=== PATIENT | female | born 1955 | race Caucasian/White ===

== ENCOUNTER 2019-10-10 13:41 | Outpatient (CLI) | payer MEDICARE, SELFPAY ==
--- NOTE | ~2019-10-10 | CT_ITS ---
EXAMINATION: CT abdomen pelvis wo/w con DATE: 10/10/2019 14:37 INDICATION: Microscopic hematuria TECHNIQUE: Computed tomography (CT) of the abdomen and pelvis was performed without and subsequently with 130 cc Omnipaque 350 intravenous contrast. Automated exposure control and iterative reconstructi on technique were employed. Exam dose: 574.74 mGy-cm total exam DLP. COMPARISON: 12/21/2018 diagnostic right digital mammogram and right breast ultrasound examination FINDINGS: There is discoid atelectasis or more likely scarring at the lung bases. Emphysematous changes of the lungs. 5 mm probable calcified pulmonary granuloma at the posterior lateral left lung base, left lower lobe. Chronic seroma at the posterior aspect of the right breast. Normal heart size. No pericardial or pleural effusion. The liver, gallbladder, bile ducts, spleen, pancreas and pancreatic duct are unremarkable. Normal mor phology of the adrenal glands. There is an approximately 4 x 6 x 5.6 millimeter nonobstructing left renal calculus. No other urinary tract calculus or hydroureteronephrosis. There are several right renal cysts measuring up to approximately 1 cm maximal dimension. No filling defect of the renal collecting systems, ureters or urinary bladder is evident. No urinary bladder wal l thickening. Bilateral ureteral jets. There is extensive calcification of the abdominal aorta and iliac and femoral arteries. No intraperit buchanan or retroperitoneal or pelvic mass lesion or adenopathy or ascites is detected. No bowel obstruction or intraperitoneal free air. Bilateral sacroiliac ankylosis. There is squaring of the anterior cortex of the lower thoracic and upper lumbar vertebral bodies with ossification along the anterior longitudinal ligament. Findings suggest ankylosing spondylitis or si milar spondyloarthropathy. Prominent degenerative disc disease at L3-4. Diffuse osteopenia. IMPRESSION: Up to 6 mm nonobstructing left renal calculus Chronic right breast seroma Emphysema, probable discoid scarring at the lung bases Several renal cysts measuring up to approximately 1 cm Ankylosing spondylitis or similar spondyloarthropathy Reviewed, dictated and finalized at [facility]. Reviewed, dictated and finalized at location B. 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
[2019-10-10 14:17] LABS: Estimated Glomerular Filt Rate > 60
== END 2019-10-10 13:42 | disposition home or self-care (01) ==
LOC: ANHIMG 13:43
PROVIDERS: PCP Internal Medicine; Visit Provider Urology
DX: R31.29 Other microscopic hematuria (principal); N20.0 Calculus of kidney; J43.9 Emphysema, unspecified; N28.1 Cyst of kidney, acquired
CPT/HCPCS: 36415; 74178; Q9967

== ENCOUNTER 2019-11-26 11:16 | Outpatient (CLI) | payer MEDICARE, SELFPAY ==
--- NOTE | ~2019-11-26 | XR_ITS ---
EXAMINATION: XR abdomen/kub 1V INDICATION: Calculus of kidney TECHNIQUE: Supine views of the abdomen were obtained on 2 radiographs. COMPARISON: CT, 10/10/2019 FINDINGS: A 6 mm stone projects in the left kidney lower pole. No additional urinary tract calculi ar e identified. The bowel gas pattern is normal. There is severe lumbar spondylosis. Moderate osteoarth ritis is noted in the hips. IMPRESSION: 1. 6 mm left kidney stone. Reviewed, dictated and finalized at location A. IMPRESSION: 1. 6 mm left kidney stone.
== END 2019-11-26 11:17 | disposition home or self-care (01) ==
LOC: ANHIMG 11:23
PROVIDERS: PCP Internal Medicine; Visit Provider Urology
DX: N20.0 Calculus of kidney (principal)
CPT/HCPCS: 74018

== ENCOUNTER 2019-12-26 09:26 | Outpatient (CLI) | payer MEDICARE, SELFPAY ==
--- NOTE | ~2019-12-26 | XR_ITS ---
XR abdomen/kub 1V DATE: 12/26/2019 09:48 INDICATION: Left renal stone TECHNIQUE: AP projection, 2 views COMPARISON: 11/26/2019 KUB FINDINGS: Persistent approximately 5-6 mm calcified calculus overlying the mid left kidney. This is u nchanged in size, shape and position compared to 11/26/2019. There is a moderately prominent symmetric and well within the colon. No bowel obstruction is evident. The psoas shadows are intact. No visceromegaly is detected. Mild to moderate osteopenia. Degenerative changes of the lumbar spine. IMPRESSION: Persistent approximately 5-6 mm calcified left renal calculus Reviewed, dictated and finalized at [facility]. Reviewed, dictated and finalized at location A.
== END 2019-12-26 09:27 | disposition home or self-care (01) ==
LOC: ANHIMG 09:32
PROVIDERS: PCP Internal Medicine; Visit Provider Nurse Practitioner Adult Health
DX: N20.0 Calculus of kidney (principal)
CPT/HCPCS: 74018

== ENCOUNTER 2020-01-14 07:53 | Outpatient (CLI) | payer MEDICARE, SELFPAY ==
--- NOTE | 2020-01-14 08:16 | ECG_ITS ---
Measurements Intervals Ellery Rate: 68 P: 80 ME: 164 QRS: -53 QRSD: 93 T: 66 QT: 431 QTc: 459 Interpretive Statements SINUS RHYTHM LEFT ANTERIOR FASCICULAR BLOCK CANNOT RULE OUT SEPTAL INFARCT, AGE INDETERMINATE ABNORMAL ECG Electronically Signed On 01-14-2020 8:33:17 CDT by Del Ogden D.O.
== END 2020-01-14 07:54 | disposition home or self-care (01) ==
PROVIDERS: PCP Internal Medicine; Referring Provider Anesthesiology; Visit Provider Urology
DX: N20.0 Calculus of kidney (principal); F17.200 Nicotine dependence, unspecified, uncomplicated; I44.4 Left anterior fascicular block
CPT/HCPCS: 87086; 93005

== ENCOUNTER 2020-01-15 00:10 | Outpatient (CLI) | payer MEDICARE, SELFPAY ==
[2020-01-15 17:33] LABS: SARS-CoV-2 RNA PCR Negative
== END 2020-01-15 00:11 | disposition home or self-care (01) ==
LOC: ANHCOVIDDT 00:11
PROVIDERS: PCP Internal Medicine; Visit Provider Urology
DX: Z01.812 Encounter for preprocedural laboratory examination (principal); Z20.828 Contact with and (suspected) exposure to other viral communicable diseases
CPT/HCPCS: 87635; C9803; U0003

== ENCOUNTER 2020-01-17 01:27 | Day surgery (SDC) | payer MEDICARE, SELFPAY ==
[2020-01-13 18:38] VITALS: BMI 20.7
[2020-01-17] VITALS (8 sets, daily range): BP systolic 135–166; BP diastolic 65–95; PULSE 61–76; RESP 10–17; TEMP 36.6–37; O2SAT 92–100
--- NOTE | ~2020-01-17 | XR_ITS ---
EXAMINATION: XR retrograde pyelo w/stent LT DATE: 01/17/2020 12:46 INDICATION: Left kidney stone. TECHNIQUE: 12 intraoperative fluoroscopic views of the abdomen and pelvis were obtained. I was not p resent. Fluoroscopy exposure time was 47 seconds. COMPARISON: CT abdomen and pelvis 10/10/2019 FINDINGS: There is a parenchymal calcification in left kidney. The final images demonstrate a left in ternal ureteral stent in expected position. IMPRESSION: 1. Parenchyma calcification in left kidney. 2. Left internal ureteral stent in expected position. Reviewed, dictated and finalized at location A.
[2020-01-17] MEDS: LACTATED RINGERS 1,000 ML 30 ML IV CONT (10:10)
--- NOTE | 2020-01-17 10:10 | WPDHPUPDATE1 ---
History and Physical Update Update Date/Time: 01/17/20 10:10 History and Physical has been reviewed, including an updated exam of the patient. There are NO changes in the patient's condition. Risks, benefits, and alternatives have been discussed and questions answered. Patient agrees to proceed with procedure.
--- NOTE | 2020-01-17 10:31 | WPDANESEPPF ---
Anes - Initial Pre Proc Eval Procedure: Operation Date: 01/17/20 12:00 Proposed Procedures p Cystoscopy, Left Ureteroscopy, Left Retrograde Pyelogram - Augusto Terry MD s Holmium Laser Procedure With Stent Placement - Augusto Terry MD Date/Time: 01/17/20 10:31 Surgeon: Augusto Terry MD Pre Op Diagnosis: Left Renal Stone N20.1 Patient Data Age: 64 Gender: F Height: 5 ft 5 in Weight: 56 kg Last Vital Signs Temp 98 F 01/17/20 10:28 Pulse 63 01/17/20 10:28 Resp 16 01/17/20 10:28 BP 146/93 H 01/17/20 10:28 Pulse Ox 95 01/17/20 10:28 Allergies Allergy/AdvReac Type Severity Reaction Status Date / Time No Known Allergies Allergy Verified 01/17/20 09:47 Home Medications Medication Instructions Recorded Confirmed Type albuterol sulfate [Ventolin HFA] 90 mcg INHALATION DIRECTED 07/18/19 01/13/20 History alprazolam 1 mg PO DAILY 07/18/19 01/13/20 History atorvastatin 20 mg PO DAILY 07/18/19 01/13/20 History lamotrigine 100 mg PO BID 07/18/19 01/17/20 History levetiracetam 500 mg PO BID 07/18/19 01/13/20 History quetiapine 200 mg PO DAILY 07/18/19 01/13/20 History trazodone 200 mg PO DAILY 07/18/19 01/13/20 History valacyclovir 500 mg PO DAILY 07/18/19 01/13/20 History venlafaxine 37.5 mg PO DAILY 07/18/19 01/13/20 History baclofen 10 mg tablet 10 mg PO BID #60 tablet 10/08/19 01/13/20 Rx leflunomide 20 mg tablet 20 mg PO DAILY #30 tablet 10/08/19 01/13/20 Rx inpxmsrcmre-wxtvbdpql-uuvnugfs 1 inh INHALATION DAILY 01/13/20 01/17/20 History [Trelegy Ellipta] secukinumab [Cosentyx] 300 mg SUBCUT [id number] 06/08/20 06/08/20 History Patient hx anesthesia problems: none Family hx anesthesia problems: none PMFSH Past Medical History Medical History (Updated 01/17/20 @ 10:31 by Madhu Lucas MD) Ankylosing spondylitis of lumbosacral region (~1980) Anxiety Bipolar 1 disorder COPD (chronic obstructive pulmonary disease) Current smoker Generalized osteoarthritis of multiple sites H/O malignant neoplasm of breast Hypertension Vitamin D deficiency Social History Social History Years smoked: 50 Smoking status: Current every day smoker Alcohol intake: current Gender identity (if verbalized by the patient): Female Anes - Eval Final PreProcedure Day of Procedure 01/17/20 10:31 Patient weight: normal Heart: regular rate and rhythm Lungs: clear to auscultation Airway: Mallampati scale class II Neurological: alert and oriented Last oral intake: >/= 8 hours ASA classification: III Emergent: no Anesthetic plan: proceed Anesthesia type and monitoring: general LMA and standard monitoring Informed Consent: The patient's anesthetic plan and its attendant risks and benefits were discussed with the patient/family/POA. Questions were solicited and answers provided to the satisfaction of the patient/family/POA.
[2020-01-17] MEDS: ceFAZolin 2 GM/D5W 50 ML 2 GM/50 ML BAG IVPB (12:04)
[2020-01-17] MEDS: LIDOCAINE HCL 2% GEL UROJET 10 ML PKG MUCOUS MEM (12:38)
--- NOTE | 2020-01-17 12:46 | PM.PROC ---
Procedure Note - Detailed Date of procedure: 01/17/20 Pre-op diagnosis: Left Renal Stone N20.1 Post-op diagnosis: other (Calculus is outside the collecting system) Procedure performed: Cystoscopy, left retrograde pyelogram, left ureteroscopy, left stent placement Description of procedure: Patient was taken the operative suite and correctly identified. Once anesthesia was obtained she was placed in the dorsal lithotomy position and prepped and draped usual sterile fashion. His 22 Mohawk scope was inserted in the bladder. There are no tumors noted. The left ureteral orifice was cannulated with a Bentson wire. We then dilated with a 10 dilator and placed a ureteral access sheath in. Mini flexible ureteral scope was inserted all way up to the kidney. We inspected every calyx. There were no stones noted. Using fluoroscopy we spent a lot of extra time and found a very somewhat tight mid pole calyx which we put the scope into again there was no stone there. Under fluoroscopy it appeared that the stone was outside the calyx. This was concerned by doing a pyelogram. At this point the procedure was terminated. A 4.8 contour stent was placed with the proximal end coiled in the renal pelvis and the distal in the bladder. 2% viscous lidocaine was inserted urethra patient is taken recovery stable condition. She will follow up in a week's time for stent removal. Anesthesia: GLMA Surgeon: Augusto Terry MD Drains: Yes Packing: No Pathology: none sent Complications: No immediate complications Condition: stable Disposition: PACU
--- NOTE | 2020-01-17 13:36 | SUR.PHASEI ---
[id number] REPORT GIVEN TO Ashley CRESPO RN
[2020-01-17] MEDS: HYOSCYAMINE SULFATE 0.125 MG TABLET PO (13:59)
== END 2020-01-17 14:35 | disposition home or self-care (01) ==
PROVIDERS: PCP Internal Medicine; Visit Provider Urology
PROC: (CPT 52352; principal; 2020-01-17 12:00)
DX: N20.0 Calculus of kidney (principal); J44.9 Chronic obstructive pulmonary disease, unspecified; I10 Essential (primary) hypertension; E55.9 Vitamin D deficiency, unspecified; F31.9 Bipolar disorder, unspecified; F41.9 Anxiety disorder, unspecified; M19.90 Unspecified osteoarthritis, unspecified site; Z85.3 Personal history of malignant neoplasm of breast; F17.200 Nicotine dependence, unspecified, uncomplicated
CPT/HCPCS: 52332; 74420; A9270; C1758; C1769; C1894; C2617; J0690; J1100; J2405; J2704; J3010; J7120; Q9966

== ENCOUNTER 2020-02-04 14:27 | Outpatient (CLI) | payer MEDICARE, SELFPAY ==
--- NOTE | ~2020-02-04 | XR_ITS ---
EXAMINATION: XR abdomen/kub 1V INDICATION: Left ureteral stone, recent lithotripsy TECHNIQUE: Supine views of the abdomen were obtained on 2 radiographs. COMPARISON: 12/26/2019 FINDINGS: An unchanged 6 mm calcification projects in the expected location of the left mid kidney. N o stones are identified in the right kidney or the expected locations of the ureters or bladder. The bowel gas pattern is normal. There are no dilated loops of bowel. The visualized lung bases are clear . IMPRESSION: 1. Likely unchanged 6 mm left kidney stone. Reviewed, dictated and finalized at location A.
== END 2020-02-04 14:28 | disposition home or self-care (01) ==
LOC: ANHIMG 14:32
PROVIDERS: PCP Internal Medicine; Visit Provider Urology
DX: N20.0 Calculus of kidney (principal)
CPT/HCPCS: 74018

== ENCOUNTER 2020-04-10 11:36 | Outpatient (CLI) | payer MEDICARE, SELFPAY ==
[2020-04-10 12:17] LABS: Hematocrit 37.2 % (37.0-47.0); Hemoglobin 12.5 g/dL (12.0-15.0); Mean Corpuscular HGB Conc 33.6 g/dl (32-36); Mean Corpuscular Hemoglobin 31.3 pg (26-34); Mean Platelet Volume 11.1 fl (7.4-10.4); Platelet Count Result 275 k/mm3 (150-375); Red Cell Distribution Width 13.6 % (11.5-14.5); White Blood Count 10.1 K/mm3 (4.5-10.0)
[2020-04-10 13:12] LABS: Alanine Aminotransferase 19 U/L (4-35); Albumin Level 4.4 g/dL (3.5-5.1); Alkaline Phosphatase 91 U/L (38-126); Anion Gap 9 mmol/L (8-16); Aspartate Amino Transferase 27 U/L (14-36); Bilirubin,Total 0.6 mg/dL (0.2-1.3); Blood Urea Nitrogen 13 mg/dL (7-17); CRP < 0.5 mg/dL (<1.0); Calcium 9.6 mg/dL (8.4-10.2); Carbon Dioxide 25 mmol/L (22-30); Chloride 104 mmol/L (98-107); Estimated Glomerular Filt Rate > 60; Glucose 104 mg/dL (65-105); Potassium 4.2 mmol/L (3.4-5.0); Sodium 138 mmol/L (137-145)
[2020-04-10 13:24] LABS: Erythrocyte Sedimentation Rate 26 mm/hr (0-20)
== END 2020-04-10 11:37 | disposition home or self-care (01) ==
PROVIDERS: PCP Internal Medicine; Visit Provider Internal Medicine
DX: M19.90 Unspecified osteoarthritis, unspecified site (principal); M45.7 Ankylosing spondylitis of lumbosacral region
CPT/HCPCS: 36415; 80053; 85027; 85652; 86140

== ENCOUNTER 2020-04-21 13:17 | Outpatient (CLI) | payer MEDICARE, SELFPAY ==
--- NOTE | ~2020-04-21 | MMUS_ITS ---
EXAMINATION: MM diagnostic ysabel BI w bibi, US breast BI complete HISTORY: 6:00 left breast lump TECHNIQUE: ML, MLO and cc 3-D tomosynthesis images of both breasts were performed and synthetic 2-D i mages were generated. Bilateral rotated lateral cc views. CAD analysis was submitted and interpreted. High resolution bilateral complete breast ultrasound was performed. COMPARISON: 06/06/2019 diagnostic left digital mammogram 12/21/2018 diagnostic right digital mammogram / right digital screening mammogram 09/24/2018 diagnostic left digital mammogram 11/23/2017 diagnostic right implant digital mammogram and limited right breast ultrasound 10/27/2017 bilateral digital screening implant mammogram 05/05/2016 bilateral diagnostic implant digital mammogram BREAST PARENCHYMAL COMPOSITION: The breasts are heterogeneously dense, which may obscure small masses . FINDINGS: MAMMOGRAPHIC FINDINGS: There is a large opacity in the area of the previously removed right breast implant, measuring up to 7.4 cm vertical dimension, likely a seroma. There is bilateral architectural distortion. There is a history of right partial mastectomy for breas t cancer in 1996. There are 2 biopsy markers on the left; history of previous benign left breast biop sy. Multiple left benign oil cysts are noted. ULTRASOUND: Bilateral complete breast ultrasound examination was performed. There is a large seroma in the posterior right breast. There are bilateral breast cysts. At 4:00 left breast 2 cm from the nipple there is ill-defined irregular hypoechogenicity with shadowi ng, possibly postoperative change/scarring. Ultrasound-guided biopsy is recommended. At 4:00 left breast 4 cm from the nipple there is a 1.8 cm lobular heterogeneous solid mass; ultrasou nd-guided biopsy is recommended. IMPRESSION: 1. Sonographic abnormalities at left breast 4:00 2 cm from nipple and 4 cm from nipple 2. Ultrasound-guided biopsy recommended at left breast 4:00 2 cm from nipple and 4 cm from nipple BI-RADS category 4, suspicious findings. Reviewed, dictated and finalized at location A. IMPRESSION: 1. Sonographic abnormalities at left breast 4:00 2 cm from nipple and 4 cm from nipple 2. Ultrasound-guided biopsy recommended at left breast 4:00 2 cm from nipple an d 4 cm from nipple BI-RADS category 4, suspicious findings.
--- NOTE | ~2020-04-21 | DEXA_ITS ---
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 Exam Date: April 21, 2020 Accession number: [id number] Bone Density: Region BMD T-score Z-score Classification AP Spine (L1, L2, L3) 1.029 0.1 1.9 Normal Femoral Neck (Left) 0.596 -2.3 -0.7 Osteopenia Total Hip (Left) 0.708 -1.9 -0.6 Osteopenia Total Hip Bilateral Avg 0.705 -2.0 -0.7 Osteopenia Femoral Neck (Right) 0.637 -1.9 -0.3 Osteopenia Total Hip (Right) 0.701 -2.0 -0.7 Osteopenia World Health Organization criteria for BMD impression classify patients as: Normal (T-score at or above -1.0), Osteopenia (T-score between -1.0 and -2.5), or Osteoporosis (T-score at or below -2.5). 10-year Fracture Risk(1): Major Osteoporotic Fracture 19% Hip Fracture 5.9% Reported Risk Factors: [place] (), Neck BMD=0.596, BMI=21.5, previous fracture, smoking (1) FRAX(R) Version 3.08. Fracture probability calculated for an untreated patient. Fracture probability may be lower if the patient has received treatment. Clinical Information Provided by Patient: Has had a low trauma fracture Smokes Has used the following medications: Vitamin D, Calcium Has the following medical conditions: Asthma or Emphysema, Cancer, Hysterectomy Patient maximum height was 65 Menopause Age: 48 No regular weight bearing exercise Drinks caffeinated beverages Onset of menses at age 11 Number of children 3 Impression: The patient has low bone mass, based on the Left Femoral Neck T-score. The patient has an estimated ten-year risk of hip fracture of 5.9% and an estimated ten-year risk of major fracture of 19%, based on the WHO FRAX algorithm. The patient has risk factors, including: smoking, previous fracture. Discussion: BONE DENSITY IS LOW AT ONE OR MORE SKELETAL SITES. THE PATIENT'S BMD AND CLINICAL RISK FACTORS CONTRIBUTE TO THIS PATIENT'S INCREASED RISK OF FRACTURE. This patient's lowest T-score is low at one or more skeletal sites. It meets the World Health Organization's (WHO) criteria for ?low bone mass? (T-score between -1.0 and -2.5). The patient's 10-year risk of hip fracture as calculated by FRAX exceeds the threshold where pharmacological therapy is recommended by the National Osteoporosis Foundation (NOF). However, all treatment decisions require clinical judgment and consideration of individual patient factors, including patient preferences, comorbidities, previous drug use, risk factors not captured in the FRAX model (e.g., frailty, falls, vitamin D deficiency, increased bone turnover, interval significant decline in bone density) a
== END 2020-04-21 13:18 | disposition home or self-care (01) ==
LOC: ANHIMG 13:18
PROVIDERS: PCP Internal Medicine; Visit Provider Nurse Practitioner
DX: Z78.0 Asymptomatic menopausal state (principal); N63.20 Unspecified lump in the left breast, unspecified quadrant; R92.8 Other abnormal and inconclusive findings on diagnostic imaging of breast; M85.852 Other specified disorders of bone density and structure, left thigh; M85.851 Other specified disorders of bone density and structure, right thigh
CPT/HCPCS: 76641; 77062; 77066; 77080; G0279

== ENCOUNTER 2020-04-29 14:08 | Outpatient (CLI) | payer MEDICARE, SELFPAY ==
[2020-04-29 14:27] LABS: Basophils Absolute Auto 0.1 K/mm3 (0.0-0.1); Basophils Percent Auto 0.5 % (0.2-1.2); Eosinophils Absolute Auto 0.1 K/mm3 (0-0.3); Eosinophils Percent Auto 0.7 % (0-4.4); Hematocrit 38.4 % (37.0-47.0); Immature Granulocyte Absolute 0.03 K/mm3 (0.00-0.031); Immature Granulocyte Percent A 0.3 % (0-0.5); Lymphocytes Absolute Auto 2.17 K/mm3 (0.9-3.2); Lymphocytes Percent Auto 19.7 % (18.3-44.2); Mean Corpuscular HGB Conc 33.9 g/dl (32-36); Mean Corpuscular Hemoglobin 32.2 pg (26-34); Mean Platelet Volume 10.7 fl (7.4-10.4); Monocytes Absolute Auto 0.9 K/mm3 (0.1-0.6); Monocytes Percent Auto 8.2 % (2.6-8.5); Neutrophils Absolute Auto 7.8 K/mm3 (1.3-6.7); Neutrophils Percent Auto 70.6 % (45.5-73.1); Platelet Count Result 290 k/mm3 (150-375); Red Blood Count 4.04 M/mm3 (4.2-5.4); Red Cell Distribution Width 14.2 % (11.5-14.5)
[2020-04-29 14:31] LABS: Blood Urea Nitrogen 12 mg/dL (8-26); Carbon Dioxide 24 mmol/L (22-30); Chloride 106 mmol/L (98-109); Estimated Glomerular Filt Rate > 60; Glucose 106 mg/dL (70-105); Potassium 3.5 mmol/L (3.5-4.9); Sodium 141 mmol/L (138-146)
[2020-04-29 17:37] LABS: Alanine Aminotransferase 20 U/L (4-35); Albumin Level 4.8 g/dL (3.5-5.1); Alkaline Phosphatase 94 U/L (38-126); Anion Gap 9 mmol/L (8-16); Aspartate Amino Transferase 30 U/L (14-36); Bilirubin,Total 0.3 mg/dL (0.2-1.3); Blood Urea Nitrogen 13 mg/dL (7-17); Calcium 10.4 mg/dL (8.4-10.2); Carbon Dioxide 24 mmol/L (22-30); Chloride 106 mmol/L (98-107); Estimated Glomerular Filt Rate > 60; Glucose 109 mg/dL (65-105); Potassium 3.8 mmol/L (3.4-5.0); Sodium 139 mmol/L (137-145)
[2020-05-05 13:11] LABS: CA 27.29 15 U/mL (<38)
== END 2020-04-29 14:09 | disposition home or self-care (01) ==
PROVIDERS: PCP Internal Medicine; Visit Provider Internal Medicine Hematology & Oncology
DX: C50.911 Malignant neoplasm of unspecified site of right female breast (principal)
CPT/HCPCS: 36415; 80048; 80053; 85025; 86300

== ENCOUNTER 2020-05-15 13:35 | Outpatient (CLI) | payer MEDICARE, SELFPAY ==
--- NOTE | ~2020-05-15 | MR_ITS ---
EXAMINATION: MR lumbar spine wo/w con, MR sacroiliac jts wo/w con DATE: 05/15/2020 15:42 INDICATION: Ankylosing spondylitis TECHNIQUE: 1. Magnetic resonance imaging (MRI) of the lumbar spine was performed without and with 10 mL Multihan ce intravenous contrast. Sequences included sagittal T2-weighted FSE, sagittal T2-weighted FS FSE, an d sagittal and axial T1-weighted FSE. Postcontrast sequences included axial T2-weighted FSE, sagittal T1-weighted FSE, and axial and sagittal T1-weighted FS FSE. 2. MRI of the sacroiliac joints was performed without and with 10 mL MultiHance intravenous contrast utilizing the same contrast bolus. Sequences included sagittal PD-weighted FS FSE, oblique coronal T2 -weighted FS FSE, oblique coronal T1-weighted SE, oblique coronal T2-weighted FSE, oblique axial T2- weighted FS FSE, oblique axial T1-weighted SE, oblique axial T2-weighted FSE, oblique axial T1-weight ed FS FSE and postcontrast oblique coronal and oblique axial T1-weighted FS FSE. COMPARISON: CT abdomen and pelvis dated 10/10/2019 FINDINGS: Lumbar spine: Mild thoracolumbar levocurvature. Sagittal alignment is normal.. Vertebral body heights are normal. S chmorl's nodes at the anterior and inferior endplates on either side of the L3-L4 disc space. There i s squaring of the anterior margins of the T11-L2 vertebral bodies with intervening thin anterior synd esmophytes evident on prior CT consistent with ankylosing spondylitis. There is prominent region of i ncreased fluid signal and enhancement along the left anterior inferior aspect of the L4 vertebral bod y surrounding small linear region of low signal intensity is a compression fracture line underlying t he left anterior aspect of the inferior endplate. Moderate to severe left-sided predominant disc heig ht loss with fibrovascular degenerative endplate changes at L3-L4. The conus medullaris terminates at L1-L2. There is normal signal in the caudal spinal cord. Paravertebral soft tissues are unremarkable . The following disc levels are specifically discussed: T12-L1: The disc does not extend beyond the endplate margin. Bilateral facet joints are fused. There is no neural foraminal stenosis. There is no central canal stenosis. L1-L2: The disc does not extend beyond the endplate margin. Bilateral facet joints are fused, more ad vanced on the left. There is no neural foraminal stenosis. There is no central canal stenosis. L2-L3: Mild bilateral foraminal disc protrusions. There is hypertrophy of the ligamentum flavum. The re is mild left and moderate right facet joint osteoarthritis. There is mild right and minimal left n eural foraminal stenosis. There is mild central canal stenosis. L3-L4: Disc is bulging with annular fissure. There is hypertrophy of the ligamentum flavum. There is moderate to severe bilateral facet joint osteoarthritis. There is moderate right and mild to moderate left neural foraminal stenosis. There is mild central canal stenosis along with narrowing of the lat eral recesses, right greater than left. L4-L5: Disc is mildly bulging. There is hypertrophy of the ligamentum flavum. There is moderate bilat eral facet joint osteoarthritis. There is moderate bilateral neural foraminal stenosis. There is mild central canal stenosis. L5-S1: Disc is mildly bulging. There is mild to moderate bilateral facet joint osteoarthritis. There is mild right and mild to moderate left neural foraminal stenosis. There is no central canal stenosis . Sacroiliac joints: Alignment is normal. No fracture. There is ankylosis across the bilateral sacroiliac joints. Bone mar row signal is normal. Normal bone marrow signal. Small amount of ascites in the cul-de-sac. Soft tiss ues in the posterior pelvis are unremarkable. No pathologically enlarged pelvic lymphadenopathy. IMPRESSION: 1. Multiple bridging syndesmophytes in the lower thoracic and upper ray
== END 2020-05-15 13:36 | disposition home or self-care (01) ==
LOC: ANHIMG 13:48
PROVIDERS: PCP Internal Medicine; Visit Provider Internal Medicine
DX: M45.7 Ankylosing spondylitis of lumbosacral region (principal)
CPT/HCPCS: 72158; 72197; A9577

== ENCOUNTER 2020-05-19 09:45 | Outpatient (CLI) | payer MEDICARE, SELFPAY ==
--- NOTE | ~2020-05-19 | MMUS_ITS ---
US breast biopsy LT w image, MM post biopsy invasive LT EXAMINATION: US GUIDED NEEDLE BIOPSY WITH VAC UUM ASSISTANCE DATE: 05/19/2020 11:18 CDT INDICATION: Left breast masses seen on prior examination. Ultrasound-guided core biopsy is requested to evaluate for malignancy. TECHNIQUE AND FINDINGS: The risks and potential benefits of the procedure were discussed with the patient, and written inform ed consent was obtained. After sterile preparation of the left breast, 1% lidocaine was utilized for local anesthesia. 1% lidocaine with epinephrine was used for deep anesthesia. 2 separate areas of abnormality are identified in the left breast at 4:00, 2 and 4 cm from the nipple . A 10G vacuum-assisted biopsy gun needle was advanced through to the outer edge of the region of int erest from a lateral approach utilizing sonographic guidance. A total of three tissue core samples w ere obtained from each area of interest. An Inrad tissue marker clips were then placed at the biopsy sites. Hemostasis was achieved. The patient tolerated procedure well and there was no evidence of immediate complication. The patien t was given verbal instructions partly is from the department. Left breast mammograms to document ti ssue marker clip placement. The tissue samples were submitted to surgical pathology for histologic an alysis. IMPRESSION: 1. Successful ultrasound-guided vacuum-assisted biopsies of left breast masses with tissue marker pl acement. Please refer to pathology report for histologic analysis. Reviewed, dictated and finalized at location A. IMPRESSION: 1. Successful ultrasound-guided vacuum-assisted biopsies of left breast masses with tissue marker placement. Please refer to pathology report for histologic analysis.
== END 2020-05-19 09:46 | disposition home or self-care (01) ==
LOC: ANHIMG 09:56
PROVIDERS: PCP Internal Medicine
DX: R92.8 Other abnormal and inconclusive findings on diagnostic imaging of breast (principal); N63.23 Unspecified lump in the left breast, lower outer quadrant
CPT/HCPCS: 19083; 88305; 88342; A4648

== ENCOUNTER 2020-07-03 10:25 | Outpatient (CLI) | payer MEDICARE, SELFPAY ==
[2020-07-03 10:58] LABS: Basophils Absolute Auto 0.1 K/mm3 (0.0-0.1); Basophils Percent Auto 0.7 % (0.2-1.2); Eosinophils Absolute Auto 0.1 K/mm3 (0-0.3); Eosinophils Percent Auto 1.1 % (0-4.4); Hematocrit 37.6 % (37.0-47.0); Hemoglobin 12.3 g/dL (12.0-15.0); Immature Granulocyte Absolute 0.04 K/mm3 (0.00-0.031); Immature Granulocyte Percent A 0.4 % (0-0.5); Lymphocytes Absolute Auto 1.95 K/mm3 (0.9-3.2); Lymphocytes Percent Auto 19.5 % (18.3-44.2); Mean Corpuscular HGB Conc 32.7 g/dl (32-36); Mean Corpuscular Hemoglobin 32.4 pg (26-34); Mean Corpuscular Volume 98.9 fl (80-100); Mean Platelet Volume 11.2 fl (7.4-10.4); Monocytes Percent Auto 10.4 % (2.6-8.5); Neutrophils Absolute Auto 6.8 K/mm3 (1.3-6.7); Neutrophils Percent Auto 67.9 % (45.5-73.1); Platelet Count Result 243 k/mm3 (150-375); Red Cell Distribution Width 14.1 % (11.5-14.5)
[2020-07-03 12:15] LABS: Add Urine Microscopic? YES; Appearance Urine Cloudy (Clear); Bilirubin Urine Negative (Negative); Blood Urine Negative (Negative); Color Urine Yellow (Yellow); Glucose Urine UA Negative (Negative); Ketones Urine Negative (Negative); Leukocyte Esterase Ur Negative LEU/UL (Negative); Mucus Urine Rare /lpf; Nitrate Urine Negative (Negative); Protein Urine Negative (Negative); RBC Urine 0-2 /hpf (0-2); Specific Grav Ur 1.012 (1.001-1.035); Squamous Epithelial Cell Urine Rare /hpf (Few); Urobilinogen Urine Negative mg/dL (<2.0); WBC Urine 0-3 /hpf
[2020-07-03 12:43] LABS: Erythrocyte Sedimentation Rate 22 mm/hr (0-20)
[2020-07-03 12:49] LABS: Alanine Aminotransferase 15 U/L (4-35); Albumin Level 3.9 g/dL (3.5-5.1); Alkaline Phosphatase 82 U/L (38-126); Anion Gap 7 mmol/L (8-16); Aspartate Amino Transferase 26 U/L (14-36); Bilirubin,Total 0.2 mg/dL (0.2-1.3); Blood Urea Nitrogen 15 mg/dL (7-17); Calcium 9.8 mg/dL (8.4-10.2); Carbon Dioxide 26 mmol/L (22-30); Chloride 107 mmol/L (98-107); Estimated Glomerular Filt Rate > 60; Glucose 121 mg/dL (65-105); Potassium 4.1 mmol/L (3.4-5.0); Sodium 140 mmol/L (137-145)
== END 2020-07-03 10:26 | disposition home or self-care (01) ==
PROVIDERS: PCP Internal Medicine; Visit Provider Internal Medicine
DX: M45.7 Ankylosing spondylitis of lumbosacral region (principal); Z79.899 Other long term (current) drug therapy; M06.00 Rheumatoid arthritis without rheumatoid factor, unspecified site
CPT/HCPCS: 36415; 80053; 81001; 85025; 85652

== ENCOUNTER 2020-07-16 10:05 | Outpatient (CLI) | payer MEDICARE, SELFPAY ==
[2020-07-16 10:24] LABS: Basophils Absolute Auto 0.1 K/mm3 (0.0-0.1); Basophils Percent Auto 0.6 % (0.2-1.2); Eosinophils Absolute Auto 0.1 K/mm3 (0-0.3); Eosinophils Percent Auto 0.9 % (0-4.4); Hematocrit 38.9 % (37.0-47.0); Immature Granulocyte Absolute 0.04 K/mm3 (0.00-0.031); Immature Granulocyte Percent A 0.3 % (0-0.5); Lymphocytes Absolute Auto 1.92 K/mm3 (0.9-3.2); Lymphocytes Percent Auto 16.7 % (18.3-44.2); Mean Corpuscular HGB Conc 33.4 g/dl (32-36); Mean Corpuscular Hemoglobin 32.3 pg (26-34); Mean Corpuscular Volume 96.5 fl (80-100); Mean Platelet Volume 11.2 fl (7.4-10.4); Monocytes Percent Auto 8.9 % (2.6-8.5); Neutrophils Absolute Auto 8.4 K/mm3 (1.3-6.7); Neutrophils Percent Auto 72.6 % (45.5-73.1); Platelet Count Result 272 k/mm3 (150-375); Red Blood Count 4.03 M/mm3 (4.2-5.4); Red Cell Distribution Width 13.8 % (11.5-14.5); White Blood Count 11.5 K/mm3 (4.5-10.0)
[2020-07-16 12:22] LABS: Alanine Aminotransferase 15 U/L (4-35); Albumin Level 4.1 g/dL (3.5-5.1); Alkaline Phosphatase 86 U/L (38-126); Anion Gap 10 mmol/L (8-16); Aspartate Amino Transferase 28 U/L (14-36); Bilirubin,Total 0.4 mg/dL (0.2-1.3); Blood Urea Nitrogen 20 mg/dL (7-17); Calcium 9.8 mg/dL (8.4-10.2); Carbon Dioxide 25 mmol/L (22-30); Chloride 106 mmol/L (98-107); Estimated Glomerular Filt Rate > 60; Glucose 124 mg/dL (65-105); Potassium 4.1 mmol/L (3.4-5.0); Sodium 141 mmol/L (137-145)
[2020-07-21 14:05] LABS: CA 15-3 3 U/mL (<32)
== END 2020-07-16 10:06 | disposition home or self-care (01) ==
PROVIDERS: PCP Internal Medicine; Visit Provider Internal Medicine Hematology & Oncology
DX: C50.411 Malignant neoplasm of upper-outer quadrant of right female breast (principal); Z17.0 Estrogen receptor positive status [ER+]
CPT/HCPCS: 36415; 80053; 85025; 86300

== ENCOUNTER 2021-02-10 12:59 | Outpatient (CLI) | payer MEDICARE, SELFPAY ==
[2021-02-10 13:22] LABS: Hematocrit 39.9 % (37.0-47.0); Hemoglobin 13.3 g/dL (12.0-15.0); Mean Corpuscular HGB Conc 33.3 g/dl (32-36); Mean Corpuscular Hemoglobin 32.3 pg (26-34); Mean Corpuscular Volume 96.8 fl (80-100); Mean Platelet Volume 11.5 fl (7.4-10.4); Platelet Count Result 263 k/mm3 (150-375); Red Blood Count 4.12 M/mm3 (4.2-5.4); Red Cell Distribution Width 13.6 % (11.5-14.5); White Blood Count 11.2 K/mm3 (4.5-10.0)
[2021-02-10 13:51] LABS: Add Urine Microscopic? NO; Appearance Urine Clear (Clear); Color Urine Light Yellow (Yellow); Protein Urine Negative (Negative); Specific Grav Ur 1.005 (1.001-1.035)
[2021-02-10 13:52] LABS: Bilirubin Urine Negative (Negative); Blood Urine Negative (Negative); Glucose Urine UA Negative (Negative); Ketones Urine Negative (Negative); Leukocyte Esterase Ur Negative LEU/UL (Negative); Nitrate Urine Negative (Negative); Urobilinogen Urine 0.2 mg/dL (<2.0)
[2021-02-10 16:32] LABS: Erythrocyte Sedimentation Rate 37 mm/hr (0-20)
[2021-02-10 16:55] LABS: Alanine Aminotransferase 15 U/L (4-35); Albumin Level 4.6 g/dL (3.5-5.1); Alkaline Phosphatase 97 U/L (38-126); Anion Gap 9 mmol/L (8-16); Aspartate Amino Transferase 28 U/L (14-36); Bilirubin,Total 0.4 mg/dL (0.2-1.3); Blood Urea Nitrogen 15 mg/dL (7-17); CRP < 0.5 mg/dL (<1.0); Calcium 10.9 mg/dL (8.4-10.2); Carbon Dioxide 25 mmol/L (22-30); Chloride 104 mmol/L (98-107); Estimated Glomerular Filt Rate > 60; Glucose 111 mg/dL (65-105); Potassium 4.1 mmol/L (3.4-5.0); Sodium 138 mmol/L (137-145)
== END 2021-02-10 13:00 | disposition home or self-care (01) ==
LOC: ANHLAB 13:02
PROVIDERS: PCP Internal Medicine; Visit Provider Internal Medicine
DX: M45.7 Ankylosing spondylitis of lumbosacral region (principal); M19.90 Unspecified osteoarthritis, unspecified site
CPT/HCPCS: 36415; 80053; 81003; 85027; 85652; 86140

== ENCOUNTER 2021-02-26 14:06 | Outpatient (CLI) | payer MEDICARE, SELFPAY ==
--- NOTE | ~2021-02-26 | XR_ITS ---
EXAMINATION: XR abdomen/kub 1V EXAM DATE: 02/26/2021 14:34 INDICATION: Left ureteral stone. TECHNIQUE: Frontal projection of the upper abdomen, frontal projection lower abdomen/pelvis for inter pretation. Comparison is made to prior examination from 02/04/2020. FINDINGS: There are 2 round densities measuring about 4 mm each, one projecting over left mid calyces , the other could be over the ureteropelvic junction, if these are genitourinary stones. Nonobstructi ve bowel gas pattern. Mild to moderate bony degenerative changes. There is no organomegaly. IMPRESSION: 2 round densities could be left calyceal, UPJ stones. Reviewed, dictated and finalized at location A.
== END 2021-02-26 14:07 | disposition home or self-care (01) ==
LOC: ANHIMG 14:10
PROVIDERS: PCP Internal Medicine; Visit Provider Internal Medicine
DX: N20.1 Calculus of ureter (principal)
CPT/HCPCS: 74018

== ENCOUNTER 2021-03-02 13:45 | Outpatient (CLI) | payer MEDICARE, SELFPAY ==
--- NOTE | 2021-03-02 14:00 | ECG_ITS ---
Measurements Intervals [place]atzke Rate: 63 P: 80 MO: 161 QRS: -64 QRSD: 90 T: 78 QT: 410 QTc: 422 Interpretive Statements SINUS RHYTHM INCOMPLETE RIGHT BUNDLE BRANCH BLOCK LEFT ANTERIOR FASCICULAR BLOCK BORDERLINE ST-T WAVE ABNORMALITY- HIGH LATERAL LEADS BASELINE ARTIFACT- I, III, AVR, AVL ABNORMAL ECG Electronically Signed On 03-02-2021 16:04:14 CDT by Del Ogden D.O.
[2021-03-02 14:30] LABS: INR 0.9
[2021-03-02 14:31] LABS: Partial Thromboplastin Time 28.2 SECONDS (22.3-36.8)
== END 2021-03-02 13:46 | disposition home or self-care (01) ==
LOC: ANHSURGERY 13:47
PROVIDERS: PCP Internal Medicine; Visit Provider Urology
DX: N20.0 Calculus of kidney (principal); I10 Essential (primary) hypertension; Z01.818 Encounter for other preprocedural examination; I45.10 Unspecified right bundle-branch block; I44.4 Left anterior fascicular block
CPT/HCPCS: 36415; 85610; 85730; 87086; 93005

== ENCOUNTER 2021-03-05 02:55 | Day surgery (SDC) | payer MEDICARE, SELFPAY ==
[2021-03-02 11:39] VITALS: BMI 20.1
[2021-03-05] VITALS (7 sets, daily range): BP systolic 126–163; BP diastolic 75–96; PULSE 64–72; RESP 14–19; TEMP 36.3–36.7; O2SAT 95–100
--- NOTE | ~2021-03-05 | XR_ITS ---
XR abdomen/kub 1V 03/05/2021 09:23 INDICATION: Preop ESWL. Renal stones. TECHNIQUE: KUB COMPARISON: Comparison to multiple prior studies sequentially, with oldest reviewed study dated 11/25. FINDINGS: Bowel gas pattern is normal. There is no evidence of free air, mass, organomegaly, ascites or obstruction. There is a renal stone on the left. The kidneys are largely obscured by overlying brooke wel content. The bones appear intact. IMPRESSION: 1: Left nephrolithiasis. Reviewed, dictated and finalized at location A. IMPRESSION: 1: Left nephrolithiasis.
--- NOTE | 2021-03-05 06:37 | WPDHPUPDATE1 ---
History and Physical Update Update Date/Time: 03/05/21 06:37 History and Physical has been reviewed, including an updated exam of the patient. There are NO changes in the patient's condition. Risks, benefits, and alternatives have been discussed and questions answered. Patient agrees to proceed with procedure.
[2021-03-05] MEDS: LACTATED RINGERS 1,000 ML 30 ML IV CONT (10:07)
[2021-03-05 10:13] LABS: Glucose Point of Care 113 mg/dl (65-105)
--- NOTE | 2021-03-05 10:17 | WPDANESEPPF ---
Anes - Initial Pre Proc Eval Procedure: Operation Date: 03/05/21 11:30 Proposed Procedures p Left Renal Extracorporeal Shock Wave Lithotripsy - Sridhar Chiu MD Date/Time: 03/05/21 10:17 Surgeon: Sridhar Chiu MD Pre Op Diagnosis: left renal stone Patient Data Age: 65 Gender: F Height: 1.65 m Weight: 55 kg Allergies Allergy/AdvReac Type Severity Reaction Status Date / Time No Known Allergies Allergy Verified 03/02/21 11:16 Home Medications Medication Instructions Recorded Confirmed Type albuterol sulfate [Ventolin HFA] 2 puff INHALATION Q4-5H PRN 07/18/19 03/02/21 History alprazolam 1 mg PO QID 07/18/19 03/02/21 History lamotrigine 100 mg PO BID 07/18/19 03/02/21 History levetiracetam 500 mg PO BID 07/18/19 03/02/21 History quetiapine 200 mg PO HS 07/18/19 03/02/21 History trazodone 200 mg PO HS 07/18/19 03/02/21 History venlafaxine 37.5 mg PO QAM 07/18/19 03/02/21 History Trelegy Ellipta 1 inh INHALATION QAM 01/13/20 03/02/21 History secukinumab 150 mg/mL subcutaneous 150 mg SUBCUT [id number] ml 09/01/20 03/02/21 History syringe amlodipine 10 mg tablet 10 mg PO QAM 02/17/21 03/02/21 History cyclopent 1 %-tropicamide 1 1 drp OPHTHALMIC (EYE) Q4-5H 02/17/21 03/02/21 History %-phenylephrine 2.5 %-ketorolac eye drops losartan 50 mg tablet 50 mg PO QAM 02/17/21 03/02/21 History metoprolol tartrate 25 mg tablet 25 mg PO BID tablet 02/17/21 03/02/21 History ofloxacin 0.3 % eye drops 1 drp EACH EYE BID 02/17/21 03/02/21 History prednisolone acetate 1 % eye 2 drp EACH EYE Q12H 02/17/21 03/02/21 History drops,suspension atorvastatin 40 mg PO QAM 03/02/21 03/02/21 History baclofen 10 mg PO QAM 03/02/21 03/02/21 History calcium carbonate-vitamin D3 1 tablet PO BID 03/02/21 03/02/21 History [Calcium + D] geriatric multivitamin-min 1 tablet PO DAILY 03/02/21 03/02/21 History [One-A-Day 50 Plus] hydrocodone-acetaminophen 1 tablet PO Q6-8H PRN 03/02/21 03/02/21 History ibandronate 150 mg PO MONTHLY 03/02/21 03/02/21 History leflunomide 20 mg PO QAM 03/02/21 03/02/21 History quetiapine 50 mg PO BID PRN 03/02/21 03/02/21 History valacyclovir 1,000 mg PO QAM 03/02/21 03/02/21 History vitamin E 1,000 unit PO DAILY 03/02/21 03/02/21 History Laboratory Tests 03/05/21 10:05 POC Capillary Glucose 113 mg/dl H mg/dl (65-105) Patient hx anesthesia problems: none Family hx anesthesia problems: none PMFSH Past Medical History Medical History Ankylosing spondylitis of lumbosacral region (~1980) Anxiety Bipolar 1 disorder COPD (chronic obstructive pulmonary disease) Current smoker Generalized osteoarthritis of multiple sites H/O malignant neoplasm of breast Hypertension Rheumatoid arthritis Rheumatoid arthritis Vitamin D deficiency Family History Family History Sibling Patient's brother is in good health Social History Social History Smoking packs per day: 1 Smoking cigarettes per day: 20.0 Years smoked: 50 Smoking pack-years: 50.00 Smoking status: Current every day smoker Tobacco type: cigarettes Alcohol intake: current Substance use: current Substance use type: marijuana Other substance usage details: MARIJUANA DAILY Living arrangements: with family Additional living arrangements comments: [facility] Gender identity (if verbalized by the patient): Female Spiritual care concerns: No Anes - Eval Final PreProcedure Day of Procedure 03/05/21 10:17 Patient weight: thin Heart: regular rate and rhythm Lungs: decreased breath sounds Airway: Mallampati scale class II Neurological: alert and oriented Last oral intake: >/= 8 hours ASA classification: III Emergent: no Anesthetic plan: proceed Anesthesia type and monitoring: general LMA and standard monitoring Informed Consent: The yanna
[2021-03-05] MEDS: ceFAZolin 2 GM/D5W 50 ML 2 GM/50 ML BAG IVPB (11:07)
--- NOTE | 2021-03-05 11:37 | W.PM.PROC2 ---
Procedure Note - Detailed Date of Procedure 03/05/21 Pre-op Diagnosis Left renal stone Post-op Diagnosis same Procedure Performed Left ESWL Surgeon Sridhar Chiu MD Anesthesia general Description of Procedure The patient was brought to the operative suite where she was placed in the supine position on the Dornier lithotripsy table. The focal point of the lithotripter was first placed at a 5-6mm left mid-pole calculus. A total of 1250 shocks were delivered at a power setting of 4 at that site. We then treated a similar size upper pole stone with an additional 1250 shocks. There appeared to be good fragmentation of the stones. The patient tolerated the procedure well and was taken to the recovery room in good condition. Estimated Blood Loss 0 Drains No Packing No Pathology none sent Complications No immediate complications Condition stable Disposition PACU
[2021-03-05 12:44] LABS: Glucose Point of Care 136 mg/dl (65-105)
--- NOTE | 2021-03-05 13:42 | SUR.PHASEII ---
Patient vitals are stable. Patient is just waiting for Dr. Chiu to sign prescriptions so she can leave.
== END 2021-03-05 13:50 | disposition home or self-care (01) ==
PROVIDERS: PCP Internal Medicine; Visit Provider Urology
PROC: (CPT 50590; principal; 2021-03-05 11:30)
DX: N20.0 Calculus of kidney (principal); J44.9 Chronic obstructive pulmonary disease, unspecified; I10 Essential (primary) hypertension; M06.9 Rheumatoid arthritis, unspecified; E55.9 Vitamin D deficiency, unspecified; M19.90 Unspecified osteoarthritis, unspecified site; F31.9 Bipolar disorder, unspecified; F41.9 Anxiety disorder, unspecified; F17.210 Nicotine dependence, cigarettes, uncomplicated; F12.90 Cannabis use, unspecified, uncomplicated; Z79.51 Long term (current) use of inhaled steroids
CPT/HCPCS: 50590; 74018; 82948; J0690; J2250; J2405; J2704; J3010; J7120

== ENCOUNTER 2021-03-23 11:26 | Outpatient (CLI) | payer MEDICARE, SELFPAY ==
--- NOTE | ~2021-03-23 | XR_ITS ---
XR abdomen/kub 1V DATE: 03/23/2021 11:55 INDICATION: Left ureteral stent TECHNIQUE: AP projection, 2 views COMPARISON: 03/05/2021 KUB 10/10/2019 CT abdomen pelvis. FINDINGS: Again noted is an approximately 4 mm calcified calculus of the mid left kidney. No other urinary tract calculus is noted. There is a prominent amount of fecal material within the colon but no apparent bowel obstruction. There is abdominal aortic and bilateral iliac artery calcification. There is evidence of ankylosing spondylitis with ankylosis at the sacroiliac joints. IMPRESSION: Nonobstructing approximately 4 mm left mid renal calcified calculus is again noted Reviewed, dictated and finalized at Location A. Reviewed, dictated and finalized at location A.
== END 2021-03-23 11:27 | disposition home or self-care (01) ==
LOC: ANHIMG 11:33
PROVIDERS: PCP Internal Medicine; Visit Provider Urology
DX: N20.1 Calculus of ureter (principal)
CPT/HCPCS: 74018

== ENCOUNTER 2021-04-19 09:30 | Outpatient (CLI) | payer MEDICARE, SELFPAY ==
[2021-04-19 09:52] LABS: Hematocrit 35.6 % (37.0-47.0); Mean Corpuscular HGB Conc 33.7 g/dl (32-36); Mean Corpuscular Hemoglobin 33.7 pg (26-34); Mean Platelet Volume 10.9 fl (7.4-10.4); Platelet Count Result 203 k/mm3 (150-375); Red Blood Count 3.56 M/mm3 (4.2-5.4); Red Cell Distribution Width 13.9 % (11.5-14.5); White Blood Count 11.4 K/mm3 (4.5-10.0)
[2021-04-19 10:50] LABS: Basophils Absolute Auto 0.1 K/mm3 (0.0-0.1); Basophils Percent Auto 0.7 % (0.2-1.2); Eosinophils Absolute Auto 0.1 K/mm3 (0-0.3); Eosinophils Percent Auto 1.1 % (0-4.4); Immature Granulocyte Absolute 0.03 K/mm3 (0.00-0.031); Immature Granulocyte Percent A 0.3 % (0-0.5); Lymphocytes Absolute Auto 2.06 K/mm3 (0.9-3.2); Lymphocytes Percent Auto 18.9 % (18.3-44.2); Monocytes Absolute Auto 1.1 K/mm3 (0.1-0.6); Neutrophils Absolute Auto 7.5 K/mm3 (1.3-6.7)
[2021-04-19 12:23] LABS: Add Urine Microscopic? NO; Appearance Urine Clear (Clear); Bilirubin Urine Negative (Negative); Blood Urine Negative (Negative); Color Urine Yellow (Yellow); Glucose Urine UA Negative (Negative); Ketones Urine Negative (Negative); Leukocyte Esterase Ur Negative LEU/UL (Negative); Nitrate Urine Negative (Negative); Protein Urine Negative (Negative); Specific Grav Ur 1.008 (1.001-1.035); Urobilinogen Urine Negative mg/dL (<2.0)
[2021-04-19 12:38] LABS: Alanine Aminotransferase 19 U/L (4-35); Albumin Level 4.4 g/dL (3.5-5.1); Alkaline Phosphatase 76 U/L (38-126); Anion Gap 9 mmol/L (8-16); Aspartate Amino Transferase 50 U/L (14-36); Bilirubin,Total 0.5 mg/dL (0.2-1.3); Blood Urea Nitrogen 22 mg/dL (7-17); CRP < 0.5 mg/dL (<1.0); Calcium 10.2 mg/dL (8.4-10.2); Carbon Dioxide 25 mmol/L (22-30); Chloride 104 mmol/L (98-107); Estimated Glomerular Filt Rate > 60; Glucose 122 mg/dL (65-110); Potassium 4.3 mmol/L (3.4-5.0); Sodium 138 mmol/L (137-145)
[2021-04-19 13:07] LABS: Erythrocyte Sedimentation Rate 25 mm/hr (0-20)
[2021-04-22 06:22] LABS: CA 15-3 7 U/mL (<32)
== END 2021-04-19 09:31 | disposition home or self-care (01) ==
PROVIDERS: Internal Medicine Hematology & Oncology; PCP Internal Medicine; Visit Provider Internal Medicine
DX: C50.411 Malignant neoplasm of upper-outer quadrant of right female breast (principal); M45.7 Ankylosing spondylitis of lumbosacral region; Z17.0 Estrogen receptor positive status [ER+]
CPT/HCPCS: 36415; 80053; 81003; 85025; 85027; 85652; 86140; 86300

== ENCOUNTER 2021-04-26 13:39 | Outpatient (CLI) | payer MEDICARE, SELFPAY ==
--- NOTE | ~2021-04-26 | MM_ITS ---
EXAMINATION: MM diagnostic ysabel BI w bibi HISTORY: Previous right breast cancer. History of bilateral benign breast biopsies. TECHNIQUE: ML, MLO and craniocaudal 3-D tomosynthesis images of both breasts were performed and synth etic 2-D images were generated. CAD analysis was submitted and interpreted. COMPARISON: 04/21/2020 bilateral diagnostic digital mammogram and bilateral complete breast ultrasound 06/06/2019 diagnostic left mammogram and limited left breast ultrasound 12/21/2018 diagnostic right mammogram and complete right breast ultrasound 11/30/2018right screening mammogram 09/14/2018 diagnostic left mammogram and complete left breast ultrasound 10/27/2017 bilateral implant digital screening mammogram examinations BREAST PARENCHYMAL COMPOSITION: The breasts are heterogeneously dense, which may obscure small masses . FINDINGS: Again noted is a large posterior right stroma. There are 2 biopsy markers on the left. History of multiple prior benign left breast biopsy. Scattered bilateral benign breast calcifications. Multiple areas of fat necrosis on the left. No interval suspicious mass or new architectural distortion or new retraction of either breast is det ected. IMPRESSION: 1. Status post right partial mastectomy for breast cancer. No current evidence of malignancy. Bilater al benign breast mammographic findings. 2. Routine annual mammographic screening is recommended, with any additional evaluation as deemed cli nically appropriate in this patient with history of right breast cancer BI-RADS Category 2: Benign finding(s). Reviewed, dictated and finalized at location A. IMPRESSION: 1. Status post right partial mastectomy for breast cancer. No current evidence of malignancy. Bilateral benign breast mammographic findings. 2. Routine annual mammographic screening is recommended, with any additional ev aluation as deemed clinically appropriate in this patient with history of right breast cancer BI-RADS Category 2: Benign finding(s).
== END 2021-04-26 13:40 | disposition home or self-care (01) ==
LOC: ANHIMG 13:42
PROVIDERS: PCP Internal Medicine; Visit Provider Internal Medicine Hematology & Oncology
DX: C50.411 Malignant neoplasm of upper-outer quadrant of right female breast (principal); Z17.0 Estrogen receptor positive status [ER+]
CPT/HCPCS: 77062; 77066; G0279

== ENCOUNTER 2021-09-28 09:09 | Outpatient (CLI) | payer MEDICARE, SELFPAY ==
--- NOTE | ~2021-09-28 | XR_ITS ---
EXAMINATION: XR abdomen/kub 1V INDICATION: Left ureteral stone TECHNIQUE: Supine views of the abdomen were obtained on 2 radiographs. COMPARISON: 03/23/2021 FINDINGS: A 4 mm stone in the left kidney lower pole is unchanged. No additional urolithiasis is iden tified. The bowel gas pattern is normal. There is moderate osteoarthritis of the hips. The visualized lung bases are clear. IMPRESSION: 1. Unchanged left nephrolithiasis. Reviewed, dictated and finalized at location F. CUTTER DIAMOND
== END 2021-09-28 09:10 | disposition home or self-care (01) ==
LOC: ANHIMG 09:10
PROVIDERS: PCP Internal Medicine; Visit Provider Urology
DX: N20.0 Calculus of kidney (principal)
CPT/HCPCS: 74018

== ENCOUNTER 2021-10-29 10:28 | Outpatient (CLI) | payer MEDICARE, SELFPAY ==
[2021-10-29 11:06] LABS: Hematocrit 39.6 % (37.0-47.0); Hemoglobin 12.9 g/dL (12.0-15.0); Mean Corpuscular HGB Conc 32.6 g/dl (32-36); Mean Corpuscular Hemoglobin 32.8 pg (26-34); Mean Corpuscular Volume 100.8 fl (80-100); Mean Platelet Volume 11.3 fl (7.4-10.4); Platelet Count Result 267 k/mm3 (150-375); Red Blood Count 3.93 M/mm3 (4.2-5.4); Red Cell Distribution Width 13.1 % (11.5-14.5); White Blood Count 13.4 K/mm3 (4.5-10.0)
[2021-10-29 11:58] LABS: Alanine Aminotransferase 21 U/L (4-35); Albumin Level 4.6 g/dL (3.5-5.1); Alkaline Phosphatase 86 U/L (38-126); Anion Gap 8 mmol/L (8-16); Aspartate Amino Transferase 29 U/L (14-36); Bilirubin,Total 0.3 mg/dL (0.2-1.3); Blood Urea Nitrogen 17 mg/dL (7-17); CRP 0.6 mg/dL (<1.0); Calcium 9.8 mg/dL (8.4-10.2); Carbon Dioxide 27 mmol/L (22-30); Chloride 105 mmol/L (98-107); Estimated Glomerular Filt Rate > 60; Glucose 133 mg/dL (65-110); Potassium 3.8 mmol/L (3.4-5.0); Sodium 140 mmol/L (137-145)
[2021-10-29 12:04] LABS: Add Urine Microscopic? YES; Appearance Urine Cloudy (Clear); Bilirubin Urine Negative (Negative); Blood Urine Negative (Negative); Color Urine Yellow (Yellow); Glucose Urine UA Negative (Negative); Ketones Urine Negative (Negative); Leukocyte Esterase Ur Negative LEU/UL (Negative); Nitrate Urine Negative (Negative); Protein Urine Negative (Negative); RBC Urine 0-2 /hpf (0-2); Specific Grav Ur 1.009 (1.001-1.035); Squamous Epithelial Cell Urine Rare /hpf (Few); Urobilinogen Urine Negative mg/dL (<2.0); WBC Urine 0-3 /hpf
[2021-10-29 12:17] LABS: Erythrocyte Sedimentation Rate 22 mm/hr (0-20)
== END 2021-10-29 10:29 | disposition home or self-care (01) ==
PROVIDERS: PCP Internal Medicine; Visit Provider Internal Medicine
DX: M45.7 Ankylosing spondylitis of lumbosacral region (principal); M19.90 Unspecified osteoarthritis, unspecified site; F17.200 Nicotine dependence, unspecified, uncomplicated
CPT/HCPCS: 36415; 80053; 81001; 85027; 85652; 86140

== ENCOUNTER 2022-03-02 09:18 | Outpatient (CLI) | payer MEDICARE, SELFPAY ==
--- NOTE | ~2022-03-02 | XR_ITS ---
EXAMINATION: XR hip BI wo pelvis INDICATION: Right hip pain TECHNIQUE: Two views of each hip are obtained. COMPARISON: 04/23/2018 FINDINGS: Bone alignment is normal. There is no fracture. There is mild osteoarthritis of the hips. IMPRESSION: 1. Mild osteoarthritis without acute osseous abnormality. Reviewed, dictated and finalized at location B.
[2022-03-02 10:23] LABS: Hemoglobin 12.4 g/dL (12.0-15.0); Mean Corpuscular HGB Conc 31.8 g/dl (32-36); Mean Corpuscular Hemoglobin 30.9 pg (26-34); Mean Corpuscular Volume 97.3 fl (80-100); Platelet Count Result 328 k/mm3 (150-375); Red Blood Count 4.01 M/mm3 (4.2-5.4); Red Cell Distribution Width 14.8 % (11.5-14.5)
[2022-03-02 10:39] LABS: Appearance Urine Clear (Clear); Bilirubin Urine Negative (Negative); Blood Urine Negative (Negative); Color Urine Amber (Yellow); Glucose Urine UA Negative (Negative); Ketones Urine Negative (Negative); Leukocyte Esterase Ur Negative LEU/UL (Negative); Nitrate Urine Negative (Negative); Protein Urine Negative (Negative); Urobilinogen Urine 0.2 mg/dL (<2.0); pH Urine 6.5 (5.0-9.0)
[2022-03-02 10:39] LABS: Alanine Aminotransferase 22 U/L (6-35); Albumin Level 4.7 g/dL (3.5-5.1); Alkaline Phosphatase 88 U/L (38-126); Anion Gap 12 mmol/L (8-16); Aspartate Amino Transferase 27 U/L (14-36); Bilirubin,Total 0.4 mg/dL (0.2-1.3); Blood Urea Nitrogen 14 mg/dL (7-17); CRP < 0.5 mg/dL (<1.0); Calcium 9.8 mg/dL (8.4-10.2); Carbon Dioxide 25 mmol/L (22-30); Chloride 103 mmol/L (98-107); Estimated Glomerular Filt Rate > 60; Glucose 153 mg/dL (65-110); Potassium 3.9 mmol/L (3.4-5.0); Sodium 140 mmol/L (137-145)
[2022-03-02 11:50] LABS: Erythrocyte Sedimentation Rate 31 mm/hr (0-20)
[2022-03-02 11:55] LABS: Add Urine Microscopic? NO
== END 2022-03-02 09:19 | disposition home or self-care (01) ==
LOC: ANHLAB 09:22
PROVIDERS: PCP Internal Medicine; Visit Provider Internal Medicine
DX: M16.11 Unilateral primary osteoarthritis, right hip (principal); M25.552 Pain in left hip; F17.200 Nicotine dependence, unspecified, uncomplicated; M45.7 Ankylosing spondylitis of lumbosacral region; M19.90 Unspecified osteoarthritis, unspecified site
CPT/HCPCS: 36415; 73521; 80053; 81003; 85027; 85652; 86140

== ENCOUNTER 2022-06-16 09:29 | Outpatient (CLI) | payer MEDICARE, SELFPAY ==
--- NOTE | ~2022-06-16 | MM_ITS ---
EXAMINATION: MM screening ysabel BI w bibi HISTORY: Screening mammogram TECHNIQUE: Craniocaudal and mediolateral oblique 3-D tomosynthesis images were obtained and synthetic 2-D images were generated. Bilateral rotated lateral CC views. CAD analysis was submitted and interp reted. COMPARISON: 04/26/2021 bilateral diagnostic mammography BREAST PARENCHYMAL COMPOSITION: The breasts are heterogeneously dense, which may obscure small masses . FINDINGS: Status post right partial mastectomy for breast cancer Multiple biopsy markers on the left; history of prior benign multiple left breast biopsies. There is no interval evidence of suspicious mass, calcification, or new architectural distortion to s uggest recurrent or new malignancy in either breast. There has been no suspicious interval change. IMPRESSION: 1. Status post right partial mastectomy for breast cancer. No mammographic evidence of malignancy. 2. Recommend routine screening mammography in one year. BI-RADS Category 2: Benign finding(s). Reviewed, dictated and finalized at location A. 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 Status post right partial mastectomy for breast cancer. No mammographic evid ence of malignancy. 2. Recommend routine screening mammography in one year. BI-RADS Category 2: Benign finding(s).
== END 2022-06-16 09:30 | disposition home or self-care (01) ==
PROVIDERS: PCP Internal Medicine; Visit Provider Internal Medicine Hematology & Oncology
DX: Z12.31 Encounter for screening mammogram for malignant neoplasm of breast (principal)
CPT/HCPCS: 77063; 77067

== ENCOUNTER 2022-06-16 09:55 | Outpatient (CLI) | payer MEDICARE, SELFPAY ==
[2022-06-16 10:13] LABS: Basophils Absolute Auto 0.1 K/mm3 (0.0-0.1); Basophils Percent Auto 0.7 % (0.2-1.2); Eosinophils Absolute Auto 0.2 K/mm3 (0-0.3); Eosinophils Percent Auto 1.4 % (0-4.4); Hematocrit 38.1 % (37.0-47.0); Hemoglobin 12.8 g/dL (12.0-15.0); Immature Granulocyte Absolute 0.05 K/mm3 (0.00-0.031); Immature Granulocyte Percent A 0.4 % (0-0.5); Lymphocytes Absolute Auto 2.66 K/mm3 (0.9-3.2); Lymphocytes Percent Auto 21.7 % (18.3-44.2); Mean Corpuscular HGB Conc 33.6 g/dl (32-36); Mean Corpuscular Hemoglobin 31.8 pg (26-34); Mean Corpuscular Volume 94.5 fl (80-100); Mean Platelet Volume 10.2 fl (7.4-10.4); Monocytes Absolute Auto 1.2 K/mm3 (0.1-0.6); Monocytes Percent Auto 9.4 % (2.6-8.5); Neutrophils Absolute Auto 8.1 K/mm3 (1.3-6.7); Neutrophils Percent Auto 66.4 % (45.5-73.1); Platelet Count Result 280 k/mm3 (150-375); Red Blood Count 4.03 M/mm3 (4.2-5.4); White Blood Count 12.3 K/mm3 (4.5-10.0)
[2022-06-16 10:56] LABS: Appearance Urine Clear (Clear); Bilirubin Urine Negative (Negative); Blood Urine Negative (Negative); Color Urine Yellow (Yellow); Glucose Urine UA Negative (Negative); Ketones Urine Negative (Negative); Leukocyte Esterase Ur Negative LEU/UL (Negative); Nitrate Urine Negative (Negative); Protein Urine Negative (Negative); Urobilinogen Urine 0.2 mg/dL (<2.0); pH Urine 6.5 (5.0-9.0)
[2022-06-16 11:01] LABS: Alanine Aminotransferase 23 U/L (6-35); Albumin Level 4.5 g/dL (3.5-5.1); Alkaline Phosphatase 89 U/L (38-126); Anion Gap 9 mmol/L (8-16); Aspartate Amino Transferase 75 U/L (14-36); Bilirubin,Total 0.4 mg/dL (0.2-1.3); Blood Urea Nitrogen 26 mg/dL (7-17); Calcium 9.9 mg/dL (8.4-10.2); Carbon Dioxide 25 mmol/L (22-30); Chloride 104 mmol/L (98-107); Estimated Glomerular Filt Rate > 60; Glucose 139 mg/dL (65-110); Potassium 4.2 mmol/L (3.4-5.0); Sodium 138 mmol/L (137-145)
[2022-06-16 11:03] LABS: CRP < 0.5 mg/dL (<1.0)
[2022-06-16 11:08] LABS: Add Urine Microscopic? NO
[2022-06-16 11:41] LABS: Erythrocyte Sedimentation Rate 30 mm/hr (0-20)
[2022-06-22 16:21] LABS: CA 15-3 5 U/mL (<32)
== END 2022-06-16 09:56 | disposition home or self-care (01) ==
LOC: ANHLAB 09:57
PROVIDERS: Internal Medicine Hematology & Oncology; PCP Internal Medicine; Visit Provider Internal Medicine
DX: M19.90 Unspecified osteoarthritis, unspecified site (principal); M25.551 Pain in right hip; M25.552 Pain in left hip; F17.200 Nicotine dependence, unspecified, uncomplicated; C50.411 Malignant neoplasm of upper-outer quadrant of right female breast; Z17.0 Estrogen receptor positive status [ER+]
CPT/HCPCS: 36415; 77063; 77067; 80053; 81003; 85025; 85652; 86140; 86300

== ENCOUNTER 2022-09-01 10:20 | Outpatient (CLI) | payer MEDICARE, SELFPAY ==
--- NOTE | ~2022-09-01 | MR_ITS ---
MRI of the left hip Clinical history: Left hip pain Technique: Coronal T1-weighted, T2-weighted, and proton-density fat-sat images, and axial T1-weighted and proton-density fat-sat images were acquired through the pelvis. Coronal T2-weighted images and c oronal, axial, and sagittal proton-density fat-sat images were acquired through the left hip. Findings: There is no fracture, avascular necrosis, or transient osteoporosis of either hip. Bilatera l hip joint spaces are preserved. No hip joint effusion. No bone marrow signal abnormality seen in th e proximal femora or visualized pelvic bones. There is ankylosis of the bilateral sacroiliac joints. Visualized musculature about the pelvis and left hip is unremarkable. Visualized tendons are intact. No abnormal bursa or fluid collection seen. No soft tissue mass seen. No muscle atrophy or edema. IMPRESSION: Bilateral SI joint ankylosis. No other significant abnormality identified. Reviewed, dictated and finalized at [facility]. 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
[2022-09-01 12:57] LABS: Hematocrit 43.6 % (37.0-47.0); Hemoglobin 14.3 g/dL (12.0-15.0); Mean Corpuscular HGB Conc 32.8 g/dl (32-36); Mean Corpuscular Hemoglobin 32.4 pg (26-34); Mean Corpuscular Volume 98.9 fl (80-100); Mean Platelet Volume 11.5 fl (7.4-10.4); Platelet Count Result 313 k/mm3 (150-375); Red Blood Count 4.41 M/mm3 (4.2-5.4); Red Cell Distribution Width 14.7 % (11.5-14.5); White Blood Count 13.7 K/mm3 (4.5-10.0)
[2022-09-01 13:08] LABS: Cholesterol 204 mg/dL (0-200); HDL Direct 48 mg/dL; Triglycerides 146 mg/dL (<150)
[2022-09-01 13:12] LABS: Alanine Aminotransferase 22 U/L (6-35); Albumin Level 4.6 g/dL (3.5-5.1); Alkaline Phosphatase 98 U/L (38-126); Anion Gap 9 mmol/L (8-16); Aspartate Amino Transferase 27 U/L (14-36); Bilirubin,Total 0.5 mg/dL (0.2-1.3); Blood Urea Nitrogen 17 mg/dL (7-17); CRP < 0.5 mg/dL (<1.0); Calcium 9.9 mg/dL (8.4-10.2); Carbon Dioxide 25 mmol/L (22-30); Chloride 108 mmol/L (98-107); Estimated Glomerular Filt Rate > 60; Glucose 111 mg/dL (65-110); Potassium 4.2 mmol/L (3.4-5.0); Sodium 142 mmol/L (137-145)
[2022-09-01 13:20] LABS: LDL Cholesterol Direct 106 mg/dL
[2022-09-01 13:25] LABS: Appearance Urine Clear (Clear); Bilirubin Urine Negative (Negative); Blood Urine Negative (Negative); Color Urine Yellow (Yellow); Glucose Urine UA Negative (Negative); Ketones Urine Negative (Negative); Leukocyte Esterase Ur Negative LEU/UL (Negative); Nitrate Urine Negative (Negative); Protein Urine Trace mg/dL (Negative); Urobilinogen Urine 0.2 mg/dL (<2.0); pH Urine 6.5 (5.0-9.0)
[2022-09-01 13:25] LABS: Free T4 Free Thyroxine 1.05 ng/mL (0.78-2.19)
[2022-09-01 13:26] LABS: Erythrocyte Sedimentation Rate 22 mm/hr (0-20)
[2022-09-01 13:40] LABS: Mucus Urine Rare /lpf; RBC Urine 0-2 /hpf (0-2); Squamous Epithelial Cell Urine Occasional /hpf (Few); WBC Urine 0-3 /hpf
[2022-09-01 13:40] LABS: Thyroid Stimulating Hormone 0.825 uIU/mL (0.465-4.680)
[2022-09-01 13:46] LABS: Add Urine Microscopic? YES
== END 2022-09-01 10:21 | disposition home or self-care (01) ==
PROVIDERS: PCP Internal Medicine; Visit Provider Internal Medicine
DX: E11.9 Type 2 diabetes mellitus without complications (principal); E78.00 Pure hypercholesterolemia, unspecified; Z79.899 Other long term (current) drug therapy; M45.7 Ankylosing spondylitis of lumbosacral region; M19.90 Unspecified osteoarthritis, unspecified site; I10 Essential (primary) hypertension; Z79.891 Long term (current) use of opiate analgesic; M43.28 Fusion of spine, sacral and sacrococcygeal region
CPT/HCPCS: 36415; 73721; 80053; 80061; 81001; 83036; 84439; 84443; 85027; 85652; 86140

== ENCOUNTER 2022-12-14 11:08 | Outpatient (CLI) | payer MEDICARE, SELFPAY ==
--- NOTE | ~2022-12-14 | XR_ITS ---
AP view of the pelvis and AP and lateral views of the bilateral hips Clinical history: Pain Findings: No acute fracture or dislocation is seen. Osseous alignment is anatomic. Bilateral hip join ts are preserved. There is ankylosis of the bilateral SI joints. Soft tissues are unremarkable. Impression: Unremarkable hip joints bilaterally. Ankylosis of the bilateral SI joints. Reviewed, dictated and finalized at location . Impression: Unremarkable hip joints bilaterally. Ankylosis of the bilateral SI joints.
== END 2022-12-14 11:09 | disposition home or self-care (01) ==
LOC: ANHIMG 11:12
PROVIDERS: PCP Internal Medicine; Visit Provider Internal Medicine
DX: M25.551 Pain in right hip (principal); M25.552 Pain in left hip
CPT/HCPCS: 73521

== ENCOUNTER 2022-12-30 12:32 | Outpatient (CLI) | payer MEDICARE, SELFPAY ==
[2022-12-30 12:48] LABS: Hematocrit 38.4 % (37.0-47.0); Hemoglobin 12.9 g/dL (12.0-15.0); Mean Corpuscular HGB Conc 33.6 g/dl (32-36); Mean Corpuscular Hemoglobin 32.7 pg (26-34); Mean Corpuscular Volume 97.5 fl (80-100); Mean Platelet Volume 11.2 fl (7.4-10.4); Platelet Count Result 244 k/mm3 (150-375); Red Blood Count 3.94 M/mm3 (4.2-5.4); Red Cell Distribution Width 13.9 % (11.5-14.5)
[2022-12-30 14:54] LABS: Appearance Urine Clear (Clear); Bilirubin Urine Negative (Negative); Blood Urine Negative (Negative); Color Urine Dark Yellow (Yellow); Glucose Urine UA Negative (Negative); Ketones Urine Negative (Negative); Leukocyte Esterase Ur Negative LEU/UL (Negative); Nitrate Urine Negative (Negative); Protein Urine Negative (Negative); Specific Grav Ur 1.015 (1.001-1.035); Urobilinogen Urine 0.2 mg/dL (<2.0)
[2022-12-30 14:56] LABS: Alanine Aminotransferase 21 U/L (6-35); Albumin Level 4.6 g/dL (3.5-5.1); Alkaline Phosphatase 91 U/L (38-126); Anion Gap 7 mmol/L (8-16); Aspartate Amino Transferase 31 U/L (14-36); Bilirubin,Total 0.4 mg/dL (0.2-1.3); Blood Urea Nitrogen 14 mg/dL (7-17); CRP 0.5 mg/dL (<1.0); Calcium 9.5 mg/dL (8.4-10.2); Carbon Dioxide 25 mmol/L (22-30); Chloride 105 mmol/L (98-107); Estimated Glomerular Filt Rate > 60; Glucose 110 mg/dL (65-110); Potassium 4.2 mmol/L (3.4-5.0); Sodium 137 mmol/L (137-145)
[2022-12-30 15:08] LABS: Add Urine Microscopic? NO
[2022-12-30 15:42] LABS: Erythrocyte Sedimentation Rate 24 mm/hr (0-20)
[2023-01-03 13:53] LABS: NIL 0.02 IU/mL; Quantiferon TB Plus, 1T NEGATIVE (NEGATIVE); TB1-NIL <0.00 IU/mL
== END 2022-12-30 12:33 | disposition home or self-care (01) ==
LOC: ANHLAB 12:34
PROVIDERS: PCP Internal Medicine; Referring Provider Internal Medicine; Visit Provider Internal Medicine Hematology & Oncology
DX: M45.7 Ankylosing spondylitis of lumbosacral region (principal); M06.9 Rheumatoid arthritis, unspecified; M19.90 Unspecified osteoarthritis, unspecified site
CPT/HCPCS: 36415; 80053; 81003; 85027; 85652; 86140; 86480

== ENCOUNTER 2023-06-21 11:26 | Outpatient (CLI) | payer MEDICARE, SELFPAY ==
[2023-06-21 11:50] LABS: Hematocrit 37.1 % (37.0-47.0); Hemoglobin 12.1 g/dL (12.0-15.0); Mean Corpuscular HGB Conc 32.6 g/dl (32-36); Mean Corpuscular Volume 101.1 fl (80-100); Mean Platelet Volume 10.3 fl (7.4-10.4); Platelet Count Result 296 k/mm3 (150-375); Red Blood Count 3.67 M/mm3 (4.2-5.4); Red Cell Distribution Width 13.3 % (11.5-14.5); White Blood Count 8.9 K/mm3 (4.5-10.0)
[2023-06-21 16:42] LABS: Appearance Urine Clear (Clear); Bilirubin Urine Negative (Negative); Blood Urine Negative (Negative); Color Urine Yellow (Yellow); Glucose Urine UA Negative (Negative); Ketones Urine Negative (Negative); Leukocyte Esterase Ur Negative LEU/UL (Negative); Nitrate Urine Negative (Negative); Protein Urine Negative (Negative); Specific Grav Ur 1.018 (1.001-1.035); Urobilinogen Urine 0.2 mg/dL (<2.0); pH Urine 5.5 (5.0-9.0)
[2023-06-21 16:44] LABS: Add Urine Microscopic? NO
[2023-06-21 16:47] LABS: Alanine Aminotransferase 27 U/L (6-35); Albumin Level 4.6 g/dL (3.5-5.1); Alkaline Phosphatase 71 U/L (38-126); Anion Gap 9 mmol/L (8-16); Aspartate Amino Transferase 31 U/L (14-36); Bilirubin,Total 0.5 mg/dL (0.2-1.3); Blood Urea Nitrogen 23 mg/dL (7-17); CRP < 0.5 mg/dL (<1.0); Calcium 9.8 mg/dL (8.4-10.2); Carbon Dioxide 25 mmol/L (22-30); Chloride 105 mmol/L (98-107); Estimated Glomerular Filt Rate > 60; Glucose 115 mg/dL (65-110); Potassium 4.4 mmol/L (3.4-5.0); Sodium 139 mmol/L (137-145)
[2023-06-21 17:10] LABS: Erythrocyte Sedimentation Rate 15 mm/hr (0-20)
== END 2023-06-21 11:27 | disposition home or self-care (01) ==
LOC: ANHLAB 11:33
PROVIDERS: Internal Medicine; PCP Internal Medicine; Visit Provider Internal Medicine Hematology & Oncology
DX: C50.411 Malignant neoplasm of upper-outer quadrant of right female breast (principal); M45.7 Ankylosing spondylitis of lumbosacral region; M19.90 Unspecified osteoarthritis, unspecified site; M06.9 Rheumatoid arthritis, unspecified; Z17.0 Estrogen receptor positive status [ER+]
CPT/HCPCS: 36415; 77063; 77067; 80053; 81003; 85027; 85652; 86140

== ENCOUNTER 2023-06-21 11:53 | Outpatient (CLI) | payer MEDICARE, SELFPAY ==
--- NOTE | ~2023-06-21 | MM_ITS ---
EXAMINATION: MM screening ysabel BI w bibi HISTORY: Screening mammogram, history of right breast cancer TECHNIQUE: Craniocaudal and mediolateral oblique 3-D tomosynthesis images were obtained and synthetic 2-D images were generated. CAD analysis was submitted and interpreted. COMPARISON: 06/16/2022, 04/26/2021, 04/21/2020, 06/06/2019 BREAST PARENCHYMAL COMPOSITION: The breasts are heterogeneously dense, which may obscure small masses . FINDINGS: There are lumpectomy changes of the right breast. There appears to be fluid within the bila teral implant cavities post explantation. No suspicious mass, calcification, or architectural distort ion are identified in either breast to suggest malignancy. There has been no suspicious interval kaye ge. IMPRESSION: 1. No mammographic evidence of malignancy. 2. Recommend routine screening mammography in one year. BI-RADS Category 2: Benign finding(s). Reviewed, dictated and finalized at location A. 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
== END 2023-06-21 11:54 | disposition home or self-care (01) ==
LOC: ANHIMG 11:55
PROVIDERS: PCP Internal Medicine; Visit Provider Internal Medicine Hematology & Oncology
DX: Z12.31 Encounter for screening mammogram for malignant neoplasm of breast (principal)
CPT/HCPCS: 77063; 77067

== ENCOUNTER 2023-09-27 12:43 | Outpatient (CLI) | payer MEDICARE, SELFPAY ==
[2023-09-27 13:11] LABS: Hematocrit 36.1 % (37.0-47.0); Hemoglobin 11.5 g/dL (12.0-15.0); Mean Corpuscular HGB Conc 31.9 g/dl (32-36); Mean Corpuscular Hemoglobin 30.3 pg (26-34); Mean Corpuscular Volume 95.3 fl (80-100); Mean Platelet Volume 10.1 fl (7.4-10.4); Platelet Count Result 297 k/mm3 (150-375); Red Blood Count 3.79 M/mm3 (4.2-5.4); Red Cell Distribution Width 14.1 % (11.5-14.5); White Blood Count 8.8 K/mm3 (4.5-10.0)
== END 2023-09-27 12:44 | disposition home or self-care (01) ==
LOC: ANHLAB 12:45
PROVIDERS: PCP Internal Medicine; Visit Provider Internal Medicine Hematology & Oncology
DX: C50.411 Malignant neoplasm of upper-outer quadrant of right female breast (principal); Z17.0 Estrogen receptor positive status [ER+]
CPT/HCPCS: 36415; 85027

== ENCOUNTER 2023-10-06 08:18 | Outpatient (CLI) | payer MEDICARE, SELFPAY ==
[2023-10-06 12:23] LABS: CRP < 0.5 mg/dL (<1.0)
[2023-10-06 12:29] LABS: Erythrocyte Sedimentation Rate 12 mm/hr (0-20)
[2023-10-06 12:30] LABS: Amorphous Sediment Urine Present; Appearance Urine Turbid (Clear); Bacteria Urine Rare /hpf; Bilirubin Urine Negative (Negative); Blood Urine Negative (Negative); Color Urine Dark Yellow (Yellow); Glucose Urine UA Negative (Negative); Ketones Urine Negative (Negative); Leukocyte Esterase Ur 1+ LEU/UL (Negative); Need Manual Microscopic Reviewed; Nitrate Urine Negative (Negative); Non Pathogenic Casts 0-2; Protein Urine Negative (Negative); RBC Urine 0-2 /hpf (0-2); Specific Grav Ur 1.019 (1.001-1.035); Squamous Epithelial Cell Urine Occasional /hpf (Few); Urobilinogen Urine 0.2 mg/dL (<2.0); WBC Urine 0-5 /hpf
[2023-10-06 12:33] LABS: Add Urine Microscopic? YES
== END 2023-10-06 08:19 | disposition home or self-care (01) ==
LOC: ANHLAB 08:21
PROVIDERS: Internal Medicine; Visit Provider Internal Medicine Hematology & Oncology
DX: M45.7 Ankylosing spondylitis of lumbosacral region (principal); M19.90 Unspecified osteoarthritis, unspecified site
CPT/HCPCS: 36415; 81001; 85652; 86140

== ENCOUNTER 2023-10-27 07:34 | Outpatient (CLI) | payer MEDICARE, SELFPAY ==
[2023-10-27 08:13] LABS: Basophils Absolute Auto 0.1 K/mm3 (0.0-0.1); Basophils Percent Auto 0.5 % (0.2-1.2); Hematocrit 35.2 % (37.0-47.0); Hemoglobin 11.2 g/dL (12.0-15.0); Immature Granulocyte Percent A 2.9 % (0-0.5); Lymphocytes Absolute Auto 3.14 K/mm3 (0.9-3.2); Mean Corpuscular HGB Conc 31.8 g/dl (32-36); Mean Corpuscular Hemoglobin 30.7 pg (26-34); Mean Corpuscular Volume 96.4 fl (80-100); Mean Platelet Volume 9.5 fl (7.4-10.4); Monocytes Absolute Auto 1.6 K/mm3 (0.1-0.6); Monocytes Percent Auto 9.3 % (2.6-8.5); Neutrophils Absolute Auto 12.1 K/mm3 (1.3-6.7); Neutrophils Percent Auto 69.3 % (45.5-73.1); Platelet Count Result 467 k/mm3 (150-375); Red Blood Count 3.65 M/mm3 (4.2-5.4); Red Cell Distribution Width 15.4 % (11.5-14.5); White Blood Count 17.5 K/mm3 (4.5-10.0)
[2023-10-27 08:18] LABS: Alanine Aminotransferase 19 U/L (6-35); Albumin Level 4.5 g/dL (3.5-5.1); Alkaline Phosphatase 67 U/L (38-126); Anion Gap 3 mmol/L (8-16); Aspartate Amino Transferase 29 U/L (14-36); Bilirubin,Total 0.5 mg/dL (0.2-1.3); Blood Urea Nitrogen 31 mg/dL (7-17); Calcium 9.9 mg/dL (8.4-10.2); Carbon Dioxide 30 mmol/L (22-30); Chloride 102 mmol/L (98-107); Estimated Glomerular Filt Rate > 60; Glucose 125 mg/dL (65-110); Potassium 4.3 mmol/L (3.4-5.0); Sodium 135 mmol/L (137-145)
== END 2023-10-27 07:35 | disposition home or self-care (01) ==
PROVIDERS: Internal Medicine Hematology & Oncology; Visit Provider Internal Medicine
DX: M45.7 Ankylosing spondylitis of lumbosacral region (principal); M19.90 Unspecified osteoarthritis, unspecified site; Z79.899 Other long term (current) drug therapy
CPT/HCPCS: 36415; 80053; 83735; 85025; 87077; 87086; 87088; 87181; 96366; 96367; 96368; 96375; 96413; 96415; 96417; 99212; A9270; G0463; J1100; J1453; J2469; J3475; J3480; J7030; J7040; J7050; J9060; J9171

== ENCOUNTER 2023-11-17 07:55 | Outpatient (CLI) | payer MEDICARE, SELFPAY ==
[2023-11-17 08:29] LABS: Basophils Absolute Auto 0.1 K/mm3 (0.0-0.1); Basophils Percent Auto 0.3 % (0.2-1.2); Hematocrit 37.7 % (37.0-47.0); Hemoglobin 11.8 g/dL (12.0-15.0); Immature Granulocyte Absolute 0.17 K/mm3 (0.00-0.031); Immature Granulocyte Percent A 1.1 % (0-0.5); Lymphocytes Absolute Auto 1.89 K/mm3 (0.9-3.2); Lymphocytes Percent Auto 12.2 % (18.3-44.2); Mean Corpuscular HGB Conc 31.3 g/dl (32-36); Mean Platelet Volume 9.2 fl (7.4-10.4); Monocytes Percent Auto 6.4 % (2.6-8.5); Neutrophils Absolute Auto 12.4 K/mm3 (1.3-6.7); Platelet Count Result 388 k/mm3 (150-375); Red Blood Count 3.81 M/mm3 (4.2-5.4); Red Cell Distribution Width 16.5 % (11.5-14.5); White Blood Count 15.5 K/mm3 (4.5-10.0)
[2023-11-17 08:42] LABS: Alanine Aminotransferase 21 U/L (6-35); Alkaline Phosphatase 72 U/L (38-126); Anion Gap 13 mmol/L (4-12); Aspartate Amino Transferase 25 U/L (14-36); Bilirubin,Total 0.6 mg/dL (0.2-1.3); Blood Urea Nitrogen 23 mg/dL (7-17); Calcium 10.2 mg/dL (8.4-10.2); Carbon Dioxide 22 mmol/L (22-30); Chloride 102 mmol/L (98-107); Estimated Glomerular Filt Rate > 60; Glucose 169 mg/dL (65-110); Potassium 4.2 mmol/L (3.4-5.0); Sodium 137 mmol/L (137-145)
== END 2023-11-17 07:56 | disposition home or self-care (01) ==
PROVIDERS: PCP Internal Medicine; Visit Provider Internal Medicine Hematology & Oncology
DX: C50.411 Malignant neoplasm of upper-outer quadrant of right female breast (principal); Z17.0 Estrogen receptor positive status [ER+]
CPT/HCPCS: 36415; 80053; 83735; 85025; 96366; 96367; 96368; 96375; 96413; 96415; 96417; 99212; A9270; G0463; J1100; J1453; J2469; J3475; J3480; J7030; J7040; J7050; J9060; J9171

== ENCOUNTER 2023-11-25 17:26 | Inpatient (IN) | payer MEDICARE, SELFPAY ==
[2023-11-25] VITALS (20 sets, daily range): BP systolic 136–177; BP diastolic 75–101; PULSE 87–101; RESP 13–43; TEMP 35.9–36; O2SAT 52–100
--- NOTE | ~2023-11-25 | XR_ITS ---
EXAMINATION: [id number] DATE: 11/30/2023 15:08 INDICATION: Status post thoracentesis TECHNIQUE: frontal view of the chest was obtained. COMPARISON: Chest radiograph dated 11/30/2023 FINDINGS: Interval resolution of the prior small right pleural effusion with corresponding significant improvem ent in aeration of the right lung. Chronic pleural parenchymal scarring at the right apex. There are scattered groundglass and patchy airspace opacities in the left lung. Small left pleural effusion wit h blunting at the costophrenic angle and posterior sulcus. No pneumothorax. Heart size is normal. Mul tiple surgical clips along the lateral right chest wall and prior right breast implant. A couple like ly biopsy markers in the left breast. IMPRESSION: 1. Resolution of the prior small right pleural effusion postthoracentesis. 2. Small left pleural effusion and airspace opacities throughout the left lung which could represent atelectasis or pneumonia. Reviewed, dictated and finalized at location A.
--- NOTE | ~2023-11-25 | US_ITS ---
EXAMINATION: US thoracentesis DATE: 11/30/2023 15:12 INDICATION: Right pleural effusion TECHNIQUE: The procedure and its risks and benefits were discussed with the patient. Potential risks discussed included bleeding, infection, and pneumothorax. The patient understood the risks and agreed to proceed. The skin was prepped and draped in sterile fashion. 1% lidocaine was used for local anes thesia. Under ultrasound guidance, a 5 Fr catheter with trochar was advanced into the right pleural e ffusion. Fluid was aspirated. The catheter was removed, and a dressing was applied. There were no imm ediate complications. FINDINGS: Ultrasound images demonstrate a small right pleural effusion and the catheter within the fluid. IMPRESSION: 1. Successful ultrasound-guided thoracentesis yielding 300 mL of yellow fluid. Reviewed, dictated and finalized at location A.
--- NOTE | ~2023-11-25 | MR_ITS ---
MRI of the lumbar spine Clinical History: T12 fracture Technique: Axial T2-weighted images, and sagittal T1-weighted, T2-weighted, and and T2 fat-sat images were acquired. Findings: There is an acute transverse fracture through the T12 vertebral with hypointense T1 fractur e line and surrounding marrow edema, with minimal if any significant loss of height. No other fractur e or subluxation identified. No other bone marrow signal abnormality evident. At L1-L2, there is no disc bulge or herniation. There is partial fusion across the facet joints, with moderate facet arthropathy. No spinal canal stenosis. There is probable mild bilateral neural forami nal narrowing. At L2-L3, there is mild disc bulge with advanced facet arthropathy. No central canal stenosis. There is mild left neural foraminal narrowing, and moderate right neural foraminal narrowing. At L3-L4, there is advanced degenerative disc narrowing. There is diffuse disc bulge with severe face t arthropathy, and mild central canal stenosis. There is severe right neural foraminal narrowing, and moderate left neural foraminal narrowing. At L4-L5, there is diffuse disc bulge with advanced facet arthropathy. No central canal stenosis. The re is mild to moderate bilateral neural foraminal narrowing. At L5-S1, there is mild disc bulge and moderate facet arthropathy. No central canal stenosis. There i s moderate to severe bilateral neural foraminal narrowing. Paravertebral soft tissues are unremarkable. Impression: Acute T12 compression type fracture with minimal if any loss of height. Degenerative spondylosis in the lumbar spine, as detailed above, with multilevel neural foraminal austin rowing, worst at L3-L4. Reviewed, dictated and finalized at [facility]. Impression: Acute T12 compression type fracture with minimal if any loss of height. Degenerative spondylosis in the lumbar spine, as detailed above, with multileve l neural foraminal narrowing, worst at L3-L4.
--- NOTE | ~2023-11-25 | NM_ITS ---
EXAMINATION: NM lung vent and perfusion DATE: 11/25/2023 23:26 INDICATION: Dyspnea. TECHNIQUE: 12.6 mCi xenon-133 was given for ventilation images. 4.9 mCi Tc-99m MAA was administered i ntravenously for perfusion images. Scintigraphic images of the chest were obtained. COMPARISON: Chest CT 11/26/2023, chest single view 11/25/2023 FINDINGS: Single breath ventilation images demonstrate large defects at all right lung lobes. There is a small defect in left lower lobe. Washout images demonstrate large defects throughout the lungs. Perfusion i mages show matched large defects in right lower lobe and small defects in the upper lobes and left lo wer lobe. IMPRESSION: 1. Intermediate probability for pulmonary embolism. Note that the CTA on 11/26/2023 demonstrates no p ulmonary embolus. Reviewed, dictated and finalized at location E. IMPRESSION: 1. Intermediate probability for pulmonary embolism. Note that the CTA on 2023 demonstrates no pulmonary embolus.
--- NOTE | ~2023-11-25 | XR_ITS ---
XR chest 1V portable 12/01/2023 08:10 Indication: Right pleural effusion Procedure: AP portable chest Comparison: Comparison to multiple prior studies sequentially, with oldest reviewed study dated 11/24. Findings: Heart size normal. Persistent nodule at the left midlung, likely corresponding to patient's known malignancy. Patchy bilateral airspace disease of the mid and lower lungs. Decreasing size of p leural effusions. No pneumothorax. No acute osseous abnormality. Impression: 1: Improving patchy bilateral airspace disease which may reflect resolving pneumonia or edema. 2: Ill-defined mass left mid thorax, concerning for bronchogenic carcinoma. Reviewed, dictated and finalized at location B. Impression: 1: Improving patchy bilateral airspace disease which may reflect resolving pneu monia or edema. 2: Ill-defined mass left mid thorax, concerning for bronchogenic carcinoma.
--- NOTE | ~2023-11-25 | XR_ITS ---
Portable chest x-ray Comparison: 11/28/2023 Clinical History: Lung cancer, diffusion Findings: 2.8 cm left midlung pulmonary nodule is present. There are moderate bilateral pleural effu sions probable bibasilar atelectasis. Cardiomediastinal silhouette is stable. Bones and soft tissues are unremarkable. Impression: 2.7 mm left midlung pulmonary nodule, consistent with provided history of lung cancer. Moderate bilateral pleural effusions with bibasilar atelectasis. Reviewed, dictated and finalized at location . Impression: 2.7 mm left midlung pulmonary nodule, consistent with provided history of lung cancer. Moderate bilateral pleural effusions with bibasilar atelectasis.
--- NOTE | ~2023-11-25 | XR_ITS ---
EXAMINATION: XR chest 1V portable DATE: 11/28/2023 11:23 INDICATION: Right pleural effusion. TECHNIQUE: A single frontal view of the chest was obtained. COMPARISON: Chest view 11/27/2023, chest CT 11/26/2023 FINDINGS: There is volume loss of right lung from right upper lobectomy. There is a nodule in left up per lobe. There are airspace opacities at the lung bases. There are small pleural effusions. No pneum othorax. The heart size is normal. There are surgical clips in right axilla. There is a catheter tip in left axilla. IMPRESSION: 1. Small pleural effusions with worsening on the right. 2. Worsened airspace opacities at the lung bases, consistent with atelectasis versus pneumonia. 3. Nodule in left lung upper lobe, consistent with primary bronchogenic carcinoma versus metastatic d isease. Reviewed, dictated and finalized at location E. IMPRESSION: 1. Small pleural effusions with worsening on the right. 2. Worsened airspace opacities at the lung bases, consistent with atelectasis v ersus pneumonia. 3. Nodule in left lung upper lobe, consistent with primary bronchogenic carcino ma versus metastatic disease.
--- NOTE | ~2023-11-25 | US_ITS ---
EXAMINATION: US venous doppler UE DATE: 11/27/2023 14:55 INDICATION: Evaluate for deep venous thrombosis. Arm swelling. TECHNIQUE: Mitchell scale images with and without compression and Doppler images of the right and left up per extremity veins were obtained. COMPARISON: None. FINDINGS: The internal jugular vein, subclavian vein, axillary vein, brachial veins, basilic vein, cephalic vei n, radial vein, and ulnar vein are patent. IMPRESSION: 1. Patent bilateral upper extremity veins. No evidence of deep venous thrombosis. Reviewed, dictated and finalized at location B. IMPRESSION: 1. Patent bilateral upper extremity veins. No evidence of deep venous thrombosi s.
--- NOTE | ~2023-11-25 | US_ITS ---
EXAMINATION: US thoracentesis DATE: 11/26/2023 11:13 CDT INDICATION: Right pleural effusion TECHNIQUE: The procedure for an ultrasound-guided thoracentesis was discussed with the patient. Risk s and benefits were detailed, including risks of bleeding, infection, and pain. The patient verbaliz ed understanding and agreed to proceed following written consent. A time and out was performed to verify patient's name, date of , and type of procedure. The rig ht posterior chest was prepped and draped in usual manner. 1% lidocaine was used for local anesthesi a. A catheter was inserted into the right posterior chest under ultrasound guidance into the fluid. The fluid was removed with vacuum assistance. All needles were removed. The patient tolerated the procedure without immediate complication.] FINDINGS: Limited images of the chest demonstrates a small amount of fluid. Approximately 500 cc of yellowish liquid was removed. IMPRESSION: 1. Successful ultrasound-guided thoracentesis, with removal of approximately 500 cc of fluid. Reviewed, dictated and finalized at location A. IMPRESSION: 1. Successful ultrasound-guided thoracentesis, with removal of approximately 5 00 cc of fluid.
--- NOTE | ~2023-11-25 | XR_ITS ---
XR chest 1V portable 11/27/2023 15:15 Indication: Status post thoracentesis. Procedure: AP portable chest Comparison: 11/25/2023 Findings: Elevated right diaphragm. Small pleural effusions. Diffuse bilateral airspace disease. No p neumothorax. Stable cardiomediastinal silhouette. Mild cardiomegaly. There is a mass in the left mid lung, consistent with abnormality seen on CT dated 11/26/2023, concerning for bronchogenic carcinoma. Impression: 1: Diffuse bilateral airspace disease may represent edema or pneumonia. 2: Bilateral pleural effusions. 3: Mass in the left mid lung, consistent with abnormality seen on CT dated 11/26/2023, concerning for bronchogenic carcinoma. Reviewed, dictated and finalized at location B. Impression: 1: Diffuse bilateral airspace disease may represent edema or pneumonia. 2: Bilateral pleural effusions. 3: Mass in the left mid lung, consistent with abnormality seen on CT dated 11/06, concerning for bronchogenic carcinoma.
--- NOTE | ~2023-11-25 | XR_ITS ---
EXAMINATION: XR chest 1V portable Exam Date/Time: 11/25/2023 20:15 CDT HISTORY: dyspnea Comparison: 08/24/2018. RESULT: Lines, tubes, and devices: Suture line in the right upper lung. Right axillary surgical clips. Lungs and pleura: Rightward rotation. Subsegmental focal opacity in the peripheral left midlung. Grad ed bilateral lower lung opacities, with more confluent opacity in the right lung base. Moderate right and mild left costophrenic angle blunting. Mild diffuse reticular opacities. Cardiomediastinal silhouette: Stable, evaluation is somewhat limited by rotation. Other: No acute osseous or upper abdominal finding. IMPRESSION: Segmental opacity in the peripheral left midlung, may represent a focus of atelectasis, infection, or infarction. A pulmonary mass is not excluded. Mild interstitial edema. Small left and moderate right pleural effusions. Bibasilar atelectasis/consolidation greater on the right. Reviewed, dictated and finalized at location K. IMPRESSION: Segmental opacity in the peripheral left midlung, may represent a focus of atel ectasis, infection, or infarction. A pulmonary mass is not excluded. Mild inter stitial edema. Small left and moderate right pleural effusions. Bibasilar atele ctasis/consolidation greater on the right.
--- NOTE | ~2023-11-25 | CT_ITS ---
EXAMINATION: CT thoracic lumbar wo con DATE: 11/29/2023 20:48 INDICATION: T12 fracture. TECHNIQUE: Computed tomography (CT) of the thoracic and lumbar spine was performed without intravenou s contrast. Automated exposure control and iterative reconstruction technique were employed. The dose -length product was 871.70 mGy-cm. COMPARISON: Chest CT 11/26/2023 FINDINGS: CT THORACIC SPINE: There are changes of right upper lobectomy. There are moderate-sized right and sma ll left pleural effusions. There is dependent atelectasis bilaterally. There is 13 degrees levoscolio sis of thoracic spine. There is a compression fracture of T12 vertebral body without significant heig ht loss. Endplate osteophytes from C3 T12. There is ankylosis of the facet joints from T3-T4 through T12-L1. There is multilevel mild neural foraminal stenosis. No central canal stenosis. CT LUMBAR SPINE: Vertebral body heights are normal. There is mildly decreased disc height at L3-L4 an d mildly decreased disc height at L5-S1. There are bridging endplate osteophytes at T12-L1 and L1-L2. There is ankylosis of the facet joints at T12-L1 and L1-L2. There is ankylosis of the sacral iliac j oints. The following disc levels are specifically discussed: L1-L2: The disc does not extend beyond the endplate margin. There is mild bilateral facet joint hyper trophy. There is mild bilateral neural foraminal stenosis. There is no central canal stenosis. L2-L3: The disc is bulging. There is severe bilateral facet joint osteoarthritis. There is mild bilat eral neural foraminal stenosis. There is mild central canal stenosis. L3-L4: The disc is bulging. There is severe bilateral facet joint osteoarthritis. There is moderate r ight and mild left neural foraminal stenosis. There is mild central canal stenosis. L4-L5: This is bulging. There is severe bilateral facet joint osteoarthritis. There is mild bilateral neural foraminal stenosis. There is mild central canal stenosis. L5-S1: The disc is bulging. There is severe bilateral facet joint osteoarthritis. There is mild bilat eral neural foraminal stenosis. There is mild central canal stenosis. IMPRESSION: 1. T12 compression fracture, stable from 11/26/2023, likely subacute. 2. Ankylosis spondylosis. 3. Moderate lumbar spondylosis. 4. Moderate-sized right and small left pleural effusions. Reviewed, dictated and finalized at location E.
--- NOTE | ~2023-11-25 | US_ITS ---
EXAMINATION:US venous doppler LE BI INDICATION:Evaluate for deep venous thrombosis TECHNIQUE: Multiple grayscale, color flow and Doppler images of the right and left lower extremity de ep venous systems were obtained and reviewed. COMPARISON:No prior studies for comparison. FINDINGS: The common femoral, superficial femoral and popliteal veins demonstrate normal respiratory variation, augmentation and compressibility. Color flow is also seen within the posterior tibial, pe roneal, greater saphenous and profunda veins. IMPRESSION: 1: No lower extremity deep venous thrombosis. Reviewed, dictated and finalized at location B.
--- NOTE | ~2023-11-25 | CT_ITS ---
EXAMINATION: CTA chest PE protocol DATE: 11/26/2023 17:52 INDICATION: Hypoxia. Lung cancer. TECHNIQUE: Computed tomography angiography (CTA) of the chest was performed with 100 mL Omnipaque-350 intravenous contrast timed to evaluate the pulmonary arteries. Coronal maximum intensity projection 3D-reconstructions were created by the technologist. Automated exposure control and iterative reconst ruction technique were employed. The dose-length product was 371.98 mGy-cm. COMPARISON: None. FINDINGS: Emphysema is noted. There are changes of right upper lobectomy. There is a 2.7 x 2.4 cm nod ule in left upper lobe. There are small pleural effusions. There is mild scarring at left lung apex. There is mild atelectasis bilaterally. The heart size is normal. There are coronary artery calcificat ions. No pericardial effusion. There is no pulmonary embolus. There is a 7.1 x 3.4 cm seroma in right breast. Ankylosing spondylitis is noted. There is a subacute versus chronic fracture of T12 vertebra l body. IMPRESSION: 1. No pulmonary embolus. 2. 2.7 x 2.4 cm nodule in left lung upper lobe, consistent with primary bronchogenic carcinoma versus metastatic disease. 3. Small pleural effusions. 4. Mild emphysema. Reviewed, dictated and finalized at location E. IMPRESSION: 1. No pulmonary embolus. 2. 2.7 x 2.4 cm nodule in left lung upper lobe, consistent with primary broncho genic carcinoma versus metastatic disease. 3. Small pleural effusions. 4. Mild emphysema.
--- NOTE | ~2023-11-25 | XR_ITS ---
EXAM: XR thoracolumbar DATE: 12/02/2023 10:56 HISTORY: standing xray in brace to eval T12 fx . COMPARISON: MR L-spine 11/30/2023. FINDINGS: Decreased mineralization. Kyphosis at T12. Moderate anterior wedge deformity at T12. Multi level moderate degenerative disc changes. Multilevel moderate facet arthropathy with interspinous austin rowing. Atherosclerotic aortic calcification without evident aneurysm. Atelectasis/scarring in the le ft lower lung with costophrenic angle blunting bilaterally IMPRESSION: Interval development of moderate wedge compression deformity at T12. Left basilar atelectasis/consolidation. Small bilateral pleural effusions Reviewed, dictated and finalized at location K.
--- NOTE | ~2023-11-25 | MR_ITS ---
MRI of the thoracic spine Clinical History: T12 compression fracture Technique: Axial T2-weighted and gradient images, and sagittal T1-weighted, T2-weighted, and STIR tom ges were acquired. Findings: There is an acute transverse fracture of the T12 vertebral body, with minimal loss of heigh t. There is hypointense T1 fracture line with surrounding marrow edema. No other fracture or sublocat ion seen in the remainder of the thoracic spine. No other bone marrow signal reality seen. There is partial fusion across the T7-T8 disc space. Remaining intervertebral discs are relatively we ll-preserved. No significant disc bulge or herniation seen at any thoracic level. No spinal canal andra nosis or cord compression identified. No epidural mass or collection seen. No abnormal signal seen in the spinal cord. Paravertebral soft t issues are unremarkable. Probable small to moderate right pleural effusion. Impression: Acute fracture of T12, as detailed above, with minimal loss of height. [id number] right pleural effusion, partially imaged. Reviewed, dictated and finalized at location . Impression: Acute fracture of T12, as detailed above, with minimal loss of height. [id number] right pleural effusion, partially imaged.
--- NOTE | 2023-11-25 17:46 | ED.GENADULT ---
HPI - General Adult General Chief complaint: Shortness of Breath/Dyspnea <Get Andrews PA-C - Last Filed: 11/26/23 00:59> Stated complaint: dyspnea <Get Andrews PA-C - Last Filed: 11/26/23 00:59> Time Seen by Provider: 11/25/23 17:32 <Get Andrews PA-C - Last Filed: 11/26/23 00:59> Source: patient <Get Andrews PA-C - Last Filed: 11/26/23 00:59> Mode of arrival: ambulatory <ROSETTE García Last Filed: 11/26/23 00:59> Limitations: no limitations <Get Andrews PA-C - Last Filed: 11/26/23 00:59> History of Present Illness HPI narrative: This is a 68-year-old female with PMH of COPD, lung cancer, breast cancer, including spondylitis, rheumatoid arthritis who presents to the ED with chief complaint of general weakness and shortness of breath for the past several days. Patient reports that she just signed out AMA from another facility this morning because they were not treating her well. Patient reports she was there because she had fall which she fractured her T12 vertebrae. Patient states that they also found pneumonia while she was at that hospital which they were treating. Today patient states that she has increasing dyspnea but no chest pain. She feels that her back pain has been present ever since fall with T12 fracture. Denies syncope, nausea, vomiting, abdominal pain, urinary symptoms, fevers, chills. Patient states she had a right upper lobe lobectomy in August 2023. She follows with Dr. Tarqi (Oncology) and just finished her 3rd round of chemo last week. Reports that because of the weakness from the chemo she fell while trying to go to the bathroom last week which prompted the initial admission to the hospital. She is not on any chronic anticoagulation. <Get Andrews PA-C - Last Filed: 11/26/23 00:59> Related Data Home medications: Home Medications Medication Instructions Recorded Confirmed albuterol sulfate 90 mcg/actuation 2 puff inhalation Q4-5H PRN Dyspnea 07/18/19 11/26/23 aerosol inhaler (Ventolin HFA) alprazolam 1 mg tablet 1 mg PO QID 07/18/19 11/26/23 lamotrigine 100 mg tablet 100 mg PO BID 07/18/19 11/26/23 levetiracetam 500 mg tablet 500 mg PO BID 07/18/19 11/26/23 quetiapine 200 mg tablet 200 mg PO HS 07/18/19 11/26/23 trazodone 100 mg tablet 200 mg PO HS 07/18/19 11/26/23 venlafaxine 37.5 mg 37.5 mg PO QAM PRN Anxiety 07/18/19 11/26/23 capsule,extended release 24 hr fluticasone fur. 100 mcg-umeclid 1 inh inhalation QAM 01/13/20 11/26/23 62.5 mcg-vilant 25 mcg inhalat.powder (Trelegy Ellipta) calcium carbonate 600 mg-vitamin 1 tablet PO BID 03/02/21 11/26/23 D3 5 mcg (200 unit) tablet geriatric multivitamin-min 1 tablet PO DAILY 03/02/21 11/26/23 hydrocodone 7.5 mg-acetaminophen 1 tablet PO BID PRN Pain 03/02/21 11/26/23 325 mg tablet ibandronate 150 mg tablet 150 mg PO MONTHLY 03/02/21 11/26/23 quetiapine 50 mg tablet 50 mg PO BID PRN Anxiety 03/02/21 11/26/23 vitamin E 670 mg (1,000 unit) 1,000 unit PO DAILY 03/02/21 11/26/23 capsule atorvastatin 80 mg tablet 80 mg PO DAILY 10/03/23 11/26/23 metoprolol tartrate 50 mg tablet 50 mg PO BID 10/03/23 11/26/23 nifedipine 60 mg tablet,extended 60 mg PO HS 10/03/23 11/26/23 release 24 hr venlafaxine 75 mg tablet,extended 75 mg PO DAILY 10/03/23 11/26/23 release 24 hr acyclovir 400 mg tablet 400 mg PO BID 11/26/23 11/26/23 losartan 100 mg tablet 100 mg PO DAILY 11/26/23 11/26/23 ondansetron 8 mg disintegrating 8 mg translingual Q8H PRN Nausea 11/26/23 11/26/23 tablet <Get Andrews PA-C - Last Filed: 11/26/23 00:59> Allergies/adverse reactions: Allergies Allergy/AdvReac Type Severity Reaction Status Date / Time No Known Allergies Allergy Verified 10/27/23 16:14 <Gte Andrews PA-C - Last Filed: 11/26/23 00:59> Review of Systems Review of Systems: All systems as dictated in HPI <Get Andrews PA-C - Last Filed: 11/26/23 00:59> [facility] Past Med
--- NOTE | 2023-11-25 17:49 | ECG_ITS ---
SEE SCANNED COPY FOR CONFIRMED REPORT MTDD
[2023-11-25] MEDS: methylPREDNISolone SOD SUCC 125 MG VIAL IV PUSH (18:10)
[2023-11-25 18:11] LABS: Alveolar/Arterial O2 Gradient 180.8 mmHg; Base Excess ABG 4.7 mEq/l (+/-2.0); Fractional Inspired Oxygen 44 %; HCO3 ABG 29.5 mEq/l (22.0-26.0); Oxygen Content ABG 13.4 %vol (16.0-22.0); Oxygen Saturation ABG 96.3 % (95.0-100.0); Oxyhemoglobin 93.4 % THb (90.0-100.0); PCO2 ABG 44.9 mmHg (35.0-45.0); PO2 ABG 81.7 mmHg (80.0-100.0); PO2 FiO2 Ratio Arterial Blood 1.86 %; Total Hemoglobin 10.1 g/dL (12.0-18.0); pH ABG 7.435 (7.350-7.450)
[2023-11-25 18:12] LABS: Device NASAL CANNULA; Site Drawn LEFT BRACHIAL
[2023-11-25 20:04] LABS: Hematocrit 31.4 % (37.0-47.0); Mean Corpuscular HGB Conc 31.8 g/dl (32-36); Mean Corpuscular Hemoglobin 30.9 pg (26-34); Mean Corpuscular Volume 96.9 fl (80-100); Mean Platelet Volume 9.8 fl (7.4-10.4); Platelet Count Result 173 k/mm3 (150-375); Red Blood Count 3.24 M/mm3 (4.2-5.4); Red Cell Distribution Width 15.5 % (11.5-14.5)
[2023-11-25 20:14] LABS: Alanine Aminotransferase 15 U/L (6-35); Albumin Level 3.6 g/dL (3.5-5.1); Alkaline Phosphatase 63 U/L (38-126); Anion Gap 3 mmol/L (4-12); Aspartate Amino Transferase 22 U/L (14-36); Bilirubin,Total 0.4 mg/dL (0.2-1.3); Blood Urea Nitrogen 12 mg/dL (7-17); Calcium 9.6 mg/dL (8.4-10.2); Carbon Dioxide 34 mmol/L (22-30); Chloride 102 mmol/L (98-107); Estimated Glomerular Filt Rate > 60; Glucose 174 mg/dL (65-110); Magnesium 1.3 mg/dL (1.6-2.3); Sodium 139 mmol/L (137-145)
[2023-11-25 20:15] LABS: INR 0.9; Partial Thromboplastin Time 21.1 Seconds (22.3-36.8); Prothrombin Time 12.9 Seconds (11.1-14.7)
[2023-11-25 20:28] LABS: NT Pro B Type Natriuretic Pept 785 pg/mL (19.9-100); Troponin I 0.058 ng/mL (0.000-0.034)
[2023-11-25 20:35] LABS: White Blood Count 1.3 K/mm3 (4.5-10.0)
[2023-11-25 20:36] LABS: Basophils Absolute Manual 0.05 K/mm3 (0.0-0.1); Basophils Percent Manual 4 % (0-1); Eosinophils Percent Manual 8 % (0-4); Lymphocytes Absolute Manual 0.31 K/mm3 (1.1-4.5); Neutrophils Percent Manual 64 % (46-73); Platelet Estimate Adequate (Adequate); Total Cells Counted 25
[2023-11-25 20:37] LABS: Anisocytosis 1+; Microcytosis 1+ (NORMAL); Schistocytes Rare
[2023-11-25] MEDS: POTASSIUM CHLORIDE 20 MEQ ER TABLET 40 MEQ PO (20:46)
[2023-11-25] MEDS: MAGNESIUM SULF 1 GM/D5W 100 ML 1 GM/100 ML BAG IVPB (20:47)
[2023-11-25] MEDS: LACTATED RINGERS 1,000 ML 999 ML IV CONT (20:47)
--- NOTE | 2023-11-25 22:14 | PC.NURSE ---
this rn assumed care of patient. this rn took patient report from Orion Tyson.
[2023-11-25 22:51] LABS: Troponin I 0.064 ng/mL (0.000-0.034)
[2023-11-25] MEDS: AZITHROMYCIN 500 MG/NS 250 ML 500 MG/250 ML BAG 250 MG IVPB (23:26)
[2023-11-25] MEDS: ASPIRIN 81 MG CHEWABLE TABLET 324 MG PO (23:30)
[2023-11-26] VITALS (22 sets, daily range): BP systolic 114–207; BP diastolic 55–104; PULSE 69–100; RESP 16–33; TEMP 36.1–36.5; O2SAT 90–99; BMI 23.8
[2023-11-26] MEDS: LORazepam (*CRX) 1 MG TABLET PO (00:41)
--- NOTE | 2023-11-26 00:50 | PM.IMHP ---
H&P: HPI History of Present Illness Date/Time: 11/26/23 00:50 Chief Complaint: sob Narrative: this is a 68-year-old female with past medical history significant for COPD/ emphysema, tobacco dependence, lung cancer, status post resection, undergoing chemotherapy, RA, ankylosing spondylitis of lumbar spine. Patient presents to the emergency room due to shortness of breath generalized weakness recurrent falls poor per orally intake. In emergency room preliminary workup was significant for chest x-ray with moderate right-sided pleural effusion consolidation at bilateral bases. Patient also was found to have saturating at 55% and tachypneic and tachycardic in emergency room requiring supplemental oxygen by nasal cannula. Patient has been feeling very weak feels cold and has had cough productive of sputum. Patient was rule out for pulmonary embolism with a low probability V/Q scan. Patient has been admitted for further evaluation management and treatment. patient had left AMA from outside facility where she was not happy to the treatment. EXAMINATION:? XR chest 1V portable Exam Date/Time:? 11/25/2023 20:15 CDT HISTORY: dyspnea ? Comparison:? 08/24/2018. RESULT: Lines, tubes, and devices:? Suture line in the right upper lung. Right axillary surgical clips. Lungs and pleura: Rightward rotation. Subsegmental focal opacity in the peripheral left midlung. Graded bilateral lower lung opacities, with more confluent opacity in the right lung base. Moderate right and mild left costophrenic angle blunting. Mild diffuse reticular opacities. Cardiomediastinal silhouette:? Stable, evaluation is somewhat limited by rotation. Other:? No acute osseous or upper abdominal finding. ? IMPRESSION: Segmental opacity in the peripheral left midlung, may represent a focus of atelectasis, infection, or infarction. A pulmonary mass is not excluded. Mild interstitial edema. Small left and moderate right pleural effusions. Bibasilar atelectasis/consolidation greater on the right. Review of Systems Constitutional: Constitutional: Reports chills, Reports fatigue, Denies fever(s), Reports lethargy, Reports malaise, Reports poor appetite and Reports weakness Comments: presents to the emergency room due to shortness of breath recurrent falls generalized weakness poor appetite cough productive of sputum Eyes: Eyes: Denies change in vision ENT: Denies dysphagia and Denies odynophagia Cardiovascular: Cardiovascular: Denies chest pain, Denies radiating jaw, neck or arm pain and Denies palpitations Respiratory: Respiratory: Reports change in phlegm color, Reports cough, Reports dyspnea and Reports dyspnea on exertion Gastrointestinal: Gastrointestinal: Denies abdominal pain, Denies nausea and Denies vomiting Genitourinary: Genitourinary: Denies dysuria Musculoskeletal: Musculoskeletal: Reports back pain, Reports myalgias and Reports arthralgias Integumentary/Breasts: Skin/Breast: Denies rash Neurologic: Denies focal weakness and Denies Sensory deficit (Neuro) Psychiatric: Psychiatric: Reports no additional psychiatric complaints and Reports as per HPI Endocrine: Endocrine: Denies cold intolerance, Denies fatigue, Denies flushing, Denies heat intolerance, Denies polyphagia, Denies polydipsia, Denies polyuria and Denies palpitations Hematologic/Lymphatic: Hematologic/Lymphatic: Reports no additional hematologic/lymphatic complaints and Reports as per HPI Allergic/Immunologic: Allergic/Immunologic: Reports no additional allergic/immunologic complaints and Reports as per HPI PMF Past Medical History Medical History (Updated 11/26/23 @ 01:35 by Reema Lopez MD) Ankylosing spondylitis of lumbosacral region (~1980) Anxiety Bipolar 1 disorder COPD (chronic obstructive pulmonary disease) Current smoker Generalized osteoarthritis of multiple sites H/O malignant neoplasm of breast Hip pain, bilateral Hypertension Rheumatoid arthritis Rheum
--- NOTE | 2023-11-26 02:16 | ADMGEN ---
This patient, Mili Bruno, was admitted to IMU Room 212-01. Patient/family oriented to hospital policies and general routines including ID bracelet, bed and alarms, visiting hours, pain management, procedures, bathroom and other care routines, personal items, smoking policy, room service/diet, and visiting hours. Information on how to activate the Rapid Response Team has been discussed. Patient/Family are encouraged to report perceived risks to care and to ask questions if they do not understand what they are told or what they should do.
[2023-11-26 03:03] LABS: Troponin I 0.043 ng/mL (0.000-0.034)
[2023-11-26 11:16] LABS: Lactate Dehydrogenase 217 U/L (120-246)
--- NOTE | 2023-11-26 11:17 | PM.IMPN ---
Progress Note: A&P Assessment and Plan (1) Pneumonia: Code(s): J18.9 - Pneumonia, unspecified organism Status: Acute (2) Acute hypoxic respiratory failure: Code(s): J96.01 - Acute respiratory failure with hypoxia Status: Acute (3) Pleural effusion: Code(s): J90 - Pleural effusion, not elsewhere classified Status: Acute (4) Lung cancer: Code(s): C34.90 - Malignant neoplasm of unspecified part of unspecified bronchus or lung Status: Acute (5) Bipolar 1 disorder: Code(s): F31.9 - Bipolar disorder, unspecified Status: Acute Plan Ms. Bruno is a pleasant 68-year-old female who is accompanied by her and living at home with a past medical history of prior tobacco abuse, COPD previously requiring chronic O2 use, breast cancer, lung cancer status post lobectomy (08/[address] Elizabeth receiving chemotherapy), rheumatoid arthritis, ankylosing spondylitis of the lumbar spine, history of pleural effusion, bipolar disorder, hypertension, vitamin-D deficiency. The patient was being treated for pneumonia and blood clot and T12 fracture at [facility] after she had fell at home. She left there AMA as she did not agree with the treatment or lack there of, presenting to [place] [facility] on 11/24 shortly after the complaint of shortness of breath. IV access was difficult to obtain V/Q scan was performed and it was low probability for PE. Left-sided pneumonia and pleural effusion was reported on chest x-ray so patient was started on antibiotics and admitted for thoracentesis and further management. Patient's presenting complaint of shortness of breath mildly improved however she continues to require nasal cannula at 7 L. she was started on ceftriaxone and azithromycin which have been switched to cefepime and vancomycin considering her pleural effusion on presentation leukopenia chemotherapy and recent hospitalization. She is on chemotherapy with leukopenia so procalcitonin has been ordered to help dictate antibiotic management. Blood cultures are pending. Obtain sputum cultures however at the moment she is not producing. Urinary antigens ordered as well. DuoNebs have been ordered as p.r.n. Thoracentesis has been completed this morning with removal of approximately 500 cc of yellowish liquid. Pleural studies are pending. EKG without acute ischemia on presentation and her troponin peaked at 0.064. A V/Q scan was completed on admission but patient has reported being treated for a blood clot at [facility]. Records have been requested from [facility] and heparin GTT started. A CTA of the chest has been ordered to help delineate presence or not of PE. Will also be able to further detail her pleural effusion status post thoracentesis. Her initial complaint at [facility] was a fall and she reports a T12 fracture. The patient does not know what the management was done for this, she did not have any surgical intervention. She will remain on bed rest for now. PTOT can be ordered once we know more. Records have been requested from [facility]. Does not currently complain of pain and there are no focal neurological deficits. Patient has leukopenia which is relatively new and she is on chemotherapy. For this, and at the request of the patient her oncologist Dr. Tariq has been consulted. Home medications have been restarted. She is hypertensive so we will continue to monitor blood pressure after her oral antihypertensive have been administered. FEN: Saline lock IV. Heart healthy diet. GI prophylaxis: Not indicated DVT prophylaxis: Heparin GTT Lines: Peripheral IV Code Status: Full code Dispo: Stable in IMU Subjective Date/time seen: 11/26/23 11:17 Interval history: No acute overnight events. Patient reports mild improvement in her breathing. is at bedside. She reports she had a clot that was being treated at the other facility. Review of Systems Review of Sys
[2023-11-26 11:20] LABS: pH Pleural Fluid > 7.500 (7.210-7.500)
--- NOTE | 2023-11-26 11:43 | PCCCNOTE ---
On 11/26/23, the student, Sruthi Jensen, provided care and completed [facility] documentation on this patient. I have reviewed the student's documentation and agree with the findings.
[2023-11-26] MEDS: ALPRAZolam (*CRX) 0.5 MG TABLET 1 MG PO ×2 (12:00→16:35)
[2023-11-26] MEDS: levETIRAcetam 500 MG TABLET PO ×2 (12:01→20:31)
[2023-11-26] MEDS: MULTIVITAMINS /C LUTEIN (CENTRUM SILVER) TABLET *BKC 1 TAB PO (12:01)
[2023-11-26] MEDS: HEPARIN SOD/D5W 100 UNITS/ML 25,000 UNITS/250 ML BAG 11 UNITS IV CONT (12:38)
[2023-11-26] MEDS: VANCOMYCIN 1,500 MG/NS 500 ML 1,500 MG/500 ML BAG 250 MG IVPB (12:39)
[2023-11-26] MEDS: CEFEPIME 2 GM/NS 50 ML 2 GM/50 ML BAG IVPB ×2 (12:39→20:33)
[2023-11-26 12:40] LABS: Appearance Pleural Fluid Hazy (Clear); Color Pleural Fluid Yellow (Colorless); Lymphocytes Pleural Fluid 100 %; Pleural fluid source Pleural fluid
[2023-11-26] MEDS: BACLOFEN 10 MG TABLET PO (16:32)
[2023-11-26] MEDS: ACYCLOVIR 400 MG TABLET PO (16:32)
[2023-11-26] MEDS: CALCIUM/VITAMIN D 500 MG/5 MCG (200 I.U.) TABLET PO (16:32)
[2023-11-26 16:33] LABS: MRSA (PCR) NOT DETECTED (NOT DETECTE)
[2023-11-26] MEDS: METOPROLOL TARTRATE 50 MG TAB PO (16:33)
[2023-11-26] MEDS: sulfaSALAzine 500 MG TABLET PO (16:33)
[2023-11-26] MEDS: lamoTRIgine 100 MG TABLET PO (16:34)
[2023-11-26] MEDS: polyethylene glycoL 3350 17 GM POWD.PACK PO (16:34)
[2023-11-26 17:17] LABS: Appearance Urine Clear (Clear); Bacteria Urine None Seen /hpf; Bilirubin Urine Negative (Negative); Blood Urine Negative (Negative); Color Urine Yellow (Yellow); Glucose Urine UA Trace mg/dL (Negative); Ketones Urine Negative (Negative); Leukocyte Esterase Ur Negative LEU/UL (Negative); Nitrate Urine Negative (Negative); Non Pathogenic Casts 0-2; Protein Urine Trace mg/dL (Negative); RBC Urine 0-2 /hpf (0-2); Specific Grav Ur 1.018 (1.001-1.035); Squamous Epithelial Cell Urine None Seen /hpf (Few); Urobilinogen Urine 0.2 mg/dL (<2.0); WBC Urine 0-5 /hpf (0-3)
[2023-11-26 17:18] LABS: Add Urine Microscopic? YES
[2023-11-26 19:29] LABS: Partial Thromboplastin Time 75.2 Seconds (22.3-36.8)
[2023-11-26] MEDS: traZODone HCL 50 MG TABLET 200 MG PO (20:31)
[2023-11-26] MEDS: QUEtiapine FUMARATE 100 MG TABLET 200 MG PO (20:31)
[2023-11-26] MEDS: ALPRAZolam (*CRX) 0.5 MG TABLET 2 MG PO (20:32)
[2023-11-26] MEDS: NIFEdipine 30 MG TAB.ER.24 60 MG PO (20:32)
[2023-11-26] MEDS: SALINE LOCK FLUSH 10 ML IV PUSH (20:33)
[2023-11-26] MEDS: ONDANSETRON INJ 4 MG/2 ML VIAL IV PUSH (20:39)
[2023-11-27] VITALS (24 sets, daily range): BP systolic 115–173; BP diastolic 28–78; PULSE 66–92; RESP 16–24; TEMP 36.2–37.3; O2SAT 90–98
[2023-11-27 03:05] LABS: Partial Thromboplastin Time 75.6 Seconds (22.3-36.8)
[2023-11-27] MEDS: CEFEPIME 2 GM/NS 50 ML 2 GM/50 ML BAG IVPB ×3 (05:30→21:17)
[2023-11-27] MEDS: HYDROcodone/acetaminophen (*CRX) 7.5-325 MG TABLET 1 TAB PO ×2 (05:55→21:34)
[2023-11-27] MEDS: SALINE LOCK FLUSH 10 ML IV PUSH ×3 (06:00→21:37)
[2023-11-27] MEDS: VANCOMYCIN 1,250 MG/NS 250 ML 1,250 MG/250 ML BAG 166.67 MG IVPB (06:00)
[2023-11-27 06:13] LABS: Hematocrit 26.4 % (37.0-47.0); Hemoglobin 8.4 g/dL (12.0-15.0); Mean Corpuscular HGB Conc 31.8 g/dl (32-36); Mean Corpuscular Hemoglobin 31.1 pg (26-34); Mean Corpuscular Volume 97.8 fl (80-100); Mean Platelet Volume 9.6 fl (7.4-10.4); Platelet Count Result 196 k/mm3 (150-375); Red Cell Distribution Width 15.7 % (11.5-14.5); White Blood Count 2.2 K/mm3 (4.5-10.0)
[2023-11-27 06:25] LABS: Alanine Aminotransferase 22 U/L (6-35); Albumin Level 3.2 g/dL (3.5-5.1); Alkaline Phosphatase 63 U/L (38-126); Anion Gap 2 mmol/L (4-12); Aspartate Amino Transferase 34 U/L (14-36); Bilirubin,Total 0.3 mg/dL (0.2-1.3); Blood Urea Nitrogen 10 mg/dL (7-17); Calcium 8.8 mg/dL (8.4-10.2); Carbon Dioxide 34 mmol/L (22-30); Chloride 101 mmol/L (98-107); Estimated CRCL calculation 75 ml/min; Estimated Glomerular Filt Rate > 60; Glucose 134 mg/dL (65-110); Magnesium 1.6 mg/dL (1.6-2.3); Potassium 3.1 mmol/L (3.4-5.0); Sodium 137 mmol/L (137-145)
[2023-11-27] MEDS: FLUTICASONE/UMECLIDIN/VILANTER 100-62.5-25 MCG ELLIPTA 1 PUFF INHALATION (07:55)
[2023-11-27 08:49] LABS: Procalcitonin 0.1 ng/mL
[2023-11-27] MEDS: LOSARTAN POTASSIUM 100 MG TABLET PO (08:51)
[2023-11-27] MEDS: VENLAFAXINE HCL XR 75 MG CAP.ER.24H PO (08:51)
[2023-11-27] MEDS: BACLOFEN 10 MG TABLET PO ×2 (08:51→18:27)
[2023-11-27] MEDS: ALPRAZolam (*CRX) 0.5 MG TABLET 1 MG PO ×2 (08:51→18:02)
--- NOTE | 2023-11-27 08:51 | PM.IMPN ---
Progress Note: A&P Assessment and Plan (1) Pneumonia: Code(s): J18.9 - Pneumonia, unspecified organism Status: Acute (2) Acute hypoxic respiratory failure: Code(s): J96.01 - Acute respiratory failure with hypoxia Status: Acute (3) Pleural effusion: Code(s): J90 - Pleural effusion, not elsewhere classified Status: Acute (4) Lung cancer: Code(s): C34.90 - Malignant neoplasm of unspecified part of unspecified bronchus or lung Status: Acute Plan (1) Pneumonia: ?Code(s): J18.9 - Pneumonia, unspecified organism ?Status:?Acute (2) Acute hypoxic respiratory failure: ?Code(s): J96.01 - Acute respiratory failure with hypoxia ?Status:?Acute (3) Pleural effusion: ?Code(s): J90 - Pleural effusion, not elsewhere classified ?Status:?Acute (4) Lung cancer: ?Code(s): C34.90 - Malignant neoplasm of unspecified part of unspecified bronchus or lung ?Status:?Acute (5) Bipolar 1 disorder: ?Code(s): F31.9 - Bipolar disorder, unspecified ?Status:?Acute Plan Ms. Bruno is a pleasant 68-year-old female who is accompanied by her and living at home with a past medical history of prior tobacco abuse, COPD previously requiring chronic O2 use, breast cancer, lung cancer status post lobectomy (08/[address] Elizabeth receiving chemotherapy), rheumatoid arthritis, ankylosing spondylitis of the lumbar spine, history of pleural effusion, bipolar disorder, hypertension, vitamin-D deficiency.? COPD exacerbation, acute respiratory failure, hospital acquired pneumonia, pleural effusion The patient was being treated for pneumonia and blood clot and T12 fracture at [facility] after she had fell at home.? She left there AMA as she did not agree with the treatment or lack there of, presenting to [facility] on 11/24 shortly after the complaint of shortness of breath.? IV access was difficult to obtain V/Q scan was performed and it was low probability for PE.? Left-sided pneumonia and pleural effusion was reported on chest x-ray patient was started on antibiotics and admitted for thoracentesis and further management. Thoracentesis has been completed this morning with removal of approximately 500 cc of yellowish liquid.? Pleural studies are pending. require nasal cannula at 7 L. patient is immunocompromised, and also had recent history of hospitalization was started on ceftriaxone and azithromycin which have been switched to cefepime and vancomycin considering her pleural effusion on presentation leukopenia chemotherapy follow-up procalcitonin.? Blood cultures are pending.? Obtain sputum cultures however at the moment she is not producing.? Urinary antigens ordered as well.? DuoNebs have been ordered as p.r.n. A V/Q scan was completed on admission but patient has reported being treated for a blood clot at [facility].? Records have been requested from [facility] and heparin GTT started upon arrival.? A CTA of the chest showed no PE, conformed left lower lobe cancer discontinue heparin drip start Lovenox 1 milligram/kilos q.[address] reports a subacute versus chronic fracture of T12 vertebral body. Her initial complaint at [facility] was a fall and she reports a T12 fracture.? The patient does not know what the management was done for this, she did not have any surgical intervention.? PTOT can be ordered lower midback tenderness, worse with movement. there are no focal neurological deficits. consult neurosurgeon for evaluation and treatment, patient may need a brace to support her spent reduce pain lung cancer Patient has leukopenia which is relatively new and she is on chemotherapy.? For this, and at the request of the patient her oncologist Dr. Tariq has been consulted. essential hypertension l continue to monitor blood pressure after her oral antihypertensive have been administered. margin high troponin EKG without acute ischemia
[2023-11-27] MEDS: levETIRAcetam 500 MG TABLET PO ×2 (08:52→21:34)
[2023-11-27] MEDS: sulfaSALAzine 500 MG TABLET PO ×2 (08:52→18:28)
[2023-11-27] MEDS: lamoTRIgine 100 MG TABLET PO ×2 (08:52→18:28)
[2023-11-27] MEDS: polyethylene glycoL 3350 17 GM POWD.PACK PO (08:52)
[2023-11-27] MEDS: VITAMIN E 1,000 UNIT CAPSULE 1000 UNIT PO (08:52)
[2023-11-27] MEDS: ACYCLOVIR 400 MG TABLET PO ×2 (08:52→18:27)
[2023-11-27] MEDS: ATORVASTATIN 40 MG TABLET 80 MG PO (08:52)
[2023-11-27] MEDS: MULTIVITAMINS /C LUTEIN (CENTRUM SILVER) TABLET *BKC 1 TAB PO (08:52)
[2023-11-27] MEDS: CALCIUM/VITAMIN D 500 MG/5 MCG (200 I.U.) TABLET PO ×2 (08:52→18:28)
[2023-11-27] MEDS: METOPROLOL TARTRATE 50 MG TAB PO ×2 (08:52→18:27)
--- NOTE | 2023-11-27 10:00 | PDONCCN ---
HPI - Date of Consult Date/Time: 11/27/23 12:41 <Tony Tariq - 11/27/23 12:47> 11/27/23 10:00 <Kenzie Lehman 11/27/23 10:08> Requesting Physician: Reema Lopez MD <Tony Tariq - 11/27/23 12:47> Reema Lopez MD <Kenzie Lehman 11/27/23 10:08> Primary Care Provider: Kyrie Osuna, <Tony Tariq - 11/27/23 12:47> Kyrie Mccollum, <Kenzie Lehman 11/27/23 10:08> - Consult Narrative Reason for consult: Lung cancer and leukopenia <Kenzie Lehman 11/27/23 10:08> Narrative: Mili Bruno is a 68 year old female <Tony Tariq - 11/27/23 12:47> Mili Bruno is a 68 year old female with a past medical history of COPD, RA, ankylosing spondylitis, breast and lung cancer. She was last seen in the office on 11/16 and she received cycle 3 of chemotherapy for her non small cell lung cancer which was diagnosed in Aug 2023. She was started on Cisplatin / Taxotere on October 05. Her next chemotherapy is due 12/07. She was admitted to [place] after a fall and was told she has a T12 fracture. It was not managed and she is unsure of that status. She left [facility] due to the care she was receiving. She then developed shortness of breath and weakness and presented to [place]. She is currently on 6L NC and is s/p a thoracentesis and cytology is still pending. Labs are notable for WBC 2.2, Hgb 8.4, Hct 26, Plt 196 <Kenzie Lehman 11/27/23 10:17> Review of Systems - Review of Systems All systems reviewed & are unremarkable except as noted in HPI and bel <Kenzie Lehman 11/27/23 10:17> - Neurologic Reports weakness, Denies focal weakness, Denies sensory deficit <Kenzie Lehman 11/27/23 10:08> [facility] Medical History: Medical History (Last Updated 11/26/23 @ 00:52 by Reema Lopez MD) Ankylosing spondylitis of lumbosacral region Onset Date: ~1980 Anxiety Bipolar 1 disorder COPD (chronic obstructive pulmonary disease) Current smoker Generalized osteoarthritis of multiple sites H/O malignant neoplasm of breast Hip pain, bilateral Hypertension Rheumatoid arthritis Rheumatoid arthritis Vitamin D deficiency <Tony Tariq - 11/27/23 12:47> Medical History (Last Updated 11/26/23 @ 00:52 by Reema Lopez MD) Ankylosing spondylitis of lumbosacral region Onset Date: ~1980 Anxiety Bipolar 1 disorder COPD (chronic obstructive pulmonary disease) Current smoker Generalized osteoarthritis of multiple sites H/O malignant neoplasm of breast Hip pain, bilateral Hypertension Rheumatoid arthritis Rheumatoid arthritis Vitamin D deficiency <Kenzie Lehman - 11/27/23 10:08> Family History: Family History (Last Updated 11/26/23 @ 02:30 by Za Dewitt RN) Sibling Patient's brother is in good health Mother Lung cancer Father Kidney disease <Tony Tariq - 11/27/23 12:47> Family History (Last Updated 11/26/23 @ 02:30 by Za Dewitt RN) Sibling Patient's brother is in good health Mother Lung cancer Father Kidney disease <Kenzie Lehman - 11/27/23 10:08> - Social History Social History: Social History (Last Reviewed 10/16/23 @ 11:49 by Miles Kirkpatrick MD) Gender Identity: Gender identity (if verbalized by the patient): Female Alcohol Use: Alcohol intake: current Drinks per week: 1 Substance Use: Substance use: former Substance use type: marijuana Other substance usage details: MARIJUANA DAILY Others: Spiritual care concerns: No Living Arrangements: Living arrangements: with family Smoking Status: Smoking status: Former smoker Smoking end date: 11/25/22 Smoking Pack-years: Smoking packs per day: 1 Smoking cigarettes per day: 20.0 Years smoked: 52 Smoking pack-years: 52.00 Social Determinants of Health: Do You Feel Safe in your Home?: Yes Has the Karen
[2023-11-27 10:09] LABS: Band Neutrophils Percent 2 % (0-6); Neutrophils Absolute Manual 0.46 K/mm3 (1.7-7.2); Neutrophils Percent Manual 19 % (46-73); Total Cells Counted 100
[2023-11-27 10:10] LABS: Eosinophils Absolute Manual 0.04 K/mm3 (0.02-0.50); Eosinophils Percent Manual 2 % (0-4); Lymphocytes Absolute Manual 1.38 K/mm3 (1.1-4.5); Lymphocytes Percent Manual 63 % (18-44); Monocytes Percent Manual 14 % (3-9); Nucleated Red Blood Cells 2 %
[2023-11-27 10:11] LABS: Platelet Estimate Adequate (Adequate)
[2023-11-27 10:12] LABS: Anisocytosis 2+; Basophilic Stippling 1+; Polychromasia 1+; Smudge Cells PRESENT
[2023-11-27 10:13] LABS: Schistocytes Rare
[2023-11-27 11:52] LABS: Folic Acid > 20.0 ng/mL (2.76->20)
--- NOTE | 2023-11-27 12:11 | PM.CNPUL ---
Assessment and Plan Assessment and plan (1) Lung cancer: Code(s): C34.90 - Malignant neoplasm of unspecified part of unspecified bronchus or lung Status: Acute Assessment and Plan: Patient tells me she had nodules in her right upper lobe diagnosed in that enlarged and she ultimately had a CT-guided biopsy that was positive for cancer. Patient went underwent a right upper lobectomy at [facility] and she was told the margins were clean in the lymph nodes were clean. She was discharged from the hospital on 2 L nasal cannula. She is followed by Oncology, Dr. Tariq, and started on cisplatinum -texotere on October 05. She has had 3 cycles. Oncology, Dr. Tariq, has been consulted. Patient with 2.7 x 2.4 cm nodule left upper lobe Consistent with cancer versus metastases. Patient tells me she has never had nodules on the left side to her knowledge. Plan: Cytology from right pleural effusion is pending. White blood cell count improved today to 2.2. Filgastrin 480 mcg subcu daily x3 has been ordered by Oncology. Patient is being treated with vancomycin and cefepime (day 2) for possible pneumonia or neutropenic infection. She did receive 1 day of ceftriaxone and azithromycin on 11/25/2023. I will check a COVID, influenza and RSV RT PCR study. Discussed with Dr Robin, will follow with you (2) COPD (chronic obstructive pulmonary disease): Code(s): J44.9 - Chronic obstructive pulmonary disease, unspecified Status: Acute Assessment and Plan: patient has a 50 pack year tobacco history, CT scan of the chest shows diffuse panlobular emphysema. Patient was hypoxic post her right upper lobectomy and sounds like she self discontinued her oxygen approximately 10 weeks ago with saturations at home in the 70s to a high of 91%. ABG on 6 L 7.44/45/82. She is maintained on trilogy inhaler and albuterol p.r.n. I do believe the patient has COPD. Currently she has no wheezing, no change in her sputum production and I do not believe she has a COPD exacerbation. Plan: there is mild hypercarbia but this does not require active management at this time. Agree with continuation of trelegy 100, goal saturation 90-94% and currently she is on 6 L nasal cannula. I will check an alpha 1 anti trypsin level in genotype. (3) Pulmonary embolism: Code(s): I26.99 - Other pulmonary embolism without acute cor pulmonale Status: Acute Assessment and Plan: The patient tells me that while she was at [facility] admitted on 11/18 that she was told maybe she had a blood clot. She does not know if she was treated with anticoagulation or not. she signed out of that hospital against medical advice. They gave her no prescriptions. The patient had a CT angiogram on 11/25/2023 with no pulmonary embolism. We have requested medical records and imaging from [facility]. Plan: it is unclear if the patient had a pulmonary embolism and was treated for 6 days with resolution of this embolism on our CT angiogram of the chest on 11/25/2023. Recomend to restart it systemic anticoagulation until we have additional information and I have ordered Lovenox 1 milligram/kilos b.i.d. I have ordered upper extremity and lower extremity Dopplers. I have ordered an echocardiogram. (4) Pleural effusion: Code(s): J90 - Pleural effusion, not elsewhere classified Status: Acute Assessment and Plan: 11/26/2023: CT scan showed right greater than left pleural effusion. She had a right thoracentesis with 500 mL of yellow fluid removed. PH was greater than 7.50, differential showed 100% lymphocytes, g stain with many white blood cells and no organisms seen. The patient tells me she had immediate review improvement in her breathing. Currently this effusion is noninfectious, lymphocytic. Plan: Await additional chemistries to determine if this is a transudate versus an exudate. Await
--- NOTE | 2023-11-27 12:24 | ECHO_ITS ---
Patient Info Name: Mili Bruno Age: 68 years : 1955 Gender: Female Ht: 64 in Wt: 141 lbs BSA: 1.71 m2 HR: 73 bpm BP: 129 / 65 mmHg Heart Rhythm: Sinus Rhythm Technical Quality: Fair Exam Date: 11/27/2023 3:16 PM Exam Location: Echo Lab Patient Status: Inpatient Admit Date: 11/27/2023 Staff Ordering Physician: Victor M Busch MD Industrial Relations Director: Gilma Huitron RDCS Attending Provider: Reema Lopez MD Referring Physician: Narayan TAYLOR; Exam Type: CA echo doppler color flow Study Info Indications - HYPOXIA, LUNG CANCER R06.02 - Shortness of breath Complete two-dimensional, color flow and Doppler transthoracic echocardiogram is performed. Summary 1. Left ventricular chamber dimension is normal. 2. Left ventricular systolic function is normal, estimated at 60-65%. 3. There is mildly increased left ventricular wall thickness. 4. The left ventricular diastolic function is grade I diastolic dysfunction. 5. Right ventricular systolic function is normal. 6. There is mild mitral valve regurgitation. 7. There is trivial posterior pericardial effusion. Left Ventricle Left ventricular chamber dimension is normal. Left ventricular systolic function is normal, estimated at 60-65%. There is mildly increased left ventricular wall thickness. The left ventricular diastolic function is grade I diastolic dysfunction. Right Ventricle Right ventricular chamber dimension is normal. Right ventricular systolic function is normal. Left Atria Left atrial chamber dimension is normal. Right Atria Right atrial chamber dimension is normal. Atrial Septum Intact interatrial septum visualized by color flow imaging. Aortic Valve The aortic valve is trileaflet. There is no aortic valve stenosis. There is no aortic valve regurgitation. Pulmonic Valve The pulmonic valve is not well visualized. Mitral Valve There is mild mitral valve regurgitation. Tricuspid Valve There is trace tricuspid valve regurgitation. Pericardium/Pleural There is trivial posterior pericardial effusion. Inferior Vena Cava Normal inferior vena cava with >50% collapse upon inspiration consistent with normal right atrial pressure, 3 mmHg. Aorta The aortic root size at the sinus of Valsalva is normal. Left Ventricular Outflow Tract Name Value Normal LVOT 2D LVOT Diameter 2.0 cm LVOT Doppler LVOT Peak Gradient 4 mmHg LVOT Mean Gradient 2 mmHg LVOT VTI 20 cm LVOT VTI/AV VTI Ratio 0.7 LVOT Stroke Volume 65 ml LVOT CO 4.4 l/min LVOT CI 2.6 l/min/m2 Pulmonic Valve Name Value Normal RVOT Doppler RVOT Peak Gradient 1 mmHg PV Doppler PV Peak Gradient
[2023-11-27 13:46] LABS: Influenza A QL RT-PCR Negative (Negative); Influenza B QL RT-PCR Negative (Negative); RSV RNA, RT-PCR Negative (Negative); SARS-CoV-2 RNA PCR Negative (Negative)
[2023-11-27] MEDS: AZITHROMYCIN 500 MG/NS 250 ML 500 MG/250 ML BAG 250 MG IVPB (14:04)
[2023-11-27] MEDS: ENOXAPARIN 80 MG/0.8 ML SYRINGE 65 MG SUB-Q ×2 (14:05→21:36)
[2023-11-27 14:19] LABS: Iron 59 ug/dL (37-170)
[2023-11-27 14:34] LABS: Percent Iron Saturation 22 % (20-50)
[2023-11-27] MEDS: SODIUM CHLORIDE 0.9% IV 250 ML 30 ML IV CONT (18:01)
[2023-11-27] MEDS: FILGRASTIM-SNDZ 480 MCG/0.8 ML SYRINGE SUB-Q (18:27)
[2023-11-27] MEDS: ONDANSETRON INJ 4 MG/2 ML VIAL IV PUSH ×2 (18:36→22:06)
[2023-11-27 19:57] LABS: Glucose Point of Care 135 mg/dl (65-105)
[2023-11-27] MEDS: ALPRAZolam (*CRX) 0.5 MG TABLET 2 MG PO (21:33)
[2023-11-27] MEDS: NIFEdipine 30 MG TAB.ER.24 60 MG PO (21:34)
[2023-11-27] MEDS: traZODone HCL 50 MG TABLET 200 MG PO (21:35)
[2023-11-27] MEDS: QUEtiapine FUMARATE 100 MG TABLET 200 MG PO (21:35)
[2023-11-28] VITALS (23 sets, daily range): BP systolic 91–155; BP diastolic 49–62; PULSE 63–84; RESP 18–22; TEMP 36.4–37; O2SAT 90–95
[2023-11-28] MEDS: CEFEPIME 2 GM/NS 50 ML 2 GM/50 ML BAG IVPB ×3 (05:48→20:43)
[2023-11-28] MEDS: SALINE LOCK FLUSH 10 ML IV PUSH ×3 (05:49→20:54)
[2023-11-28] MEDS: FLUTICASONE/UMECLIDIN/VILANTER 100-62.5-25 MCG ELLIPTA 1 PUFF INHALATION (07:37)
[2023-11-28] MEDS: ACYCLOVIR 400 MG TABLET PO ×2 (08:12→16:55)
[2023-11-28] MEDS: lamoTRIgine 100 MG TABLET PO ×2 (08:12→16:55)
[2023-11-28] MEDS: BACLOFEN 10 MG TABLET PO (08:12)
[2023-11-28] MEDS: sulfaSALAzine 500 MG TABLET PO ×2 (08:12→16:55)
[2023-11-28] MEDS: VENLAFAXINE HCL XR 75 MG CAP.ER.24H PO (08:13)
[2023-11-28] MEDS: METOPROLOL TARTRATE 50 MG TAB PO ×2 (08:13→16:54)
[2023-11-28] MEDS: polyethylene glycoL 3350 17 GM POWD.PACK PO (08:13)
[2023-11-28] MEDS: CALCIUM/VITAMIN D 500 MG/5 MCG (200 I.U.) TABLET PO ×2 (08:13→16:55)
[2023-11-28] MEDS: ALPRAZolam (*CRX) 0.5 MG TABLET 1 MG PO ×2 (08:14→16:54)
[2023-11-28] MEDS: ENOXAPARIN 80 MG/0.8 ML SYRINGE 65 MG SUB-Q ×2 (08:14→20:48)
[2023-11-28] MEDS: ATORVASTATIN 40 MG TABLET 80 MG PO (08:14)
[2023-11-28] MEDS: levETIRAcetam 500 MG TABLET PO ×2 (08:15→20:50)
[2023-11-28] MEDS: MULTIVITAMINS /C LUTEIN (CENTRUM SILVER) TABLET *BKC 1 TAB PO (08:15)
[2023-11-28] MEDS: VITAMIN E 1,000 UNIT CAPSULE 1000 UNIT PO (08:15)
[2023-11-28] MEDS: LOSARTAN POTASSIUM 100 MG TABLET PO (08:15)
[2023-11-28] MEDS: FILGRASTIM-SNDZ 480 MCG/0.8 ML SYRINGE SUB-Q (08:18)
--- NOTE | 2023-11-28 09:27 | PM.PNPUL ---
Progress Note: A&P Assessment and Plan (1) Lung cancer: Code(s): C34.90 - Malignant neoplasm of unspecified part of unspecified bronchus or lung Status: Acute Assessment and Plan: Patient tells me she had nodules in her right upper lobe diagnosed in that enlarged and she ultimately had a CT-guided biopsy that was positive for cancer. Patient went underwent a right upper lobectomy at [facility] and she was told the margins were clean in the lymph nodes were clean. She was discharged from the hospital on 2 L nasal cannula. She is followed by Oncology, Dr. Tariq, and started on cisplatinum -texotere on October 05. She has had 3 cycles. Oncology, Dr. Tariq, has been consulted. Patient with 2.7 x 2.4 cm nodule left upper lobe Consistent with cancer versus metastases. Patient tells me she has never had nodules on the left side to her knowledge. Plan: Cytology from right pleural effusion is pending. White blood cell count improved today to 2.2. Filgastrin 480 mcg subcu daily x3 has been ordered by Oncology. Patient is being treated with vancomycin and cefepime (day 2) for possible pneumonia or neutropenic infection. She did receive 1 day of ceftriaxone and azithromycin on 11/25/2023. I will check a COVID, influenza and RSV RT PCR study. 11/28/23: Patient tells me she slept well last night. Overall she is breathing normal with minimal phlegm and minimal cough. Patient was on 6 L throughout the night with saturations 95-96%. The patient had desaturation this morning and I spoke with the bedside nurse who was with her. She had no change in her respiratory status her sats just went into the mid 70s on 7 L. she was not in any respiratory distress, had no evidence of aspiration, was not tachycardic and had a good plethysmography tracing. Patient was increased to 15 L nasal cannula. When I enter the room the patient's saturation on 15 L was 93%. I decreased her sequentially to 10 L and then to 6 L and her saturations remain 92%. COVID, RSV and influenza RT PCR study negative Plan: Cytology from right pleural effusion is pending. Filgastrin 480 mcg subcu daily x3 has been ordered by Oncology , today day 2. Patient is being treated with ceftriaxone and azithromycin on 11/25/2023 then vancomycin (11/25 through 11/27, MRSA swab negative and DC vanco on 11/27), cefepime (started 11/25, day 3), azithromycin (started 11/26), day2 for possible pneumonia or neutropenic infection. Discussed with Dr Robin, will follow with you (2) COPD (chronic obstructive pulmonary disease): Code(s): J44.9 - Chronic obstructive pulmonary disease, unspecified Status: Acute Assessment and Plan: patient has a 50 pack year tobacco history, CT scan of the chest shows diffuse panlobular emphysema. Patient was hypoxic post her right upper lobectomy and sounds like she self discontinued her oxygen approximately 10 weeks ago with saturations at home in the 70s to a high of 91%. ABG on 6 L 7.. She is maintained on trilogy inhaler and albuterol p.r.n. I do believe the patient has COPD. Currently she has no wheezing, no change in her sputum production and I do not believe she has a COPD exacerbation. Plan: there is mild hypercarbia but this does not require active management at this time. Agree with continuation of trelegy 100, goal saturation 90-94% and currently she is on 6 L nasal cannula. I will check an alpha 1 anti trypsin level in genotype. 11/28/23: Patient tells me she slept well last night. Overall she is breathing normal with minimal phlegm and minimal cough. Patient was on 6 L throughout the night with saturations 95-96%. The patient had desaturation this morning and I spoke with the bedside nurse who was with her. She had no change in her respiratory status her sats just went into the mid 70s on 7 L. she was not in any respiratory distress, had no evidence of aspiration, was not tachycardic and
--- NOTE | 2023-11-28 10:21 | PM.IMPN ---
Progress Note: A&P Assessment and Plan (1) Pneumonia: Code(s): J18.9 - Pneumonia, unspecified organism Status: Acute (2) Acute hypoxic respiratory failure: Code(s): J96.01 - Acute respiratory failure with hypoxia Status: Acute (3) Pleural effusion: Code(s): J90 - Pleural effusion, not elsewhere classified Status: Acute (4) Lung cancer: Code(s): C34.90 - Malignant neoplasm of unspecified part of unspecified bronchus or lung Status: Acute Plan (1) Pneumonia: ?Code(s): J18.9 - Pneumonia, unspecified organism ?Status:?Acute (2) Acute hypoxic respiratory failure: ?Code(s): J96.01 - Acute respiratory failure with hypoxia ?Status:?Acute (3) Pleural effusion: ?Code(s): J90 - Pleural effusion, not elsewhere classified ?Status:?Acute (4) Lung cancer: ?Code(s): C34.90 - Malignant neoplasm of unspecified part of unspecified bronchus or lung ?Status:?Acute (5) Bipolar 1 disorder: ?Code(s): F31.9 - Bipolar disorder, unspecified ?Status:?Acute Plan Ms. Bruno is a pleasant 68-year-old female who is accompanied by her and living at home with a past medical history of prior tobacco abuse, COPD previously requiring chronic O2 use, breast cancer, lung cancer status post lobectomy (08/[address] Elizabeth receiving chemotherapy), rheumatoid arthritis, ankylosing spondylitis of the lumbar spine, history of pleural effusion, bipolar disorder, hypertension, vitamin-D deficiency.? COPD exacerbation, acute respiratory failure, hospital acquired pneumonia, pleural effusion The patient was being treated for pneumonia and blood clot and T12 fracture at [facility] after she had fell at home.? She left there AMA as she did not agree with the treatment or lack there of, presenting to [place] ER on 11/24 shortly after the complaint of shortness of breath.? IV access was difficult to obtain V/Q scan was performed and it was low probability for PE.? Left-sided pneumonia and pleural effusion was reported on chest x-ray patient was started on antibiotics and admitted for thoracentesis and further management. Thoracentesis has been completed this morning with removal of approximately 500 cc of yellowish liquid.? Pleural studies are pending. require nasal cannula at 7 L. patient is immunocompromised, and also had recent history of hospitalization was started on ceftriaxone and azithromycin which have been switched to cefepime and vancomycin considering her pleural effusion on presentation leukopenia chemotherapy follow-up procalcitonin.? Blood cultures are pending.? Obtain sputum cultures however at the moment she is not producing.? Urinary antigens ordered as well.? DuoNebs have been ordered as p.r.n. 11/27 stop vancomycin, MRSA negative, continue cefepime and added azithromycin per graduate teacher education Suspecting acute diastolic heart failure X-ray shows pleural effusion, worse on the rest, will wean airspace opacity, fluid overloaded and superimposed pneumonia ? 1. Left ventricular chamber dimension is normal. ? 2. Left ventricular systolic function is normal, estimated at 60-65%. ? 3. There is mildly increased left ventricular wall thickness. ? 4. The left ventricular diastolic function is grade I diastolic dysfunction. ? 5. Right ventricular systolic function is normal. ? 6. There is mild mitral valve regurgitation. ? 7. There is trivial posterior pericardial effusion. Lasix 40 mg IV push once Follow-up input output Follow-up CBC BMP, BNP A V/Q scan was completed on admission but patient has reported being treated for a blood clot at [place] [facility].? Records have been requested from [place] and heparin GTT started upon arrival.? A CTA of the chest showed no PE, conformed left lower lobe cancer discontinue heparin drip start Lovenox 1 milligram/kilos q.[address] reports a subacute versus chronic fracture of T12 vertebral body. Her
[2023-11-28 10:22] LABS: NT Pro B Type Natriuretic Pept 454 pg/mL (19.9-100)
[2023-11-28] MEDS: HYDROcodone/acetaminophen (*CRX) 7.5-325 MG TABLET 1 TAB PO ×2 (12:11→20:51)
[2023-11-28] MEDS: ONDANSETRON INJ 4 MG/2 ML VIAL IV PUSH ×2 (12:17→20:43)
[2023-11-28] MEDS: AZITHROMYCIN 500 MG/NS 250 ML 500 MG/250 ML BAG 250 MG IVPB (13:23)
[2023-11-28] MEDS: FUROSEMIDE INJ 40 MG/4 ML VIAL IV PUSH (16:54)
[2023-11-28 17:20] LABS: Hematocrit 32.9 % (37.0-47.0); Hemoglobin 10.3 g/dL (12.0-15.0); Mean Corpuscular HGB Conc 31.3 g/dl (32-36); Mean Corpuscular Hemoglobin 30.7 pg (26-34); Mean Corpuscular Volume 98.2 fl (80-100); Mean Platelet Volume 9.2 fl (7.4-10.4); Platelet Count Result 194 k/mm3 (150-375); Red Blood Count 3.35 M/mm3 (4.2-5.4); Red Cell Distribution Width 17.6 % (11.5-14.5); White Blood Count 8.1 K/mm3 (4.5-10.0)
[2023-11-28 17:29] LABS: Anion Gap 0 mmol/L (4-12); Blood Urea Nitrogen 15 mg/dL (7-17); Calcium 9.3 mg/dL (8.4-10.2); Carbon Dioxide 37 mmol/L (22-30); Chloride 98 mmol/L (98-107); Estimated CRCL calculation 64 ml/min; Estimated Glomerular Filt Rate > 60; Glucose 102 mg/dL (65-110); Potassium 3.8 mmol/L (3.4-5.0); Sodium 135 mmol/L (137-145)
[2023-11-28 17:38] LABS: NT Pro B Type Natriuretic Pept 370 pg/mL (19.9-100)
--- NOTE | 2023-11-28 18:24 | WPDNEUROSGCN ---
Consult date: 11/28/23 Reason for consult: Back pain and fracture after a fall, T12 HPI: Mili Bruno is a 68 year old female who has lung cancer and is being treated for that who was admitted to the hospital with generalized weakness, poor p.o. intake and frequent falls. Apparently she experienced a fall around the 12th and has had back pain since that time. She states that she has been ambulatory but only briefly and for about 10 steps and that she had very significant pain in her back when she did that. She has not noted any new issues in her lower extremities. She does not note specific muscle group weakness or dermatomal numbness. She does have generalized weakness as stated above. The fracture was noted on a CTA of the chest. She does not report new bowel or bladder difficulties. [facility] Past Medical History Medical History (Updated 11/27/23 @ 12:38 by Victor M Busch MD) Ankylosing spondylitis of lumbosacral region (~1980) Anxiety Bipolar 1 disorder Current smoker Generalized osteoarthritis of multiple sites H/O malignant neoplasm of breast Hip pain, bilateral Hypertension Rheumatoid arthritis Rheumatoid arthritis Vitamin D deficiency Family History Family History (Updated 11/26/23 @ 02:30 by Za Dewitt RN) Sibling Patient's brother is in good health Mother Lung cancer Father Kidney disease Social History Social History Smoking packs per day: 1 Smoking cigarettes per day: 20.0 Years smoked: 52 Smoking pack-years: 52.00 Smoking status: Former smoker Smoking end date: 11/25/22 Alcohol intake: current Drinks per week: 1 Substance use: former Substance use type: marijuana Other substance usage details: MARIJUANA DAILY Do You Feel Safe in your Home?: Yes Lack of Transportation: No Lack of Food: Never True Current Housing: I Have Housing Concerned About Future Housing: No Difficulty Paying Gas/Electric Bills: No Difficulty Paying for Meds: No Currently Unemployed: No Education: Grade School Difficulty w/ Childcare or Family Care: No Living arrangements: with family Additional living arrangements comments: [facility] Gender identity (if verbalized by the patient): Female Spiritual care concerns: No Meds Home Medications and Allergies Home Medications Medication Instructions Recorded Confirmed Type albuterol sulfate 90 mcg/actuation 2 puff inhalation Q4-5H PRN Dyspnea 07/18/19 11/26/23 History aerosol inhaler (Ventolin HFA) alprazolam 1 mg tablet 1 mg PO QID 07/18/19 11/26/23 History lamotrigine 100 mg tablet 100 mg PO BID 07/18/19 11/26/23 History levetiracetam 500 mg tablet 500 mg PO BID 07/18/19 11/26/23 History quetiapine 200 mg tablet 200 mg PO HS 07/18/19 11/26/23 History trazodone 100 mg tablet 200 mg PO HS 07/18/19 11/26/23 History venlafaxine 37.5 mg 37.5 mg PO QAM PRN Anxiety 07/18/19 11/26/23 History capsule,extended release 24 hr fluticasone fur. 100 mcg-umeclid 1 inh inhalation QAM 01/13/20 11/26/23 History 62.5 mcg-vilant 25 mcg inhalat.powder (Trelegy Ellipta) calcium carbonate 600 mg-vitamin 1 tablet PO BID 03/02/21 11/26/23 History D3 5 mcg (200 unit) tablet geriatric multivitamin-min 1 tablet PO DAILY 03/02/21 11/26/23 History hydrocodone 7.5 mg-acetaminophen 1 tablet PO BID PRN Pain 03/02/21 11/26/23 History 325 mg tablet ibandronate 150 mg tablet 150 mg PO MONTHLY 03/02/21 11/26/23 History quetiapine 50 mg tablet 50 mg PO BID PRN Anxiety 03/02/21 11/26/23 History vitamin E 670 mg (1,000 unit) 1,000 unit PO DAILY 03/02/21 11/26/23 History capsule baclofen 10 mg tablet 10 mg PO BID #180 tabs 04/13/23 11/26/23 Rx atorvastatin 80 mg tablet 80 mg PO DAILY 10/03/23 11/26/23 History metoprolol tartrate 50 mg tablet 50 mg PO BID 10/03/23 11/26/23 History nifedipine 60 mg tablet,extended 60 mg PO HS 10/03/23 11/26/23 History release 24 hr venlafaxine 75 mg
--- NOTE | 2023-11-28 18:31 | WPDNEUROSGCN ---
Assessment and Plan Assessment and plan (1) T12 vertebral fracture: Code(s): S22.089A - Unspecified fracture of T11-T12 vertebra, initial encounter for closed fracture Status: Acute Plan Mili is a 68-year-old female with lung cancer was being treated for that and is in the hospital with generalized weakness and decreased p.o. intake and has experienced a fall recently perhaps resulting in the T12 fracture. This is really a Chance type fracture but does not seem to involve the posterior elements or the posterior cortex of the vertebral body. However, the studies we have are limited. To better characterize this fracture I recommend a dedicated CT of the thoracic spine as well as an MRI of the thoracic spine. We will obtain a brace for her. If, indeed, it does not involve the posterior elements then bracing and pain medication will be the main treatment. This is not really a compression deformity. Until we have the new studies and the brace I recommended she remain on bed rest. Consult date: 11/28/23 Reason for consult: Back pain after a fall, T12 fracture HPI: Mili Bruno is a 68 year old female who has lung cancer and is being treated for that who was admitted to the hospital with generalized weakness, poor p.o. intake and frequent falls. Apparently she experienced a fall around the 12th and has had back pain since that time. She states that she has been ambulatory but only briefly and for about 10 steps and that she had very significant pain in her back when she did that. She has not noted any new issues in her lower extremities. She does not note specific muscle group weakness or dermatomal numbness. She does have generalized weakness as stated above. The fracture was noted on a CTA of the chest. She does not report new bowel or bladder difficulties. Review of Systems Constitutional: Constitutional: Reports body ache(s), Reports chills, Reports fatigue, Reports lethargy and Reports weakness Eyes: Eyes: Reports as per HPI ENT: Reports as per HPI Cardiovascular: Cardiovascular: Denies chest pain Respiratory: Respiratory: Reports chest congestion, Reports cough, Reports dyspnea and Reports dyspnea on exertion Gastrointestinal: Gastrointestinal: Denies abdominal pain Genitourinary: Genitourinary: Reports as per HPI Musculoskeletal: Musculoskeletal: Reports back pain, Reports myalgias and Reports arthralgias Integumentary/Breasts: Skin/Breast: Reports as per HPI Neurologic: Reports abnormal gait, Denies focal weakness, Denies radicular pain and Denies Sensory deficit (Neuro) Psychiatric: Psychiatric: Reports no additional psychiatric complaints PMFSH Past Medical History Medical History (Updated 11/28/23 @ 18:37 by Freeman Newman MD) Ankylosing spondylitis of lumbosacral region (~1980) Anxiety Bipolar 1 disorder Current smoker Generalized osteoarthritis of multiple sites H/O malignant neoplasm of breast Hip pain, bilateral Hypertension Rheumatoid arthritis Rheumatoid arthritis Vitamin D deficiency Family History Family History (Updated 11/26/23 @ 02:30 by Za Dewitt RN) Sibling Patient's brother is in good health Mother Lung cancer Father Kidney disease Social History Social History Smoking packs per day: 1 Smoking cigarettes per day: 20.0 Years smoked: 52 Smoking pack-years: 52.00 Smoking status: Former smoker Smoking end date: 11/25/22 Alcohol intake: current Drinks per week: 1 Substance use: former Substance use type: marijuana Other substance usage details: MARIJUANA DAILY Do You Feel Safe in your Home?: Yes Lack of Transportation: No Lack of Food: Never True Current Housing: I Have Housing Concerned About Future Housing: No Difficulty Paying Gas/Electric Bills: No Difficulty Paying for Meds: No Currently Unemployed: No Education: Grade School Difficulty w/ Childcare or Family Ca
[2023-11-28 18:54] LABS: Anisocytosis 1+; Band Neutrophils Percent 33 % (0-6); Hypochromasia 2+; Lymphocytes Absolute Manual 2.34 K/mm3 (1.1-4.5); Monocytes Absolute Manual 0.24 K/mm3 (0.1-0.90); Monocytes Percent Manual 3 % (3-9); Neutrophils Percent Manual 35 % (46-73); Nucleated Red Blood Cells 1 %; Platelet Estimate Adequate (Adequate); Schistocytes None Seen; Total Cells Counted 100
[2023-11-28] MEDS: traZODone HCL 50 MG TABLET 200 MG PO (20:49)
[2023-11-28] MEDS: NIFEdipine 30 MG TAB.ER.24 60 MG PO (20:50)
[2023-11-28] MEDS: ALPRAZolam (*CRX) 0.5 MG TABLET 2 MG PO (20:50)
[2023-11-28] MEDS: QUEtiapine FUMARATE 100 MG TABLET 200 MG PO (20:51)
[2023-11-29] VITALS (17 sets, daily range): BP systolic 105–133; BP diastolic 42–63; PULSE 62–81; RESP 16–22; TEMP 36.1–37.1; O2SAT 90–95
[2023-11-29] MEDS: SALINE LOCK FLUSH 10 ML IV PUSH ×3 (04:08→21:03)
[2023-11-29] MEDS: CEFEPIME 2 GM/NS 50 ML 2 GM/50 ML BAG IVPB ×3 (04:08→21:03)
[2023-11-29] MEDS: FLUTICASONE/UMECLIDIN/VILANTER 100-62.5-25 MCG ELLIPTA 1 PUFF INHALATION (07:14)
[2023-11-29] MEDS: ONDANSETRON INJ 4 MG/2 ML VIAL IV PUSH ×2 (08:13→21:03)
[2023-11-29] MEDS: ENOXAPARIN 80 MG/0.8 ML SYRINGE 65 MG SUB-Q (08:13)
[2023-11-29] MEDS: LOSARTAN POTASSIUM 100 MG TABLET PO (08:14)
[2023-11-29] MEDS: VITAMIN E 1,000 UNIT CAPSULE 1000 UNIT PO (08:14)
[2023-11-29] MEDS: CALCIUM/VITAMIN D 500 MG/5 MCG (200 I.U.) TABLET PO ×2 (08:14→17:49)
[2023-11-29] MEDS: levETIRAcetam 500 MG TABLET PO ×2 (08:14→20:59)
[2023-11-29] MEDS: BACLOFEN 10 MG TABLET PO ×2 (08:14→17:49)
[2023-11-29] MEDS: sulfaSALAzine 500 MG TABLET PO ×2 (08:14→17:49)
[2023-11-29] MEDS: ACYCLOVIR 400 MG TABLET PO ×2 (08:14→17:49)
[2023-11-29] MEDS: METOPROLOL TARTRATE 50 MG TAB PO ×2 (08:14→17:49)
[2023-11-29] MEDS: lamoTRIgine 100 MG TABLET PO ×2 (08:14→17:49)
[2023-11-29] MEDS: VENLAFAXINE HCL XR 75 MG CAP.ER.24H PO (08:14)
[2023-11-29] MEDS: ALPRAZolam (*CRX) 0.5 MG TABLET 1 MG PO ×3 (08:14→17:49)
[2023-11-29] MEDS: ATORVASTATIN 40 MG TABLET 80 MG PO (08:14)
[2023-11-29] MEDS: MULTIVITAMINS /C LUTEIN (CENTRUM SILVER) TABLET *BKC 1 TAB PO (08:14)
[2023-11-29] MEDS: polyethylene glycoL 3350 17 GM POWD.PACK PO (08:15)
[2023-11-29] MEDS: FILGRASTIM-SNDZ 480 MCG/0.8 ML SYRINGE SUB-Q (08:15)
[2023-11-29] MEDS: HYDROcodone/acetaminophen (*CRX) 7.5-325 MG TABLET 1 TAB PO ×2 (08:21→21:02)
--- NOTE | 2023-11-29 09:50 | PM.PNPUL ---
Progress Note: A&P Assessment and Plan (1) Lung cancer: Code(s): C34.90 - Malignant neoplasm of unspecified part of unspecified bronchus or lung Status: Acute Assessment and Plan: Patient tells me she had nodules in her right upper lobe diagnosed in that enlarged and she ultimately had a CT-guided biopsy that was positive for cancer. Patient went underwent a right upper lobectomy at [facility] and she was told the margins were clean in the lymph nodes were clean. She was discharged from the hospital on 2 L nasal cannula. She is followed by Oncology, Dr. Tariq, and started on cisplatinum -texotere on October 05. She has had 3 cycles. Oncology, Dr. Tariq, has been consulted. Patient with 2.7 x 2.4 cm nodule left upper lobe Consistent with cancer versus metastases. Patient tells me she has never had nodules on the left side to her knowledge. Plan: Cytology from right pleural effusion is pending. White blood cell count improved today to 2.2. Filgastrin 480 mcg subcu daily x3 has been ordered by Oncology. Patient is being treated with vancomycin and cefepime (day 2) for possible pneumonia or neutropenic infection. She did receive 1 day of ceftriaxone and azithromycin on 11/25/2023. I will check a COVID, influenza and RSV RT PCR study. 11/28/23: Patient tells me she slept well last night. Overall she is breathing normal with minimal phlegm and minimal cough. Patient was on 6 L throughout the night with saturations 95-96%. The patient had desaturation this morning and I spoke with the bedside nurse who was with her. She had no change in her respiratory status her sats just went into the mid 70s on 7 L. she was not in any respiratory distress, had no evidence of aspiration, was not tachycardic and had a good plethysmography tracing. Patient was increased to 15 L nasal cannula. When I enter the room the patient's saturation on 15 L was 93%. I decreased her sequentially to 10 L and then to 6 L and her saturations remain 92%. COVID, RSV and influenza RT PCR study negative Plan: Cytology from right pleural effusion is pending. Filgastrin 480 mcg subcu daily x3 has been ordered by Oncology , today day 2. Patient is being treated with ceftriaxone and azithromycin on 11/25/2023 then vancomycin (11/25 through 11/27, MRSA swab negative and DC vanco on 11/27), cefepime (started 11/25, day 3), azithromycin (started 11/26), day2 for possible pneumonia or neutropenic infection. 11/29/23: Patient has minimal shortness of breath. She denies cough or phlegm production. She has no hemoptysis. She has no pain on deep breathing but feels as if she can not take a deep breath. Again this morning her oxygen requirements increased from 8 L overnight to 15 L. I was able to decrease her to 10 L and her saturations were 92%. Plan: Cytology from right pleural effusion is pending. Filgastrin 480 mcg subcu daily x3 has been ordered by Oncology , today day 3. Patient is being treated with ceftriaxone and azithromycin on 11/25/2023 then vancomycin (11/25 through 11/27, MRSA swab negative and DC vanco on 11/27), cefepime (started 11/25, day 4), azithromycin (started 11/26), day 3 for possible pneumonia or neutropenic infection. I will check a chest x-ray tomorrow morning. will follow with you (2) COPD (chronic obstructive pulmonary disease): Code(s): J44.9 - Chronic obstructive pulmonary disease, unspecified Status: Acute Assessment and Plan: patient has a 50 pack year tobacco history, CT scan of the chest shows diffuse panlobular emphysema. Patient was hypoxic post her right upper lobectomy and sounds like she self discontinued her oxygen approximately 10 weeks ago with saturations at home in the 70s to a high of 91%. ABG on 6 L 7.44/45/82. She is maintained on trilogy inhaler and albuterol p.r.n. I do believe the patient has COPD. Currently she has no wheezing, no change in her sputum production and I do
[2023-11-29] MEDS: FUROSEMIDE INJ 40 MG/4 ML VIAL IV PUSH (10:59)
--- NOTE | 2023-11-29 12:29 | PM.IMPN ---
Progress Note: A&P Assessment and Plan (1) Pneumonia: Code(s): J18.9 - Pneumonia, unspecified organism Status: Acute (2) Acute hypoxic respiratory failure: Code(s): J96.01 - Acute respiratory failure with hypoxia Status: Acute (3) Pleural effusion: Code(s): J90 - Pleural effusion, not elsewhere classified Status: Acute (4) Lung cancer: Code(s): C34.90 - Malignant neoplasm of unspecified part of unspecified bronchus or lung Status: Acute Plan (1) Pneumonia: ?Code(s): J18.9 - Pneumonia, unspecified organism ?Status:?Acute (2) Acute hypoxic respiratory failure: ?Code(s): J96.01 - Acute respiratory failure with hypoxia ?Status:?Acute (3) Pleural effusion: ?Code(s): J90 - Pleural effusion, not elsewhere classified ?Status:?Acute (4) Lung cancer: ?Code(s): C34.90 - Malignant neoplasm of unspecified part of unspecified bronchus or lung ?Status:?Acute (5) Bipolar 1 disorder: ?Code(s): F31.9 - Bipolar disorder, unspecified ?Status:?Acute Plan Ms. Bruno is a pleasant 68-year-old female who is accompanied by her and living at home with a past medical history of prior tobacco abuse, COPD previously requiring chronic O2 use, breast cancer, lung cancer status post lobectomy (08/[address] Elizabeth receiving chemotherapy), rheumatoid arthritis, ankylosing spondylitis of the lumbar spine, history of pleural effusion, bipolar disorder, hypertension, vitamin-D deficiency.? COPD exacerbation, acute respiratory failure, hospital acquired pneumonia, pleural effusion The patient was being treated for pneumonia and blood clot and T12 fracture at [facility] after she had fell at home.? She left there AMA as she did not agree with the treatment or lack there of, presenting to [facility] on 11/24 shortly after the complaint of shortness of breath.? IV access was difficult to obtain V/Q scan was performed and it was low probability for PE.? Left-sided pneumonia and pleural effusion was reported on chest x-ray patient was started on antibiotics and admitted for thoracentesis and further management. Thoracentesis has been completed this morning with removal of approximately 500 cc of yellowish liquid.? Pleural studies are pending. require nasal cannula at 7 L. patient is immunocompromised, and also had recent history of hospitalization was started on ceftriaxone and azithromycin which have been switched to cefepime and vancomycin considering her pleural effusion on presentation leukopenia chemotherapy follow-up procalcitonin.? Blood cultures are pending.? Obtain sputum cultures however at the moment she is not producing.? Urinary antigens ordered as well.? DuoNebs have been ordered as p.r.n. 11/27 stop vancomycin, MRSA negative, continue cefepime and added azithromycin per scaleman Suspecting acute diastolic heart failure X-ray shows pleural effusion, worse on the rest, will wean airspace opacity, fluid overloaded and superimposed pneumonia ? 1. Left ventricular chamber dimension is normal. ? 2. Left ventricular systolic function is normal, estimated at 60-65%. ? 3. There is mildly increased left ventricular wall thickness. ? 4. The left ventricular diastolic function is grade I diastolic dysfunction. ? 5. Right ventricular systolic function is normal. ? 6. There is mild mitral valve regurgitation. ? 7. There is trivial posterior pericardial effusion. Lasix 40 mg IV push once 11/27 Follow-up input output: negative balance of I/O 1.9 11/28. provided Lasix 40 mg once per scaleman Follow-up CBC BMP, BNP: 454 <370 A V/Q scan was completed on admission but patient has reported being treated for a blood clot at [facility].? Records have been requested from [facility] and heparin GTT started upon arrival.? A CTA of the chest showed no PE, conformed left lower lobe cancer discontinue heparin drip start Lovenox 1 milligr
[2023-11-29 13:50] LABS: Hematocrit 33.9 % (37.0-47.0); Hemoglobin 10.6 g/dL (12.0-15.0); Mean Corpuscular HGB Conc 31.3 g/dl (32-36); Mean Corpuscular Volume 99.1 fl (80-100); Mean Platelet Volume 9.3 fl (7.4-10.4); Platelet Count Result 252 k/mm3 (150-375); Red Blood Count 3.42 M/mm3 (4.2-5.4); Red Cell Distribution Width 17.2 % (11.5-14.5); White Blood Count 27.3 K/mm3 (4.5-10.0)
[2023-11-29 14:08] LABS: Anion Gap 3 mmol/L (4-12); Blood Urea Nitrogen 20 mg/dL (7-17); Calcium 9.7 mg/dL (8.4-10.2); Carbon Dioxide 37 mmol/L (22-30); Chloride 94 mmol/L (98-107); Estimated CRCL calculation 56 ml/min; Estimated Glomerular Filt Rate > 60; Glucose 150 mg/dL (65-110); Potassium 3.5 mmol/L (3.4-5.0); Sodium 134 mmol/L (137-145)
[2023-11-29 15:57] LABS: Band Neutrophils Percent 14 % (0-6); Lymphocytes Absolute Manual 5.18 K/mm3 (1.1-4.5); Monocytes Absolute Manual 1.91 K/mm3 (0.1-0.90); Monocytes Percent Manual 7 % (3-9); Neutrophils Percent Manual 60 % (46-73); Platelet Estimate Adequate (Adequate); Schistocytes None Seen; Total Cells Counted 100
[2023-11-29 16:33] LABS: Alpha-1-Antitrypsin, QN 229 mg/dL (83-199)
--- NOTE | 2023-11-29 17:18 | WPDNEUROSGPN ---
Progress Note: A&P Assessment and Plan (1) T12 vertebral fracture: Code(s): S22.089A - Unspecified fracture of T11-T12 vertebra, initial encounter for closed fracture Status: Acute Plan -Awaiting dedicated CT thoracolumbar spine and MRI thoracolumbar spine to make further recommendations -Continue on bedrest until above studies are complete Subjective Date/time seen: 11/29/23 17:18 Interval history: Doing well today with improved back pain. She denies radicular pain or paresthesias into the legs. She was fitted for an LSO brace Review of Systems Review of Systems: All systems reviewed & are unremarkable except as noted in HPI and below Exam Narrative: AOx4 Full strength in lower extremities Sensation intact to light touch Objective Data Vital Signs Vital Signs: Vital Signs - 24 hr 11/28/23 19:47 11/28/23 20:00 11/28/23 20:00 Temperature 97.8 F Pulse Rate 66 68 68 Respiratory Rate 20 20 Blood Pressure 155/62 H Pulse Oximetry 90 90 Oxygen Delivery High Flow Nasal Cannula Oxygen Flow Rate 6 11/28/23 22:00 11/28/23 22:45 11/28/23 23:37 Temperature 98.6 F Pulse Rate 64 64 66 Respiratory Rate 20 20 Blood Pressure 110/49 L Pulse Oximetry 90 93 Oxygen Delivery High Flow Nasal Cannula Oxygen Flow Rate 8 11/28/23 23:46 11/28/23 23:46 11/29/23 01:48 Temperature Pulse Rate 64 64 67 Respiratory Rate 20 Blood Pressure Pulse Oximetry 93 Oxygen Delivery High Flow Nasal Cannula Oxygen Flow Rate 8 11/29/23 04:00 11/29/23 04:00 11/29/23 05:29 Temperature Pulse Rate 69 67 73 Respiratory Rate 20 Blood Pressure Pulse Oximetry 93 Oxygen Delivery High Flow Nasal Cannula Oxygen Flow Rate 8 11/29/23 05:35 11/29/23 07:56 11/29/23 07:15 Temperature 98.7 F 97.3 F L Pulse Rate 72 78 78 Respiratory Rate 22 H 20 18 Blood Pressure 125/55 L 118/57 L Pulse Oximetry 90 92 91 Oxygen Delivery High Flow Nasal Cannula Oxygen Flow Rate 15 11/29/23 07:15 11/29/23 11:41 11/29/23 08:00 Temperature 97.6 F Pulse Rate 78 74 Respiratory Rate 18 16 Blood Pressure 105/61 Pulse Oximetry 91 91 Oxygen Delivery High Flow Nasal Cannula Oxygen Flow Rate 12 11/29/23 08:00 11/29/23 10:00 11/29/23 12:00 Temperature Pulse Rate 81 76 Respiratory Rate Blood Pressure Pulse Oximetry 91 Oxygen Delivery High Flow Nasal Cannula Oxygen Flow Rate 10 11/29/23 12:00 11/29/23 14:00 11/29/23 16:00 Temperature Pulse Rate 65 64 Respiratory Rate Blood Pressure Pulse Oximetry 91 Oxygen Delivery High Flow Nasal Cannula Oxygen Flow Rate 10 Intake/Output Intake/Output: Intake & Output 11/26/23 11/27/23 11/28/23 11/29/23 23:59 23:59 23:59 23:59 Intake Total 2605.9 2744.1 1410 610 Output Total 3150 2400 1435 1575 Balance -544.1 344.1 -25 -965 Meds/Results Medications: Active Medications Generic Name Dose Route Start Last Admin Trade Name Freq PRN Reason Stop Dose Admin Acetaminophen 650 mg 11/26/23 00:46 Acetaminophen 325 Mg Tablet PO Q4H PRN Mild Pain (1-3) or Fever Hydrocodone Bitart/Acetaminophen 1 tab 11/26/23 11:14 11/29/23 08:21 Hydrocodone/Acetaminophen (*Crx) 7.5-325 Mg Tablet PO 1 tab BID PRN Administration Pain Acyclovir 400 mg 11/26/23 17:00 11/29/23 08:14 Acyclovir 400 Mg Tablet PO 400 mg BID QUINN Administration Albuterol/Ipratropium 3 ml 11/26/23 11:15 Ipratropium 0.5 Mg/Albuterol Sulfate 2.5 Mg Ampul.Neb 3 Ml INHALATION Q6HRT PRN sob Alprazolam 1 mg 11/26/23 13:00 11/29/23 13:20 Alprazolam (*Crx) 0.5 Mg Tablet PO 1 mg TID QUINN Administration Alprazolam 2 mg 11/26/23 21:00 11/28/23 20:50 Alprazolam (*Crx) 0.5 Mg Tablet PO 2 mg QHS QUINN Administration Atorvastatin Calcium 80 mg 11/27/23 09:00 11/29/23 08:14 Atorvastatin 40 Mg Tablet PO 80 mg DAILY QUINN Administration Azithrom
[2023-11-29] MEDS: AZITHROMYCIN 250 MG TABLET 500 MG PO (17:49)
[2023-11-29] MEDS: traZODone HCL 50 MG TABLET 200 MG PO (20:57)
[2023-11-29] MEDS: ALPRAZolam (*CRX) 0.5 MG TABLET 2 MG PO (20:59)
[2023-11-29] MEDS: QUEtiapine FUMARATE 100 MG TABLET 200 MG PO (21:01)
[2023-11-29] MEDS: NIFEdipine 30 MG TAB.ER.24 60 MG PO (21:02)
[2023-11-29 23:08] LABS: Methylmalonic Acid 182 nmol/L (87-318)
[2023-11-30] VITALS (22 sets, daily range): BP systolic 101–119; BP diastolic 53–72; PULSE 57–83; RESP 16–20; TEMP 36.2–36.8; O2SAT 83–98
[2023-11-30] MEDS: CEFEPIME 2 GM/NS 50 ML 2 GM/50 ML BAG IVPB ×3 (04:10→20:48)
[2023-11-30] MEDS: SALINE LOCK FLUSH 10 ML IV PUSH ×3 (04:11→21:30)
[2023-11-30 04:31] LABS: Hematocrit 33.9 % (37.0-47.0); Hemoglobin 10.7 g/dL (12.0-15.0); Mean Corpuscular HGB Conc 31.6 g/dl (32-36); Mean Corpuscular Hemoglobin 31.2 pg (26-34); Mean Corpuscular Volume 98.8 fl (80-100); Platelet Count Result 267 k/mm3 (150-375); Red Blood Count 3.43 M/mm3 (4.2-5.4); Red Cell Distribution Width 17.3 % (11.5-14.5); White Blood Count 42.5 K/mm3 (4.5-10.0)
[2023-11-30 04:48] LABS: Blood Urea Nitrogen 23 mg/dL (7-17); Carbon Dioxide > 40 mmol/L (22-30); Chloride 94 mmol/L (98-107); Estimated CRCL calculation 40 ml/min; Estimated Glomerular Filt Rate 55; Glucose 100 mg/dL (65-110); Potassium 3.6 mmol/L (3.4-5.0); Sodium 134 mmol/L (137-145)
[2023-11-30] MEDS: FLUTICASONE/UMECLIDIN/VILANTER 100-62.5-25 MCG ELLIPTA 1 PUFF INHALATION (07:34)
[2023-11-30] MEDS: levETIRAcetam 500 MG TABLET PO ×2 (08:56→20:51)
[2023-11-30] MEDS: VITAMIN E 1,000 UNIT CAPSULE 1000 UNIT PO (08:57)
[2023-11-30] MEDS: HYDROcodone/acetaminophen (*CRX) 7.5-325 MG TABLET 1 TAB PO ×3 (08:57→20:53)
[2023-11-30] MEDS: lamoTRIgine 100 MG TABLET PO ×2 (08:57→17:55)
[2023-11-30] MEDS: sulfaSALAzine 500 MG TABLET PO ×2 (08:57→18:01)
[2023-11-30] MEDS: VENLAFAXINE HCL XR 75 MG CAP.ER.24H PO (08:57)
[2023-11-30] MEDS: BACLOFEN 10 MG TABLET PO ×2 (08:57→17:55)
[2023-11-30] MEDS: CALCIUM/VITAMIN D 500 MG/5 MCG (200 I.U.) TABLET PO ×2 (08:58→17:55)
[2023-11-30] MEDS: ACYCLOVIR 400 MG TABLET PO ×2 (08:58→17:55)
[2023-11-30] MEDS: METOPROLOL TARTRATE 50 MG TAB PO ×2 (08:59→17:56)
[2023-11-30] MEDS: QUEtiapine FUMARATE 25 MG TABLET 50 MG PO (08:59)
[2023-11-30] MEDS: MULTIVITAMINS /C LUTEIN (CENTRUM SILVER) TABLET *BKC 1 TAB PO (08:59)
[2023-11-30] MEDS: ATORVASTATIN 40 MG TABLET 80 MG PO (08:59)
[2023-11-30] MEDS: LOSARTAN POTASSIUM 100 MG TABLET PO (08:59)
[2023-11-30] MEDS: polyethylene glycoL 3350 17 GM POWD.PACK PO (09:00)
[2023-11-30] MEDS: ALPRAZolam (*CRX) 0.5 MG TABLET 1 MG PO ×2 (09:01→17:56)
--- NOTE | 2023-11-30 10:29 | P.PNPL_ITS ---
Progress Note: A&P Assessment and Plan (1) Lung cancer: Code(s): C34.90 - Malignant neoplasm of unspecified part of unspecified bronchus or lung Status: Acute Assessment and Plan: Patient tells me she had nodules in her right upper lobe diagnosed in that enlarged and she ultimately had a CT-guided biopsy that was positive for cancer. Patient went underwent a right upper lobectomy at [facility] and she was told the margins were clean in the lymph nodes were clean. She was discharged from the hospital on 2 L nasal cannula. She is followed by Oncology, Dr. Tariq, and started on cisplatinum -texotere on October 05. She has had 3 cycles. Oncology, Dr. Tariq, has been consulted. Patient with 2.7 x 2.4 cm nodule left upper lobe Consistent with cancer versus metastases. Patient tells me she has never had nodules on the left side to her knowledge. Plan: Cytology from right pleural effusion is pending. White blood cell count improved today to 2.2. Filgastrin 480 mcg subcu daily x3 has been ordered by Oncology. Patient is being treated with vancomycin and cefepime (day 2) for possible pneumonia or neutropenic infection. She did receive 1 day of ceftriaxone and azithromycin on 11/25/2023. I will check a COVID, influenza and RSV RT PCR study. 11/28/23: Patient tells me she slept well last night. Overall she is breathing normal with minimal phlegm and minimal cough. Patient was on 6 L throughout the night with saturations 95-96%. The patient had desaturation this morning and I spoke with the bedside nurse who was with her. She had no change in her resp iratory status her sats just went into the mid 70s on 7 L. she was not in any respiratory distress, had no evidence of aspiration, was not tachycardic and had a good plethysmography tracing. Patient was increased to 15 L nasal cannula. When I enter the room the patient's saturation on 15 L was 93%. I decreased her sequentially to 10 L and then to 6 L and her saturations remain 92%. COVID, RSV and influenza RT PCR study negative Plan: Cytology from right pleural effusion is pending. Filgastrin 480 mcg subcu daily x3 has been ordered by Oncology , today day 2. Patient is being treated with ceftriaxone and azithromycin on 11/25/2023 then vancomycin (11/25 through 11/27, MRSA swab negative and DC vanco on 11/27), cefepime (started 11/25, day 3), azithromycin (started 11/26), day2 for possible pneumonia or neutropenic infection. 11/29/23: Patient has minimal shortness of breath. She denies cough or phlegm production. She has no hemoptysis. She has no pain on deep breathing but feels as if she can not take a deep breath. Again this morning her oxygen requirements increased from 8 L overnight to 15 L. I was able to decrease her to 10 L and her saturations were 92%. Plan: Cytology from right pleural effusion is pending. Filgastrin 480 mcg subcu daily x3 has been ordered by Oncology , today day 3. Patient is being treated with ceftriaxone and azithromycin on 11/25/2023 then vancomycin (11/25 through 11/27, MRSA swab negative and DC vanco on 11/27), cefepime (started 11/25, day 4), azithromycin (started 11/26), day 3 for possible pneumonia or neutropenic infection. I will check a chest x-ray tomorrow morning. Later in the day she had a CT scan of her thoracic spine which demonstrated reaccumulation of the right pleural effusion, small left pleural effusion and dependent atelectasis bilaterally. 11/30/23: overall patient states her breathing status is the same. She is tired but has minimal shortness of breath. She denies cough, phlegm, hemoptysis or chest pain. Her white blood cell count is 42.5, creatinine is 1.0, cumulative diuresis since admi
[2023-11-30 10:48] LABS: Lactate Dehydrogenase 356 U/L (120-246)
--- NOTE | 2023-11-30 10:50 | PM.IMPN ---
Progress Note: A&P Assessment and Plan (1) Pneumonia: Code(s): J18.9 - Pneumonia, unspecified organism Status: Acute (2) Acute hypoxic respiratory failure: Code(s): J96.01 - Acute respiratory failure with hypoxia Status: Acute (3) Pleural effusion: Code(s): J90 - Pleural effusion, not elsewhere classified Status: Acute (4) Lung cancer: Code(s): C34.90 - Malignant neoplasm of unspecified part of unspecified bronchus or lung Status: Acute Plan (1) Pneumonia: ?Code(s): J18.9 - Pneumonia, unspecified organism ?Status:?Acute (2) Acute hypoxic respiratory failure: ?Code(s): J96.01 - Acute respiratory failure with hypoxia ?Status:?Acute (3) Pleural effusion: ?Code(s): J90 - Pleural effusion, not elsewhere classified ?Status:?Acute (4) Lung cancer: ?Code(s): C34.90 - Malignant neoplasm of unspecified part of unspecified bronchus or lung ?Status:?Acute (5) Bipolar 1 disorder: ?Code(s): F31.9 - Bipolar disorder, unspecified ?Status:?Acute Plan Ms. Bruno is a pleasant 68-year-old female who is accompanied by her and living at home with a past medical history of prior tobacco abuse, COPD previously requiring chronic O2 use, breast cancer, lung cancer status post lobectomy (08/[address] Elizabeth receiving chemotherapy), rheumatoid arthritis, ankylosing spondylitis of the lumbar spine, history of pleural effusion, bipolar disorder, hypertension, vitamin-D deficiency.? COPD exacerbation, acute respiratory failure, hospital acquired pneumonia, pleural effusion The patient was being treated for pneumonia and blood clot and T12 fracture at [facility] after she had fell at home.? She left there AMA as she did not agree with the treatment or lack there of, presenting to [place] ER on 11/24 shortly after the complaint of shortness of breath.? IV access was difficult to obtain V/Q scan was performed and it was low probability for PE.? Left-sided pneumonia and pleural effusion was reported on chest x-ray patient was started on antibiotics and admitted for thoracentesis and further management. Thoracentesis has been completed this morning with removal of approximately 500 cc of yellowish liquid.? Pleural studies are pending. require nasal cannula at 7 L. patient is immunocompromised, and also had recent history of hospitalization was started on ceftriaxone and azithromycin which have been switched to cefepime and vancomycin considering her pleural effusion on presentation leukopenia chemotherapy follow-up procalcitonin.? Blood cultures are pending.? Obtain sputum cultures however at the moment she is not producing.? Urinary antigens ordered as well.? DuoNebs have been ordered as p.r.n. 11/27 stop vancomycin, MRSA negative, continue cefepime and added azithromycin per indirect sales representative 11/29: patient has leukocytosis, afebrile, continue current antibiotics, azithromycin and cefepime IV Suspecting acute diastolic heart failure X-ray shows pleural effusion, worse on the rest, will wean airspace opacity, fluid overloaded and superimposed pneumonia ? 1. Left ventricular chamber dimension is normal. ? 2. Left ventricular systolic function is normal, estimated at 60-65%. ? 3. There is mildly increased left ventricular wall thickness. ? 4. The left ventricular diastolic function is grade I diastolic dysfunction. ? 5. Right ventricular systolic function is normal. ? 6. There is mild mitral valve regurgitation. ? 7. There is trivial posterior pericardial effusion. Lasix 40 mg IV push once 11/27 Follow-up input output: negative balance of I/O 1.9 11/28. provided Lasix 40 mg once per indirect sales representative Follow-up CBC BMP, BNP: 454 <370 start Lasix 20 mg IV push daily per indirect sales representative A V/Q scan was completed on admission but patient has reported being treated for a blood clot at [facility].? Records have been requested from [facility] and he
[2023-11-30 11:54] LABS: Soluble Transferrin Receptor 1.25 mg/L (0.76-1.76)
[2023-11-30] MEDS: FUROSEMIDE INJ 40 MG/4 ML VIAL 20 MG IV PUSH (12:44)
[2023-11-30] MEDS: AZITHROMYCIN 250 MG TABLET 500 MG PO (12:44)
[2023-11-30 15:23] LABS: pH Pleural Fluid > 0.000 (7.210-7.500)
[2023-11-30] MEDS: ONDANSETRON INJ 4 MG/2 ML VIAL IV PUSH (16:19)
[2023-11-30 17:27] LABS: Appearance Pleural Fluid Hazy (Clear); Color Pleural Fluid Yellow (Colorless); Pleural fluid source Pleural fluid
[2023-11-30 17:30] LABS: Lymphocytes Pleural Fluid 85 %; Neutrophils Pleural Fluid 15 % (0-25)
[2023-11-30] MEDS: traZODone HCL 50 MG TABLET 200 MG PO (20:50)
[2023-11-30] MEDS: QUEtiapine FUMARATE 100 MG TABLET 200 MG PO (20:51)
[2023-11-30] MEDS: ALPRAZolam (*CRX) 0.5 MG TABLET 2 MG PO (20:52)
[2023-11-30] MEDS: NIFEdipine 30 MG TAB.ER.24 60 MG PO (20:52)
[2023-11-30 21:38] LABS: Pneumococcal Antigen Urine NOT DETECTED
[2023-12-01] VITALS (21 sets, daily range): BP systolic 83–149; BP diastolic 40–80; PULSE 53–92; RESP 12–20; TEMP 36.2–36.7; O2SAT 92–98
--- NOTE | 2023-12-01 | ECHO_ITS ---
Patient Info Name: Mili Bruno Age: 68 years : 1955 Gender: Female Ht: 64 in Wt: 139 lbs BSA: 1.70 m2 HR: 61 bpm BP: 116 / 64 mmHg Heart Rhythm: Sinus Rhythm Technical Quality: Fair Exam Date: 12/01/2023 2:44 PM Exam Location: Echo Lab Patient Status: Inpatient Admit Date: 11/27/2023 Staff Ordering Physician: Victor M Busch MD [employer] Instructor: Milan Spaulding RDCS Attending Provider: Reema Lopez MD Referring Physician: Narayan TAYLOR; Exam Type: CA echo limited w bubble study Study Info Indications J96.91 - Respiratory failure, unspecified with hypoxia Limited two-dimensional transthoracic echocardiogram is performed with agitated saline. Contrast/Agitated Saline Contrast/Ag. Saline: Agitated Saline Amount: 14.00 ml IV Access Condition: patent with no signs of infiltration Summary 1. Limited exam from apical four-chamber view with agitated saline contrast injection. 2. No evidence of [id number]-[id number]-rucp shunting with negative bubble study at rest and with Valsalva maneuver. Left Ventricle Left ventricular systolic function is normal, estimated at 60-65%. Right Ventricle Right ventricular chamber dimension is normal. Atrial Septum Intact interatrial septum visualized by agitated saline imaging. Report Signatures
[2023-12-01] MEDS: CEFEPIME 2 GM/NS 50 ML 2 GM/50 ML BAG IVPB ×3 (04:18→20:44)
[2023-12-01] MEDS: SALINE LOCK FLUSH 10 ML IV PUSH ×3 (06:33→20:50)
[2023-12-01] MEDS: polyethylene glycoL 3350 17 GM POWD.PACK PO (08:34)
[2023-12-01] MEDS: ONDANSETRON INJ 4 MG/2 ML VIAL IV PUSH ×2 (08:35→20:44)
[2023-12-01] MEDS: VENLAFAXINE HCL XR 75 MG CAP.ER.24H PO (08:35)
[2023-12-01] MEDS: FUROSEMIDE INJ 40 MG/4 ML VIAL 20 MG IV PUSH (08:35)
[2023-12-01] MEDS: CALCIUM/VITAMIN D 500 MG/5 MCG (200 I.U.) TABLET PO ×2 (08:35→16:35)
[2023-12-01] MEDS: VITAMIN E 1,000 UNIT CAPSULE 1000 UNIT PO (08:35)
[2023-12-01] MEDS: lamoTRIgine 100 MG TABLET PO ×2 (08:36→16:35)
[2023-12-01] MEDS: ACYCLOVIR 400 MG TABLET PO ×2 (08:36→16:35)
[2023-12-01] MEDS: ALPRAZolam (*CRX) 0.5 MG TABLET 1 MG PO ×3 (08:36→16:34)
[2023-12-01] MEDS: sulfaSALAzine 500 MG TABLET PO ×2 (08:36→16:35)
[2023-12-01] MEDS: MULTIVITAMINS /C LUTEIN (CENTRUM SILVER) TABLET *BKC 1 TAB PO (08:36)
[2023-12-01] MEDS: levETIRAcetam 500 MG TABLET PO ×2 (08:36→20:49)
[2023-12-01] MEDS: METOPROLOL TARTRATE 50 MG TAB PO ×2 (08:36→16:35)
[2023-12-01] MEDS: ATORVASTATIN 40 MG TABLET 80 MG PO (08:37)
[2023-12-01] MEDS: LOSARTAN POTASSIUM 100 MG TABLET PO (08:37)
[2023-12-01] MEDS: BACLOFEN 10 MG TABLET PO ×2 (08:37→16:31)
[2023-12-01] MEDS: HYDROcodone/acetaminophen (*CRX) 7.5-325 MG TABLET 1 TAB PO ×2 (08:37→15:27)
[2023-12-01] MEDS: FLUTICASONE/UMECLIDIN/VILANTER 100-62.5-25 MCG ELLIPTA 1 PUFF INHALATION (09:20)
--- NOTE | 2023-12-01 09:49 | PM.IMPN ---
Progress Note: A&P Assessment and Plan (1) Pneumonia: Code(s): J18.9 - Pneumonia, unspecified organism Status: Acute (2) Acute hypoxic respiratory failure: Code(s): J96.01 - Acute respiratory failure with hypoxia Status: Acute (3) Pleural effusion: Code(s): J90 - Pleural effusion, not elsewhere classified Status: Acute (4) Lung cancer: Code(s): C34.90 - Malignant neoplasm of unspecified part of unspecified bronchus or lung Status: Acute Plan (1) Pneumonia: ?Code(s): J18.9 - Pneumonia, unspecified organism ?Status:?Acute (2) Acute hypoxic respiratory failure: ?Code(s): J96.01 - Acute respiratory failure with hypoxia ?Status:?Acute (3) Pleural effusion: ?Code(s): J90 - Pleural effusion, not elsewhere classified ?Status:?Acute (4) Lung cancer: ?Code(s): C34.90 - Malignant neoplasm of unspecified part of unspecified bronchus or lung ?Status:?Acute (5) Bipolar 1 disorder: ?Code(s): F31.9 - Bipolar disorder, unspecified ?Status:?Acute Plan Ms. Bruno is a pleasant 68-year-old female who is accompanied by her and living at home with a past medical history of prior tobacco abuse, COPD previously requiring chronic O2 use, breast cancer, lung cancer status post lobectomy (08/[address] Elizabeth receiving chemotherapy), rheumatoid arthritis, ankylosing spondylitis of the lumbar spine, history of pleural effusion, bipolar disorder, hypertension, vitamin-D deficiency.? COPD exacerbation, acute respiratory failure, hospital acquired pneumonia, pleural effusion The patient was being treated for pneumonia and blood clot and T12 fracture at [facility] after she had fell at home.? She left there AMA as she did not agree with the treatment or lack there of, presenting to [place] ER on 11/24 shortly after the complaint of shortness of breath.? IV access was difficult to obtain V/Q scan was performed and it was low probability for PE.? Left-sided pneumonia and pleural effusion was reported on chest x-ray patient was started on antibiotics and admitted for thoracentesis and further management. Thoracentesis has been completed this morning with removal of approximately 500 cc of yellowish liquid.? Pleural studies are pending. require nasal cannula at 7 L. patient is immunocompromised, and also had recent history of hospitalization was started on ceftriaxone and azithromycin which have been switched to cefepime and vancomycin considering her pleural effusion on presentation leukopenia chemotherapy follow-up procalcitonin.? Blood cultures are pending.? Obtain sputum cultures however at the moment she is not producing.? Urinary antigens ordered as well.? DuoNebs have been ordered as p.r.n. 11/27 stop vancomycin, MRSA negative, continue cefepime and added azithromycin per forming roll operator 11/29: patient has leukocytosis, afebrile, continue current antibiotics, azithromycin and cefepime IV 11/30 continue antibiotics today for total 7 days Suspecting acute diastolic heart failure X-ray shows pleural effusion, worse on the rest, will wean airspace opacity, fluid overloaded and superimposed pneumonia ? 1. Left ventricular chamber dimension is normal. ? 2. Left ventricular systolic function is normal, estimated at 60-65%. ? 3. There is mildly increased left ventricular wall thickness. ? 4. The left ventricular diastolic function is grade I diastolic dysfunction. ? 5. Right ventricular systolic function is normal. ? 6. There is mild mitral valve regurgitation. ? 7. There is trivial posterior pericardial effusion. Lasix 40 mg IV push once 11/27 Follow-up input output: negative balance of I/O 1.9 11/28. provided Lasix 40 mg once per forming roll operator Follow-up CBC BMP, BNP: 454 <370 start Lasix 20 mg IV push daily per forming roll operator A V/Q scan was completed on admission but patient has reported being treated for a blood clot at [place].
--- NOTE | 2023-12-01 09:55 | PM.PNPUL ---
Progress Note: A&P Assessment and Plan (1) Lung cancer: Code(s): C34.90 - Malignant neoplasm of unspecified part of unspecified bronchus or lung Status: Acute Assessment and Plan: Patient tells me she had nodules in her right upper lobe diagnosed in that enlarged and she ultimately had a CT-guided biopsy that was positive for cancer. Patient went underwent a right upper lobectomy at [facility] and she was told the margins were clean in the lymph nodes were clean. She was discharged from the hospital on 2 L nasal cannula. She is followed by Oncology, Dr. Tariq, and started on cisplatinum -texotere on October 05. She has had 3 cycles. Oncology, Dr. Tariq, has been consulted. Patient with 2.7 x 2.4 cm nodule left upper lobe Consistent with cancer versus metastases. Patient tells me she has never had nodules on the left side to her knowledge. Plan: Cytology from right pleural effusion is pending. White blood cell count improved today to 2.2. Filgastrin 480 mcg subcu daily x3 has been ordered by Oncology. Patient is being treated with vancomycin and cefepime (day 2) for possible pneumonia or neutropenic infection. She did receive 1 day of ceftriaxone and azithromycin on 11/25/2023. I will check a COVID, influenza and RSV RT PCR study. 11/28/23: Patient tells me she slept well last night. Overall she is breathing normal with minimal phlegm and minimal cough. Patient was on 6 L throughout the night with saturations 95-96%. The patient had desaturation this morning and I spoke with the bedside nurse who was with her. She had no change in her respiratory status her sats just went into the mid 70s on 7 L. she was not in any respiratory distress, had no evidence of aspiration, was not tachycardic and had a good plethysmography tracing. Patient was increased to 15 L nasal cannula. When I enter the room the patient's saturation on 15 L was 93%. I decreased her sequentially to 10 L and then to 6 L and her saturations remain 92%. COVID, RSV and influenza RT PCR study negative Plan: Cytology from right pleural effusion is pending. Filgastrin 480 mcg subcu daily x3 has been ordered by Oncology , today day 2. Patient is being treated with ceftriaxone and azithromycin on 11/25/2023 then vancomycin (11/25 through 11/27, MRSA swab negative and DC vanco on 11/27), cefepime (started 11/25, day 3), azithromycin (started 11/26), day2 for possible pneumonia or neutropenic infection. 11/29/23: Patient has minimal shortness of breath. She denies cough or phlegm production. She has no hemoptysis. She has no pain on deep breathing but feels as if she can not take a deep breath. Again this morning her oxygen requirements increased from 8 L overnight to 15 L. I was able to decrease her to 10 L and her saturations were 92%. Plan: Cytology from right pleural effusion is pending. Filgastrin 480 mcg subcu daily x3 has been ordered by Oncology , today day 3. Patient is being treated with ceftriaxone and azithromycin on 11/25/2023 then vancomycin (11/25 through 11/27, MRSA swab negative and DC vanco on 11/27), cefepime (started 11/25, day 4), azithromycin (started 11/26), day 3 for possible pneumonia or neutropenic infection. I will check a chest x-ray tomorrow morning. Later in the day she had a CT scan of her thoracic spine which demonstrated reaccumulation of the right pleural effusion, small left pleural effusion and dependent atelectasis bilaterally. 11/30/23: overall patient states her breathing status is the same. She is tired but has minimal shortness of breath. She denies cough, phlegm, hemoptysis or chest pain. Her white blood cell count is 42.5, creatinine is 1.0, cumulative diuresis since admission is 150 mL. Her weight is 63.7. Her right pleural fluid cytology from 11/26/2023 has returned negative. Plan: Patient is being treated with ceftriaxone and azithromycin on 11/25/2023 then vancomycin (11/25 through 11/27, Andra
[2023-12-01 10:22] LABS: Hematocrit 34.5 % (37.0-47.0); Hemoglobin 10.9 g/dL (12.0-15.0); Mean Corpuscular HGB Conc 31.6 g/dl (32-36); Mean Corpuscular Hemoglobin 31.3 pg (26-34); Mean Corpuscular Volume 99.1 fl (80-100); Mean Platelet Volume 9.4 fl (7.4-10.4); Platelet Count Result 282 k/mm3 (150-375); Red Blood Count 3.48 M/mm3 (4.2-5.4); Red Cell Distribution Width 16.9 % (11.5-14.5); White Blood Count 29.8 K/mm3 (4.5-10.0)
[2023-12-01 10:32] LABS: Blood Urea Nitrogen 26 mg/dL (7-17); Calcium 9.7 mg/dL (8.4-10.2); Carbon Dioxide > 40 mmol/L (22-30); Chloride 92 mmol/L (98-107); Estimated CRCL calculation 49 ml/min; Estimated Glomerular Filt Rate > 60; Glucose 111 mg/dL (65-110); Magnesium 1.7 mg/dL (1.6-2.3); Potassium 3.8 mmol/L (3.4-5.0); Sodium 134 mmol/L (137-145)
[2023-12-01] MEDS: ENOXAPARIN 40 MG/0.4 ML SYRINGE SUB-Q (11:02)
[2023-12-01] MEDS: ACETAMINOPHEN 325 MG TABLET 650 MG PO (11:02)
[2023-12-01 11:07] LABS: Procalcitonin 0.2 ng/mL
[2023-12-01 11:09] LABS: Band Neutrophils Percent 5 % (0-6); Lymphocytes Absolute Manual 0.89 K/mm3 (1.1-4.5); Metamyelocytes Percent 3 %; Monocytes Absolute Manual 4.17 K/mm3 (0.1-0.90); Monocytes Percent Manual 14 % (3-9); Neutrophils Absolute Manual 23.84 K/mm3 (1.7-7.2); Neutrophils Percent Manual 75 % (46-73); Total Cells Counted 100
[2023-12-01 11:10] LABS: Dohle Bodies Present; Platelet Estimate Adequate (Adequate); Schistocytes None Seen; Toxic Granulation Present
[2023-12-01] MEDS: AZITHROMYCIN 250 MG TABLET 500 MG PO (12:17)
--- NOTE | 2023-12-01 17:19 | WPDNEUROSGPN ---
Progress Note: A&P Assessment and Plan (1) T12 vertebral fracture: Code(s): S22.089A - Unspecified fracture of T11-T12 vertebra, initial encounter for closed fracture Status: Acute Plan I reviewed the CT thoracolumbar spine as well as the MRI which shows an acute T12 chance-type fracture with possible involvement of the pedicles but no other involvement of the posterior elements and no obvious ligamentus disruption. I think it is safe to start mobilizing in the brace which she should wear any time she is out of bed. I would like for her to have standing xrays in the brace to ensure stability of the fracture. Please notify our service for any new or worsening neurologic symptoms. Subjective Date/time seen: 12/01/23 17:19 Objective Data Vital Signs Vital Signs: Vital Signs - 24 hr 11/30/23 17:56 11/30/23 18:00 11/30/23 20:48 Temperature 97.8 F Pulse Rate 68 70 59 L Respiratory Rate 18 Blood Pressure 114/58 L Pulse Oximetry 91 Oxygen Delivery Oxygen Flow Rate 11/30/23 20:00 11/30/23 20:00 11/30/23 23:56 Temperature 97.8 F Pulse Rate 58 L 57 L Respiratory Rate 20 Blood Pressure 119/53 L Pulse Oximetry 94 98 Oxygen Delivery High Flow Nasal Cannula Oxygen Flow Rate 10 11/30/23 22:00 12/01/23 00:00 12/01/23 00:00 Temperature Pulse Rate 60 56 L Respiratory Rate Blood Pressure Pulse Oximetry 98 Oxygen Delivery High Flow Nasal Cannula Oxygen Flow Rate 8 12/01/23 02:00 12/01/23 04:40 12/01/23 04:00 Temperature 97.8 F Pulse Rate 60 63 65 Respiratory Rate 20 Blood Pressure 132/67 Pulse Oximetry 96 Oxygen Delivery Oxygen Flow Rate 12/01/23 04:00 12/01/23 06:00 12/01/23 08:36 Temperature Pulse Rate 70 82 Respiratory Rate Blood Pressure Pulse Oximetry 95 Oxygen Delivery High Flow Nasal Cannula Oxygen Flow Rate 8 12/01/23 08:00 12/01/23 09:30 12/01/23 08:00 Temperature 98.0 F Pulse Rate 71 77 Respiratory Rate 12 Blood Pressure 119/55 L Pulse Oximetry 92 93 Oxygen Delivery High Flow Nasal Cannula Oxygen Flow Rate 15 12/01/23 08:00 12/01/23 10:00 12/01/23 12:00 Temperature 98.0 F Pulse Rate 65 62 Respiratory Rate 12 Blood Pressure 116/64 Pulse Oximetry 94 96 Oxygen Delivery High Flow Nasal Cannula Oxygen Flow Rate 6 12/01/23 12:00 12/01/23 12:00 12/01/23 14:00 Temperature Pulse Rate 62 61 Respiratory Rate Blood Pressure Pulse Oximetry 95 Oxygen Delivery High Flow Nasal Cannula Oxygen Flow Rate 12 12/01/23 14:54 12/01/23 15:27 12/01/23 16:00 Temperature 97.8 F Pulse Rate 92 63 Respiratory Rate 12 Blood Pressure 149/80 H Pulse Oximetry 92 98 Oxygen Delivery High Flow Nasal Cannula Nasal Cannula Oxygen Flow Rate 8 7 12/01/23 16:35 Temperature Pulse Rate 63 Respiratory Rate Blood Pressure Pulse Oximetry Oxygen Delivery Oxygen Flow Rate Intake/Output Intake/Output: Intake & Output 11/28/23 11/29/23 11/30/23 12/01/23 23:59 23:59 23:59 23:59 Intake Total 1410 950 450 780.0 Output Total 1435 1725 2875 250 [facility] -[phone] Meds/Results Medications: Active Medications Generic Name Dose Route Start Last Admin Trade Name Freq PRN Reason Stop Dose Admin Acetaminophen 650 mg 11/26/23 00:46 12/01/23 11:02 Acetaminophen 325 Mg Tablet PO 650 mg Q4H PRN Administration Mild Pain (1-3) or Fever Hydrocodone Bitart/Acetaminophen 1 tab 11/26/23 11:14 12/01/23 15:27 Hydrocodone/Acetaminophen (*Crx) 7.5-325 Mg Tablet PO 1 tab BID PRN Administration Pain Acyclovir 400 mg 11/26/23 17:00 12/01/23 16:35 Acyclovir 400 Mg Tablet PO 400 mg BID QUINN Administration Albuterol/Ipratropium 3 ml 11/26/23 11:15 Ipratropium 0.5 Mg/Albuterol Sulfate 2.5 Mg Ampul.Neb 3 Ml INHALATION Q6HRT PRN sob Alprazolam 1 mg 11/26/23 13:00 12/01/23 16:34 Alprazolam (*
[2023-12-01] MEDS: NIFEdipine 30 MG TAB.ER.24 60 MG PO (20:48)
[2023-12-01] MEDS: traZODone HCL 50 MG TABLET 200 MG PO (20:49)
[2023-12-01] MEDS: QUEtiapine FUMARATE 100 MG TABLET 200 MG PO (20:49)
[2023-12-01] MEDS: ALPRAZolam (*CRX) 0.5 MG TABLET 2 MG PO (20:49)
[2023-12-02] VITALS (18 sets, daily range): BP systolic 87–160; BP diastolic 44–77; PULSE 53–78; RESP 16–19; TEMP 36.1–37.2; O2SAT 92–94
[2023-12-02] MEDS: SALINE LOCK FLUSH 10 ML IV PUSH ×3 (06:01→21:04)
[2023-12-02] MEDS: CEFEPIME 2 GM/NS 50 ML 2 GM/50 ML BAG IVPB ×2 (06:01→12:25)
[2023-12-02 06:13] LABS: Hematocrit 34.5 % (37.0-47.0); Hemoglobin 10.6 g/dL (12.0-15.0); Mean Corpuscular HGB Conc 30.7 g/dl (32-36); Mean Corpuscular Hemoglobin 30.9 pg (26-34); Mean Corpuscular Volume 100.6 fl (80-100); Mean Platelet Volume 9.4 fl (7.4-10.4); Platelet Count Result 266 k/mm3 (150-375); Red Blood Count 3.43 M/mm3 (4.2-5.4); Red Cell Distribution Width 16.8 % (11.5-14.5); White Blood Count 17.9 K/mm3 (4.5-10.0)
[2023-12-02 06:35] LABS: Blood Urea Nitrogen 28 mg/dL (7-17); Calcium 9.9 mg/dL (8.4-10.2); Carbon Dioxide > 40 mmol/L (22-30); Chloride 94 mmol/L (98-107); Estimated CRCL calculation 49 ml/min; Estimated Glomerular Filt Rate > 60; Glucose 104 mg/dL (65-110); Magnesium 1.8 mg/dL (1.6-2.3); Potassium 3.7 mmol/L (3.4-5.0); Sodium 134 mmol/L (137-145)
[2023-12-02 07:23] LABS: Procalcitonin 0.2 ng/mL
[2023-12-02 07:37] LABS: Band Neutrophils Percent 4 % (0-6); Lymphocytes Absolute Manual 1.61 K/mm3 (1.1-4.5); Lymphocytes Percent Manual 9 % (18-44); Metamyelocytes Percent 7 %; Monocytes Absolute Manual 1.96 K/mm3 (0.1-0.90); Monocytes Percent Manual 11 % (3-9); Neutrophils Absolute Manual 10.91 K/mm3 (1.7-7.2); Neutrophils Percent Manual 57 % (46-73); Total Cells Counted 100
[2023-12-02 07:38] LABS: Myelocytes Percent 8 %; Nucleated Red Blood Cells 1 %; Platelet Estimate Adequate (Adequate); Promyelocytes Percent 4 %
[2023-12-02 07:39] LABS: Anisocytosis 1+; Hypochromasia 1+; Polychromasia 1+; Schistocytes Rare
[2023-12-02] MEDS: VENLAFAXINE HCL XR 75 MG CAP.ER.24H PO (08:16)
[2023-12-02] MEDS: polyethylene glycoL 3350 17 GM POWD.PACK PO (08:16)
[2023-12-02] MEDS: MULTIVITAMINS /C LUTEIN (CENTRUM SILVER) TABLET *BKC 1 TAB PO (08:16)
[2023-12-02] MEDS: BACLOFEN 10 MG TABLET PO ×2 (08:17→16:31)
[2023-12-02] MEDS: METOPROLOL TARTRATE 50 MG TAB PO ×2 (08:17→16:31)
[2023-12-02] MEDS: CALCIUM/VITAMIN D 500 MG/5 MCG (200 I.U.) TABLET PO ×2 (08:17→16:31)
[2023-12-02] MEDS: HYDROcodone/acetaminophen (*CRX) 7.5-325 MG TABLET 1 TAB PO (08:17)
[2023-12-02] MEDS: ATORVASTATIN 40 MG TABLET 80 MG PO (08:17)
[2023-12-02] MEDS: VITAMIN E 1,000 UNIT CAPSULE 1000 UNIT PO (08:17)
[2023-12-02] MEDS: ACYCLOVIR 400 MG TABLET PO ×2 (08:17→16:30)
[2023-12-02] MEDS: levETIRAcetam 500 MG TABLET PO ×2 (08:18→21:01)
[2023-12-02] MEDS: ALPRAZolam (*CRX) 0.5 MG TABLET 1 MG PO ×3 (08:18→16:29)
[2023-12-02] MEDS: ENOXAPARIN 40 MG/0.4 ML SYRINGE SUB-Q (08:18)
[2023-12-02] MEDS: lamoTRIgine 100 MG TABLET PO ×2 (08:18→16:31)
[2023-12-02] MEDS: sulfaSALAzine 500 MG TABLET PO ×2 (08:18→16:30)
[2023-12-02] MEDS: FUROSEMIDE INJ 40 MG/4 ML VIAL 20 MG IV PUSH (08:18)
[2023-12-02] MEDS: LOSARTAN POTASSIUM 100 MG TABLET PO (08:18)
[2023-12-02] MEDS: ONDANSETRON INJ 4 MG/2 ML VIAL IV PUSH (08:19)
[2023-12-02] MEDS: FLUTICASONE/UMECLIDIN/VILANTER 100-62.5-25 MCG ELLIPTA 1 PUFF INHALATION (08:46)
--- NOTE | 2023-12-02 08:59 | PM.IMPN ---
Progress Note: A&P Assessment and Plan (1) Pneumonia: Code(s): J18.9 - Pneumonia, unspecified organism Status: Acute (2) Acute hypoxic respiratory failure: Code(s): J96.01 - Acute respiratory failure with hypoxia Status: Acute (3) Pleural effusion: Code(s): J90 - Pleural effusion, not elsewhere classified Status: Acute (4) Lung cancer: Code(s): C34.90 - Malignant neoplasm of unspecified part of unspecified bronchus or lung Status: Acute Plan Ms. Bruno is a pleasant 68-year-old female who is accompanied by her and living at home with a past medical history of prior tobacco abuse, COPD previously requiring chronic O2 use, breast cancer, lung cancer status post lobectomy (08/[address] Elizabeth receiving chemotherapy), rheumatoid arthritis, ankylosing spondylitis of the lumbar spine, history of pleural effusion, bipolar disorder, hypertension, vitamin-D deficiency.? COPD exacerbation, acute respiratory failure, hospital acquired pneumonia, pleural effusion The patient was being treated for pneumonia and blood clot and T12 fracture at [place] after she had fell at home.? She left there AMA as she did not agree with the treatment or lack there of, presenting to [place] ER on 11/24 shortly after the complaint of shortness of breath.? IV access was difficult to obtain V/Q scan was performed and it was low probability for PE.? Left-sided pneumonia and pleural effusion was reported on chest x-ray patient was started on antibiotics and admitted for thoracentesis and further management. Thoracentesis has been completed this morning with removal of approximately 500 cc of yellowish liquid.? Pleural studies are pending. require nasal cannula at 7 L. patient is immunocompromised, and also had recent history of hospitalization was started on ceftriaxone and azithromycin which have been switched to cefepime and vancomycin considering her pleural effusion on presentation leukopenia chemotherapy follow-up procalcitonin.? Blood cultures are pending.? Obtain sputum cultures however at the moment she is not producing.? Urinary antigens ordered as well.? DuoNebs have been ordered as p.r.n. 11/27 stop vancomycin, MRSA negative, continue cefepime and added azithromycin per kennel hand 11/29: patient has leukocytosis, afebrile, continue current antibiotics, azithromycin and cefepime IV 12/01 continue antibiotics today for total 7 days Suspecting acute diastolic heart failure X-ray shows pleural effusion, worse on the rest, will wean airspace opacity, fluid overloaded and superimposed pneumonia ? 1. Left ventricular chamber dimension is normal. ? 2. Left ventricular systolic function is normal, estimated at 60-65%. ? 3. There is mildly increased left ventricular wall thickness. ? 4. The left ventricular diastolic function is grade I diastolic dysfunction. ? 5. Right ventricular systolic function is normal. ? 6. There is mild mitral valve regurgitation. ? 7. There is trivial posterior pericardial effusion. Lasix 40 mg IV push once 11/27 Follow-up input output: negative balance of I/O 1.9 11/28. provided Lasix 40 mg once per kennel hand Follow-up CBC BMP, BNP: 454 <370 start Lasix 20 mg IV push daily per kennel hand A V/Q scan was completed on admission but patient has reported being treated for a blood clot at [place].? Records have been requested from [facility] and heparin GTT started upon arrival.? A CTA of the chest showed no PE, conformed left lower lobe cancer discontinue heparin drip start Lovenox 1 milligram/kilos q.12 hour 11/29 CT out side of hospital did not show PE. dc therapeutic Lovenox. start Lovenox [address] reports a subacute versus chronic fracture of T12 vertebral body. Her initial complaint at [place] was a fall and she reports a T12 fracture.? The patient does not know what the management was done for this, she did not have any surgical
[2023-12-02] MEDS: ACETAMINOPHEN 325 MG TABLET 650 MG PO (12:24)
[2023-12-02] MEDS: AZITHROMYCIN 250 MG TABLET 500 MG PO (12:25)
[2023-12-02 13:24] LABS: Albumin Pleural Fluid 1.9 g/dL; Glucose Pleural Fluid 127 mg/dL; LDH Pleural Fluid 133 U/L; Total Protein Pleural Fluid <3.0 g/dL
[2023-12-02] MEDS: ALPRAZolam (*CRX) 0.5 MG TABLET 2 MG PO (20:59)
[2023-12-02] MEDS: NIFEdipine 30 MG TAB.ER.24 60 MG PO (21:02)
[2023-12-02] MEDS: traZODone HCL 50 MG TABLET 200 MG PO (21:02)
[2023-12-02] MEDS: QUEtiapine FUMARATE 100 MG TABLET 200 MG PO (21:03)
[2023-12-03] VITALS (16 sets, daily range): BP systolic 102–111; BP diastolic 53–61; PULSE 59–82; RESP 16–20; TEMP 36.4–36.7; O2SAT 87–94
[2023-12-03] MEDS: SALINE LOCK FLUSH 10 ML IV PUSH ×2 (03:57→13:35)
[2023-12-03 04:06] LABS: Hematocrit 33.3 % (37.0-47.0); Hemoglobin 10.2 g/dL (12.0-15.0); Mean Corpuscular HGB Conc 30.6 g/dl (32-36); Mean Corpuscular Hemoglobin 30.3 pg (26-34); Mean Corpuscular Volume 98.8 fl (80-100); Mean Platelet Volume 9.5 fl (7.4-10.4); Platelet Count Result 280 k/mm3 (150-375); Red Blood Count 3.37 M/mm3 (4.2-5.4); Red Cell Distribution Width 16.7 % (11.5-14.5); White Blood Count 12.8 K/mm3 (4.5-10.0)
[2023-12-03 04:18] LABS: Blood Urea Nitrogen 28 mg/dL (7-17); Calcium 9.4 mg/dL (8.4-10.2); Carbon Dioxide > 40 mmol/L (22-30); Chloride 96 mmol/L (98-107); Estimated CRCL calculation 64 ml/min; Estimated Glomerular Filt Rate > 60; Glucose 103 mg/dL (65-110); Magnesium 1.7 mg/dL (1.6-2.3); Potassium 3.6 mmol/L (3.4-5.0); Sodium 135 mmol/L (137-145)
[2023-12-03 04:36] LABS: Anisocytosis 1+; Band Neutrophils Percent 5 % (0-6); Large Platelets Present; Lymphocytes Absolute Manual 2.94 K/mm3 (1.1-4.5); Metamyelocytes Percent 13 %; Microcytosis 1+ (NORMAL); Monocytes Absolute Manual 0.89 K/mm3 (0.1-0.90); Monocytes Percent Manual 7 % (3-9); Myelocytes Percent 3 %; Neutrophils Absolute Manual 6.78 K/mm3 (1.7-7.2); Neutrophils Percent Manual 48 % (46-73); Platelet Estimate Adequate (Adequate); Poikilocytosis 1+; Promyelocytes Percent 1 %; Total Cells Counted 100
[2023-12-03 04:37] LABS: Polychromasia 1+; Schistocytes Rare; Smudge Cells PRESENT
[2023-12-03 04:53] LABS: Procalcitonin 0.2 ng/mL
[2023-12-03] MEDS: FUROSEMIDE INJ 40 MG/4 ML VIAL 20 MG IV PUSH (08:19)
[2023-12-03] MEDS: ENOXAPARIN 40 MG/0.4 ML SYRINGE SUB-Q (08:19)
[2023-12-03] MEDS: METOPROLOL TARTRATE 50 MG TAB PO (08:20)
[2023-12-03] MEDS: VITAMIN E 1,000 UNIT CAPSULE 1000 UNIT PO (08:20)
[2023-12-03] MEDS: levETIRAcetam 500 MG TABLET PO (08:20)
[2023-12-03] MEDS: MULTIVITAMINS /C LUTEIN (CENTRUM SILVER) TABLET *BKC 1 TAB PO (08:20)
[2023-12-03] MEDS: ALPRAZolam (*CRX) 0.5 MG TABLET 1 MG PO ×2 (08:20→13:37)
[2023-12-03] MEDS: BACLOFEN 10 MG TABLET PO (08:20)
[2023-12-03] MEDS: LOSARTAN POTASSIUM 100 MG TABLET PO (08:20)
[2023-12-03] MEDS: sulfaSALAzine 500 MG TABLET PO (08:20)
[2023-12-03] MEDS: CALCIUM/VITAMIN D 500 MG/5 MCG (200 I.U.) TABLET PO (08:20)
[2023-12-03] MEDS: ATORVASTATIN 40 MG TABLET 80 MG PO (08:20)
[2023-12-03] MEDS: ACYCLOVIR 400 MG TABLET PO (08:20)
[2023-12-03] MEDS: polyethylene glycoL 3350 17 GM POWD.PACK PO (08:20)
[2023-12-03] MEDS: VENLAFAXINE HCL XR 75 MG CAP.ER.24H PO (08:21)
[2023-12-03] MEDS: lamoTRIgine 100 MG TABLET PO (08:21)
[2023-12-03] MEDS: ONDANSETRON INJ 4 MG/2 ML VIAL IV PUSH (08:28)
[2023-12-03] MEDS: HYDROcodone/acetaminophen (*CRX) 7.5-325 MG TABLET 1 TAB PO ×2 (08:35→13:36)
[2023-12-03 08:37] LABS: NT Pro B Type Natriuretic Pept 191 pg/mL (19.9-100)
[2023-12-03] MEDS: FLUTICASONE/UMECLIDIN/VILANTER 100-62.5-25 MCG ELLIPTA 1 PUFF INHALATION (09:21)
--- NOTE | 2023-12-03 11:08 | PM.IMPN ---
Progress Note: A&P Assessment and Plan (1) Pneumonia: Code(s): J18.9 - Pneumonia, unspecified organism Status: Acute (2) Acute hypoxic respiratory failure: Code(s): J96.01 - Acute respiratory failure with hypoxia Status: Acute (3) Pleural effusion: Code(s): J90 - Pleural effusion, not elsewhere classified Status: Acute (4) Lung cancer: Code(s): C34.90 - Malignant neoplasm of unspecified part of unspecified bronchus or lung Status: Acute Plan Ms. Bruno is a pleasant 68-year-old female who is accompanied by her and living at home with a past medical history of prior tobacco abuse, COPD previously requiring chronic O2 use, breast cancer, lung cancer status post lobectomy (08/[address] Elizabeth receiving chemotherapy), rheumatoid arthritis, ankylosing spondylitis of the lumbar spine, history of pleural effusion, bipolar disorder, hypertension, vitamin-D deficiency.? COPD exacerbation, acute respiratory failure, hospital acquired pneumonia, pleural effusion The patient was being treated for pneumonia and blood clot and T12 fracture at [facility] after she had fell at home.? She left there AMA as she did not agree with the treatment or lack there of, presenting to [facility] on 11/24 shortly after the complaint of shortness of breath.? IV access was difficult to obtain V/Q scan was performed and it was low probability for PE.? Left-sided pneumonia and pleural effusion was reported on chest x-ray patient was started on antibiotics and admitted for thoracentesis and further management. Thoracentesis has been completed this morning with removal of approximately 500 cc of yellowish liquid.? Pleural studies are pending. require nasal cannula at 7 L. patient is immunocompromised, and also had recent history of hospitalization was started on ceftriaxone and azithromycin which have been switched to cefepime and vancomycin considering her pleural effusion on presentation leukopenia chemotherapy follow-up procalcitonin.? Blood cultures are pending.? Obtain sputum cultures however at the moment she is not producing.? Urinary antigens ordered as well.? DuoNebs have been ordered as p.r.n. 11/27 stop vancomycin, MRSA negative, continue cefepime and added azithromycin per glass beveller 11/29: patient has leukocytosis, afebrile, continue current antibiotics, azithromycin and cefepime IV 12/01 continue antibiotics today for total 7 days 12/02 appreciate glass beveller consultation, ? From a pulmonary perspective patient is ready to be discharged on these pulmonary medications: Trelegy 100-62.5-25 at 1 puff q.day Rescue albuterol 2 puffs q.4 hours p.r.n. shortness of breath Oxygen at rest and with ambulation per formal home O2 assessment? which I have ordered.? Oxygen at night at 6 L NC. Suspecting acute diastolic heart failure X-ray shows pleural effusion, worse on the rest, will wean airspace opacity, fluid overloaded and superimposed pneumonia ? 1. Left ventricular chamber dimension is normal. ? 2. Left ventricular systolic function is normal, estimated at 60-65%. ? 3. There is mildly increased left ventricular wall thickness. ? 4. The left ventricular diastolic function is grade I diastolic dysfunction. ? 5. Right ventricular systolic function is normal. ? 6. There is mild mitral valve regurgitation. ? 7. There is trivial posterior pericardial effusion. Lasix 40 mg IV push once 11/27 Follow-up input output: negative balance of I/O 1.9 11/28. provided Lasix 40 mg once per glass beveller Follow-up CBC BMP, BNP: 454 <370 start Lasix 20 mg IV push daily per glass beveller A V/Q scan was completed on admission but patient has reported being treated for a blood clot at [facility].? Records have been requested from [facility] and heparin GTT started upon arrival.? A CTA of the chest showed no PE, conformed left lower lobe cancer discontinue heparin drip start Lovenox 1 milligram/kil
--- NOTE | 2023-12-03 11:22 | PCCCNOTE ---
On 12/03/23, the student, [Sruthi Jensen ], provided care and completed [facility] documentation on this patient. I have reviewed the student's documentation and agree with the findings.
--- NOTE | 2023-12-03 14:45 | PCRCNOTE ---
Addendum entered by Shelby Ingram, [employer] 12/03/23 20:04: Phone number: [phone] Original Note: Home O2 evaluation complete. Patient requires 2L O2 at rest and 5L O2 with activity. Set up patient with [facility] [phone] Initialized on 12/03/23 [id number]
--- NOTE | 2023-12-04 08:04 | HOMEO2EVAL ---
Evaluation was performed at [facility] Home Oxygen Evaluation RC: Home Oxygen (O2) Evaluation Start: 12/03/23 09:46 Freq: ONCE Status: Discharge Protocol: RPE Activity Type Activity Date Activity User E-sign Co-sign Detail Recorded Client Recorded Date Recorded By Document 12/03/23 11:00 MD [id number] 12/03/23 14:05 MDW Document 12/03/23 11:00 MD [id number] 12/03/23 14:05 MD Document 12/03/23 11:01 MD [id number] 12/03/23 14:05 MD Document 12/03/23 11:02 MD [email or web address] 12/03/23 14:05 MDW 12/03/23 12/03/23 12/03/23 11:00 11:00 11:01 Home O2 Evaluation [Oxygen] -Test Phase Resting Resting Exercise -Oxygen Delivery Room Air Nasal Cannula Nasal Cannula -Oxygen Flow Rate (L/min) 2 4 -Fraction of Inspired Oxygen (%) 21 28 36 [Pulse Oximetry] -Pulse Oximetry (90-100 %) 87 L 90 90 [Pulse Rate] -Pulse Rate (60-100 beats/min) 64 64 70 [Evaluation] -Activity Tolerance Poor Poor Poor -Rating of Perceived Dyspnea (PD) +2 Mild, Some +2 Mild, Some +3 Moderate Difficulty, Difficulty, Difficulty, But Noticeable to Noticeable to Can Continue the Observer the Observer -Rate of Perceived Exertion (PE) 12 12 15 Hard Query Text:Click the Protocol Button to View the RPE Scale [Exercise] -Ambulation Distance (feet) 0 0 15 -Ambulation Distance (meters) 0 0 4.57 [Charges] -Evaluation Charges O2 Evaluation O2 Evaluation O2 Evaluation by RC by RC by AJAY 12/03/23 11:02 Home O2 Evaluation [Oxygen] -Test Phase Exercise -Oxygen Delivery Nasal Cannula -Oxygen Flow Rate (L/min) 5 -Fraction of Inspired Oxygen (%) 40 [Pulse Oximetry] -Pulse Oximetry (90-100 %) 92 [Pulse Rate] -Pulse Rate (60-100 beats/min) 75 [Evaluation] -Activity Tolerance Poor -Rating of Perceived Dyspnea (PD) +4 Severe Difficulty, Participant Cannot Continue -Rate of Perceived Exertion (PE) 19 Very, Very Query Text:Click the Protocol Button Hard to View the RPE Scale [Exercise] -Ambulation Distance (feet) 25 -Ambulation Distance (meters) 7.61 [Charges] -Evaluation Charges O2 Evaluation by RC
[2023-12-06 01:03] LABS: Legionella pneumophila Ag Ur NOT DETECTED
[2023-12-14 21:24] LABS: Albumin Pleural Fluid 1.8 g/dL; Amylase, Pleural Fluid 10 U/L; Glucose Pleural Fluid 110 mg/dL; LDH Pleural Fluid 107 U/L; Total Protein Pleural Fluid 3.1 g/dL
== END 2023-12-03 15:44 | disposition home or self-care (01) | DRG 193 ==
LOC: ANHED 11-26 00:59 → ANHIMU 11-26 01:26
PROVIDERS: General Practice; Internal Medicine Pulmonary Disease; Nurse Practitioner Family; Admitting Provider Internal Medicine; Emergency Provider Physician Assistant; PCP Internal Medicine; Visit Provider Hospitalist
DX: J18.9 Pneumonia, unspecified organism (principal); I50.21 Acute systolic (congestive) heart failure; J96.01 Acute respiratory failure with hypoxia; C34.11 Malignant neoplasm of upper lobe, right bronchus or lung; J90 Pleural effusion, not elsewhere classified; J44.0 Chronic obstructive pulmonary disease with (acute) lower respiratory infection; I24.89 Other forms of acute ischemic heart disease; I11.0 Hypertensive heart disease with heart failure; D64.81 Anemia due to antineoplastic chemotherapy; D70.1 Agranulocytosis secondary to cancer chemotherapy; E55.9 Vitamin D deficiency, unspecified; M15.9 Polyosteoarthritis, unspecified; M45.7 Ankylosing spondylitis of lumbosacral region; M06.9 Rheumatoid arthritis, unspecified; R56.9 Unspecified convulsions; F31.9 Bipolar disorder, unspecified; F41.9 Anxiety disorder, unspecified; F12.90 Cannabis use, unspecified, uncomplicated; Y95 Nosocomial condition; Z20.822 Contact with and (suspected) exposure to COVID-19; S22.089D Unspecified fracture of T11-T12 vertebra, subsequent encounter for fracture with routine healing; W19.XXXD Unspecified fall, subsequent encounter; Z87.891 Personal history of nicotine dependence; Z85.3 Personal history of malignant neoplasm of breast
CPT/HCPCS: 32555; 36415; 36430; 36569; 36600; 71045; 71275; 72080; 72128; 72131; 72146; 72148; 78582; 80048; 80053; 81001; 82042; 82103; 82104; 82150; 82607; 82728; 82746; 82805; 82945; 82948; 83540; 83550; 83605; 83615; 83735; 83880; 83921; 83986; 84145; 84157; 84238; 84311; 84478; 84484; 85025; 85027; 85610; 85730; 86850; 86900; 86901; 86923; 87015; 87040; 87070; 87075; 87102; 87116; 87205; 87206; 87449; 87637; 87641; 87899; 88108; 88305; 89051; 93005; 93306; 93308; 93970; 94618; 94640; 94762; 96365; 96366; 96367; 96375; 96376; 97162; 97530; 99285; A9270; A9540; A9558; C1751; G0378; J0456; J0692; J0696; J1644; J1650; J1940; J2405; J2919; J3370; J3475; J7050; J7120; P9016; Q5101; Q9967

== ENCOUNTER 2023-12-08 07:34 | Outpatient (CLI) | payer MEDICARE, SELFPAY ==
[2023-12-08 08:02] LABS: Basophils Percent Auto 0.4 % (0.2-1.2); Hematocrit 35.7 % (37.0-47.0); Hemoglobin 11.2 g/dL (12.0-15.0); Immature Granulocyte Absolute 0.16 K/mm3 (0.00-0.031); Immature Granulocyte Percent A 1.9 % (0-0.5); Lymphocytes Absolute Auto 0.75 K/mm3 (0.9-3.2); Lymphocytes Percent Auto 8.8 % (18.3-44.2); Mean Corpuscular HGB Conc 31.4 g/dl (32-36); Mean Corpuscular Hemoglobin 30.6 pg (26-34); Mean Corpuscular Volume 97.5 fl (80-100); Mean Platelet Volume 9.1 fl (7.4-10.4); Monocytes Absolute Auto 0.4 K/mm3 (0.1-0.6); Monocytes Percent Auto 4.1 % (2.6-8.5); Neutrophils Absolute Auto 7.2 K/mm3 (1.3-6.7); Neutrophils Percent Auto 84.8 % (45.5-73.1); Platelet Count Result 290 k/mm3 (150-375); Red Blood Count 3.66 M/mm3 (4.2-5.4); Red Cell Distribution Width 16.8 % (11.5-14.5); White Blood Count 8.5 K/mm3 (4.5-10.0)
[2023-12-08 08:12] LABS: Alanine Aminotransferase 17 U/L (6-35); Albumin Level 4.2 g/dL (3.5-5.1); Alkaline Phosphatase 106 U/L (38-126); Anion Gap 8 mmol/L (4-12); Aspartate Amino Transferase 26 U/L (14-36); Bilirubin,Total 0.7 mg/dL (0.2-1.3); Blood Urea Nitrogen 21 mg/dL (7-17); Calcium 10.8 mg/dL (8.4-10.2); Carbon Dioxide 30 mmol/L (22-30); Chloride 100 mmol/L (98-107); Estimated Glomerular Filt Rate > 60; Glucose 188 mg/dL (65-110); Magnesium 1.6 mg/dL (1.6-2.3); Potassium 4.8 mmol/L (3.4-5.0); Sodium 138 mmol/L (137-145)
== END 2023-12-08 07:35 | disposition home or self-care (01) ==
LOC: ANHLAB 07:37
PROVIDERS: PCP Internal Medicine Hematology & Oncology; Visit Provider Internal Medicine Hematology & Oncology
DX: C50.411 Malignant neoplasm of upper-outer quadrant of right female breast (principal); Z17.0 Estrogen receptor positive status [ER+]
CPT/HCPCS: 36415; 36591; 80053; 83735; 85025; 99212; G0463

== ENCOUNTER 2023-12-21 13:18 | Outpatient (CLI) | payer MEDICARE, SELFPAY ==
--- NOTE | ~2023-12-21 | PE_ITS ---
EXAMINATION: PET skull to mid thigh DATE: 12/21/2023 15:30 INDICATION: Malignant neoplasm of upper outer quadrant of right breast. Non-small cell lung cancer. TECHNIQUE: Blood glucose level was 124 mg/dL. 10.416 mCi of 18-fluorodeoxyglucose (18-FDG) was admini stered i.v. Low dose computed tomography (CT) images were acquired from the base of the brain to the proximal thighs for attenuation correction and anatomic localization. Automated exposure control was employed. Dose-length product (DLP) was 671 mGy-cm. Positron emission tomography (PET) images were ac quired in the same distribution. COMPARISON: Thoracic and lumbar spine MRI 11/30/2023 FINDINGS: Head/neck: There are no pathologically enlarged lymph nodes. Chest: There is a small loculated right pleural effusion. There are changes of right upper lobectomy. There is mild emphysema. There is mild atelectasis bilaterally. There is a 1.6 cm nodule in left upp er lobe with maximum SUV of 5.4. There is a 7.6 x 3.4 cm fluid collection in right breast, likely a s eroma. There is a subacute compression fracture of T12. Abdomen/pelvis/proximal thighs: The liver, gallbladder, spleen, pancreas, adrenal glands, and right k idney are normal. There is a 4 mm stone versus parenchymal calcification in left kidney. There are no dilated loops of bowel. There are no pathologically enlarged lymph nodes. There is no free intraperi toneal fluid. IMPRESSION: 1. 1.6 cm nodule in left lung upper lobe with increased activity, decreased from 2.6 cm on 11/26/2023. If there has been no interval cancer therapy, this finding is likely infection. 2. Small right pleural effusion. Reviewed, dictated and finalized at location E. IMPRESSION: 1. 1.6 cm nodule in left lung upper lobe with increased activity, decreased fro m 2.6 cm on 11/26/2023. If there has been no interval cancer therapy, this findi ng is likely infection. 2. Small right pleural effusion.
[2023-12-21 13:57] LABS: Glucose Point of Care 124 mg/dl (65-105)
== END 2023-12-21 13:19 | disposition home or self-care (01) ==
PROVIDERS: PCP Internal Medicine Hematology & Oncology; Visit Provider Internal Medicine Hematology & Oncology
DX: C50.411 Malignant neoplasm of upper-outer quadrant of right female breast (principal); Z17.0 Estrogen receptor positive status [ER+]; J90 Pleural effusion, not elsewhere classified
CPT/HCPCS: 78815; A9552

== ENCOUNTER 2024-01-05 08:02 | Outpatient (CLI) | payer MEDICARE, SELFPAY ==
[2024-01-05 08:49] LABS: Basophils Percent Auto 0.3 % (0.2-1.2); Eosinophils Percent Auto 0.1 % (0-4.4); Hematocrit 38.1 % (37.0-47.0); Immature Granulocyte Absolute 0.04 K/mm3 (0.00-0.031); Immature Granulocyte Percent A 0.4 % (0-0.5); Lymphocytes Absolute Auto 1.77 K/mm3 (0.9-3.2); Lymphocytes Percent Auto 17.1 % (18.3-44.2); Mean Corpuscular HGB Conc 31.5 g/dl (32-36); Mean Corpuscular Hemoglobin 32.3 pg (26-34); Mean Corpuscular Volume 102.7 fl (80-100); Mean Platelet Volume 10.3 fl (7.4-10.4); Monocytes Absolute Auto 0.7 K/mm3 (0.1-0.6); Monocytes Percent Auto 6.3 % (2.6-8.5); Neutrophils Absolute Auto 7.9 K/mm3 (1.3-6.7); Neutrophils Percent Auto 75.8 % (45.5-73.1); Platelet Count Result 213 k/mm3 (150-375); Red Blood Count 3.71 M/mm3 (4.2-5.4); Red Cell Distribution Width 15.2 % (11.5-14.5); White Blood Count 10.4 K/mm3 (4.5-10.0)
[2024-01-05 08:59] LABS: Alanine Aminotransferase 18 U/L (6-35); Albumin Level 4.2 g/dL (3.5-5.1); Alkaline Phosphatase 73 U/L (38-126); Anion Gap 4 mmol/L (4-12); Aspartate Amino Transferase 25 U/L (14-36); Bilirubin,Total 0.4 mg/dL (0.2-1.3); Blood Urea Nitrogen 19 mg/dL (7-17); Calcium 9.5 mg/dL (8.4-10.2); Carbon Dioxide 30 mmol/L (22-30); Chloride 104 mmol/L (98-107); Estimated Glomerular Filt Rate > 60; Glucose 133 mg/dL (65-110); Magnesium 1.7 mg/dL (1.6-2.3); Potassium 4.3 mmol/L (3.4-5.0); Sodium 138 mmol/L (137-145)
== END 2024-01-05 08:03 | disposition home or self-care (01) ==
PROVIDERS: PCP Internal Medicine Hematology & Oncology; Visit Provider Internal Medicine Hematology & Oncology
DX: C50.411 Malignant neoplasm of upper-outer quadrant of right female breast (principal); Z17.0 Estrogen receptor positive status [ER+]
CPT/HCPCS: 36415; 80053; 83735; 85025; 96366; 96367; 96368; 96375; 96413; 96415; 96417; 99212; A9270; G0463; J1100; J1453; J2469; J3475; J3480; J7030; J7040; J7050; J9060; J9171

== ENCOUNTER 2024-01-16 12:10 | Outpatient (CLI) | payer MEDICARE, SELFPAY ==
--- NOTE | ~2024-01-16 | MMUS_ITS ---
EXAMINATION: MM diagnostic ysabel RT w bibi, US breast RT complete HISTORY: Fullness of the right breast TECHNIQUE: Additional 3-D tomosynthesis images of the right breast were performed and synthetic 2-D i mages were generated. CAD analysis was submitted and interpreted. High resolution complete right xuan st ultrasound was performed. COMPARISON: Comparison to multiple prior studies sequentially, with oldest reviewed study dated 05/09. BREAST PARENCHYMAL COMPOSITION: Dense: The breasts are heterogeneously dense, which may obscure small masses FINDINGS: MAMMOGRAPHIC FINDINGS: There is distortion of the right breast, consistent with previous lumpectomy and radiation therapy. P rior explantation of breast implants. There are coarse benign appearing calcifications unchanged. No new masses or architectural distortion. ULTRASOUND: Complete US of all 4 quadrants of the right breast and retroareolar region was reviewed. There is a l arge fluid collection deep in the right breast, likely chronic seroma following prior surgery. No ariadne picious masses to suggest malignancy. IMPRESSION: 1. No evidence for malignancy in the right breast. Benign findings. 2. Routine yearly screening mammogram and regular clinical breast examination are recommended. BI-RADS Category 2: Benign finding(s). Reviewed, dictated and finalized at location B. IMPRESSION: 1. No evidence for malignancy in the right breast. Benign findings. 2. Routine yearly screening mammogram and regular clinical breast examination a re recommended. BI-RADS Category 2: Benign finding(s).
== END 2024-01-16 12:11 | disposition home or self-care (01) ==
PROVIDERS: PCP Internal Medicine Hematology & Oncology; Visit Provider Internal Medicine Hematology & Oncology
DX: N63.20 Unspecified lump in the left breast, unspecified quadrant (principal); R92.2 Inconclusive mammogram
CPT/HCPCS: 76641; 77061; 77065; G0279

== ENCOUNTER 2024-02-13 07:33 | Outpatient (CLI) | payer MEDICARE, SELFPAY ==
--- NOTE | ~2024-02-13 | PE_ITS ---
EXAMINATION: PET skull to mid thigh DATE: 02/13/2024 10:06 INDICATION: Malignant neoplasm of the lung TECHNIQUE: Blood glucose level was 134 mg/dL. 9.408 mCi of 18-fluorodeoxyglucose (18-FDG) was adminis tered i.v. Low dose computed tomography (CT) images were acquired from the base of the brain to the p roximal thighs for attenuation correction and anatomic localization. Positron emission tomography (PE T) images were acquired in the same distribution beginning 60 minutes after injection. Images includi ng fused PET/CT images were reconstructed in axial, coronal, and sagittal planes. Automated exposure control technique was employed. The dose-length product was 587.66mGy-cm. COMPARISON: 12/21/2023 and 11/26/2023 FINDINGS: Head/neck: No pathologically enlarged cervical lymphadenopathy or suspicious foci of increased FDG uptake in the visualized head or neck. Chest: Mild emphysema. Postoperative change of prior right upper lobectomy. Decrease in size of a small post erior layering right pleural effusion. Peripheral atelectasis along the anteromedial margins of the l ingula and basilar left lower lobe. Resolution of the prior FDG avid 1.6 cm left upper lobe nodule wh ich at that time had decreased from prior measurement of 2.6 similar consistent with now resolved pne umonia. No new or enlarging pulmonary nodules identified. Heart size is normal. Atherosclerotic coron true artery calcific lesions. No pericardial effusion. Thoracic aorta is normal in caliber. Postoperat bobby change of the bilateral breasts. Unchanged large seroma in the right breast likely within the cap bear of a likely a previously explanted right breast implant. No pathologically enlarged or FDG avid thoracic lymphadenopathy. Abdomen/pelvis/proximal thighs: Physiologic renal accumulation and excretion of FDG activity in the kidneys, bladder and along portio ns of ureters. Again seen are couple nonobstructing stones in left kidney the larger measuring 4 mm. Normal degree and heterogenous pattern of increased uptake throughout the liver without radiologic co rrelate or dominant FDG avid lesion. The gallbladder, pancreas, spleen and bilateral adrenal glands a re normal. Mild uptake scattered throughout the bowels without radiologic correlate, also likely phys iologic. No other abnormal foci of increased FDG uptake or pathologically enlarged lymphadenopathy in the abdomen, pelvis or proximal thighs. Musculoskeletal: There is diffuse likely physiologic mild uptake throughout the musculature of the bilateral upper ext remities. Mild uptake overlying the bilateral greater trochanters also without radiologic correlate c onsistent with trochanteric bursitis. There is linear pattern of increased uptake along the anteromed ial right thigh likely resulting lymphatic uptake of extravasated activity at the site of injection w hich was in the right ankle. Persistent small focus of mild FDG uptake with maximal SUV of 3.0 in the subcutaneous fat at the anterior left upper arm with unchanged degree of FDG uptake but with decreas e in size of a previously 12 x 9 mm, currently 9 x 3 mm soft tissue density in the subcutaneous fat w hich most likely inflammatory in etiology. IMPRESSION: 1. Interval resolution of the previously seen FDG avid left upper lobe nodule which was likely infect ious in etiology. No new lesions suspicious for metastatic disease. 2. Persistent small focus of mild FDG uptake in the subcutaneous fat at the left upper arm with decre ase in size of a now 9 x 3 mm nodular soft tissue density. This could be an unusual location for clay gnancy or metastatic disease given the decrease in size is also most likely infectious/inflammatory i n etiology. Reviewed, dictated and finalized at location A. IMPRESSION: 1. Interval resolution o
[2024-02-13 08:11] LABS: Glucose Point of Care 134 mg/dl (65-105)
== END 2024-02-13 07:34 | disposition home or self-care (01) ==
PROVIDERS: PCP Internal Medicine Hematology & Oncology; Visit Provider Internal Medicine Hematology & Oncology
DX: C34.11 Malignant neoplasm of upper lobe, right bronchus or lung (principal)
CPT/HCPCS: 78815; A9552

== ENCOUNTER 2024-05-14 09:39 | Outpatient (CLI) | payer MEDICARE, SELFPAY ==
--- NOTE | ~2024-05-14 | CT_ITS ---
EXAMINATION: CT chest abdomen pelvis w con DATE: 05/14/2024 11:01 INDICATION: Malignant neoplasm of upper outer quadrant of right breast TECHNIQUE: Computed tomography (CT) of the chest, abdomen, and pelvis was performed with 100 mL Omnip aque 350 intravenous contrast. Automated exposure control and iterative reconstruction technique were employed. The dose-length product was 459.56 mGy-cm. COMPARISON: PET/CT 02/13/2024, chest CT 11/26/23 FINDINGS: CHEST CT: There is moderate emphysema. There are changes of right upper lobectomy. There is mild atelectasis bi laterally. There is a 6 mm nodule in left lower lobe that was obscured on prior imaging. There is a s mall right pleural effusion. The heart size is normal. There are coronary artery calcifications. No p ericardial effusion. There is a 7.0 x 4.4 cm fluid collection in right breast. There is an old healed fracture of right clavicle. There is a chronic burst fracture of T12 with changes of vertebroplasty. There is anterior and posterior fusion from T3 to T11, likely ankylosing spondylitis. ABDOMEN/PELVIS CT: There is a 10 mm hyperenhancing mass in left hepatic lobe. The gallbladder, spleen pancreas, and adre nal glands are normal. There are cysts in right kidney measuring up to 9 mm. There is a 5 mm stone in left kidney. There is calcified atherosclerosis of the aorta and many of the other arteries. There i s diverticulosis of the colon without evidence of diverticulitis. There are no dilated loops of bowel . The appendix is not visualized. There are no pathologically enlarged lymph nodes. There is no free intraperitoneal fluid. There is ankylosis of the sacroiliac joints. There is moderate lumbar spondylo sis. IMPRESSION: 1. 6 mm nodule in left lung lower lobe that was obscured on prior imaging, probably benign. Chest CT is recommended in 6 months. 2. Small right pleural effusion. 3. 10 mm hyperenhancing mass in left hepatic lobe, which may be benign or less likely metastatic dise ase. Prior imaging is not in the same phase for comparison. No PET abnormality in this area on 02/13/[address] in 6 months. 4.. Cyst in right breast, likely a seroma. Reviewed, dictated and finalized at location A. IMPRESSION: 1. 6 mm nodule in left lung lower lobe that was obscured on prior imaging, prob ably benign. Chest CT is recommended in 6 months. 2. Small right pleural effusion. 3. 10 mm hyperenhancing mass in left hepatic lobe, which may be benign or less likely metastatic disease. Prior imaging is not in the same phase for compariso n. No PET abnormality in this area on 02/13/24. Consider abdomen CT in 6 months. 4.. Cyst in right breast, likely a seroma.
== END 2024-05-14 09:40 | disposition home or self-care (01) ==
PROVIDERS: PCP Internal Medicine Hematology & Oncology; Visit Provider Internal Medicine Hematology & Oncology
DX: C50.411 Malignant neoplasm of upper-outer quadrant of right female breast (principal); Z17.0 Estrogen receptor positive status [ER+]; J90 Pleural effusion, not elsewhere classified; N60.01 Solitary cyst of right breast; R91.1 Solitary pulmonary nodule
CPT/HCPCS: 71260; 74177; Q9967

== ENCOUNTER 2024-06-20 10:06 | Outpatient (CLI) | payer MEDICARE, SELFPAY ==
--- NOTE | 2024-06-21 14:22 | WPDSIXMINUTE ---
Six Minute Walk Procedure Procedure Performed Pulmonary Stress Test (6 min walk) Six Minute Walk Six Minute Walk: This is a 6 minute walk test. The test was performed and interpreted in accordance with the 2014 ERS/ATS task force guidelines. Test performed on 2 L nasal cannula with pulse oxygen concentrator. Patient used a wheeled walker for stability. Findings: The patient's resting 2 L nasal cannula oxygen saturation measured by pulse oximetry was 98%, the heart rate was 61 bpm, and the modified Candelario dyspnea score was 3. Patient ambulated for 152 meters and oxygen saturation remained 94 to 96%. At the end of the study the heart rate was 82 bpm and the modified Candelario dyspnea score was 2. The patient did not have hypoxemia using 2 L with rest and with ambulation. There are no prior studies for comparison.
--- NOTE | 2024-06-21 14:25 | WPDPFTINT ---
PFT Procedure Performed PFT Procedure Performed Spirometry with Pre/Post Bronchodilator Plethysmography (Lung Vol) Diffusing Cap (DLCO) Flow Vol Loop PFT Interpretation This is a pulmonary function test with pre and post-bronchodilator spirometry, plethysmography and diffusing capacity. The test was performed and results interpreted in accordance with the 2019 and 2005 ATS/ERS Task Force guidelines respectively using the Global Lung Function Initiative-2012 reference equations. Patient demonstrated good effort and cooperation. Reproducibility criteria were met. The quality of the pre bronchodilator spirometry maneuver was Grade A and post bronchodilator spirometry maneuver was Grade A. Findings: Spirometry: There is decreased maximal expiratory airflow at low lung volumes with concave expiratory flow tracing. The contour the inspiratory flow tracing is normal. The pre bronchodilator FVC is 1.89 L, 66% predicted. The pre bronchodilator FEV1 is 1.08 L, 48% predicted. The pre bronchodilator FEV1: FVC ratio is 57%. The post bronchodilator FVC is 2.16 L, representing a 14% increase. The post bronchodilator FEV1 is 1.31 L, representing a 22% increase. The post bronchodilator FEV1: FVC ratio 61%. Plethysmography: The total lung capacity is 3.46 L, 68% predicted. The functional residual capacity is 2.21 L, 76% predicted. The residual volume is 1.33 L, 60% predicted. Diffusing capacity: The diffusing capacity unadjusted for hemoglobin and carboxyhemoglobin is 6.0, 29% predicted. The diffusing capacity adjusted for alveolar volume is 2.13, 50% predicted. Impression: There is a combined obstructive and restrictive ventilatory abnormality. There are no guidelines to assign the severity of obstruction and restriction with a combined abnormality. In my opinion, given the moderately concave expiratory flow tracing, decreased FEV1: FVC ratio and mild restrictive abnormality, I would state there is a moderately severe obstructive abnormality and a mild restrictive abnormality resulting in a severe decrease in the FEV1. There is significant improvement after inhaling a single dose of albuterol. The diffusing capacity unadjusted for hemoglobin and carboxyhemoglobin is severely decreased and remains moderately decreased when adjusted for alveolar volume. There are no prior studies for comparison
== END 2024-06-20 10:07 | disposition home or self-care (01) ==
LOC: ANHPFT 10:07
PROVIDERS: PCP Internal Medicine; Visit Provider Internal Medicine Pulmonary Disease
DX: J44.9 Chronic obstructive pulmonary disease, unspecified (principal)
CPT/HCPCS: 94060; 94618; 94726; 94729

== ENCOUNTER 2024-09-12 09:55 | Outpatient (CLI) | payer MEDICARE, SELFPAY ==
--- OUTSIDE RECORDS SUMMARY | 2024-09-12 10:18 | XMS_ITS | Encounter Summary ---
Author Organization [facility] Address [address] [place] [address] Care Team Providers Care Orbitread Operator Name Role Phone Kyrie Osuna MD Primary Care Provider [phone] Encounter Details Date Type Department Care Team (Late st Contact Info) Description 05/09/2007 Inpatient Historical [facility] Jevon Atwood MD [address] [address] Cystocele, Midline (Primary Dx) Social History Tobacco Use Types Packs/Day Years Used Date Smoking Tobacco: Never Assessed Comments Unknown Sex and Gender Information Value Date Recorded Sex Assigned at Not on file Legal Sex Female 5:28 AM SYSTEM AUDITOR Gender Identity Not on file Sexual Orientation Not on file documented as of this encounter Plan of Treatment Upcoming Encounters Date Type Department Care Team (Late st Contact Info) Description 09/27/2024 11:15 AM SYSTEM AUDITOR Office Visit [facility] Oncology and Hematology - [place] [address] [place] [address] [facility] [address] [place] [address] Tony Tariq MD [address] [facility] [address] [place] [address] documented as of this encounter Procedures Procedure Name Priority Date/Time Associated Diagnosis Comments POC GLUCOSE Routine 05/11/2007 1:12 PM CDT POC GLUCOSE Routine 05/11/2007 6:19 AM CDT POC GLUCOSE Routine 05/10/2007 4:02 PM CDT POC GLUCOSE Routine 05/10/2007 12:22 PM CDT POC GLUCOSE Routine 05/10/2007 6:01 AM CDT POC GLUCOSE Routine 05/09/2007 8:54 PM CDT POC GLUCOSE Routine 05/09/2007 7:50 PM CDT POC GLUCOSE Routine 05/09/2007 10:29 AM CDT POC GLUCOSE Routine 05/09/2007 7:47 AM CDT CBC WITH DIFFERENTIAL Routine 04/20/2007 2:50 PM CDT CBC WITH DIFFERENTIAL Routine 04/20/2007 2:50 PM CDT BASIC METABOLIC PANEL Routine 04/20/2007 2:50 PM CDT documented in this encounter Results * (ABNORMAL) POC GLUCOSE (05/11/2007 1:12 PM CDT) GLUCOSE POC 127(H) 65 - 99 mg/dL INTERFACE SYSTEM 05/11/2007 1:12 PM CDT us Jevon Atwood MD POINT OF CARE TESTING E dited Performing Organization Address City/[facility] Co de Phone Number INTERFACE SYSTEM Refer to clinic/hospital department * POC GLUCOSE (05/11/2007 6:19 AM CDT) COMMENT, GLU POC Notified RN INTERFACE SYSTEM GLUCOSE POC 89 65 - 99 mg/dL INTERFACE SYSTEM 05/11/2007 6:19 AM CDT us Jevon Atwood MD POINT OF CARE TESTING E dited Performing Organization Address City/State/[facility] Co de Phone Number INTERFACE SYSTEM Refer to clinic/hospital department * POC GLUCOSE (05/10/2007 4:02 PM CDT) GLUCOSE POC 93 65 - 99 mg/dL INTERFACE SYSTEM 05/10/2007 4:02 PM CDT us Jevon Atwood MD POINT OF CARE TESTING E dited Performing Organization Address City/[facility] Co de Phone Number INTERFACE SYSTEM Refer to clinic/hospital department * (ABNORMAL) POC GLUCOSE (05/10/2007 12:22 PM CDT) GLUCOSE POC 105(H) 65 - 99 mg/dL INTERFACE SYSTEM 05/10/2007 12:2 2 PM CDT us Jevon Atwood MD POINT OF CARE TESTING E dited Performing Organization Address City/[facility] Co mn Phone Number INTERFACE SYSTEM Refer to clinic/hospital department * POC GLUCOSE (05/10/2007 6:01 AM CDT) GLUCOSE POC 91 65 - 99 mg/dL INTERFACE SYSTEM 05/10/2007 6:01 AM CDT us Jevon Atwood MD POINT OF CARE TESTING E dited Performing Organization Address [facility] Phone Number INTERFACE SYSTEM Refer to clinic/hospital department * (ABNORMAL) POC GLUCOSE (05/09/2007 8:54 PM CDT) GLUCOSE POC 132(H) 65 - 99 mg/dL INTERFACE SYSTEM 05/09/2007 8:54 PM CDT us Jevon Atwood MD POINT OF CARE TESTING E dited Performing Organization Address City/[facility] Co de Phone Number INTERFACE SYSTEM Refer to clinic/hospital department * (ABNORMAL) POC GLUCOSE (05/09/2007 7:50 PM CDT) GLUCOSE POC 134(H) 65 - 99 mg/dL INTERFACE SYSTEM 05/09/2007 7:50 PM CDT us Jevon Atwood MD POINT OF CARE TESTING E dited Performing Organization Address City/[facility] Co de Phone Number INTERFACE SYSTEM Refer to clinic/hospital department * (ABNORMAL) POC GLUCOSE (05/09/2007 10:29 AM CDT) GLUCOSE POC 123(H) 65 - 99 mg/dL INTERFACE SYSTEM 05/09/2007 10:2 9 AM CDT us Jevon Atwood MD POINT OF CARE TESTING E dited Performing Organization Address City/[facility] Co de Phone Number INTERFACE SYSTEM Refer to clinic/hospital department * (ABNORMAL) POC GLUCOSE (05/09/2007 7:47 AM CDT) GLUCOSE POC 115(H) 65 - 99 mg/dL INTERFACE SYSTEM 05/09/2007 7:47 AM CDT us Jevon Atwood MD POINT OF CARE TESTING E dited Performing Organization Address [facility] Phone Number INTERFACE SYSTEM Refer to clinic/hospital department * (ABNORMAL) CBC WITH DIFFERENTIAL (04/20/2007 2:50 PM CDT) NEUTROPHILS 65 45 - 70 % INTERFAC E SYSTEM LYMPHOCYTES 28 16 - 45 % INTERFAC E SYSTEM MONOCYTES 6 3 - 13 % INTERFACE SYSTEM EOSINOPHILS 1 0 - 7 % INTERFAC E SYSTEM BASOPHILS 0 0 - 2 % INTERFACE SYSTEM NEUTROPHIL ABSOLUTE 8.27(H) 1.90 - 7.00 K/uL INTERFACE SYSTEM LYMPHOCYTE ABSOLUTE 3.50 0.70 - 4.50 K/uL INTERFACE SYSTEM MONOCYTE ABSOLUTE 0.78 0.10 - 1.30 K/uL INTERFACE SYSTEM EOSINOPHIL ABSOLUTE 0.13 0.00 - 0.70 K/uL INTERFACE SYSTEM BASOPHILS ABSOLUTE 0.03 0.00 - 0.20 K/uL INTERFACE SYSTEM 04/20/2007 2:50 PM CDT Jevon Atwood MD HEMATOLOGY ORDERABLES E dited INTERFACE SYSTEM Refer to clinic/hospital department * (ABNORMAL) CBC WITH DIFFERENTIAL (04/20/2007 2:50 PM CDT) WBC 12.7(H) 4.0 - 9.8 K/uL INTERFACE SYSTEM RBC 4.37 3.90 - 4.90 M/uL INTERFACE SYSTEM HEMOGLOBIN 13.3 11.8 - 14.8 g/dL INTERFACE SYSTEM HEMATOCRIT 37.9 35.5 - 44.0 % INTERFACE SYSTEM MCV 86.7 82.0 - 99.0 fL INTERFACE SYSTEM MCH 30.4 27.2 - 32.6 pg INTERFACE SYSTEM MCHC 35.1 31.5 - 35.5 % INTERFACE SYSTEM RDW 13.9 11.5 - 14.5 % INTERFACE SYSTEM RDW-STDEV 44.0 37.1 - 48.7 fL INTERFACE SYSTEM PLATELETS 309 140 - 350 K/uL INTERFACE SYSTEM MPV 11.3 9.3 - 12.4 fL INTERFACE SYSTEM 04/20/2007 2:50 PM CDT Jevon Atwood MD HEMATOLOGY ORDERABLES E dited Performing Organization Address [facility] Phone Number INTERFACE SYSTEM Refer to clinic/hospital department * (ABNORMAL) BASIC METABOLIC PANEL (04/20/2007 2:50 PM CDT) GLUCOSE 104(H) 65 - 99 mg/dL INTERFACE SYSTEM CREATININE 0.55 0.51 - 0.95 mg/dL INTERFACE SYSTEM CALCIUM 8.7 8.4 - 10.2 mg/dL INTERFACE SYSTEM BUN 13 6 - 20 mg/dL INTERFACE SYSTEM SODIUM 140 135 - 145 mmol/L INTERFACE SYSTEM POTASSIUM 4.1 3.5 - 4.9 mmol/L INTERFACE SYSTEM CHLORIDE 106 96 - 108 mmol/L INTERFACE SYSTEM CO2 25 22 - 30 mmol/L INTERFACE SYSTEM GFR, >60 >=60 mL/min/1. 7 sq meter INTERFACE SYSTEM GFR >60 >=60 mL/min/1. 7 sq meter INTERFACE SYSTEM Comment: Estimated GFR rate interpretative information for both Americans and non- Americans is available on the [facility] Intranet at: [email or web address] Select: Lab Policies and Procedures Select: Reference Ranges - GFR 04/20/2007 2:50 PM CDT Jevon Atwood MD CHEMISTRY ORDERABLES Ed ited INTERFACE SYSTEM Refer to clinic/hospital department documented in this encounter Visit Diagnoses Diagnosis Cystocele, midline- Primary documented in this encounter Additional Health Concerns Infection Onset Date Last Indicated Resolved Time R/O COVID-19 10/31/2019 10/31/2019 11/01/2019 4:47 PM CDT documented as of this encounter Care Teams Orbitread Operator Relationship Specialty Start Date End Date Kyrie Osuna MD [address] [address] PCP - General 02/19/09 documented as of this encounter
--- OUTSIDE RECORDS SUMMARY | 2024-09-12 10:18 | XMS_ITS | Patient Health Summary ---
Author Organization [facility] [employer] Address [address] [place] [address] Care Team Providers Care Corncob Pipe Supervisor Name Role Phone Kyrie Osuna MD Primary Care Provider [phone] Note from [facility],non-owned Affiliates and Associated Physician Practices is amultiple site organization consisting of ambulatory clinics and hospital sitesin [place], [place], [place] and [place]. This disclosure is being madepursuant to the Care Everywhere program and may not contain all information available regarding this patient. Last updated 18.[facility] [employer] Allergies No known active allergies Medications * Be aware that medications may not be up to date on this document. Alwaysverify current medications with the patient. * traZODone (DESYREL) 100 MG tablet Take 100 mg by mouth 2 times daily. * hydrocodone-acetaminophen (NORCO) 10-325 MG tablet Take 1 Tab by mouth every 6 hours as needed for Pain. * celecoxib (CELEBREX) 200 MG capsule Take 200 mg by mouth once daily. * ALPRAZolam (XANAX) 1 MG tablet Take 1 mg by mouth 6 times daily while awake. * levETIRAcetam (KEPPRA) 500 MG tablet Take 500 mg by mouth 2 times daily. * tiotropium (SPIRIVA HANDIHALER) 18 MCG inhalation capsule Inhale 1 Cap by mouth once daily. * lamoTRIgine (LAMICTAL) 100 MG tablet Take 100 mg by mouth 2 times daily. * pravastatin (PRAVACHOL) 80 MG tablet Take 80 mg by mouth at bedtime. * lubiprostone (AMITIZA) 8 MCG CAPS capsule Take 8 mcg by mouth 2 times daily with morning and evening meal * docusate sodium (COLACE) 100 MG capsule Take 100 mg by mouth 2 times daily. * topiramate (TOPAMAX) 25 MG tablet Take 75 mg by mouth 2 times daily * methocarbamol (ROBAXIN) 750 MG tablet Take 750 mg by mouth 2 times daily. * venlafaxine (EFFEXOR) 37.5 MG tablet Take 75 mg by mouth once daily. * QUEtiapine (SEROQUEL) 200 MG tablet Take 200 mg by mouth once daily. * QUEtiapine (SEROQUEL) 50 MG tablet Take 50 mg by mouth 2 times daily. * metFORMIN (GLUCOPHAGE) 500 MG tablet Take 500 mg by mouth 2 times daily. * Fluticasone-Salmeterol (ADVAIR DISKUS IN) Inhale by mouth as needed. * Albuterol Sulfate (PROAIR HFA IN) Inhale by mouth as needed. * pantoprazole EC (PROTONIX) 40 MG tablet Take 40 mg by mouth once daily Reported on 08/04/2016 * amitriptyline (ELAVIL) 50 MG tablet(Started 03/26/2014) Take 1 Tab by mouth at bedtime. 5 refills left * aspirin (ASPIRIN) 81 MG tablet Take 81 mg by mouth once daily * valACYclovir (VALTREX) 500 MG tablet Take 500 mg by mouth 2 times daily * oxyCODONE-acetaminophen (PERCOCET) 5-325 MG tablet(Started 08/04/2016) Take 1-2 Tabs by mouth every 6 hours as needed for Pain * ibuprofen (MOTRIN) 600 MG tablet(Started 08/04/2016) Take 1 Tab by mouth every 6 hours as needed for Pain 1 refill remaining Active Problems Problem Noted Date Diagnosed Date Closed fracture of twelfth t horacic vertebra, unspecified fracture morphology, initial encounter 11/21/2023 Bartholin's gland abscess Social History Tobacco Use Types Packs/Day Years Used Date Smoking Tobacco: Some Days Cigarettes 0.5 45 Smokeless Tobacco: Never Tobacco Cessation:Ready to Q uit: Yes; Counseling Given: Yes Alcohol Use Standard Drinks/Week Comments No 0 (1 standard drink = 0.6 oz pur e alcohol) rarely Sex and Gender Information Value Date Recorded Sex Assigned at Not on file Gender Identity Not on file Sexual Orientation Not on file Last Filed Vital Signs Vital Sign Reading Time Taken Comments Blood Pressure 102/64 08/30/2016 3:40 PM SPORTS RECRUITER Pulse 65 08/04/2016 11:50 AM SPORTS RECRUITER Temperature 36.7 C (98 F) 08/04/2016 11:50 AM SPORTS RECRUITER Respiratory Rate 16 08/04/2016 11:50 AM SPORTS RECRUITER Oxygen Saturation 97% 08/04/2016 11:50 AM SPORTS RECRUITER Inhaled Oxygen Concentration - - Weight 41.7 kg (92 lb) 08/30/2016 3:40 PM SPORTS RECRUITER Height 165.1 cm (5' 5 ) 08/30/2016 3:40 PM SPORTS RECRUITER Body Mass Index 15.31 08/30/2016 3:40 PM SPORTS RECRUITER Procedures * CARDIAC RHYTHM STRIP ORDER(Performed 08/09/2016) * GLUCOSE - POINT OF CARE(Performed 08/04/2016) * PATHOLOGY TISSUE EXAM (STL)(Performed 08/04/2016) Performed for Bartholin's gland abscess * LARYNGEAL MASK AIRWAY(Performed 08/04/2016) * EXCISION CYST GLAND BARTHOLIN'S(Performed 08/04/2016) Performed for Bartholin's gland abscess * GLUCOSE - POINT OF CARE(Performed 08/04/2016) * CBC W/O DIFFERENTIAL(Performed 08/04/2016) Performed for Preop examination * LAB HISTORICAL RESULTS-ONBASE(Performed 08/04/2016) * PATHOLOGY/GENETICS HISTORICAL-ONBASE(Performed 08/04/2016) * FUNGUS HEATHER - POINT OF CARE (AMB) SLU(Performed 08/05/2015) * WET PREP - POINT OF CARE (AMB) SLU(Performed 08/05/2015) * PH FLUID - POCT (AMB) SLU(Performed 08/05/2015) * EMG WITH NERVE CONDUCTION STUDY(Performed 03/13/2014) * CT ABDOMEN PELVIS W CONTRAST(Performed 08/21/2013) Performed for Unspecified symptom associated with female genital organs * CREATININE BLOOD(Performed 08/16/2013) Performed for Unspecified symptom associated with female genital organs Results * CARDIAC RHYTHM STRIP ORDER (08/09/2016 7:53 PM SPORTS RECRUITER) Narrative 08/09/2016 7:53 PM SPORTS RECRUITER Ordered by an unspecified provider. Scanned Document CARDIAC SERVICES ORD ERABLES * (ABNORMAL) GLUCOSE - POINT OF CARE (08/04/2016 10:03 AM SPORTS RECRUITER) Only the most recent of2 resultswithin the time period is included. Glucose WB/POC 108(H) 70 - 106 mg/dL 08/04/2016 10:[address] [facility] Blood BLOOD SPECIMEN / Unknown 08/04/2016 10:03 AM SPORTS RECRUITER 08/04/2016 10:05 AM SPORTS RECRUITER Guero Nicole MD LAB - POINT OF CARE ORDERABLES [facility] [address] [place] [address] * GROSS + MICRO EXAM (STL) (08/04/2016 9:34 AM SPORTS RECRUITER) Case Report Surgical Pathology Report Case: [id number] Authorizing Provider: Guero Nicole MD Collected: 08/04/2016 09:34 AM Ordering Location: [facility] Received: 08/04/2016 10:51 AM Pathologist: Vanda Cabrera MD Specimen: Bartholin Cyst, bartholin cyst wall 08/05/2016 4:[address] [facility] Final Diagnosis 1. Bartholin's cyst, right, resection: -- Bartholin's cyst /[facility] 08/05/2016 4:30 PM [facility] Gross Description The specimen is received a formalin-filled container, labeled with the patient s name, Mili Bruno, and additionally labeled, B artholin cyst, The specimen is a semicircular-shaped piece of rubbery soft tissue with [id number] mucosal surface and a rough and ragged deep surface measuring 2 x 2 x 1.7 cm. The specimen is serially sectioned and contact center representative section is submitted in cassette A1. [place]/na 08/05/2016 4:[address] [facility] Microscopic Description Sections reveal benign cyst lined by columnar and squamous epithelium. The cyst is surrounded by a few benign ductules. Mild chronic inflammation is also identified. There is no evidence of dysplasia or malignancy. /[facility] 08/05/2016 4:30 PM [facility] Disclaimer All histochemical and/or immunohistochemical results are interpreted with controls that demonstrate appropriate staining reactions before reporting results. Note on use of immunocytochemistry reagents: This test was developed and its performance characteristic determined by [facility], Department of Laboratory Medicine. It has not been cleared or approved by the U.S. Food and Drug Administration (FDA). The FDA has determined that such clearance or approval is not necessary. The test is used for clinical purpose. It should not be regarded as investigational or for research. This laboratory is certified to perform high complexity testing. 08/05/2016 4:30 PM [facility] Embedded Images 08/05/2016 4:30 PM [facility] Pathology/Cytolo gy CYST OF BARTHOLIN'S GLAND DUCT / Unknown 08/04/2016 9:34 AM SPORTS RECRUITER 08/04/2016 10:51 AM SPORTS RECRUITER Guero Nicole MD LAB - PATHOLOGY/CYT OLOGY ORDERABLES Performing Organization Address City/State/[facility] Co de Phone Number [facility] [address] [place] [address] * (ABNORMAL) CBC W/O DIFFERENTIAL (08/04/2016 7:45 AM SPORTS RECRUITER) WBC 9.1 4.4 - 10.7 x10E9/L 08/04/2016 8:14 AM [facility] RBC 3.34(L) 3.80 - 5.20 x10E12/L 08/04/2016 8:14 AM [facility] Hemoglobin 10.8(L) 12.0 - 15.6 gm/dL 08/04/2016 8:14 AM [facility] Hematocrit 31.8(L) 35.9 - 45.5 % 08/04/2016 8:14 AM [facility] MCV 95.2 80.7 - 98.3 fl 08/04/2016 8:14 AM [facility] MCH 32.3 26.7 - 34.0 pg 08/04/2016 8:14 AM [facility] MCHC 34.0 30.8 - 35.9 gm/dL 08/04/2016 8:14 AM [facility] Platelet Count 322 153 - 416 x10E9/L 08/04/2016 8:14 AM [facility] RDW-CV 13.7 12.1 - 14.9 % 08/04/2016 8:14 AM [facility] MPV 10.6 9.4 - 12.9 fl 08/04/2016 8:[address] [facility] Blood BLOOD SPECIMEN / Unknown Venipuncture / Unknown 08/04/2016 7:45 AM SPORTS RECRUITER 08/04/2016 8:01 AM SPORTS RECRUITER Guero Nicole MD LAB - HEMATOLOGY OR DERABLES Performing Organization Address City/[facility]/ZIP Co de Phone Number [facility] [address] [place] [address] * PATHOLOGY/GENETICS HISTORICAL-ONBASE (08/04/2016) 08/04/2016 Historical Provider LAB - CHEMISTRY O SHELBY Performing Organization Address [facility] Co de Phone Number [facility] [address] * LAB HISTORICAL RESULTS-ONBASE (08/04/2016) 08/04/2016 Historical Provider LAB - CHEMISTRY O SHELBY Performing Organization Address [facility] Co de Phone Number [facility] [address] * PH FLUID - POCT (AMB) U (08/05/2015) pH Vaginal 5.0 [facility] Vaginal swab (specimen) 08/05/2015 Zoraida Rogers BANKRUPTCY PROCESSOR-DRAWER IN PLAIN LOOM LAB - POINT OF CARE ORDERABLES Performing Organization Address City/[facility]/ZIP Co de Phone Number [facility] * WET PREP - POINT OF CARE (AMB) U (08/05/2015) pH Wet Prep 5.0 [facility] Yeast Wet Prep n [facility] Trichomonas Wet Prep n [facility] Bacteria Wet Prep n [facility] Whiff Test n [facility] 08/05/2015 Zoraida Rogers BANKRUPTCY PROCESSOR-DRAWER IN PLAIN LOOM LAB - POINT OF CARE ORDERABLES [facility] * FUNGUS HEATHER - POINT OF CARE (AMB) [facility] (08/05/2015) HEATHER Prep n [facility] Fluid specimen (specimen) 08/05/2015 Zoraida Rogers BANKRUPTCY PROCESSOR-DRAWER IN PLAIN LOOM LAB - POINT OF CARE ORDERABLES [facility] * EMG WITH NERVE CONDUCTION STUDY (03/13/2014) Madhu Limon MD NEUROLOGY ORDERABLES * CT ABDOMEN AND PELVIS WITH IV CONTRAST [[id number]] (08/21/2013 12:52 PM SPORTS RECRUITER) Anatomical Region Laterality Modality Abdomen, Pelvis Computed Tomogra phy 08/21/2013 1:13 PM SPORTS RECRUITER Impressions 08/21/2013 3:14 PM SPORTS RECRUITER No mass or focal inflammatory process is seen in the abdomen or pelvis. An indeterminate, noncalcified pulmonary nodule is present at the left lower lobe. CT followup is recommended as discussed above. Edited by Dian Rivera on 08/21/2013 2:57 PM Narrative 08/21/2013 3:[address] Abdomen with Contrast Indication: Severe suprapubic and bilateral lower abdominal pain. Status post vaginal prolapse repair. Technique: Oral contrast was administered. 80 cc Omnipaque 350 was administered intravenously, and axial images were obtained through the abdomen and pelvis. Findings: Evaluation of the lung bases demonstrates a nonspecific nodule at the inferior left lower lobe measuring approximately 4 x 4.5 mm in diameter. By Fleischner criteria, followup in 12 months is recommended if patient is considered at low risk for malignancy and in 6-12 months if considered to be at high-risk. Following administration of intravenous contrast, liver and spleen enhance uniformly. There is no inflammation adjacent to an intact gallbladder. Adrenal glands and pancreas appear unremarkable. Renal enhancement is symmetric. A nonobstructing left renal calculus measures approximately 4.6 x 3.3 mm in size. Bowel within the abdomen is normal in caliber. There is no abdominal aortic aneurysm or pathologically enlarged retroperitoneal lymphadenopathy. Pelvis: Bowel within the pelvis is normal in caliber. Contours of the urinary bladder are normal. No free fluid can be seen within the pelvis. The appendix is not visualized. The uterus is absent, presumed surgically. Procedure Note Susan Cuevas MD - 08/21/2013 CT Abdomen with Contrast Indication: Severe suprapubic and bilateral lower abdominal pain. Status post vaginal prolapse repair. Technique: Oral contrast was administered. 80 cc Omnipaque 350 was administered intravenously, and axial images were obtained through the abdomen and pelvis. Findings: Evaluation of the lung bases demonstrates a nonspecific nodule at the inferior left lower lobe measuring approximately 4 x 4.5 mm in diameter. By Fleischner criteria, followup in 12 months is recommended if patient is considered at low risk for malignancy and in 6-12 months if considered to be at high-risk. Following administration of intravenous contrast, liver and spleen enhance uniformly. There is no inflammation adjacent to an intact gallbladder. Adrenal glands and pancreas appear unremarkable. Renal enhancement is symmetric. A nonobstructing left renal calculus measures approximately 4.6 x 3.3 mm in size. Bowel within the abdomen is normal in caliber. There is no abdominal aortic aneurysm or pathologically enlarged retroperitoneal lymphadenopathy. Pelvis: Bowel within the pelvis is normal in caliber. Contours of the urinary bladder are normal. No free fluid can be seen within the pelvis. The appendix is not visualized. The uterus is absent, presumed surgically. IMPRESSION No mass or focal inflammatory process is seen in the abdomen or pelvis. An indeterminate, noncalcified pulmonary nodule is present at the left lower lobe. CT followup is recommended as discussed above. Edited by Dian Rivera on 08/21/2013 2:57 PM Dawna De La Cruz MD CT ORDERABLES * CREATININE BLOOD (08/16/2013 12:49 PM SPORTS RECRUITER) Creatinine 0.55 0.50 - 1.30 mg/dL 08/16/2013 1:05 PM [facility] eGFR by MDRD >60 >60 mL/min/1.7 3m2 08/16/2013 1:05 PM [facility] eGFR by MDRD >60 >60 mL/min/1.7 3m2 08/16/2013 1:05 PM [facility] Blood BLOOD SPECIMEN / Unknown Lab Venipuncture / Unknown 08/16/2013 12:49 PM SPORTS RECRUITER 08/16/2013 12:53 PM SPORTS RECRUITER Dawna De La Cruz MD LAB - CHEMISTRY ORDERABLES [facility] [address] [place] [address] Care Teams Corncob Pipe Supervisor Relationship Specialty Start Date End Date Kyrie Osuna MD PCP - General Internal Medicine 08/16/13
--- OUTSIDE RECORDS SUMMARY | 2024-09-12 10:18 | XMS_ITS | Clinical Summary ---
Author Organization [facility] [place] Address [address] [place] [address] Care Team Providers Care Supervisor Winter Name Role Phone Kyrie Osuna MD Primary Care Provider [phone] Source Comments [employer] [place],non-owned Affiliates and Associated Physician Practices is amultiple site organization consisting of ambulatory clinics and hospital sitesin [place], [place], [place] and [place]. This disclosure is being madepursuant to the Care Everywhere program and may not contain all information available regarding this patient. Last updated 18.[facility] Allergies No known active allergies Medications * Be aware that medications may not be up to date on this document. Alwaysverify current medications with the patient. Medication Sig Dispensed Refills Start Date End Date Status traZODone (DESYREL) 100 MG tablet Take 100 mg by mouth 2 times daily. Active hydrocodone-acetamino phen (NORCO) 10-325 MG tablet Take 1 Tab by mouth every 6 hours as needed for Pain. Active celecoxib (CELEBREX) 200 MG capsule Take 200 mg by mouth once daily. Active ALPRAZolam (XANAX) 1 MG tablet Take 1 mg by mouth 6 times daily while awake. Active levETIRAcetam (KEPPRA) 500 MG tablet Take 500 mg by mouth 2 times daily. Active tiotropium (SPIRIVA HANDIHALER) 18 MCG inhalation capsule Inhale 1 Cap by mouth once daily. Active lamoTRIgine (LAMICTAL) 100 MG tablet Take 100 mg by mouth 2 times daily. Active pravastatin (PRAVACHOL) 80 MG tablet Take 80 mg by mouth at bedtime. Active lubiprostone (AMITIZA) 8 MCG CAPS capsule Take 8 mcg by mouth 2 times daily with morning and evening meal Active docusate sodium (COLACE) 100 MG capsule Take 100 mg by mouth 2 times daily. Active topiramate (TOPAMAX) 25 MG tablet Take 75 mg by mouth 2 times daily Active methocarbamol (ROBAXIN) 750 MG tablet Take 750 mg by mouth 2 times daily. Active venlafaxine (EFFEXOR) 37.5 MG tablet Take 75 mg by mouth once daily. Active QUEtiapine (SEROQUEL) 200 MG tablet Take 200 mg by mouth once daily. Active QUEtiapine (SEROQUEL) 50 MG tablet Take 50 mg by mouth 2 times daily. Active metFORMIN (GLUCOPHAGE) 500 MG tablet Take 500 mg by mouth 2 times daily. Active Fluticasone-Salmetero l (ADVAIR DISKUS IN) Inhale by mouth as needed. Active Albuterol Sulfate (PROAIR HFA IN) Inhale by mouth as needed. Active pantoprazole EC (PROTONIX) 40 MG tablet Take 40 mg by mouth once daily Reported on 08/04/2016 Active amitriptyline (ELAVIL) 50 MG tablet Take 1 Tab by mouth at bedtime. 30 Tab 5 03/26/2014 Active aspirin (ASPIRIN) 81 MG tablet Take 81 mg by mouth once daily Active valACYclovir (VALTREX) 500 MG tablet Take 500 mg by mouth 2 times daily Active oxyCODONE-acetaminoph en (PERCOCET) 5-325 MG tablet Take 1-2 Tabs by mouth every 6 hours as needed for Pain 30 Tab 08/04/2016 Active ibuprofen (MOTRIN) 600 MG tablet Take 1 Tab by mouth every 6 hours as needed for Pain 30 Tab 1 08/04/2016 Active Active Problems Problem Noted Date Diagnosed Date [...] Comments Blood Pressure 102/64 08/30/2016 3:40 PM [employer] Pulse 65 08/04/2016 11:50 AM [employer] Temperature 36.7 C (98 F) 08/04/2016 11:50 AM [employer] Respiratory Rate 16 08/04/2016 11:50 AM [employer] Oxygen Saturation 97% 08/04/2016 11:50 AM [employer] Inhaled Oxygen Concentration - - Weight 41.7 kg (92 lb) 08/30/2016 3:40 PM [employer] Height 165.1 cm (5' 5 ) 08/30/2016 3:40 PM [employer] Body Mass Index 15.31 08/30/2016 3:40 PM [employer] Plan of Treatment Health Maintenance Due Date Last Done Comments BONE DENSITY TESTING 1953 COLOGUARD (AGES 45-75) - COL ON CA SCREENING 1953 COLON MONITORING 1953 COLONOSCOPY - COLON CA SCREENING 1953 CT COLONOGRAPHY - COLON CA SCREENING 1953 Colorectal Cancer Screening 1953 FIT - COLON CA SCREENING 1953 FLEX SIG - COLON CA SCREENING 1953 MAMMOGRAM 1953 MEDICARE AWV 12 MONTHS 1953 HEPATITIS C SCREENING 10/19/1971 DTAP/TDAP/TD VACCINES (1 - Tdap) 1972 PNEUMOCOCCAL VACCINE 50+ (1 of 2 - PCV) 1972 ZOSTER VACCINE (1 of 2) 10/24/2003 COVID-19 VACCINE (2023-2 5 season) 2024 INFLUENZA VACCINE (#1) 2024 DEPRESSION SCREENING 08/07/2024 Respiratory Syncytial Virus (RSV) Vaccine Pt: or over 60 yrs (1 - 1-dose 75+ series) 2028 HEPATITIS B VACCINE Aged Out No longe r eligible based on patient's age to complete this topic HIB VACCINE Aged Out No longer eligi ble based on patient's age to complete this topic HPV VACCINE Aged Out No longer eligi ble based on patient's age to complete this topic MENINGOCOCCAL (Group B) VACCINE Aged Out No longer eligible based on patient's age to complete this topic MENINGOCOCCAL VACCINE Aged Out No ivan aurelia eligible based on patient's age to complete this topic Care Teams Supervisor Winter Relationship Specialty Start Date End Date Kyrie Osuna MD PCP - General Internal Medicine 08/16/13
--- OUTSIDE RECORDS SUMMARY | 2024-09-12 10:18 | XMS_ITS | Data Portability ---
Author Organization [place] [facility] [employer], Main Office Address [address] [place] [address] Assessment No assessment recorded. Plan of Treatment Reminders Order Date Submit Date Provider Last Modified By Organization Details Last Modified Time Details Appointments None recorded . Lab lipid panel, serum 024 07/22/20 24 [facility], [address] [place], [address], 5 17:52:11 CMP, serum or plasma 024 07/22/20 24 [email or web address] [facility], [address] [place], [address], 5 17:52:11 CBC w/ auto diff 024 07/22/20 24 [facility], [address] [place], [address], 5 17:52:11 Referral None recorded . Procedures None recorded . Surgeries None recorded . Imaging None recorded . Medication Orders None recorded . Patient TargetsNo targets recorded. Patient Instructions Encounter Date Encounter Id Patient Instructions Last Modified By Organization Details Last Modified Time 07/03/2023 [id number] Hyperlipidemia -essential hypertension-GERD- emphysema -chronic pain syndrome. Plan is to continue on current Rx. Will check blood work on next visit. Will continue on current medications most recent cholesterol is 186 HDL 48 LDL of 102. Not due for mammogram or colonoscopy. Will check a hemoglobin A1c in the next visit. Clinically doing well otherwise. FDA recommendations of a influenza, RSV, COVID, pneumococcal immunizations strongly advised. Portions of the record may have been created with voice recognition software. Occasional wrong-word or mtwaf-d-uqwn substitutions may have occurred due to the inherent limitations of voice recognition software. Read the chart carefully and recognize, using context, where substitutions have occurred. CT scan of the brain without contrast from history of recent fall with transient conscious lost several weeks ago. Next Appt: 4 Months Approximate Date: 10/31/2023 [email or web address] Not available 07/03/2023 16:22:28 10/11/2023 [id number] Follow-up hypertension, carcinoma breast and lung. Clinically stable. Will need to do week use the patient's pain medications and Q 4 hours down to q.6 hours. . Will also reduce her Xanax from 1 mg up to 5 times a day down to t.i.d.. Will continue on mother medications as prescribed. Continue on current Rx. Will follow-up in two months. Portions of the record may have been created with voice recognition software. Occasional wrong-word or paohq-a-phsc substitutions may have occurred due to the inherent limitations of voice recognition software. Read the chart carefully and recognize, using context, where substitutions have occurred. Next Appt: 2 Months Approximate Date: 12/10/2023 [email or web address] Not available 10/11/2023 16:12:12 12/19/2023 [id number] Follow-up from recent hospitalization for carcinoma of the lung as well as a fractured vertebrae as a result of a fall. The patient is doing reasonably well at this time. Is in the process of being evaluated for additional metastatic disease. Has a scheduled PET scan later in the week. Is followed by Oncology up in [facility]. Is in need of the wheelchair as well as additional oxygen equipment. No interval complaints of any new problems otherwise. Does appear to be more debilitated than on previous examination. No need for any additional blood work at this time. Will continue on current Rx and follow-up in three months Next Appointment: 3 Months Approximate Date: 03/18/2024 Portions of the record may have been created with voice recognition software. Occasional wrong-word or bwzdx-f-cpyl substitutions may have occurred due to the inherent limitations of voice recognition software. Read the chart carefully and recognize, using context, where substitutions have occurred. [email or web address] Not available 12/19/2023 11:10:09 03/25/2024 [id number] Follow-up essent ial hypertension, hyperlipidemia, type 2 diabetes, pulmonary emphysema, carcinoma lung and carcinoma of the breast all clinically stable. Does appear to be slightly pale. Has also had some additional weight loss. Predominantly from the carcinoma of the lung. Last hemoglobin A1c was good see no reason for checking any these blood work at this time since her main problems currently center around the carcinoma of the lung. Will continue with current Rx follow-up in four months. Next Appointment: 4 Months Approximate Date: 07/23/2024 Portions of the record may have been created with voice recognition software. Occasional wrong-word or jxeil-s-blhz substitutions may have occurred due to the inherent limitations of voice recognition software. Read the chart carefully and recognize, using context, where substitutions have occurred. [email or web address] Not available 03/25/2024 15:52:13 07/22/2024 [id number] Follow-up for hypertension, hyperlipidemia, pulmonary emphysema, carcinoma of breast, carcinoma lung chronic pain syndrome all clinically stable at this time. Has had the COVID shot the also the booster. Was also given a Prevnar 20 today. As otherwise clinically stable. Will check blood work consisting of CBC, CMP and lipid panel. Continue on current Rx follow-up in four months Patient advised on FDA recommendations of a Influenza, RSV, COVID, pneumococcal, and Herpes Zoster immunizations. Follow Up: 4 Months Approximate Date: 11/19/2024 Portions of the record may have been created with voice recognition software. Occasional wrong-word or ilgar-u-sbhg substitutions may have occurred due to the inherent limitations of voice recognition software. Read the chart carefully and recognize, using context, where substitutions have occurred. Created: Kyrie Osuna M.D. 07.22.2024 10:49 AM [email or web address] Not available 07/22/2024 11:49:58 Reason for Referral None Reported. Results Created Date Observation Date Name Description Value Unit Range Abnormal Flag Note LastModifiedBy Organization Detail LastModifiedTime 06/08/2006/08/2023 LIPID PANEL cholesterol 186 mg/dL 140-19 9 NIH SADAF NSUS RECOM MENDA TION FOR NESHA STERO L: ADULT CHILD LOW RISK: <200 <170 BORDE RLINE : <200- 239 ----- HIGH RISK: >240 >200 Not Available [facility] (Lab) [address] [place], [address], 06/08/2023 11:50:39 06/08/2006/08/2023 LIPID PANEL triglyceride s 178 mg/dL 0-150 high NIH SADAF NSUS REPOR T RECOM MENDA TION FOR TRIGL YCERI CATRACHITA: ADULT CHILD LOW RISK: <150 ----- BODER LINE: 150-1 99 ----- HIGH RISK: >200 ----- Not Available [facility] (Lab) [address] [place], [address], 06/08/2023 11:50:39 06/08/2006/08/2023 LIPID PANEL HDL cholesterol 48 mg/dL 40- Not Available [facility] (Lab) [address] [place], [address], 06/08/2023 11:50:39 06/08/20 23 06/08/2023 LIPID PANEL LDL cholesterol, calculated 102 mg/dL 0-130 NIH SADAF NSUS REPOR T RECOM MENDA TIONS FOR LDL: ADULT CHILD LOW RISK <130 <110 (OPTI MAL LDL) <100 ----- GAVINO RLINE : 130-1 59 ----- HIGH RISK: >160 >130 A TRIGL YCERI DE RESUL T >400 INVAL IDATE S THE CALCU LATIO N FOR LDL FRACT IONAT ION - THE LDL RESUL T WILL NOT BE REPOR BARRON. Not Available [facility] (Lab) [address] [place], [address], 06/08/2023 11:50:39 06/08/2006/08/2023 COMPR EHENS MOHAMUD METAB OLIC PANEL sodium 138 mmol/ L 137-14 5 Not Available [facility] (Lab) [address] [place], [address], 06/08/2023 11:50:48 06/08/20 23 06/08/2023 COMPR EHENS MOHAMUD METAB OLIC PANEL potassium 4.5 mmol/ L 3.5-5. 1 Not Available [facility] (Lab) [address] [place], [address], 06/08/2023 11:50:48 06/08/20 23 06/08/2023 COMPR EHENS MOHAMUD METAB OLIC PANEL chloride 105 mmol/ L 98-107 Not Available [facility] (Lab) [address] [place], [address], 06/08/2023 11:50:48 06/08/20 23 06/08/2023 COMPR EHENS MOHAMUD METAB OLIC PANEL carbon dioxide 28 mmol/ L 22-30 Not Available [facility] (Lab) [address] [place], [address], 06/08/2023 11:50:48 06/08/20 23 06/08/2023 COMPR EHENS MOHAMUD METAB OLIC PANEL anion gap 9.5 mmol/ L 14-22 low Not Available [facility] (Lab) [address] [place], [address], 06/08/2023 11:50:48 06/08/20 23 06/08/2023 COMPR EHENS MOHAMUD METAB OLIC PANEL glucose 174 mg/dL 70-99 high Not Available [facility] (Lab) [address] [place], [address], 06/08/2023 11:50:48 06/08/20 23 06/08/2023 COMPR EHENS MOHAMUD METAB OLIC PANEL BUN 20 mg/dL 8-19 high Not Available [facility] (Lab) [address] [place], [address], 06/08/2023 11:50:48 06/08/20 23 06/08/2023 COMPR EHENS MOHAMUD METAB OLIC PANEL creatinine 0.74 mg/dL 0.66-1 .25 Not Available [facility] (Lab) [address] [place], [address], 06/08/2023 11:50:48 06/08/20 23 06/08/2023 COMPR EHENS MOHAMUD METAB OLIC PANEL GFR >60 Refer ence Range : [place] GFR Healt hy Adult : >60 mL/mi n/1.7 3 m2 Chron ic Kidne y Disea se: 15-60 mL/mi n/1.7 3 m2 Kidne y Failu re: <15/m L/min /1.73 m2 www.n iddk. nih.g ov The MDRD study equat ion has not been valid ated in child chelo <18 years of age; pregn ant women ; the elder ly >85 years of age; or in some racia l or ethni c subgr oups, such as Hispa nics. Outsi de the valid ated wili eters , estim ated GFR is less accur ate, requi ring clini rosita judgm ent on a case- by-ca se basis . Clini rosita inter preta tion for other races and ages must be made by the clini wendy. The MDRD study equat ion has not been valid ated for the evalu ation of serum creat inine relat ed to nutri alexei l statu s or medic ation usage . For perso ns <18 years of age, a pedia tric GFR calcu lator is avail able on the [facility] websi te: https ://ww w.kid peg.o rg/pr ofess ional s/kdo qi/gf r_cal culat or Not Available [facility] (Lab) [address] [place], [address], 06/08/2023 11:50:48 06/08/20 23 06/08/2023 COMPR EHENS MOHAMUD METAB OLIC PANEL alkaline phosphatase 68 U/L 38-126 Not Available [facility] (Lab) [address] [place], [address], 06/08/2023 11:50:48 06/08/20 23 06/08/2023 COMPR EHENS MOHAMUD METAB OLIC PANEL alanine aminotransfe rase 28 U/L 0-35 Not Available [facility] (Lab) [address] [place], [address], 06/08/2023 11:50:48 06/08/20 23 06/08/2023 COMPR EHENS MOHAMUD METAB OLIC PANEL aspartate aminotransfe rase 32 U/L 15-37 Not Available [facility] (Lab) [address] [place], [address], 06/08/2023 11:50:48 06/08/20 23 06/08/2023 COMPR EHENS MOHAMUD METAB OLIC PANEL bilirubin, total 0.50 mg/dL 0.20-1 .30 Not Available [facility] (Lab) [address] [place], [address], 06/08/2023 11:50:48 06/08/20 23 06/08/2023 COMPR EHENS MOHAMUD METAB OLIC PANEL calcium 9.4 mg/dL 8.4-10 .2 Not Available [facility] (Lab) [address] [place], [address], 06/08/2023 11:50:48 06/08/20 23 06/08/2023 COMPR EHENS MOHAMUD METAB OLIC PANEL total protein 7.0 g/dL 6.3-8. 2 Not Available [facility] (Lab) [address] [place], [address], 06/08/2023 11:50:48 06/08/20 23 06/08/2023 COMPR EHENS MOHAMUD METAB OLIC PANEL albumin 4.1 g/dL 3.0-4. 4 Not Available [facility] (Lab) [address] [place], [address], 06/08/2023 11:50:48 06/08/20 23 06/08/2023 COMPR EHENS MOHAMUD METAB OLIC PANEL globulin 2.9 g/dL 2.6-4. 2 Not Available [facility] (Lab) [address] [place], [address], 06/08/2023 11:50:48 06/08/20 23 06/08/2023 COMPR EHENS MOHAMUD METAB OLIC PANEL A/G ratio 1.4 ratio 1.0-2. 0 Not Available [facility] (Lab) [address] [place], [address], 06/08/2023 11:50:48 06/08/2006/08/2023 URINE DRUG SCREE N amphetamines NEGATI VE Amphe tamin e cut off 500 ng/mL Not Available [facility] (Lab) [address] [place], [address], 06/08/2023 12:07:01 06/08/20 23 06/08/2023 URINE DRUG SCREE N barbiturates NEGATI VE Loyda turat e cut off 200 ng/mL Not Available [facility] (Lab) [address] [place], [address], 06/08/2023 12:07:01 06/08/20 23 06/08/2023 URINE DRUG SCREE N benzodiazepi zuleyka POSITI VE abnormal Benzo diaze pine cut off 200 ng/mL Not Available [facility] (Lab) [address] [place], [address], 06/08/2023 12:07:01 06/08/20 23 06/08/2023 URINE DRUG SCREE N cocaine NEGATI VE Cocai ne metab olite cut off 150 ng/mL Not Available [facility] (Lab) [address] [place], [address], 06/08/2023 12:07:01 06/08/20 23 06/08/2023 URINE DRUG SCREE N MDMA NEGATI VE MDMA cut off 500 ng/mL Not Available [facility] (Lab) [address] [place], [address], 06/08/2023 12:07:01 06/08/20 23 06/08/2023 URINE DRUG SCREE N methadone NEGATI VE Metha done cutof f 300 ng/mL . Not Available [facility] (Lab) [address] [place], [address], 06/08/2023 12:07:01 06/08/20 23 06/08/2023 URINE DRUG SCREE N opiates NEGATI VE Opiat e cut off 300 ng/mL Not Available [facility] (Lab) [address] [place], [address], 06/08/2023 12:07:01 06/08/20 23 06/08/2023 URINE DRUG SCREE N oxycodone NEGATI VE Oxyco done cut off 100 ng/mL Not Available [facility] (Lab) [address] [place], [address], 06/08/2023 12:07:01 06/08/2006/08/2023 URINE DRUG SCREE N phencyclidin e NEGATI VE PCP cut off 25 ng/mL Not Available [facility] (Lab) [address] [place], [address], 06/08/2023 12:07:01 06/08/20 23 06/08/2023 URINE DRUG SCREE N marijuana NEGATI VE abnormal Marij uana cut off 50 ng/mL ANY POSIT MOHAMUD RESUL TS REPOR BARRON ARE UNCON FIRME D, AND SUCH, SHOUL D BE USED FOR MEDIC AL TREAT MENT PURPO SES ONLY. Not Available [facility] (Lab) [address] [place], [address], 06/08/2023 12:07:01 06/08/20 23 06/08/2023 CBC/C OMPLE TE BLD COUNT W/DIF F white blood cells 8.3 x10'3 /uL 4.2-10 .8 Not Available [facility] (Lab) [address] [place], [address], 06/08/2023 12:09:58 06/08/2006/08/2023 CBC/C OMPLE TE BLD COUNT W/DIF F red blood cells 3.49 x10'6 /uL 3.80-5 .20 low Not Available [facility] (Lab) [address] [place], [address], 06/08/2023 12:09:58 06/08/20 23 06/08/2023 CBC/C OMPLE TE BLD COUNT W/DIF F hemoglobin 11.5 g/dL 12.0-1 5.6 low Not Available [facility] (Lab) [address] [place], [address], 06/08/2023 12:09:58 06/08/20 23 06/08/2023 CBC/C OMPLE TE BLD COUNT W/DIF F hematocrit 36.4 % 35.7-4 5.7 Not Available [facility] (Lab) [address] [place], [address], 06/08/2023 12:09:58 06/08/20 23 06/08/2023 CBC/C OMPLE TE BLD COUNT W/DIF F mean red cell volume 104.3 fL 82.0-9 9.0 high Not Available [facility] (Lab) [address] [place], [address], 06/08/2023 12:09:58 06/08/2006/08/2023 CBC/C OMPLE TE BLD COUNT W/DIF F mean red cell hemoglobin 33.0 pg 27.0-3 3.0 Not Available [facility] (Lab) [address] [place], [address], 06/08/2023 12:09:58 06/08/20 23 06/08/2023 CBC/C OMPLE TE BLD COUNT W/DIF F mean RBC HGB concentratio n 31.6 g/dL 31.0-3 6.0 Not Available [facility] (Lab) [address] [place], [address], 06/08/2023 12:09:58 06/08/20 23 06/08/2023 CBC/C OMPLE TE BLD COUNT W/DIF F red cell distribution width 13.2 % 11.8-1 5.5 Not Available [facility] (Lab) [address] [place], [address], 06/08/2023 12:09:58 06/08/20 23 06/08/2023 CBC/C OMPLE TE BLD COUNT W/DIF F platelets 254 x10'3 /uL 150-40 0 Not Available [facility] (Lab) [address] [place], [address], 06/08/2023 12:09:58 06/08/20 23 06/08/2023 CBC/C OMPLE TE BLD COUNT W/DIF F mean platelet volume 11.6 fL 9.0-12 .4 Not Available [facility] (Lab) [address] [place], [address], 06/08/2023 12:09:58 06/08/20 23 06/08/2023 CBC/C OMPLE TE BLD COUNT W/DIF F neutrophils 69.0 % 39.0-7 2.0 Not Available [facility] (Lab) [address] [place], [address], 06/08/2023 12:09:58 06/08/20 23 06/08/2023 CBC/C OMPLE TE BLD COUNT W/DIF F lymphocytes 19.2 % 16.0-4 7.0 Not Available [facility] (Lab) [address] [place], [address], 06/08/2023 12:09:58 06/08/20 23 06/08/2023 CBC/C OMPLE TE BLD COUNT W/DIF F monocytes 8.7 % 5.0-12 .0 Not Available [facility] (Lab) [address] [place], [address], 06/08/2023 12:09:58 06/08/20 23 06/08/2023 CBC/C OMPLE TE BLD COUNT W/DIF F eosinophils 1.7 % 1.0-7. 0 Not Available [facility] (Lab) [address] [place], [address], 06/08/2023 12:09:58 06/08/2006/08/2023 CBC/C OMPLE TE BLD COUNT W/DIF F basophils 0.8 % 0.0-2. 0 Not Available [facility] (Lab) [address] [place], [address], 06/08/2023 12:09:58 06/08/2006/08/2023 CBC/C OMPLE TE BLD COUNT W/DIF F immature granulocytes 0.6 % 0.00-0 .50 high Not Available [facility] (Lab) [address] [place], [address], 06/08/2023 12:09:58 06/08/2006/08/2023 CBC/C OMPLE TE BLD COUNT W/DIF F neutrophils, absolute count 5.71 x10'3 /uL 1.5-8. 0 Not Available [facility] (Lab) [address] [place], [address], 06/08/2023 12:09:58 06/08/20 23 06/08/2023 CBC/C OMPLE TE BLD COUNT W/DIF F lymphocytes, absolute count 1.59 x10'3 /uL 1.07-3 .43 Not Available [facility] (Lab) [address] [place], [address], 06/08/2023 12:09:58 06/08/20 23 06/08/2023 CBC/C OMPLE TE BLD COUNT W/DIF F monocytes, absolute count 0.72 x10'3 /uL 0.29-0 .99 Not Available [facility] (Lab) [address] [place], [address], 06/08/2023 12:09:58 06/08/20 23 06/08/2023 CBC/C OMPLE TE BLD COUNT W/DIF F eosinophils, absolute count 0.14 x10'3 /uL 0.02-0 .53 Not Available [facility] (Lab) [address] [place], [address], 06/08/2023 12:09:58 06/08/20 23 06/08/2023 CBC/C OMPLE TE BLD COUNT W/DIF F basophils, absolute count 0.07 x10'3 /uL 0.01-0 .08 Not Available [facility] (Lab) [address] [place], [address], 06/08/2023 12:09:58 06/08/2006/08/2023 CBC/C OMPLE TE BLD COUNT W/DIF F immature granulocytes ,absolute 0.05 x10'3 /uL 0.00-0 .05 Not Available [facility] (Lab) [address] [place], [address], 06/08/2023 12:09:58 06/08/2006/08/2023 CBC/C OMPLE TE BLD COUNT W/DIF F nucleated red blood cells 0.0 % -0 Not Available [facility] (Lab) [address] [place], [address], 06/08/2023 12:09:58 06/08/20 23 06/08/2023 CBC/C OMPLE TE BLD COUNT W/DIF F NRBC# 0.00 x10'3 /uL Not Available [facility] (Lab) [address] [place], [address], 06/08/2023 12:09:58 06/21/2006/21/2023 MAMMO , sean smith, zarina al, bilat jodi No observ ation record ed. [id number], [place], [address], 06/21/2023 17:54:07 07/05/2007/05/2023 CT, head, w/wo contr ast [facility] [address] [facility] [address], [place] [address] [phone] Patien t Name: MEGAN LANDRY ion #: [id number] Sex: F : 1955 2 Dictat ed By: Nhan Trammell Attend ing Physic naina: NEL OSUNA CE Orderi Physic naina: NEL OSUNA CE Exam Date: Exam Name: CT HEAD WO Admitt ing Diagno sis(es ): EXAM: CT HEAD WO INDICA TION: Injury , prior trauma TECHNI QUE: CT of the head withou t intrav enous contra st. Radiat ion Dose : 1. Head: CT Dose: CTDI volume is 46.5 mGy. Dose-l ength produc t is 1074 mGy*cm The dose indica tors for CT are the volume Comput ed Tomogr aphy (CT) Dose Index (CTDIv ol) and the Dose Length Produc t (DLP), and are measur ed in units of mGy and mGy-cm , respec tively . These indica tors are not patien t dose, but values genera barron from the CT scanne r acquis ition factor s. The report includ es radiat ion exposu re data for exposu res receiv ed during this examin ation. ? COMPAR MARY: None FINDIN GS: There is no eviden ce of acute intrac ranial hemorr sung, extra- axial collec tion, mass effect , midlin e shift, hernia tion or hydroc ephalu s. The ventri cles, sulci and cister ns are age approp riate. The cabrera-w zheng differ entiat ion is intact . Patchy perive ntricu lar and subcor tical white matter hypoat tenuat ion is nonspe cific but may be relate d to small vessel ischem ic diseas e. The visual ized parana radha sinuse s and mastoi d air cells are clear. Page 1 [facility] [address] [facility] [address], [place] [address] [phone] Patien t Name: MEGAN LANDRY Access ion #: [id number] Sex: F : 1955 2 Dictat ed By: Nhan Trammell Attend ing Physic naina: KATIE LOVELACE Physic naina: NEL OSUNA Exam Date: 2022 11:25 AM Exam Name: CT HEAD WO Admitt ing Diagno sis(es ): The surrou nding soft tissue s and osseou s struct ures are unrema rkable . IMPRES LYNDSEY: No acute intrac ranial abnorm ality. Electr onical ly Signed by: Nhan Trammell at 2022 12:34: 23 PM Page [address] ([facility]) [address] [place], [address], 07/05/2023 13:39:52 11/25/19 24 11/25/2023 XR, chest No observ ation record ed. [address] [address], [place], [address], 11/26/2023 08:58:57 11/26/19 24 11/26/2023 thora veronica sis (PROC ) No observ ation record ed. [address] [address], [place], [address], 11/26/2023 13:14:30 11/26/19 24 11/26/2023 CT, chest , w/o contr ast No observ ation record ed. [email or web address] [address], [place], [address], 11/27/2023 15:46:46 11/27/19 24 11/25/2023 NM, lung scan, perfu lyndsey No observ ation record ed. [address] [address], [place], [address], 11/27/2023 08:47:11 11/27/19 24 11/27/2023 US, doppl er, venou s No observ ation record ed. [address], [place], [address], 11/27/2023 17:08:39 11/27/19 24 11/27/2023 XR, chest , 1 view No observ ation record ed. [address], [place], [address], 11/27/2023 17:09:14 11/28/19 24 11/28/2023 XR, chest , 1 view No observ ation record ed. [address], [place], [address], 11/28/2023 14:00:03 11/28/19 24 11/27/2023 , [facility] ardio gram No observ ation record ed. [address] [address], [place], [address], 11/29/2023 06:48:14 11/29/19 24 11/29/2023 CT, lumba r spine , w/o contr ast No observ ation record ed. [address] [address], [place], [address], 11/30/2023 07:02:20 11/30/19 24 11/30/2023 XR, chest , 2 view No observ ation record ed. [address], [place], [address], 11/30/2023 08:50:13 11/30/19 24 11/30/2023 MRI, lumba r spine , w/o contr ast No observ ation record ed. [address], [place], [address], 11/30/2023 17:11:21 11/30/19 24 11/30/2023 MRI, thora cic spine , w/o contr ast No observ ation record ed. [address] [address], [place], [address], 11/30/2023 17:11:51 11/30/19 24 11/30/2023 XR, chest , 2 view No observ ation record ed. [address], [place], [address], 11/30/2023 17:12:11 11/30/19 24 11/30/2023 US, chest wall No observ ation record ed. [email or web address] [address], [place], [address], 11/30/2023 17:47:21 12/01/19 24 12/01/2023 XR, chest , 2 view No observ ation record ed. [address], [place], [address], 12/01/2023 09:32:55 12/01/19 24 12/01/2023 US, echoc ardio gram No observ ation record ed. [address], [place], [address], 12/01/2023 17:33:53 12/02/19 24 12/02/2023 XR, chest , 2 view No observ ation record ed. [address], [place], [address], 12/03/2023 09:04:34 07/24/20 24 06/20/2024 PFT, exerc [facility]e [facility] pre and post- hortensia metry and pulse oxime try No observ ation record ed. [facility] Not Available 2023 17:21:53 07/24/20 24 06/20/2024 six minut e walk test* No observ ation record ed. [facility] Not Available 2023 17:21:53 Result Notes None recorded. Problems Name Problem SNOMED Code Status Onset Date Resolution Date Notes Provider Name and Address Organization Details Recorded Time Irritable bowel syndrome 74640597 Active Not Available [facility] 03/01/202 3 12:54:38 Seizure disorder 527114840 Active 2021 Not Available [facility] 3 12:54:38 Moderate protein-c alorie malnutrit ion (weight for age 60-74 percent of standard) 668629382 Active 2016 Not Available [facility] 3 12:54:38 Degenerat mohamud joint disease involving multiple joints 352648615 Active Not Available [facility] 3 12:54:38 Gastroeso phageal reflux disease 572160243 Active Not Available [facility] 3 12:54:38 Headache 05902200 Active Not Available [facility] 3 12:54:38 Carcinoma of breast 211656985 Active Not Available [facility] 3 12:54:38 Pure hyperchol esterolem ia 232564695 Active Not Available [facility] 3 12:54:38 Screening for malignant neoplasm of colon Active 2021 Not Available [facility] 3 12:54:38 Closed fracture of clavicle 91732262 Active Not Available [facility] 3 12:54:38 Depressiv e disorder 00225241 Active Not Available [facility] 3 12:54:39 Pneumotho rax 14967015 Active Not Available [facility] 3 12:54:39 Chronic pain syndrome 221385399 Active 2020 Not Available [facility] 3 12:54:39 Migraine 08382226 Active Not Available [facility] 3 12:54:39 Type 2 diabetes mellitus 05234936 Active Not Available [facility] 3 12:54:39 Long-term current use of opiate analgesic drug [id number] 4108 Active 2021 Not Available [facility] 3 12:54:39 Hidradeni tis suppurati va 67751315 Active 2021 Not Available [facility] 3 12:54:39 Essential hypertens ion 29260410 Active 2020 Not Available [facility] 3 12:54:39 Osteoporo sis 78534174 Active 2020 Not Available [facility] 3 12:54:39 Abscess of Bartholin 's gland 31454382 Active Not Available [facility] 3 12:54:39 Rheumatoi d arthritis 53153711 Active 2021 Not Available [facility] 3 12:54:39 Malignant hypertens ion 59897835 Completed 202001/06/2021 Not Available [facility] 3 12:54:39 Candidias is of mouth 87453179 Active 2021 Not Available [facility] 3 12:54:40 Pulmonary emphysema 03118064 Active Not Available [facility] 3 12:54:40 Kidney stone 64696901 Active Not Available [facility] 3 12:54:40 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 2018 Not Available [facility] 3 12:54:40 Syncope and collapse 470987170 Active 2022 Cierra Vik g[place], [place] [facility] 3 16:25:54 Non-small cell lung cancer 076344558 Active 2023 Kyrie Osuna MD [address], [address], [place], [address] , [place] [facility] 4 16:05:50 Carcinoma of breast 286096062 Active 2023 Kyrie Osuna MD [address], [address], [place], [address] , [place] [facility] 4 16:12:04 Carcinoma of lung 220963349 Active 2023 Pascale galeano, [place] [facility] 4 11:25:52 Acute bronchiti s 50397180 Active 2023 Kyrie Osuna MD [address], [address], [place], [address] , [place] [facility] 4 11:50:57 Notes:Some problems listed i n Documents: #[id number], #[id number] could not be added to this patient's chart. Please review these documents and add these problems to the patient's chart manually as needed. Problem Notes None recorded. Procedures Surgical History Date Name Laterality Status Provider Name and Address Organization Details Recorded Time 04/21/20 Most Recent Bone Density completed Not Available [facility] 10/05/2022 12:52:24 07/24/20 19 Date of Last Colonoscopy completed Not Available [facility] 10/05/2022 12:52:24 Imaging Results Imaging Date Name Status LastModified by Organization Details LastModified Time 06/21/2023 MAMMO, screening, digital, bilateral completed [address], [address], 06/21/2023 17:54:07 07/05/2023 CT, head, w/wo contrast completed [address] (Imaging) [address] [place], [address], 07/05/2023 13:39:52 11/25/2023 XR, chest completed [address], [address], 11/26/2023 08:58:57 11/26/2023 thoracentesis (PROC) completed [address], [address], 11/26/2023 13:14:30 11/26/2023 CT, chest, w/o contrast completed [id number] [place] [address], [address], 11/27/2023 15:46:46 11/25/2023 NM, lung scan, perfusion completed [address], [address], 11/27/2023 08:47:11 11/27/2023 US, doppler, venous completed [address], [address], 11/27/2023 17:08:39 11/27/2023 XR, chest, 1 view completed [address] [address], [place], [address], 11/27/2023 17:09:14 11/28/2023 XR, chest, 1 view completed [address] [address], [place], [address], 11/28/2023 14:00:03 11/27/2023 US, echocardiogram completed [address] [address], [place], [address], 11/29/2023 06:48:14 11/29/2023 CT, lumbar spine, w/o contrast completed [address] [address], [place], [address], 11/30/2023 07:02:20 11/30/2023 XR, chest, 2 view completed [address] [address], [place], [address], 11/30/2023 08:50:13 11/30/2023 MRI, lumbar spine, w/o contrast completed [address] [address], [place], [address], 11/30/2023 17:11:21 11/30/2023 MRI, thoracic spine, w/o contrast completed [address] [address], [place], [address], 11/30/2023 17:11:51 11/30/2023 XR, chest, 2 view [address], [address], 11/30/2023 17:12:11 11/30/2023 US, chest wall completed [address] [address], [place], [address], 11/30/2023 17:47:21 12/01/2023 XR, chest, 2 view completed [address], [address], 12/01/2023 09:32:55 12/01/2023 US, echocardiogram completed [address], [address], 12/01/2023 17:33:53 12/02/2023 XR, chest, 2 view completed [address] [address], [place], [address], 12/03/2023 09:04:34 06/20/2024 PFT, exercise test for bronchospasm including pre and post-spirometry and pulse oximetry completed [facility] Information not available 07/24/2024 17:21:53 06/20/2024 six minute walk test* completed [facility] Information not available 07/24/2024 17:21:53 Procedure Notes None recorded. Medical Equipment None Reported. Medications Name Sig Start Date Stop Date Status Note LastModified by Organization Details LastModified Time Pravachol 40 mg tablet Take 2 tablets every day by oral route at bedtime. 11/07 completed Not Available Not Available Not Available losartan 50 mg tablet TAKE 1 TABLET BY MOUTH EVERY DAY 06/20 completed Not Available Not Available Not Available nifedipin e ER 30 mg tablet,ex tended release 24 hr TAKE 1 TABLET BY MOUTH EVERYDAY AT BEDTIME 07/03 completed Not Available Not Available Not Available celecoxib 200 mg capsule TAKE 1 CAPSULE DAILY 10/17 completed Not Available Not Available Not Available cyclobenz aprine 10 mg tablet TAKE 1 TABLET BY MOUTH EVERY 8 HOURS 12/19 completed Not Available Not Available Not Available amoxicill in 500 mg capsule Take 1 capsule every 8 hours by oral route. active Not Available Not Available No t Available atorvasta tin 40 mg tablet TAKE 1 TABLET BY MOUTH EVERY DAY 12/29 completed Not Available Not Available Not Available clotrimaz ole 10 mg jose Take 1 tablet 5 times a day by oral route. active Not Available Not Available No t Available silver sulfadiaz ine 1 % topical cream APPLY A 1/16 INCH (1.5 MM) THICK LAYER TO ENTIRE BURN AREA BY TOPICALR OUTE 2 TIMES PER DAY 11/01 completed Not Available Not Available Not Available metformin 500 mg tablet TAKE 1 TABLET TWICE A DAY FOR DIABETES 05/31 completed Not Available Not Available Not Available atorvasta tin 80 mg tablet TAKE 1 TABLET BY MOUTH EVERY DAY active Not Available Not Available No t Available venlafaxi ne ER 37.5 mg capsule,e xtended release 24 hr TAKE 1 CAPSULE BY MOUTH EVERY DAY active Not Available Not Available No t Available venlafaxi ne ER 75 mg capsule,e xtended release 24 hr TAKE 1 CAPSULE BY MOUTH EVERY DAY active Not Available Not Available No t Available atorvasta tin 20 mg tablet TAKE ONE TABLET DAILY 10/21 completed INCERASE D TO 40 MG DAILY Not Available Not Available Not Available sulfasala zine 500 mg tablet TAKE 1 TABLET BY MOUTH TWICE A DAY GIVE WITH FOOD (MEAL/SN ACK) active Not Available Not Available No t Available Topamax 25 mg tablet Take 3 tablets twice a day by oral route. 11/01 completed Not Available Not Available Not Available alprazola m 1 mg tablet TAKE 1 TABLET BY MOUTH FIVE TIMES DAILY FOR ANXIETY active Not Available Not Available No t Available ofloxacin 0.3 % eye drops PLACE 1 DROP INTO AFFECTED EYE 3 TIMES A DAY DIRECTED BEGIN 2 DAYS PRIOR TO SURGERY 09/15 completed Not Available Not Available Not Available fluconazo le 150 mg tablet TAKE 1 TABLET BY MOUTH A SINGLE DOSE 11/26 completed Not Available Not Available Not Available benzonata te 200 mg capsule Take 1 capsule 3 times a day by oral route. 2023 active Not Available Not Available Not Avai lable levetirac etam 500 mg tablet TAKE 1 TABLET BY MOUTH TWICE A DAY 2023 active Not Available Not Available Not Avai lable valacyclo vir 1 gram tablet TAKE 1 TABLET BY MOUTH EVERY DAY active Not Available Not Available No t Available hydrocodo ne 5 mg-acetam inophen 325 mg tablet TAKE 1 TO 2 TABLETS BY MOUTH EVERY 6 HOURS NEEDED 05/12 completed Not Available Not Available Not Available meloxicam 15 mg tablet TAKE 1 TABLET BY MOUTH EVERY DAY 09/15 completed Not Available Not Available Not Available metronida zole 0.75 % (37.5 mg/5 gram) vaginal gel INSERT 1 APPLICAT OR VAGINALL Y ONCE EVERY EVERY NIGHT AT BEDTIME FOR 5 NIGHTS 09/15 completed Not Available Not Available Not Available prednison e 20 mg tablet TAKE 2 TABLETS DAILY WITH BREAKFAS T FOR 4 DAYS 11/11 completed Not Available Not Available Not Available quetiapin e 200 mg tablet TAKE 1 TABLET BY MOUTH EVERY DAY AT BEDTIME WITH 50MG active Not Available Not Available No t Available chlorthal idone 25 mg tablet active Not Available Not Available No t Available amlodipin e 5 mg tablet TAKE 1 TABLET BY MOUTH EVERY DAY 07/03 completed Not Available Not Available Not Available acyclovir 400 mg tablet TAKE 1 TABLET BY MOUTH TWICE DAILY active Not Available Not Available No t Available valacyclo vir 500 mg tablet TAKE 1 TABLET BY MOUTH EVERY DAY 11/11 completed Not Available Not Available Not Available sulfameth oxazole 800 mg-trimet hoprim 160 mg tablet TAKE 1 TABLET BY MOUTH EVERY 12 HOURS 06/20 completed Not Available Not Available Not Available leflunomi de 20 mg tablet TAKE 1 TABLET BY MOUTH EVERY DAY IN THE MORNING active Not Available Not Available No t Available tramadol 50 mg tablet TAKE 1 TABLET BY MOUTH ONCE EVERY 6 HOURS NEEDED 09/15 completed Not Available Not Available Not Available quetiapin e 100 mg tablet TAKE 1 TABLET BY MOUTH EVERYDAY AT BEDTIME active Not Available Not Available No t Available ondansetr on 8 mg disintegr ating tablet DISSOLVE 1 TABLET ON TOP OF TONGUE EVERY 8 HOURS NEEDED FOR NAUSEA OR VOMITING active Not Available Not Available No t Available ketorolac 0.5 % eye drops PLACE 1 DROP INTO AFFECTED EYE 4 TIMES A DAY BEGIN 2 DAYS PRIOR TO SURGERY 10/10 completed Not Available Not Available Not Available pravastat in 80 mg tablet TAKE 1 TABLET DAILY AT BEDTIME FOR CHOLESTE ROL 10/17 completed Not Available Not Available Not Available prednisol one acetate 1 % eye drops,ariadne pension PLEASE SEE ATTACHED FOR DETAILED DIRECTIO NS 09/15 completed Not Available Not Available Not Available methocarb kiley 750 mg tablet Take 1 tablet twice a day by oral route. 02/27 completed Not Available Not Available Not Available nifedipin e ER 60 mg tablet,ex tended release 24 hr TAKE 1 TABLET BY MOUTH EVERYDAY AT BEDTIME active Not Available Not Available No t Available trazodone 100 mg tablet TAKE 2 TABLETS EVERY NIGHT AT BEDTIME active Not Available Not Available No t Available Compazine 5 mg tablet Take 1 tablet every 4 hours by oral route. 02/23 completed Not Available Not Available Not Available nifedipin e ER 90 mg tablet,ex tended release 24 hr TAKE 1 TABLET BY MOUTH EVERYDAY AT BEDTIME active Not Available Not Available No t Available Anaspaz 0.125 mg disintegr ating tablet Place 1 tablet 3 times a day by sublingu al route. 02/23 completed Not Available Not Available Not Available baclofen 10 mg tablet TAKE 1 TABLET BY MOUTH TWICE A DAY active Not Available Not Available No t Available amlodipin e 10 mg tablet TAKE 1 TABLET BY MOUTH EVERY DAY 12/01 completed Not Available Not Available Not Available hydrocodo ne 7.5 mg-acetam inophen 325 mg tablet TAKE 1 TABLET BY MOUTH THREE TIMES A DAY NEEDED FOR PAIN active Not Available Not Available No t Available prednison e 2.5 mg tablet TAKE 2TABS DAILY X5DAYS, 1TAB 2XDAILY X5DAYS, 1TAB DAILY X5DAYS,T HEN 1TAB EVERY OTHER DAY FOR 5DOSES 07/03 completed Not Available Not Available Not Available cephalexi n 500 mg capsule TAKE ONE CAPSULE BY MOUTH EVERY 8 HOURS 05/12 completed Not Available Not Available Not Available pantopraz ole 40 mg tablet,de layed release TAKE 1 TABLET DAILY FOR REFLUX 11/01 completed Not Available Not Available Not Available nitrofura ntoin macrocrys paulie 100 mg capsule TAKE 1 CAPSULE BY MOUTH EVERY 12 HOURS WITH A MEAL/ANDREY D X5 DAYS active Not Available Not Available No t Available dexametha sone 4 mg tablet TAKE 1 TABLET BY MOUTH TWICE DAILY THE DAY BEFORE TREATMEN T, THE DAY OF AND THE DAY AFTER active Not Available Not Available No t Available clotrimaz ole-betam ethasone 1 %-0.05 % topical cream APPLY TO AFFECTED AREA TWICE A DAY FOR 2 WEEKS 12/29 completed Not Available Not Available Not Available Diclofena c Sodium CR 100 mg tablet,ex tended release Take 1 tablet every day by oral route. 06/20 completed Not Available Not Available Not Available Lorcet 10 mg-650 mg tablet Take 1 tablet 3 times a day by oral route. 02/23 completed Not Available Not Available Not Available metoprolo l tartrate 50 mg tablet TAKE 1 TABLET BY MOUTH TWICE A DAY active Not Available Not Available No t Available megestrol 40 mg tablet TAKE ONE TABLET TWICE DAILY 05/31 completed Not Available Not Available Not Available docusate sodium 100 mg capsule Take 1 capsule twice a day by oral route. 02/23 completed Not Available Not Available Not Available omeprazol e 20 mg capsule,d elayed release Take 1 capsule every day by oral route. 10/17 completed Not Available Not Available Not Available Bentyl 10 mg capsule Take 1 capsule 3 times a day by oral route before meals. 02/23 completed Not Available Not Available Not Available gabapenti n 100 mg capsule Take 1 capsule 3 times a day by oral route. active Not Available Not Available No t Available levofloxa suly 500 mg tablet TAKE 1 TABLET BY MOUTH EVERY DAY FOR 7 DAYS active Not Available Not Available No t Available methylpre dnisolone 4 mg tablets in a dose pack active Not Available Not Available Not Available albuterol sulfate HFA 90 mcg/actua tion aerosol inhaler INHALE 2 PUFFS BY MOUTH EVERY 4 TO 5 HOURS NEEDED FOR SHORTNES S OF BREATH active Not Available Not Available No t Available Vitamin D2 1,250 mcg (50,000 unit) capsule Take 1 capsule every week by oral route. 10/17 completed Not Available Not Available Not Available Voltaren 50 mg tablet,de layed release Take 1 tablet twice a day by oral route with meals. 11/01 completed Not Available Not Available Not Available cefdinir 300 mg capsule TAKE 1 CAPSULE BY MOUTH TWICE A DAY 05/12 completed Not Available Not Available Not Available losartan 100 mg tablet TAKE 1 TABLET BY MOUTH EVERY DAY IN THE MORNING active Not Available Not Available No t Available piroxicam 20 mg capsule TAKE 1 CAPSULE DAILY 02/23 completed Not Available Not Available Not Available doxycycli ne hyclate 100 mg tablet TAKE 1 TABLET BY MOUTH TWICE A DAY FOR 5 DAYS 12/29 completed Not Available Not Available Not Available lamotrigi ne 100 mg tablet TAKE 1 TABLET BY MOUTH TWICE A DAY active Not Available Not Available No t Available naproxen 500 mg tablet TAKE 1 TABLET BY MOUTH TWICE A DAY WITH FOOD active Not Available Not Available No t Available Estrace 0.01% (0.1 mg/gram) vaginal cream 09/15 completed Not Available Not Available Not Available Multivita min 50 Plus tablet Take 1 tablet every day by oral route. 2021 active Not Available Not Available Not Avai lable metoprolo l tartrate 25 mg tablet TAKE 1 TABLET BY MOUTH TWICE A DAY 10/10 completed Not Available Not Available Not Available Spiriva with [employer] r 18 mcg and inhalatio n capsules INHALE 1 CAPSULE ONCE EVERY DAY 06/26 completed Not Available Not Available Not Available nitrofura ntoin monohydra te/macroc rystals 100 mg capsule TAKE 1 CAPSULE BY MOUTH TWICE A DAY 09/15 completed Not Available Not Available Not Available ibandrona te 150 mg tablet TAKE 1 TABLET BY MOUTH EVERY MONTH active Not Available Not Available No t Available Gas-X Extra Strength daily as needed 06/20 completed Not Available Not Available Not Available Os-Rosita 500 + D3 one twice a day 06/20 completed Not Available Not Available Not Available Spiriva with [employer] r once daily 01/24 completed Not Available Not Available Not Available Amitiza 24 mcg capsule Take 1 capsule twice a day by oral route. 11/01 completed Not Available Not Available Not Available Advair HFA 45 mcg-21 mcg/actua tion aerosol inhaler INHALE 2 PUFFS TWICE A DAY 01/15 completed Not Available Not Available Not Available Advair HFA 115 mcg-21 mcg/actua tion aerosol inhaler 11/26 completed Not Available Not Available Not Available quetiapin e 50 mg tablet TAKE 1 TABLET BY MOUTH EVERY DAY WITH 200MG AT BEDTIME active Not Available Not Available No t Available ProAir HFA two puffs four times a day 10/17 completed Not Available Not Available Not Available Advair HFA tow puffs twice a day 2012 active Not Available Not Available Not Avai lable [place] Oil 1,000 mg capsule Take 1 capsule every day by oral route. 2021 active Not Available Not Available Not Avai lable Amitiza 8 mcg capsule Take 1 capsule every day by oral route. 02/23 completed Not Available Not Available Not Available Os-Rosita 500 + D3 500 mg-15 mcg (600 unit) tablet Take 1 tablet twice a day by oral route. 2021 active Not Available Not Available Not Avai lable Chantix Continuin g Month Box 1 mg tablet one twice a day active Not Available Not Available No t Available Chantix Starting Month Box 0.5 mg (11)-1 mg (42) tablets in dose pack TAKE DIRECTED ON PACKAGE AND THEN WILL NEED TO CALL IN A MONTH FOR THE MAINTENA NCE active Not Available Not Available No t Available Incruse Ellipta 62.5 mcg/actua tion powder for inhalatio n INHALE ONE PUFF EVERY DAY 01/15 completed Not Available Not Available Not Available Movantik 25 mg tablet Take 1 tablet every day by oral route. 05/31 completed Not Available Not Available Not Available Cosentyx 300 mg/2 Syringes (150 mg/mL) subcutane ous Inject 2 mL every 4 weeks by subcutan eous route. active Not Available Not Available No t Available Cosentyx Pen 300 mg/2 Pens (150 mg/mL) subcutane ous Inject 2 mL every 4 weeks by subcutan eous route. 06/20 completed Not Available Not Available Not Available naloxone 4 mg/actuat ion nasal spray 10/10 completed Not Available Not Available Not Available Trelegy Ellipta 100 mcg-62.5 mcg-25 mcg powder for inhalatio n INHALE 1 PUFF BY MOUTH ONCE DAILY-RI NSE MOUTH AFTER USE active Not Available Not Available No t Available vitamin D3 125 mcg (5,000 unit)-lev omefolate 15 mg capsule,d elayed rel Take 1 capsule every day by oral route. 06/20 completed Not Available Not Available Not Available Vitals Date Recorded Body height Body mass index (BMI) Body weight Heart rate Body temperature Oxygen saturation Oxygen saturation in Arterial blood by Pulse oximetry Systolic blood pressure Diastolic blood pressure Provider Name and Address Organization Details Last Updated DateTime 3 165.1 cm 23.7 kg/m2 23088.9 1 g 76 /min 97 [degF] 93 % 93 % 120 mm[Hg] 82 mm[Hg] Pascale Gatica [facility] 3 16:07:54 Date Recorded Body height Body mass index (BMI) Body weight Heart rate Body temperature Oxygen saturation Oxygen saturation in Arterial blood by Pulse oximetry Systolic blood pressure Diastolic blood pressure Provider Name and Address Organization Details Last Updated DateTime 4 165.1 cm 21.9 kg/m2 21602.4 g 73 /min 97 [degF] 91 % 91 % 138 mm[Hg] 78 mm[Hg] Pascale Gatica [facility] 4 16:02:48 Date Recorded Body height Body mass index (BMI) Body weight Heart rate Body temperature Oxygen saturation Oxygen saturation in Arterial blood by Pulse oximetry Inhaled oxygen flow rate Systolic blood pressure Diastolic blood pressure Provider Name and Address Organization Details Last Updated DateTime 4 165.1 cm 23.3 kg/m2 52090.9 3 g 78 /min 97 [degF] 80 % 80 % 4 L/min 94 mm[Hg] 50 mm[Hg] Pascale Gatica [employer] [facility] 4 10:56:19 Date Recorded Body height Body mass index (BMI) Body weight Heart rate Body temperature Oxygen saturation Oxygen saturation in Arterial blood by Pulse oximetry Inhaled oxygen flow rate Systolic blood pressure Diastolic blood pressure Provider Name and Address Organization Details Last Updated DateTime 4 165.1 cm 21.4 kg/m2 18304.6 2 g 64 /min 97.2 [degF] 88 % 88 % 3 L/min 112 mm[Hg] 60 mm[Hg] JORDAN Rossi [facility] 4 15:24:48 Date Recorded Body height Body weight Heart rate Body temperature Oxygen saturation Oxygen saturation in Arterial blood by Pulse oximetry Inhaled oxygen flow rate Systolic blood pressure Diastolic blood pressure Provider Name and Address Organization Details Last Updated DateTime 4 165.1 cm 97160.7 5 g 51 /min 97 [degF] 91 % 91 % 3 L/min 130 mm[Hg] 80 mm[Hg] JORDAN Rossi - [facility] 4 11:11:40 Social History Question Answer Notes LastModified by Organizat ion Details LastModified Time Tobacco Smoking Status Former Smoker Not Available [facility] 10/05/2022 12:52:19 Do You Have An Advance Directive? No [id number] Information not available 10/05/2022 What Is Your Level Of Alcohol Consumption? Occasional [id number] Information not available 10/05/2022 Are You Blind Or Do You Have Difficulty Seeing? No [id number] Information not available 10/05/2022 Are You Deaf Or Do You Have Serious Difficulty Hearing? No [id number] Information not available 10/05/2022 What Type Of Diet Are You Following? REGULAR [id number] Information not available 10/05/2022 Have There Been Any Changes To Your Family Or Social Situation? No [id number] Information not available 10/05/2022 What Is The Fluoride Status Of Your Home? Unknown [id number] Information not available 10/05/2022 When Did You Quit Smoking? 1-5yearssincelastc igarette [id number] Information not available 10/05/2022 Are There Any Guns Present In Your Home? Yes [id number] Information not available 10/05/2022 Do You Use Insect Repellent Routinely? No [id number] Information not available 10/05/2022 [facility] You Live[facility] [id number] Information not available 10/05/2022 Do You Have A Medical Power Of Outside Parts Salesman? No [id number] Information not available 10/05/2022 What Was The Date Of Your Most Recent Tobacco Screening? 06/20/2022 [id number] Information not available 10/05/2022 Do You Have Any Pets? Yes [id number] Information not available 10/05/2022 What Is Your Relationship Status? [id number] Information not available 10/05/2022 Do You Have Smoke And Carbon Monoxide Detectors In Your Home? Yes [id number] Information not available 10/05/2022 At What Age Did You Start Smoking Tobacco? 15 [id number] Information not available 10/05/2022 Are You Passively Exposed To Smoke? No [id number] Information not available 10/05/2022 Do You Use Sunscreen Routinely? No [id number] Information not available 10/05/2022 Have You Recently Traveled Abroad? No [id number] Information not available 10/05/2022 Do You Have Any Dietary Restrictions? No [id number] Information not available 10/05/2022 Sex: Unknown Functional Status Question Answer Note LastModified by Organizat ion Details LastModified Time Do you have difficulty walking or climbing stairs? No [id number] Information not available 10/05/2022 Do you have transportation difficulties? No [id number] Information not available 10/05/2022 Are you able to walk? YESWOREST [id number] Information not available 10/05/2022 Do you have difficulty doing errands alone? Yes [id number] Information not available 10/05/2022 Are you able to care for yourself? Yes [id number] Information not available 10/05/2022 Do you have difficulty dressing or bathing? No [id number] Information not available 10/05/2022 What is your exercise level? None [id number] Information not available 10/05/2022 Mental Status Question Answer Note LastModified by Organizat ion Details LastModified Time Do you have difficulty concentrating, remembering or making decisions? No MIGRATION.[id number] Information not available 10/05/2022 Family History Nothing Reported Notes:Mother 56 fro m lung cancer Father is living 78 with hypertension, Type II diabetes and prostate cancer. Two brothers living with bipolar(1) disorder. Two sisters one of breast cancer the other from CA of lung Medical History Condition Response NERVE DISEASE N BLINDNESS N RHEUMATIC FEVER N KIDNEY STONES N BLADDER PROBLEMS N MRSA N OTHER # 1 N POLIO N LUNG DISEASE/DISORDER N RADIATION / CHEMOTHERAPY N COPD N Other # 2 N BLOOD DISEASES N SURGERY N EAR OR HEARING PROBLEMS N MUMPS N DEPRESSION (INCLUDING POST ) Y BOWEL PROBLEMS N STROKE/TIA N ULCERS N BENIGN PROSTATIC HYPERPLASIA N MEASLES N MYOCARDIAL INFARCTION N OBESITY N GERD/NAUSEA Y ANEURYSM N URINARY/BLADDER/KIDNEY PROBLEMS N CORONARY ARTERY DISEASE (CAD) N ADDICTION CONCERNS N Impotence N ENDOMETRIOSIS N USE OF BLOOD THINNERS N SKIN PROBLEMS N GASTROINTESTINAL DISORDER N PERIPHERAL VASCULAR DISEASE N MUSCLE,JOINT OR BONE PROBLEMS Y GASTROINTESTINAL BLEEDING N BLOOD CLOTS N ASTHMA N CATARACTS N ERECTILE DYSFUNCTION N VARICOSITIES N GI PROBLEMS N Low Testosterone N INFERTILITY N AIDS/HIV N CHEMOTHERAPY / RADIATION N LIVER DISEASE N MALE HYPOGONADISM N HYPERTENSION N Deficiency N ANXIETY DISORDER N BLOOD TRANSFUSION N ANEMIA/BLOOD DISORDER N CHRONIC EAR INFECTIONS N BRONCHITIS N TUBERCULOSIS N GLAUCOMA N FOOT PROBLEM N DIVERTICULITIS N SLEEP APNEA N CHICKENPOX N INFECTIOUS DISEASE N PROSTATE N HEART ARRHYTHMIA N INSOMNIA N HIGH CHOLESTEROL / HYPERLIPIDEMIA N EYE PROBLEMS N HYPERTHYROIDISM N NEUROLOGICAL PROBLEMS N EDEMA N CHRONIC PAIN SYNDROME N HYPOTHYROIDISM N CAROTID BLOCKAGE N CONSTIPATION N BACK / NECK PROBLEMS Y HAVE YOU BEEN HOSPITALIZED OR SEEN IN [facility] IN THE PAST YEAR ? N ATHEROSCLEROSIS N BREAST PROBLEMS Y DIALYSIS N ECZEMA N OSTEOPOROSIS N ARTHRITIS N NO SIGNIFICANT PAST MEDICAL HISTORY N APPENDICITIS N DIABETES, TYPE N BAD TEETH N ENT N HEARTBURN / REFLUX N AUTISM SPECTRUM DISORDER (ASD) N HEPATITIS / LIVER DISEASE N GOUT N SLEEP DISORDER N ALZHEIMER'S DISEASE N Brain Problems N DEMENTIA N HERPES N SEIZURES/EPILEPSY N HEADACHES/MIGRAINES N VASCULAR DISEASE N PACEMAKER N Blood Disorder N DIZZINESS N HEART DISEASE/HEART PROBLEMS N KIDNEY DISEASE N MULTIPLE SCLEROSIS N CANCER: SPECIFY N CARDIAC ARRHYTHMIA N ATRIAL FIBRILLATION N Gall Stones N PULMONARY EMBOLISM N AUTOIMMUNE DISEASE N Gynecological History Statement/Question Response Date of Last Mammogram 04/26/2021 Date of Last Colonoscopy 07/24/2019 Most Recent Bone Density 04/21/2020 Obstetrics History GPAL:G 0 P 0 0 0 0 Immunizations Vaccine Type Date Status Note Provider Nam e and Address Organization Details Recorded Time Influenza, high-dose, quadrivalent, PF 3 completed Kyrie Osuna MD [address] [place] [address], [address], [address], [facility] [employer] [facility] 07/03/2023 16:14:11 Influenza, split virus, trivalent, preservative 3 completed Not Available [facility] 10/05/2022 12:58:40 SARS-COV-2 (COVID-19) vaccine, UNSPECIFIED 1 completed Not Available [facility] 10/05/2022 12:58:40 SARS-COV-2 (COVID-19) vaccine, UNSPECIFIED 1 completed Not Available [facility] 10/05/2022 12:58:40 Influenza, split virus, trivalent, preservative 4 completed Not Available [facility] 10/05/2022 12:58:40 Influenza, high-dose, quadrivalent, PF 1 completed Not Available [facility] 10/05/2022 12:58:40 Influenza, high-dose, quadrivalent, PF 2 completed Not Available [facility] 10/05/2022 12:58:40 Influenza, high-dose, quadrivalent, PF 0 completed Not Available [facility] 10/05/2022 12:58:40 Influenza, high-dose, trivalent, PF 9 completed Not Available [facility] 10/05/2022 12:58:40 Influenza, split virus, quadrivalent, PF 8 completed Not Available [facility] 10/05/2022 12:58:40 Pneumococcal conjugate PCV 13 9 completed Not Available [facility] 10/05/2022 12:58:40 Influenza, split virus, quadrivalent, preservative 5 completed Not Available [facility] 10/05/2022 12:58:41 Influenza, split virus, quadrivalent, PF 7 completed Not Available [facility] 10/05/2022 12:58:41 Influenza, split virus, quadrivalent, PF 6 completed Not Available [facility] 10/05/2022 12:58:41 Pneumococcal conjugate PCV20, polysaccharide [id number] conjugate, adjuvant, PF 4 completed Kyrie Osuna MD [address] [facility], [facility] [address], [place], [address], [facility] [employer] [facility] 07/22/2024 11:49:41 Past Encounters Encounter ID Performer Location Encounter Start Date Encounter Closed Date Diagnosis/Indication Diagnosis SNOMED-CT Code Diagnosis ICD10 Code Diagnosis Note [id number] [facility] Internal Med [facility] 24 [address] [facility] [address] [place] [address] 11/11/2020 00:00:00 11/11/2020 15:25:54 [id number] [facility] Internal Med [facility] 24 [address]43 She[address]on [place]okeshe, [address] [address] 11/26/2020 00:00:00 11/26/2020 11:25:47 [id number] [facility] Internal Med [facility] [address] [place] [address] [address] 12/09/2020 00:00:00 12/09/2020 12:25:32 [id number] [facility] Internal Med [facility] [address] [place] [address] [address] 01/06/2021 00:00:00 01/06/2021 14:58:28 [id number] [facility] Internal Med [facility] [address] [place], [place] [address] [address] 05/12/2021 00:00:00 05/12/2021 14:43:15 [id number] [facility] Internal Med [facility] [address] [place] [address] [address] 09/15/2021 00:00:00 09/15/2021 14:39:39 [id number] [facility] Internal Med [facility] [address] [place] [address] [address] 12/01/2021 00:00:00 12/01/2021 15:40:25 [id number] [facility] Internal [facility] [address] [place] [address] [address] 12/29/2021 00:00:00 12/29/2021 12:10:44 [id number] [facility] Internal Med [facility] [address] [place] [address] 06/20/2022 00:00:00 06/20/2022 12:05:59 [id number] Kyrie Osuna MD [facility] Internal Med [facility] [address] [place] [address] [address] 12/19/2022 11:25:00 12/19/2022 12:19:10 Ankylosing spondylitis 0637234 M45.9 Essential hypertension 32948881 I10 Pulmonary emphysema 8743 3001 J43.9 Pure hypercholesterolemia 478016788 E78.00 Osteoporosis 48319551 M8 1.0 Long-term current use of opiate analgesic drug 0077267691 35152 Z79.263 [id number] Kyrie Osuna MD [facility] Internal Med [facility] [address] [address] 07/03/2023 15:25:09 07/03/2023 16:36:59 Administration of influenza vaccine 08269389 Z23 Chronic pain syndrome 37 9864197 G89.4 Gastroesop hageal reflux disease 807088863 K21.9 Pure hypercholesterolemia 147197427 E78.00 Pulmonary emphysema 8743 3001 J43.9 Essential hypertension 54511369 I10 [id number] Kyrie Osuna MD [facility] Internal Med [facility] [address] [address] 10/11/2023 15:51:53 10/11/2023 16:19:10 Essential hypertension 77253304 I10 Carcinoma of breast 2548 56188 C50.012 Non-small cell lung cancer 113295821 C34.90 [id number] Kyrie Osuna MD [facility] Internal [facility] [address] [place], [place] [address], [place] [address] 12/19/2023 10:36:46 12/19/2023 11:12:49 Essential hypertension 33218938 I10 Non-small cell lung cancer 322341593 C34.90 Pure hypercholesterolemia 784835078 E78.00 Pulmonary emphysema 8743 3001 J43.9 [id number] Kyrie Osuna MD [facility] Internal Med [facility] [address] [address] 03/25/2024 15:14:00 03/25/2024 15:56:13 Carcinoma of breast 659775896 C50.012 Essential hypertension 55809754 I10 Pure hypercholesterolemia 510518636 E78.00 Pulmonary emphysema 8743 3001 J43.9 Type 2 shanda betes mellitus 18949998 E11.9 Carcinoma of lung 882804 007 C34.90 [id number] Kyrie Osuna MD [facility] Internal Med [facility] [address] [address] 07/22/2024 11:05:21 07/22/2024 12:01:10 Carcinoma of lung 042106342 C34.90 Carcinoma of breast 2548 28251 C50.012 Chronic pain syndrome 37 5702008 G89.4 Essential hypertension 13696481 I10 Pure hypercholesterolemia 836308525 E78.00 Pulmonary emphysema 8743 3001 J43.9 Administra tion of pneumococcal vaccine 74995610 Z23 Health Concerns Section Related Observation LastModified by Organization Detai ls LastModified Time None Recorded Concern Status LastModified by Organization Details LastModified Time None Recorded Advance Directives Directive N: Payers Encounter Date Sequence Insurance Name Policy Number Policy Zaman Covered Member ID Zaman Member ID Guarantor Name 07/03/2023 1 [place] (MEDICARE) Megan Lane Damion [id number] Megan [address] Damion 07/03/2023 2 [employer] OPTIONS (MEDICARE SUPPLEMENT) Megan Sherman Damion [id number] Megan Lane Damion 10/11/2023 1 [place] Megan Lane Damion [id number] Megan Lane Damion 10/11/2023 2 [employer] OPTIONS (MEDICARE SUPPLEMENT) Megan Lane Damion [id number] Megan Lane Damion 12/19/2023 1 [place] Megan Lane Damion [id number] Megan Lane Damion 12/19/2023 2 [employer] OPTIONS (MEDICARE SUPPLEMENT) Megan Lane Damion [id number] Megan Lane Damion 03/25/2024 1 [place] Megan Lane Damion [id number] Megan Lane Damion 03/25/2024 2 [employer] OPTIONS (MEDICARE SUPPLEMENT) Megan Lane Damion [id number] Megan K Damion 07/22/2024 1 [place] Megan Lane Damion [id number] [address] Damion 07/22/2024 2 [employer] OPTIONS (MEDICARE SUPPLEMENT) Megan Lane Damion [id number] Megan Lane Damion Notes Date Note Type Note Provider Name and Address Organization Details Recorded Time 3 text/html Patient Name: Megan LandryDate Of Service: Monday ( 07.03.2023 ): 1955 Age: 67 There has been approximately a 6.5 lb weight gain since 12/19/2022. This represents approximately a 4.8% change in weight. Weight change attributable to lifestyle changes. Vital Signs:Blood Pressure: Sitting Rt. Arm 120/82Pulse: Sitting 76 /min and RegularRespiratory Rate: 12Height 65 in or 1.7 mWeight 142.5 lb or 64.6 kgBMI 23.7Temperature: 97 F or 36.1 CPulse Oximetry: 93 % at rest on no oxygen Chief Complaint: Addressed in HPI Problems or conditions discussed in the HPI were the only ones reviewed during the encounter.Only social and family history addressed in the HPI were reviewed during this encounter. Attendant(s): NoneConstitutional and Systemic Symptoms:none Medication Reconciliation: from medication list. History of Present Illness #1. Type II Hypercholesterolaemia: Currently taking medication and tolerating well. No interval complaints of any muscle pain or arthralgia. No significant liver changes with medications. Last lipid panel: fair control. Therapy reviewed regarding treatment of cholesterol management and include diet and Atorvastatin Calcium. #2. Hx of esophageal reflux currently stable. Hx of Complications: none The severity, duration and intensity of symptoms have improved. Frequency: most meals Treatment consists medications taken on no regular basis. Current therapy includes no medication. There has been no nausea, eructation, vomiting, hematemesis, dysphagia and velopharyngeal insufficiency. No change in he frequency or intensity of symptoms. Has had no melena. Has had no hematemesis. Discuss the possibility of trying to reduce the frequency of the use of any PPI inhibitors or H2 antagonist to see if symptoms can be controlled with last intensive therapy #3. COPD: Hx of Emphysema currently stable. There has been no interval change in exercise tolerance an shortness of breath. No change in sputum production, color or consistency. No fever, chills, weight loss or other constitutional symptoms. Gold Scale: Mild. MRC Scale: vigorous walking. Smoking: not currently smoking Current medications: Proair Hfa Using nebulizer Treatments: No. Uses does not use supplemental oxygen #4. Chronic pain management for chronic History of ankylosing spondylitis. Since last examination no significant change since last examination Interval Testing: noneHas tried NSAIDS partial relief requiring additional medication. Pain Description: constant, exacerbated by activity and interferes with enjoyment and ability to perform activities of daily living. Currently seeing or has seen in the past a Swing Ride Operator: Rheumatology .Pain - Enjoyment of Life - General Activity ScalePain on Average: 5Enjoyment of Live: 4General Activity: 5Enjoyment of Life - General Activity Scale: 5Currently regimen consists of [place] as prescribed with no evidence of abuse or self prescribing. Current Average Morphine Milligram Approximate Equivalent: 15 mg approximated if taking full dosage daily. Recommend: NA.Benzodiazepines or other hypnotics: yes and have discussed reducing dose.Alternative pain management modalities (acupuncture - behavior therapy- additional PT - SNRIs) have been discussed and have either been tried in the past or not acceptable alternatives to patient or not available in our location.Will kept medications the same.Urine Testing: will be performed and patient instructed that failure of testing within a 24 hour period from time of order may result in termination of medication.Controlled substance database yes and no discrepancies or multiple prescribers noted. Pill counts when available have been acceptable. No other signs of any abuse.Patient reports condition is stable and is able to function with the medication. Denies any misuse or adverse effects.TREATMENT OBJECTIVE: Enhance ability to manage pain independently, improved function and sustain quality of life. Recommendations or alternative therapies and lifestyle changes are discussed on each visit. Has shown improvement inf functionality. Has been educated on the side effects,risks and any black box warnings. Has verbalized the dangers of some of the medications regarding driving and cooperating heavy machinery and have advised against this.#5. Essential hypertension currently taking losartan, metoprolol and amlodipine. Clinically doing well no interval complaints of any headaches with the exception some recent onset of headache secondary to a fall down the steps several weeks ago. There was no loss of consciousness no syncope. Did apparently transiently hit her head and since that time has had generalized headaches. Will need a CT scan to further evaluateMedication List Reviewed and Reconciled 07/03/2023Effexor Xr 75 MG One DailyAtorvastatin Calcium 80 MG (TABLET - ORAL) One DailyLevetiracetam 500 MG (TABLET - ORAL) One BidAcyclovir 400 MG TABLET One Twice A DayXanax 1 MG (TABLET - ORAL) Up To 5 Times A DaySeroquel 200 MG One HsSeroquel 50 MG (TABLET - ORAL) One Twice A Day As NeededNorco 325 MG-7.5 MG (TABLET - ORAL) One Twice DailyProair Hfa 0.09 MG /INH (AEROSOL, METERED - INHALATION) Two Puffs Qid Prn For WheezingLamotrigine 100 MG (TABLET - ORAL) One BidLosartan Potassium 100 MG TABLET Once DailyNifedipine 60 MG TABLET, EXTENDED RELEASE Once DailyEffexor Xr 37.5 MG Take Daily Along With 75 MgSulfasalazine Twice A DayCosentyx 150 MG/ ML (INJECTABLE - INJECTION) MonthlyTrazodone 100 MG (TABLET - ORAL) Two At BedtimeBaclofen 10 MG (TABLET - ORAL) One Twice A DayLeflunomide 20 MG (TABLET - ORAL) Once DailyMetoprolol Tartrate 50 MG TABLET One Twice A DayOs-rosita D Twice A DayPrimrose Oil 1000 MG Once DailyMultivitamin Once DailyGas-x Daily As NeededBoniva 150 MG (TABLET - ORAL) MonthlyVaccination and Adyhxzfiyvpp5965-14 Gicgovdoj3724-94 Covid Jedyvmi3528-04 Prevnar 13 Bg3228-29 Tb Aoxw7146-88 PneumovaxSurgical HistoryBilateral Cataracts, Ultrasound Left Biopsy Breast, Bartholin Cyst, Right Pneumothorax, Silicon Implants, Rt. LumpecotomyPreventative Testing Confirmed by Our Xekwpnk1806/21/2023 MAMMOGRAM /09/2022 ALBUMIN 4.1 G/DL N012/31/2021 COLONOSCOPY ( 5 YEARS ) / HAIC 5.9 % N010/28/2021 LDCT / COLOGUARD (POSITIVE) 502/ MICRO ALBUMIN 1.2 MG/DL N004/21/2020 DEXA SCAN07/24/2019 UPPER EZRQEMMWQ86/13/2010 CT THORAXSocial HistorySmokes 1.5-2 packs daily for 30 years. Drinks socially. Currently unemployed.Family HistoryMother 56 from lung cancerFather is living 78 with hypertension, Type II diabetes and prostate cancer.Two brothers living with bipolar(1) disorder.Two sisters one of breast cancer the other from CA of lung Kyrie Osuna MD [address] [facility], [facility] [address], [place], [address], [facility] [employer] 07/03/2023 16:22:48 4 text/html Patient Name: Megan Shell Of Service: Monday ( 10.11.2023 ): 1955 Age: 67 There has been approximately a 11 lb weight loss since 07/03/2023. This represents approximately a 7.7% change in weight. Weight change attributable to lifestyle changes. Vital Signs:Blood Pressure: Sitting Rt. Arm 138/78Pulse: Sitting 73 /min and RegularRespiratory Rate: 12Height 65 in or 1.7 mWeight 131.5 lb or 59.6 kgBMI 21.9Temperature: 97 F or 36.1 CPulse Oximetry: 91 % at rest on no oxygen Chief Complaint: Addressed in HPI Problems or conditions discussed in the HPI were the only ones reviewed during the encounter.Only social and family history addressed in the HPI were reviewed during this encounter. Attendant(s): NoneConstitutional and Systemic Symptoms:none Medication Reconciliation: from medication list. [id number]: CT brain demonstrates no significant abnormalities account for the patient's headaches or other neurological symptomatology. History of Present Illness #1. Essential Hypertension: Stage: Stage I Interval Neurological Complaints no headaches. No shortness of breath, orthopnea or cardiovascular symptoms. No other symptoms related to end organ damage. Pressure has been under fair control. Currently normal. No other end organ symptoms or findings. Therapy reviewed regarding management of hypertension and includes salt restriction and Losartan Potassium and Metoprolol Tartrate. #2. Hx of Ca of the left breast(s). Sub classification: see oncology records. Metastasis: None Current Medications: none.. #3. Hx of non-small cell CA of the lung. Metastatic: none known There has been no change in breathing. No weight loss or other constitutional symptoms. No hemoptysis or other signs of progression or metastasis. Active Medication ListEffexor Xr 75 MG One DailyAtorvastatin Calcium 80 MG (TABLET - ORAL) One DailyLevetiracetam 500 MG (TABLET - ORAL) One Twice A DayAcyclovir 400 MG TABLET One Twice A DayXanax 1 MG (TABLET - ORAL) One Twice DailySeroquel 200 MG One At BedtimeSeroquel 50 MG (TABLET - ORAL) One Twice A Day As NeededNorco 325 MG-7.5 MG (TABLET - ORAL) One Twice DailyProair Hfa 0.09 MG /INH (AEROSOL, METERED - INHALATION) Two Puffs Four Times A Day As Neededfor WheezingLamotrigine 100 MG (TABLET - ORAL) One Twice A DayLosartan Potassium 100 MG TABLET Once DailyNifedipine 60 MG TABLET, EXTENDED RELEASE Once DailyEffexor Xr 37.5 MG Take Daily Along With 75 MgSulfasalazine Twice A DayCosentyx 150 MG/ ML (INJECTABLE - INJECTION) MonthlyTrazodone 100 MG (TABLET - ORAL) Two At BedtimeOndansetron 8 MG TABLET As NeededNeurontin 100 MG CAPSULE One Three Times A DayBaclofen 10 MG (TABLET - ORAL) One Twice A DayLeflunomide 20 MG (TABLET - ORAL) Once DailyMetoprolol Tartrate 50 MG TABLET One Twice A DayOs-rosita D Twice A DayPrimrose Oil 1000 MG Once DailyMultivitamin Once DailyGas-x Daily As NeededBoniva 150 MG (TABLET - ORAL) Monthly Vaccination and Asxnqvppscsh4625-53 Hhdffxmew9013-27 Covid Wftnjdd8518-74 Prevnar 13 Fh9406-37 Tb Gdth0202-13 Pneumovax Surgical Lqqhzis9022-61 Rt. Partial Magwkkzpujchi2931-53 Bilateral Ftuodfpcm9392-57 Ultrasound Left Biopsy Qwtvzg3246-11 Bartholin Tlxr0446-25 Right Jbmidanbhfap6502-84 Silicon Awbauzcf5328-95 Rt. Lumpecotomy Preventative Piyvaww4706/21/2023 MAMMOGRAM 411/09/2022 ALBUMIN 4.1 G/DL N012/31/2021 COLONOSCOPY ( 5 YEARS ) 7011/25/2021 HAIC 5.9 % N010/28/2021 LDCT / COLOGUARD (POSITIVE) 502/ MICRO ALBUMIN 1.2 MG/DL N004/21/2020 DEXA SCAN07/24/2019 UPPER GRDVUNBJT29/13/2010 CT THORAX Kyrie Osuna MD [address] [facility], [facility] [address], [place], [address], [place] [facility] [employer] 10/11/2023 16:12:31 4 text/html Patient Name: Megan Sherman Suleman Of Service: Monday ( 12.19.2023 ): 1955 Age: 68 There has been approximately a 8.5 lb weight gain since 10/11/2023. This represents approximately a 6.5% change in weight. Weight change attributable to lifestyle changes. Vital Signs:Blood Pressure: Sitting Rt. Arm 94/50Pulse: Sitting 78 /min and RegularRespiratory Rate: 22Height 65 in or 1.7 mWeight 140 lb or 63.5 kgBMI 23.3Temperature: 97 F or 36.1 CPulse Oximetry: 80 % at rest on no oxygen Chief Complaint: Hospital follow-up for carcinoma lung and fractured vertebrae Problems or conditions discussed in the HPI were the only ones reviewed during the encounter.Only social and family history addressed in the HPI were reviewed during this encounter. Attendant(s): and DaughterConstitutional and Systemic Symptoms:anorexia and generalized fatigue Medication Reconciliation: from medication list. [id number]: CT brain demonstrates no significant abnormalities account for the patient's headaches or other neurological symptomatology. 11-27-2023: Echocardiogram demonstrated left ventricular systolic function normal 65%. Mildly increased left ventricular wall thickness. Right ventricular systolic function normal. There is mild mitral valve regurgitation. There is trivial posterior pericardial effusion. 11-29-2023: CT of the thoracic and lumbar spine showed a T12 compression fracture cerebral from 11/26/2023. Ankylosing Spondylosis noted. Moderate lumbar spondylosis and moderate size right and small left pleural effusions History of Present Illness #1. COPD: Hx of Emphysema currently stable. There has been no interval change in exercise tolerance an shortness of breath. No change in sputum production, color or consistency. No fever, chills, weight loss or other constitutional symptoms. Gold Scale: Severe. MRC Scale: SOB with changing cloths. Smoking: not currently smoking Current medications: Proair Hfa Using nebulizer Treatments: No. Uses Uses supplemental oxygen and despite this remains hypoxic. Needs an Inogen concentrator #2. Hx of non-small cell CA of the lung. Metastatic: Metastatic to the lung. There has been no change in breathing. No weight loss or other constitutional symptoms. No hemoptysis or other signs of progression or metastasis. #3. Essential Hypertension: Stage: Stage I Interval Neurological Complaints no headaches, dizziness, weakness, visual changes, ataxia and aphasia. No shortness of breath, orthopnea or cardiovascular symptoms. No other symptoms related to end organ damage. Pressure has been under excellent control. Currently normal. No other end organ symptoms or findings. Therapy reviewed regarding management of hypertension and includes salt restriction. #4. Type II Hypercholesterolaemia: Currently taking medication and tolerating well. No interval complaints of any muscle pain or arthralgia. No significant liver changes with medications. Last lipid panel: fair control. Therapy reviewed regarding treatment of cholesterol management and include diet and Atorvastatin Calcium. #5. Presents today for face to face encounter with the beneficiary for possible wheelchair. Has a a number of chronic medical conditions further outlined below in the note and physical examination. Has mobility limitation that significantly impairs his/her ability to participate in one or mobility-related activities of daily living. Such as toileting - feeding - dressing - grooming and bathing in customary locations in the home. Mobility limitation cannot be sufficiently resolved by use of an appropriately fitted cane or walker. Use of manual wheelchair will significantly improve the beneficiary's ability to participate in MRADLs. [Weight?, Weight and/or height (if need to support the necessity for item) Active Medication ListEffexor Xr 75 MG One DailyAtorvastatin Calcium 80 MG (TABLET - ORAL) One DailyLevetiracetam 500 MG (TABLET - ORAL) One Twice A DayAcyclovir 400 MG TABLET One Twice A DayXanax 1 MG (TABLET - ORAL) One Tablet Five Times A Day As NeededSeroquel 200 MG One At BedtimeSeroquel 50 MG (TABLET - ORAL) One Twice A Day As NeededNorco 325 MG-7.5 MG (TABLET - ORAL) One Twice DailyProair Hfa 0.09 MG /INH (AEROSOL, METERED - INHALATION) Two Puffs Four Times A Day As Neededfor WheezingLamotrigine 100 MG (TABLET - ORAL) One Twice A DayLosartan Potassium 100 MG TABLET Once DailyNifedipine 60 MG TABLET, EXTENDED RELEASE Once DailyEffexor Xr 37.5 MG Take Daily Along With 75 MgSulfasalazine Twice A DayCosentyx 150 MG/ ML (INJECTABLE - INJECTION) MonthlyTrazodone 100 MG (TABLET - ORAL) Two At BedtimeOndansetron 8 MG TABLET As NeededNeurontin 100 MG CAPSULE One Three Times A DayBaclofen 10 MG (TABLET - ORAL) One Twice A DayLeflunomide 20 MG (TABLET - ORAL) Once DailyMetoprolol Tartrate 50 MG TABLET One Twice A DayOs-rosita D Twice A DayPrimrose Oil 1000 MG Once DailyMultivitamin Once DailyGas-x Daily As NeededBoniva 150 MG (TABLET - ORAL) Monthly Vaccination and Xlphsebxqyug2917-76 Ujbdzdyza0599-13 Covid Aqrxnia1967-69 Prevnar 13 Xi1750-12 Tb Twmk2453-37 Pneumovax Surgical Tjbursi5122-66 Rt. Partial Waaxbyuwhyxss8677-49 Bilateral Lmvelupae8125-92 Ultrasound Left Biopsy Vzdjli8611-47 Bartholin Rrat1606-68 Right Iqmbosgmaugj7126-91 Silicon Fdsszkmb3861-54 Rt. Lumpecotomy Preventative Xtxnumr4711/21/2023 ALBUMIN 3.9 G/DL06/21/2023 MAMMOGRAM / COLONOSCOPY ( 5 YEARS ) / HAIC 5.9 % N010/28/2021 LDCT / COLOGUARD (POSITIVE) 502/ MICRO ALBUMIN 1.2 MG/DL N004/21/2020 DEXA SCAN07/24/2019 UPPER ODXCZKHTN33/13/2010 CT THORAX Social HistorySmokes 1.5-2 packs daily for 30 years. Drinks socially. Currently unemployed. Family HistoryMother 56 from lung cancerFather is living 78 with hypertension, Type II diabetes and prostate cancer.Two brothers living with bipolar(1) disorder.Two sisters one of breast cancer the other from CA of lung Kyrie Osuna MD [address] [facility], [facility] [address], [place], [address], [facility] [employer] 12/19/2023 11:10:33 4 text/html Patient Name: Megan Shell Of Service: Monday ( 03.25.2024 ): 1955 Age: 68 There has been approximately a 11.5 lb weight loss since 12/19/2023. This represents approximately a 8.2% change in weight. Weight change attributable to lifestyle changes. Vital Signs:Blood Pressure: Sitting Rt. Arm 112/60Pulse: Sitting 64 /min and RegularRespiratory Rate: 14Height 65 in or 1.7 mWeight 128.5 lb or 58.3 kgBMI 21.4Temperature: 97.2 F or 36.2 CDCCT HAIC: 5.9 Calculated MB mg%Pulse Oximetry: 88 % at rest on oxygen Chief Complaint: Addressed in HPI Problems or conditions discussed in the HPI were the only ones reviewed during the encounter.Only social and family history addressed in the HPI were reviewed during this encounter. Attendant(s): NoneConstitutional and Systemic Symptoms:none Medication Reconciliation: from medication list. [id number]: CT brain demonstrates no significant abnormalities account for the patient's headaches or other neurological symptomatology. 11-27-2023: Echocardiogram demonstrated left ventricular systolic function normal 65%. Mildly increased left ventricular wall thickness. Right ventricular systolic function normal. There is mild mitral valve regurgitation. There is trivial posterior pericardial effusion. 11-29-2023: CT of the thoracic and lumbar spine showed a T12 compression fracture cerebral from 11/26/2023. Ankylosing Spondylosis noted. Moderate lumbar spondylosis and moderate size right and small left pleural effusions History of Present Illness #1. Essential Hypertension: Stage: Stage I Interval Neurological Complaints no headaches, dizziness, weakness, visual changes, ataxia, aphasia and apraxia. No shortness of breath, orthopnea or cardiovascular symptoms. No other symptoms related to end organ damage. Pressure has been under excellent control. Currently normal. No other end organ symptoms or findings. Therapy reviewed regarding management of hypertension and includes salt restriction and Losartan Potassium, Metoprolol Tartrate and Nifedipine. #2. Type II Hypercholesterolaemia: Currently taking medication and tolerating well. No interval complaints of any muscle pain or arthralgia. No significant liver changes with medications. Last lipid panel: fair control. Therapy reviewed regarding treatment of cholesterol management and include diet and Atorvastatin Calcium. #3. Type II Diabetes: Has had no polyuria polyphagia or polydipsia. Has had no hypoglycemic like responses. No new history of any numbness, tingling, weakness or visual problems. No nausea, anorexia or other constitutional symptoms. There has been no foot problems or non healing lesions. The last HAIC was DCCT HAIC: 5.9 Calculated MB mg%. Average blood sugars 116-125 mg%. Checking sugars : not at all Medication Types Include: diet Secondary complications include none. Macro-vascular complications include none. Therapy reviewed regarding diabetic management and include diet only Compliance: good Renal Protection: ARBs Lipid management: statins Urinary microalbumin: A1 . Ophthalmological: has seen eye doctor within the last year #4. COPD: Hx of Emphysema currently stable. There has been no interval change in exercise tolerance an shortness of breath. No change in sputum production, color or consistency. No fever, chills, weight loss or other constitutional symptoms. Gold Scale: Severe. MRC Scale: only strenuous activity. Smoking: not currently smoking Current medications: Proair Hfa Using nebulizer Treatments: No. Uses supplemental oxygen #5. Hx of non-small cell CA of the lung. Metastatic: Predominantly lungr There has been no change in breathing. No weight loss or other constitutional symptoms. No hemoptysis or other signs of progression or metastasis. #6. Hx of Ca of the left breast(s). Sub classification: see oncology records. Metastasis: None Current Medications: none.. Active Medication ListEffexor Xr 75 MG One DailyAtorvastatin Calcium 80 MG (TABLET - ORAL) One DailyLevetiracetam 500 MG (TABLET - ORAL) One Twice A DayAcyclovir 400 MG TABLET One Twice A DayXanax 1 MG (TABLET - ORAL) One Tablet Five Times A Day As NeededSeroquel 200 MG One At BedtimeSeroquel 50 MG (TABLET - ORAL) One Twice A Day As NeededNorco 325 MG-7.5 MG (TABLET - ORAL) One TidProair Hfa 0.09 MG /INH (AEROSOL, METERED - INHALATION) Two Puffs Four Times A Day As Neededfor WheezingLamotrigine 100 MG (TABLET - ORAL) One Twice A DayLosartan Potassium 100 MG TABLET Once DailyNifedipine 60 MG TABLET, EXTENDED RELEASE Once DailyEffexor Xr 37.5 MG Take Daily Along With 75 MgSulfasalazine Twice A DayCosentyx 150 MG/ ML (INJECTABLE - INJECTION) MonthlyTrazodone 100 MG (TABLET - ORAL) Two At BedtimeOndansetron 8 MG TABLET As NeededNeurontin 100 MG CAPSULE One Three Times A DayBaclofen 10 MG (TABLET - ORAL) One Twice A DayLeflunomide 20 MG (TABLET - ORAL) Once DailyMetoprolol Tartrate 50 MG TABLET One Twice A DayOs-rosita D Twice A DayPrimrose Oil 1000 MG Once DailyMultivitamin Once DailyGas-x Daily As NeededBoniva 150 MG (TABLET - ORAL) Monthly Vaccination and Umimbwkfmhty6015-81 Xuumtgwsa6865-57 Covid Cqgzfby5030-93 Prevnar 13 Cq1501-33 Tb Fbvt8106-73 Pneumovax Surgical Nvbrjiw4669-58 Rt. Partial Hiipcspvkpjma0478-74 Bilateral Ptyecrezn7685-39 Ultrasound Left Biopsy Dmkjeq6652-05 Bartholin Vwkq6346-73 Right Sdttmvkouiyw0220-78 Silicon Vzgjrtan5760-09 Rt. Lumpecotomy Preventative Testing( ) 11/21/2023 Albumin 3.9 G/DL( ) 06/21/2023 Mammogram 06/21/2025( ) 12/31/2021 Colonoscopy ( 5 Years ) 12/31/2026( ) 11/25/2021 HAIC 5.9 % N(X) 10/28/2021 LDCT 10/28/2022( ) 09/24/2020 Micro Albumin 1.2 MG/DL N(X) 04/21/2020 DEXA Scan 04/21/2022( ) 07/24/2019 Upper Endoscopy( ) 03/19/2010 CT Thorax Social HistorySmokes 1.5-2 packs daily for 30 years. Drinks socially. Currently unemployed. Family HistoryMother 56 from lung cancerFather is living 78 with hypertension, Type II diabetes and prostate cancer.Two brothers living with bipolar(1) disorder.Two sisters one of breast cancer the other from CA of lung Kyrie Osuna MD [address] [facility], [facility] [address], [place], [address], [facility] [employer] 03/25/2024 15:52:33 4 text/html Patient Name: Megan Shell Of Service: Monday ( 07.22.2024 ): 1955 Age: 68 There has been approximately a 9.5 lb weight gain since 03/25/2024. This represents approximately a 7.4% change in weight. Weight change attributable to lifestyle changes. Vital Signs:Blood Pressure: Sitting Rt. Arm 130/80Pulse: Sitting 51 /min and RegularRespiratory Rate: 18Height 65 in or 1.7 mWeight 138 lb or 62.6 kgBMI 23.0Temperature: 97.0 F or 36.1 CPulse Oximetry: 91 % at rest on oxygen Chief Complaint: Addressed in HPI Problems or conditions discussed in the HPI were the only ones reviewed during the encounter.Only social and family history addressed in the HPI were reviewed during this encounter. Attendant(s): NoneConstitutional and Systemic Symptoms:none Medication Reconciliation: from medication list. [id number]: CT brain demonstrates no significant abnormalities account for the patient's headaches or other neurological symptomatology. 11-27-2023: Echocardiogram demonstrated left ventricular systolic function normal 65%. Mildly increased left ventricular wall thickness. Right ventricular systolic function normal. There is mild mitral valve regurgitation. There is trivial posterior pericardial effusion. 11-29-2023: CT of the thoracic and lumbar spine showed a T12 compression fracture cerebral from 11/26/2023. Ankylosing Spondylosis noted. Moderate lumbar spondylosis and moderate size right and small left pleural effusions History of Present Illness #1. Essential Hypertension: Stage: Stage I Interval Neurological Complaints no headaches, dizziness, weakness, visual changes, ataxia, aphasia and apraxia. No shortness of breath, orthopnea or cardiovascular symptoms. No other symptoms related to end organ damage. Pressure has been under excellent control. Currently normal. No other end organ symptoms or findings. Therapy reviewed regarding management of hypertension and includes salt restriction and Losartan Potassium, Metoprolol Tartrate and Nifedipine. #2. Type II Hypercholesterolaemia: Currently taking medication and tolerating well. No interval complaints of any muscle pain or arthralgia. No significant liver changes with medications. Last lipid panel: fair control. Therapy reviewed regarding treatment of cholesterol management and include diet and Atorvastatin Calcium. #3. COPD: Hx of Emphysema currently stable. There has been no interval change in exercise tolerance an shortness of breath. No change in sputum production, color or consistency. No fever, chills, weight loss or other constitutional symptoms. Gold Scale: Severe. MRC Scale: SOB with changing cloths. Smoking: not currently smoking Current medications: Proair Hfa Using nebulizer Treatments: No. Uses supplemental oxygen #4. Hx of Ca of the left breast(s). Sub classification: see oncology records. Metastasis: None Current Medications: none.. #5. Hx of non-small cell CA of the lung. Metastatic: none known There has been no change in breathing. No weight loss or other constitutional symptoms. No hemoptysis or other signs of progression or metastasis. #6. Chronic pain management for chronic generalized joint pain Since last examination no significant change since last examination Interval Testing: noneHas tried NSAIDS partial relief requiring additional medication. Pain Description: constant, exacerbated by activity and interferes with enjoyment and ability to perform activities of daily living. Currently seeing or has seen in the past a Swing Ride Operator: No .Pain - Enjoyment of Life - General Activity ScalePain on Average: 5Enjoyment of Live: 4General Activity: 5Enjoyment of Life - General Activity Scale: 5Currently regimen consists of medications as prescribed with no evidence of abuse or self prescribing. Current Average Morphine Milligram Approximate Equivalent: 22 mg approximated if taking full dosage daily. Recommend: Recommended but declined.Benzodiazepines or other hypnotics: no.Alternative pain management modalities (acupuncture - behavior therapy- additional PT - SNRIs) have been discussed and have either been tried in the past or not acceptable alternatives to patient or not available in our location.Will kept medications the same.Urine Testing: not indicated and this time.Controlled substance database yes and no discrepancies or multiple prescribers noted. Pill counts when available have been acceptable. No other signs of any abuse.Patient reports condition is stable and is able to function with the medication. Denies any misuse or adverse effects.TREATMENT OBJECTIVE: Enhance ability to manage pain independently, improved function and sustain quality of life. Recommendations or alternative therapies and lifestyle changes are discussed on each visit. Has shown improvement inf functionality. Has been educated on the side effects,risks and any black box warnings. Has verbalized the dangers of some of the medications regarding driving and cooperating heavy machinery and have advised against this. Active Medication ListEffexor Xr 75 MG One DailyAtorvastatin Calcium 80 MG (TABLET - ORAL) One DailyLevetiracetam 500 MG (TABLET - ORAL) One Twice A DayAcyclovir 400 MG TABLET One Twice A DayXanax 1 MG (TABLET - ORAL) One Tablet Five Times A Day As NeededSeroquel 200 MG One At BedtimeSeroquel 50 MG (TABLET - ORAL) One Twice A Day As NeededNorco 325 MG-7.5 MG (TABLET - ORAL) One TidProair Hfa 0.09 MG /INH (AEROSOL, METERED - INHALATION) Two Puffs Four Times A Day As Neededfor WheezingLamotrigine 100 MG (TABLET - ORAL) One Twice A DayLosartan Potassium 100 MG TABLET Once DailyNifedipine 60 MG TABLET, EXTENDED RELEASE Once DailyEffexor Xr 37.5 MG Take Daily Along With 75 MgSulfasalazine Twice A DayCosentyx 150 MG/ ML (INJECTABLE - INJECTION) MonthlyTrazodone 100 MG (TABLET - ORAL) Two At BedtimeOndansetron 8 MG TABLET As NeededNeurontin 100 MG CAPSULE One Three Times A DayBaclofen 10 MG (TABLET - ORAL) One Twice A DayLeflunomide 20 MG (TABLET - ORAL) Once DailyMetoprolol Tartrate 50 MG TABLET One Twice A DayOs-rosita D Twice A DayPrimrose Oil 1000 MG Once DailyMultivitamin Once DailyGas-x Daily As NeededBoniva 150 MG (TABLET - ORAL) Monthly Vaccination and Immunization( ) 2003- PNEUMOVAX( ) 2024-07 INFLUENZA( ) 2010-07 TB TEST( ) 2019-06 PREVNAR 13 GC( ) 2024-07 COVID BOOSTER MODERNA( ) 2024-07 PREVNAR 20( ) 2021-02 COVID MODERNA Surgical Qemstvu4149-26 Rt. Partial Ifdeccrzvmfdr3528-93 Bilateral Msglkxicd0035-53 Ultrasound Left Biopsy Zoarvq2812-07 Bartholin Ecjp1252-15 Right Dkzykseapbhn5443-53 Silicon Ognzvuyo1368-40 Rt. Lumpecotomy Preventative Testing( ) 11/21/2023 Albumin 3.9 G/DL( ) 06/21/2023 Mammogram 06/21/2025( ) 12/31/2021 Colonoscopy ( 5 Years ) 12/31/2026( ) 11/25/2021 HAIC 5.9 % N(X) 10/28/2021 LDCT 10/28/2022( ) 09/24/2020 Micro Albumin 1.2 MG/DL N(X) 04/21/2020 DEXA Scan 04/21/2022( ) 07/24/2019 Upper Endoscopy( ) 03/19/2010 CT Thorax Social HistorySmokes 1.5-2 packs daily for 30 years. Drinks socially. Currently unemployed. Family HistoryMother 56 from lung cancerFather is living 78 with hypertension, Type II diabetes and prostate cancer.Two brothers living with bipolar(1) disorder.Two sisters one of breast cancer the other from CA of lung Kyrie Osuna MD [address] [facility] [address], [place], [address], [facility] 07/22/2024 11:50:27 OBGyn Episode No OBEpisode recorded.
--- OUTSIDE RECORDS SUMMARY | 2024-09-12 10:18 | XMS_ITS | CONTINUITY OF CARE DOCUMENT ---
Author Name ghada urrutia Address Unknown Organization [facility] Address [address] [place] [address] Phone [phone] Care Team Providers Care Community Affairs Manager Name Role Phone Aristeo JOHNSTON, Rosa Maria Unavailable KATIE JOHNSTON, CESAR Unavailable CESAR WILSON MD Unavailable [phone] PROBLEMS Condition Status Date Provider Notes RANDEE--mild active Rosa Maria Alberts MD Rheumatoid arthritis (RA) active Bill Ahdara jeannine Emphysema active Bill Ahmedzai GERD active Bill Ahmedzai Hyperlipidemia active Bill Oliveros Diabetes mellitus, type 2 active Bill Diaz jeannine Essential hypertension active Bill Vallesi Chest pain completed - Rosa Maria Alberts MD Breast cancer--1997 active Rosa Maria Alberts MD Ankylosing spondylitis active Bill Ahmonty Bipolar disorder active Bill Ahmedzai IBS active Bill Ahmedzai Shortness of breath active Bill Oliveros Pulmonary hypertension, moderate active Cheo Alberts MD COPD active Bill Oliveros Cardiology examination active Bill Oliveros Lung cancer---s/p right uppe r lobectomy with lymphnode dissection, aug 2023 active Rosa Maria Alberts MD CAD--on CTA chest Nl stress nuc 02/25 active Rosa Maria Alberts MD Tobacco abuse--quit active Bill Oliveros ENCOUNTERS Date Type Provider Location Encounter Diag nosis - In-person encounter Office Visit Rosa Maria Alberts MD [facility] Cardiology examinationCOPD - In-person encounter Office Visit Rosa Maria Alberts MD [facility] - In-person encounter Office Visit Rosa Maria Alberts MD [facility] Lung cancer---s/p right upper lobectomy with lymphnode dissection, aug 2023 - In-person encounter Office Visit Rosa Maria Alberts MD [facility] Breast cancer--1997Lung cancer---s/p right upper lobectomy with lymphnode dissection, aug 2023 - In-person encounter Office Visit Rosa Maria Alberts MD [facility] - In-person encounter Office Visit Rosa Maria Alberts MD [facility] Chest pain - In-person encounter Office Visit Rosa Maria Alberts MD [facility] CAD--on CTA chest Nl stress nuc 02/25Pulmonary hypertension, moderate - In-person encounter Office Visit Rosa Maria Alberts MD [facility] Tobacco abuse--quitAnkylosing spondylitisBipolar disorderIBSShortness of breathCAD--on CTA chest Nl stress nuc 02/25 VITAL SIGNS Date Observation Value Provider Body Mass Index (Ratio) 23.96 kg/m2 Raf Monet blood pressure, diastolic 78 mm[Hg] Jeimy Quintanilla blood pressure, systolic 121 mm[Hg] Aurelia Quintanilla oxygen saturation, oximetry 94 % Manisha Quintanilla pulse rate 64 /min Manisha Quintanilla respiratory rate E&M 12 /min Manisha Quintanilla weight E&M 144 [lb_av] Manisha Quintanilla height E&M 65 [in_i] Manisha Quintanilla blood pressure, cuff size regular Jeimy donald Quintanilla Body Mass Index (Ratio) 20.80 kg/m2 Peggy Ferminhse blood pressure, diastolic 69 mm[Hg] Ja rret blood pressure, systolic 116 mm[Hg] [facility] pulse rate 71 /min Rodrigo y blood pressure, cuff size regular rret respiratory rate E&M 16 /min Rodrigo Inhaled O2 2 L/min Rodrigo oxygen saturation, oximetry 93 % [facility] weight E&M 125 [lb_av] Rodrigo y height E&M 65 [in_i] Rodrigo [facility] y Body Mass Index (Ratio) 22.63 kg/m2 Maynor jeimy Borrego blood pressure, diastolic 69 mm[Hg] Jeimy shannon De [place] blood pressure, systolic 96 mm[Hg] Any chely De La Cruz oxygen saturation, oximetry 94 % Ericka De La Cruz pulse rate 59 /min Erickachely De La Cruz blood pressure, cuff size large Jeimy ortega Jono weight E&M 136 [lb_av] Ericka Jono height E&M 65 [in_i] Erickachely De La Cruz Body Mass Index (Ratio) 22.63 kg/m2 Maynor ntha Cranileana blood pressure, diastolic 85 mm[Hg] Joie nkLogic blood pressure, systolic 121 mm[Hg] Carolynn kLogic blood pressure, cuff size regular Ja rret blood pressure, diastolic 85 mm[Hg] Ja rret blood pressure, systolic 121 mm[Hg] Giovanni leos pulse rate 64 /min Rodrigo respiratory rate E&M 12 /min oxygen saturation, oximetry 93 % weight E&M 136 [lb_av] Rodrigo height E&M 65 [in_i] Rodrigo y Body Mass Index (Ratio) 23.46 kg/m2 Bill Oliveros blood pressure, diastolic 77 mm[Hg] St deric [place] blood pressure, systolic 103 mm[Hg] Nathanael angel [place] oxygen saturation, oximetry 93 % [facility] respiratory rate E&M 16 /min Aron [facility] pulse rate 71 /min Orquidea [facility] weight E&M 141 [lb_av] Orquidea [facility] blood pressure, cuff size large St leos [place] height E&M 65 [in_i] Orquidea Hamiltonor n Body Mass Index (Ratio) 22.43 kg/m2 Carlos Alberts MD pulse rate 83 /min Rosa Maria Alberts MD oxygen saturation, oximetry 96 % Rosa Maria Alberts MD blood pressure, diastolic 104 mm[Hg] To rona Alberts MD blood pressure, systolic 144 mm[Hg] Cheo Alberts MD weight E&M 134.8 [lb_av] Rosa Maria Ramirez Body Mass Index (Ratio) 22.46 kg/m2 Carlos Alberts MD pulse rate 62 /min Cami Mcginnis blood pressure, diastolic 100 mm[Hg] Sa ra Mcginnis blood pressure, systolic 170 mm[Hg] Raymon a Mcginnis respiratory rate E&M 18 /min Cami Si ms oxygen saturation, oximetry 94 % Cami Mcginnis blood pressure, cuff size regular Sa ra Mcg[place]is weight E&M 135 [lb_av] Cami Redmond height E&M 65 [in_i] Cami Redmond Body Mass Index (Ratio) 22.63 kg/m2 Carlos Alberts MD blood pressure, cuff size large [facility] [place] blood pressure, diastolic 70 mm[Hg] Ks gerardo [place] blood pressure, systolic 140 mm[Hg] [facility] lexy [place] oxygen saturation, oximetry 96 % Erin Ordaz respiratory rate E&M 16 /min Christina ordoñez [place] pulse rate 89 /min Erin ramirez weight E&M 136 [lb_av] Erin ramirez height E&M 65 [in_i] Erin ramirez ALLERGIES No Known Drug Allergies HISTORY OF MEDICATION USE Medication Status Instructions Dates Provider Indications Com ments nifedipine 90 mg tablet extended release 24hr active Take 1 tablet by mouth every night at bedtime Bill Oliveros chlorthalidone 25 mg tablet active Take 1 tablet by mouth once a day Cindy Choe acyclovir 400 mg tablet active TAKE 1 TABLET BY MOUTH TWICE A DAY Bill Oliveros sulfasalazine 500 mg tablet active Bill Oliveros venlafaxine 37.5 mg capsule,extended release 24hr active Bill Oliveros nifedipine 60 mg tablet extended release 24hr completed Take 1 tablet by mouth every night at bedtime - Bill Oliveros losartan 100 mg tablet active Take 1 tablet by mouth every morning Cindy Choe metoprolol tartrate 50 mg tablet active Take 1 tablet by mouth twice a day Cindy Choe quetiapine 50 mg tablet active Bill Oliveros Procardia XL 60 mg tablet extended release 24hr completed Take 1 tablet by mouth at bedtime - Rodrigoderic Baileysharon Procardia XL 30 mg tablet extended release 24hr completed - Alexandria Caesar losartan 100 mg tablet completed Take 1 tablet by mouth every night - Jacquelin Smith metoprolol tartrate 50 mg tablet completed Take 1 tablet by mouth twice a day - Tanya Austin amlodipine 5 mg tablet completed Take 1 tablet by mouth twice a day - Bill Pinomonty losartan 100 mg tablet completed - Bill Pringlemonty valacyclovir 1 gram tablet active Bill Oliveros Trelegy Ellipta 100-62.5-25 mcg blister with device active Bill Vallesadwoa venlafaxine 75 mg capsule,extended release 24hr active Bill Pinodaradainadwoa trazodone 100 mg tablet active Bill Pinodaradainadwoa ibandronate 150 mg tablet active Erin Ordaz quetiapine 50 mg tablet completed - Bill Oliveros metoprolol tartrate 25 mg tablet completed - Barrett Dewitt RN alprazolam 1 mg tablet active Erin Ordaz lamotrigine 100 mg tablet active Erin Ordaz albuterol sulfate 90 mcg/actuation HFA aerosol inhaler active Erin Ordaz amlodipine 5 mg tablet completed TAKE 1 TABLET BY MOUTH TWICE A DAY - Tanya Austin hydrocodone-aceta minophen 7.5-325 mg tablet active Erin Ordaz baclofen 10 mg tablet active Erin Ordaz quetiapine 200 mg tablet active Erin Odraz leflunomide 20 mg tablet active Erin Ordaz levetiracetam 500 mg tablet active Erin Ordaz atorvastatin 80 mg tablet active Erin Ordaz SOCIAL HISTORY Date Observation Value Provider smoking status Never smoker Bill Oliveros smoking status Never smoker Bill Oliveros smoking status Never smoker Bill Pinomonty social history reviewed E&M revi ewed - no changes required Bill Ahmedzai smoking status Never smoker Orquidea ramirez social history reviewed E&M revi ewed - no changes required Bill Ahdarazai social history reviewed E&M revi ewed - no changes required Rosa Maria Alberts MD social history reviewed E&M revi ewed - no changes required Rosa Maria Alberts MD social history E&M S moking History: Chiki escalante has never smoked. Billmarcelo Diazzai social history reviewed E&M revi ewed - no changes required Bill Pringlemedzai smoking status Never smoker Erin Carito and FUNCTIONAL STATUS Date Observation Value Provider HRA, CV Assess/Plan, Angina (inactive) Management Plan continue current therapy Bill Ahmedzai HRA, CV Assess/Plan, Angina (inactive) Management Plan continue current therapy Bill Ahmedzai HRA, CV Assess/Plan, Angina (inactive) Management Plan continue current therapy Bill Ahmedzai HRA, CV Assess/Plan, Angina (inactive) Management Plan continue current therapy Bill Ahmedzai HRA, CV Assess/Plan, Angina (inactive) Management Plan continue current therapy Bill Ahmedzai HRA, CV Assess/Plan, Angina (inactive) Management Plan continue current therapy Rosa Maria Alberts MD HRA, CV Assess/Plan, Angina (inactive) Management Plan continue current therapy Bill Ahmedzai INSURANCE PROVIDERS Payer name Policy type / Coverage type [employer] alliance party ID [id number] insurance company [id number] [place] Medicare [id number] ADVANCE DIRECTIVES Name Date DISCUSSED - NO DECISION MADE TREATMENT PLAN Date Name Performer [id number],S, Bill Diazza i [id number],S, Bill Valles i [id number],S, Bill Ahmedza i [id number],S, Bill Ahmedza i [id number],S, Bill Ahmedza i [id number],S, Bill Ahmedza i [id number],S, Bill Ahmedza i [id number],S, Bill Ahmedza i [id number],S, Bill Ahmedza i [id number],S, Bill Ahmedza i [id number],S, Bill Ahmedza i [id number],S, Bill Ahmedza i [id number],S, Bill Ahmedza i [id number],S, Bill Ahmedza i [id number],S, Bill Ahmedza i [id number],S, Bill Ahmedza i [id number],S, Bill Ahmedza i [id number],S, Bill Ahmedza i [id number],S, Bill Ahmedza i [id number],S, Bill Ahmedza i [id number],W, Rosa Maria Alberts MD [id number],S, Rosa Maria Alberts MD [id number],S, Rosa Maria Alberts MD [id number],S, Rosa Marai Alberts MD [id number],S, Rosa Maria Alberts MD [id number],S, Rosa Maria Alberts MD [id number],S, Rosa Maria Alberts MD [id number],S, Bill Ahmedza i [id number],S, Bill Ahmedza i [id number],S, Bill Ahmedza i [id number],S, Bill Ahmedza i [id number],B, Bill Ahmedza i [id number],S, Bill Ahmedza i [id number],S, Bill Ahmedza i [id number],S, Bill Ahmedza i [id number],S, Bill Ahmedza i [id number],S, Bill Ahmedza i [id number],S, Bill Ahmedza i Cardiology: H er updated medication list for this problem includes: Atorvastatin 80 Mg Tablet (Atorvastatin) Rosa Maria Alberts MD Cardiology: T he following medications were removed from the medication list: Nifedipine 60 Mg Tablet Extended Release 24hr (Nifedipine) ..... Take 1 tablet by mouth every night at bedtime This visit has been a part of the consistent, comprehensive, and ongoing management of the chronic medical condition(s) listed above for the patient. Her updated medication list for this problem includes: Nifedipine 90 Mg Tablet Extended Release 24hr (Nifedipine) ..... Take 1 tablet by mouth every night at bedtime Losartan 100 Mg Tablet (Losartan) ..... Take 1 tablet by mouth every morning Metoprolol Tartrate 50 Mg Tablet (Metoprolol tartrate) ..... Take 1 tablet by mouth twice a day Chlorthalidone 25 Mg Tablet (Chlorthalidone) ..... Take 1 tablet by mouth once a day Rosa Maria Alberts MD Cardiology Rosa Maria Alberts MD Cardiology Rosa Maria Alberts MD Cardiology Rosa Maria Alberts MD Cardiology Rosa Maria Alberts MD Cardiology Billmarcelo Oliveros Cardiology: B P today: 116/69 P rior BP: 96/69 (09/26/2023) Her updated medication list for this problem includes: Metoprolol Tartrate 50 Mg Tablet (Metoprolol tartrate) ..... Take 1 tablet by mouth twice a day Nifedipine 60 Mg Tablet Extended Release 24hr (Nifedipine) ..... Take 1 tablet by mouth every night at bedtime Losartan 100 Mg Tablet (Losartan) ..... Take 1 tablet by mouth every morning This visit has been a part of the consistent, comprehensive, and ongoing management of the chronic medical condition(s) listed above for the patient. Rosa Maria Alberts MD Cardiology: H er updated medication list for this problem includes: Losartan 100 Mg Tablet (Losartan) ..... Take 1 tablet by mouth every morning Bill Oliveros Cardiology: H er updated medication list for this problem includes: Metoprolol Tartrate 50 Mg Tablet (Metoprolol tartrate) ..... Take 1 tablet by mouth twice a day Nifedipine 60 Mg Tablet Extended Release 24hr (Nifedipine) ..... Take 1 tablet by mouth every night at bedtime Losartan 100 Mg Tablet (Losartan) ..... Take 1 tablet by mouth every morning Bill Oliveros Cardiology: H er updated medication list for this problem includes: Metoprolol Tartrate 50 Mg Tablet (Metoprolol tartrate) ..... Take 1 tablet by mouth twice a day Nifedipine 60 Mg Tablet Extended Release 24hr (Nifedipine) ..... Take 1 tablet by mouth every night at bedtime Billmarcelo Oliveros Cardiology: B P today: 116/69 P rior BP: 96/69 (09/26/2023) Her updated medication list for this problem includes: Metoprolol Tartrate 50 Mg Tablet (Metoprolol tartrate) ..... Take 1 tablet by mouth twice a day Nifedipine 60 Mg Tablet Extended Release 24hr (Nifedipine) ..... Take 1 tablet by mouth every night at bedtime Losartan 100 Mg Tablet (Losartan) ..... Take 1 tablet by mouth every morning Bill medzai Cardiology: H er updated medication list for this problem includes: Atorvastatin 80 Mg Tablet (Atorvastatin) Bill Pringlemedzai Cardiology Bill Ahmedzai Cardiology Bill Ahmedzai Cardiology Bill Ahmedzai Cardiology Bill Ahmedzai Cardiology Bill Ahmedzai Cardiology Bill Pringlemedzai Cardiology Bill Ahmedzai Cardiology Bill Ahmedzai Cardiology: H er updated medication list for this problem includes: Losartan 100 Mg Tablet (Losartan) ..... Take 1 tablet by mouth every day at night Bill Joezaadwoa Cardiology: B P today: 96/69 P rior BP: 121/85 (03/28/2023) Her updated medication list for this problem includes: Nifedipine 60 Mg Tablet Extended Release 24hr (Nifedipine) ..... Take 1 tablet by mouth everyday at bedtime Metoprolol Tartrate 50 Mg Tablet (Metoprolol tartrate) ..... Take 1 tablet by mouth twice a day Losartan 100 Mg Tablet (Losartan) ..... Take 1 tablet by mouth every day at night Bill Pringlemedzai Cardiology Bill Pringlemedzai Cardiology Bill Pringlemedzai Cardiology Bill Pringlemedzai Cardiology Bill Pringlemedzai Cardiology Bill Ahmedzai Cardiology Bill Ahmedzai Cardiology Bill Ahmedzai Telehealth Bill Pringlemedzai Telehealth Bill Diazzai Telehealth Bill Ahmedzai Telehealth Bill Diazzaadwoa Telehealth Bill Diazzai Telehealth Bill Diazzaadwoa Cardiology Bill Diazzai Cardiology Bill Ahmedzai Cardiology Bill Ahmedzai Cardiology Bill Ahmedzai Cardiology Bill Ahmedzai Cardiology Bill Ahmedzai Cardiology Bill Ahmedzai Cardiology Rosa Maria Alberts MD Cardiology Rosa Maria Alberts MD Cardiology Rosa Maria Alberts MD Cardiology Rosa Maria Alberts MD Cardiology Rosa Maria Alberts MD Cardiology Rosa Maria Alberts MD Cardiology Rosa Maria Alberts MD Cardiology Bill Ahmedzai Cardiology Bill Ahmedzai Cardiology Bill Ahmedzai Cardiology Bill Ahmedzai Cardiology Bill Ahmedzai Cardiology Bill Ahmedzai Cardiology Bill Ahmedzai Cardiology Bill Ahmedzai Cardiology Bill Ahmedzai Cardiology Bill Ahmedzai Cardiology Bill Ahmedzai Date Name Sleep Study Titratio n Sleep Study Home RPM (remote patient monitoring) Stress Regadenoson HISTORY OF PROCEDURES Procedure Date Procedure Name Provider Procedure Notes S tatus Complex e/m visit add on Rosa Maria Alberts MD completed Complex e/m visit add on Rosa Maria Alberts MD completed EKG Rosa Maria Alberts MD completed Complex e/m visit add on Rosa Maria Albetrs MD completed EKG Rosa Maria Alberts MD completed EKG Rosa Maria Alberts MD completed
--- OUTSIDE RECORDS SUMMARY | 2024-09-12 10:18 | XMS_ITS | Encounter Summary ---
Author Organization [facility] Address [address] Attn: [place] [address] Care Team Providers Care Spring Tester Name Role Phone Kyrie Osuna MD Primary Care Provider [phone] Encounter Details Date Type Department Care Team (Late st Contact Info) Description 04/20/2007 Outpatient Historical Edilberto Messer MD [facility] [address] [place] [address] Social History Tobacco Use Types Packs/Day Years Used Date Smoking Tobacco: Never Assessed Comments Unknown Sex and Gender Information Value Date Recorded Sex Assigned at Not on file Legal Sex 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 Oncology and Hematology - [place] [address] [facility] [address] [place] [address] Tony Tariq MD [address] [facility] [address] [place] [address] documented as of this encounter Visit Diagnoses Not on filedocumented in this encounter Additional Health Concerns Infection Onset Date Last Indicated Resolved Time R/O COVID-19 10/31/2019 10/31/2019 11/01/2019 4:47 PM CDT documented as of this encounter Care Teams Spring Tester Relationship Specialty Start Date End Date Kyrie Osuna MD [address] [address] [place] [address] PCP - General 02/19/09 documented as of this encounter
--- OUTSIDE RECORDS SUMMARY | 2024-09-12 10:18 | XMS_ITS | Clinical Summary ---
Author Organization [facility] [place] Address [address] [place] [address] Phone Care Team Providers Care Ironmolder Name Role Phone Kyrie Osuna MD Primary Care Provider [phone] Allergies No known active allergies Medications alprazolam (XANAX) 1 mg Oral Tab Take 1 mg by mouth every 4 hours as needed for Anxiety . 1 Active trazodone (DESYREL) 100 mg Oral Tab Take 200 mg by mouth daily at bedtime. Active QUEtiapine (SEROquel) 200 mg tablet Take 200 mg by mouth daily at bedtime. 1 Active levETIRAcetam (KEPPRA) 500 mg tablet Take 500 mg by mouth 2 times daily. Active QUEtiapine (SEROquel) 50 mg tablet Take 50 mg by mouth 1 time daily as needed. Active lamoTRIgine (LaMICtal) 100 mg tablet Take 100 mg by mouth 2 times daily. Active leflunomide (ARAVA) 20 mg Tablet Take 20 mg by mouth. Active baclofen (LIORESAL) 10 mg tablet TAKE 1 TABLET BY MOUTH TWICE A DAY 0 Active atorvastatin (LIPITOR) 40 mg tablet 80 mg. 0 Active ibandronate (BONIVA) 150 mg tablet TAKE 1 TABLET BY MOUTH EVERY MONTH 0 Active calcium carbonate/vitam in D3 (CALCIUM 600 WITH VITAMIN D3 ORAL) Take 1 Tablet by mouth 2 times daily. Active multivit,calc,m ins/iron/folic (ONE-A-DAY WOMENS FORMULA ORAL) Take 1 Tablet by mouth daily. Active venlafaxine (EFFEXOR) 37.5 mg tablet Take 75 mg by mouth daily. Active albuterol sulfate HFA 90 mcg/actuation aerosol inhaler Take 2 Puffs by inhalation every 4 hours as needed for Shortness of Breath or Wheezing. 18 Gram 5 3 Active losartan (COZAAR) 100 mg tablet Take 100 mg by mouth daily. Active fluticasone-ume clidinium-vilan terol (Trelegy Ellipta) 100-62.5-25 mcg Disk with Device INHALE 1 PUFF BY MOUTH ONCE DAILY-RINSE MOUTH AFTER USE 60 Each 9 3 Active acyclovir (ZOVIRAX) 400 mg tablet Take 400 mg by mouth 2 times daily. 3 Active metoprolol tartrate (LOPRESSOR) 50 mg tablet Take 50 mg by mouth 2 times daily. Active NIFEdipine (PROCARDIA XL) 60 mg Extended Release 24 hour tablet Take 60 mg by mouth daily. Active venlafaxine (EFFEXOR XR) 75 mg Extended Release 24 hour capsule Take 75 mg by mouth daily. Active SULFASALAZINE ORAL Take 1 Tablet by mouth 2 times daily. Active acetaminophen (TYLENOL) 500 mg tablet Take 1 Tablet (500 mg) by mouth every 6 hours as needed for Pain, Mild / Temperature. 4 Active naloxone (NARCAN) 4 mg/spray [place], Non-Aerosol EMERGENCY USE ONLY: Administer 1 spray (4 mg) in one nostril one time. May repeat in alternating nostrils every 2-3 min until responsive or EMS arrives. 2 Each 3 08/25/2023 12:24 PM BRANCH OPERATION EVALUATION MANAGER 4 Active ondansetron (ZOFRAN ODT) 8 mg Tablet, Rapid DissolveIndicat ions:Malignant neoplasm of upper-outer quadrant of right breast in female, estrogen receptor positive (CMS/HCC) Dissolve 1 tablet on top of tongue then swallow with saliva every 8 hours as needed for nausea or vomiting 30 Tablet 1 4 Active dexAMETHasone (DECADRON) 4 mg tabletIndicatio ns:Malignant neoplasm of upper-outer quadrant of right breast in female, estrogen receptor positive (CMS/HCC) Take 1 tablet BID the day before treatment, the day of treatment, and the day after treatment. 6 Tablet 4 4 Active HYDROcodone-yfn taminophen (NORCO) 7.5-325 mg TabletIndicatio ns:Post-operati ve pain Take 1 Tablet by mouth every 4 hours as needed for moderate pain. Max Daily Amount: 6 Tablets 60 Tablet 4 Active lidocaine (LIDODERM) 5 % Adhesive Patch, Medicated Apply 1 Patch to affected area every 24 hours. 15 Patch 1 4 Active Active Problems Patient Care Coordination No te Formatting of this note migh t be different from the original. Primary Care: Kyrie Osuna MD Referring Provider: Trice Velez MD [address] [place] [address] Other: Dr Irma James Problem Noted Date Diagnosed Date Non-small cell cancer of right lung 03/08/2024 Protein-calorie malnutrition, moderate Hypertensive urgency 10/24/2020 Leukocytosis (leucocytosis) 10/24/2020 Type 2 diabetes mellitus wit h hyperglycemia, without long-term current use of insulin 10/24/2020 Acute headache 10/24/2020 Nausea 10/24/2020 Abnormal EKG 10/24/2020 Chest pain 10/24/2020 Behcet's disease 08/29/2019 Foreign body reaction 02/12/2019 Abnormal mammogram of right breast 02/05/2019 Abnormal ultrasound of breast 01/24/2019 Lump of left breast 01/23/2019 History of external beam radiation therapy 09/25 Hemoptysis 05/26/2018 Pneumonia due to infectious organism 05/26/2018 Situational mixed anxiety and depressive disorde r 05/26/2018 Tobacco use 05/12/2017 Screening mammogram for high-risk patient 2014 Other emphysema 03/11/2010 Malignant neoplasm of upper- outer quadrant of right breast in female, estrogen receptor positive Overview (02/18/2009): rt brst infiltrating ductal Arthropathy, unspecified, site unspecified Lung nodule Community acquired pneumonia Hypertensive emergency Resolved Problems Problem Noted Date Diagnosed Date Resolved Date Fissure of nipple 11/09/2009 09/25/2018 Encounters Date Type Department Care Team Description 09/02/2024 Orders Only [facility] Oncology and Hematology - [place] [address] [place] [address] Malignant neoplasm of upper-outer quadrant of right breast in female, estrogen receptor positive (CMS/HCC) 08/19/2024 Orders Only [facility] Oncology and Hematology - [place] [address] [place] [address] Malignant neoplasm of upper-outer quadrant of right breast in female, estrogen receptor positive (CMS/HCC) 08/05/2024 Orders Only [facility] Oncology and Hematology - [place] [address] [place] [address] Malignant neoplasm of upper-outer quadrant of right breast in female, estrogen receptor positive (CMS/HCC) 07/22/2024 Orders Only [facility] Oncology and Hematology - [place] [address] [place] [address] Malignant neoplasm of upper-outer quadrant of right breast in female, estrogen receptor positive (CMS/HCC) 07/08/2024 Orders Only [facility] Oncology and Hematology - [place] [address] [place] [address] Malignant neoplasm of upper-outer quadrant of right breast in female, estrogen receptor positive (CMS/HCC) 06/24/2024 Orders Only [facility] Oncology and Hematology - [place] [address] [place] [address] Malignant neoplasm of upper-outer quadrant of right breast in female, estrogen receptor positive (CMS/HCC) from Last 3 Months Family History Medical History Relation Name Comments Cancer Father bone Other Father bone diabetes Cancer Maternal Uncle 1 throat 60's Pancreatic Cancer Maternal Uncle 2 60's Breast Cancer Mother Breast Cancer Sister 1 dx @47 d Breast Cancer Sister 2 brain,bone,spi ne, Ovarian Cancer Neg Hx Uterine Cancer Neg Hx Relation Name Status Comments Father bone Maternal Uncle 1 throat Maternal Uncle 2 Mother Sister 1 Sister 2 Social History Tobacco Use Types Packs/Day Years Used Date Smoking Tobacco: Former Cigarettes 2 50 0 10/05/1970 - 10/05/2020 Passive Smoke Exposure: Past Smokeless Tobacco: Never Tobacco Cessation:Counseling Given: Not Answered Comments:may 2018 down to \ ppd f - smoked some around holiday2022 but not since Alcohol Use Standard Drinks/Week Comments No 0 (1 standard drink = 0.6 oz pur e alcohol) Feeling Safe Answer Date Recorded Are you in a relationship wi th someone who hurts you emotionally and/or physically? No 08/21/2023 Comments No Sex and Gender Information Value Date Recorded Sex Assigned at Not on file Legal Sex Female 5:28 AM BRANCH OPERATION EVALUATION MANAGER Gender Identity Not on file Sexual Orientation Not on file Occupation Industry Job Start Date Job End Date Not on file Not on file Not on file Not on file Last Filed Vital Signs Vital Sign Reading Time Taken Comments Blood Pressure 140/87 05/23/2024 8:44 AM CDT Pt did not take bp meds so bp is high Pulse 60 05/23/2024 8:44 AM CDT Temperature 36.6 C (97.8 F) 05/23/2024 8:44 AM CDT Respiratory Rate 14 05/23/2024 8:44 AM CDT Oxygen Saturation 93% 05/23/2024 8:4 4 AM CDT Inhaled Oxygen Concentration - - Weight 59.8 kg (131 lb 12.8 oz) 05/23/2024 8:44 AM CDT Height 162.6 cm (5' 4 ) 01/11/2024 7:40 AM CDT Body Mass Index 22.62 01/11/2024 7:40 AM CDT Plan of Treatment Upcoming Encounters Date Type Department Care Team (Late st Contact Info) Description 09/27/2024 11:15 AM BRANCH OPERATION EVALUATION MANAGER Office Visit [facility] Oncology and Hematology - [place] [address] [facility] [address] [place] [address] Tony Tariq MD [address] [facility] [address] [place] [address] Health Maintenance Due Date Last Done Comments DIABETES ANNUAL FOOT EXAM 10/24/1971 DIABETES MICROALBUMIN ANNUAL SCREEN 10/24/1971 LDL CHOLESTEROL ANNUAL 10/24/1971 DTAP/TDAP/TD VACCINES (1 - Tdap) 1972 Traditional Medicare (ACO) A nnual Wellness Visit 1972 FIT-DNA Q 3 years 1998 FIT/FOBT Q 1 year 1998 Flex Sig/CT Colonography Q 5 years 1998 ZOSTER VACCINE (1 of 2) 10/24/2003 RSV VACCINE (60+ or ) (1 - Risk 60-74 years 1-dose series) 2013 PNEUMOCOCCAL VACCINE 65+ YEA RS (2 of 2 - PPSV23) 08/14/2019 06/19/2019 DIABETES ANNUAL RETINAL EXAM 2021 2020 DIABETES HBA1C Q 6 MONTHS 02/15/20242023, 08/17/2023, 09/01/2022, Additional history exists INFLUENZA VACCINE (#1) 2024 3, 06/20/2022, 05/12/2021, Additional history exists BREAST CANCER SCREENING 01/15/2025 01/16/20 24, 06/21/2023, 06/16/2022, Additional history exists COLORECTAL SCREENING 01/01/2032 12/31/2021, 12/31/2021, 12/31/2021, Additional history exists Colorectal Cancer Screening 01/01/2032 OSTEOPOROSIS SCREENING Completed 04/21/2020 Medical Devices Implanted Type Area Company Marker Device Identifier Shelf Expiration Date Model / Serial / Lot Sealant Progel Pleural 4ml [id number] - [id number] Implanted:Qty : 1 on 08/21/2023 by Pasquale Gillis MD at [facility] Tissue Right: Chest [employer]ARD [employer] [id number] 02/26/2025 [id number] / / [id number] Cement-01/11/20 Implanted:Qty : 1 on 01/11/2024 by Sridhar Lundy MD Spine Thoracic 08/06/2026 [id number] / / [id number] Description:Ky[employer] cement im planted on 01/11/[address] Lundy T12 Procedures Procedure Name Priority Date/Time Associated Diagnosis Comments MAMMOGRAM REPORT Routine 01/16/2024 4:00 PM CDT HEMOGLOBIN A1C Routine 08/17/2023 9:31 AM BRANCH OPERATION EVALUATION MANAGER from Last 3 Months or Most Recently Relevant to Health Maintenance Results * MAMMOGRAM REPORT (01/16/2024 4:00 PM CDT) Anatomical Region Laterality Modality Other Tony Tariq MD MAMMO ORDERABLES Final Result * (ABNORMAL) HEMOGLOBIN A1C (08/17/2023 9:31 AM BRANCH OPERATION EVALUATION MANAGER) HEMOGLOBIN A1C 5.7(H) <5.7 % 08/17/2023 11:04 AM BRANCH OPERATION EVALUATION MANAGER [employer] [facility] EST. AVG GLUCOSE, A1C 117 mg/dL 08/17/2023 11:04 AM [facility] [employer] [facility] Blood Venipuncture / Unknown 08/17/2023 9:31 AM BRANCH OPERATION EVALUATION MANAGER 08/17/2023 10:24 AM BRANCH OPERATION EVALUATION MANAGER Narrative [facility] [employer] [facility] - 08/17/2023 11:04 AM BRANCH OPERATION EVALUATION MANAGER HGB A1C INTERPRETATION NORMAL: <5.7% PRE-DIABETES: 5.7 - 6.4% DIABETES: 6.5% OR GREATER Hasmukh Sommer PA-C CHEMISTRY ORDERABLES F inal Result [facility] [employer] [id number] [address] [place] [place] [id number] from Last 3 Months or Most Recently Relevant to Health Maintenance Insurance MEDICARE PART A AND B [facility] [id number] [id number] [employer] Medicare Part D MEDICARE PART A AND B [facility] [id number] Advance Directives For more information, please contact: [phone] * Full Code (Latest Code Status on File) Date Activated Date Inactivated Comments 08/21/2023 12:59 PM 08/25/2023 4:42 PM * Full Code Date Activated Date Inactivated Comments 08/21/2023 5:21 AM 08/21/2023 12:59 PM * Full Code Date Activated Date Inactivated Comments 10/24/2020 3:28 PM 10/27/2020 5:33 PM * Full Code Date Activated Date Inactivated Comments 05/26/2018 7:36 AM 05/27/2018 5:26 PM * Full Code Date Activated Date Inactivated Comments 11/02/2010 8:26 AM 11/02/2010 3:41 PM Care Teams Ironmolder Relationship Specialty Start Date End Date Kyrie Osuna MD [address] [facility] [address] [place] [address] PCP - General 02/19/09
--- OUTSIDE RECORDS SUMMARY | 2024-09-12 10:18 | XMS_ITS | Referral Summary ---
Author Organization [facility] Address [address] [address] Care Team Providers Care Edge Finisher Name Role Phone Kyrie Osuna MD Primary Care Provider [phone] Source Comments [facility],non-owned Affiliates and Associated Physician Practices is amultiple site organization consisting of ambulatory clinics and hospital sitesin [place], [place], [place] and [place]. This disclosure is being madepursuant to the Care Everywhere program and may not contain all information available regarding this patient. Last updated 18.[facility] Allergies No known active allergies Medications * [...] Comments Blood Pressure 102/64 08/30/2016 3:40 PM ENGINE TURNER Pulse 65 08/04/2016 11:50 AM ENGINE TURNER Temperature 36.7 C (98 F) 08/04/2016 11:50 AM ENGINE TURNER Respiratory Rate 16 08/04/2016 11:50 AM ENGINE TURNER Oxygen Saturation 97% 08/04/2016 11:50 AM ENGINE TURNER Inhaled Oxygen Concentration - - Weight 41.7 kg (92 lb) 08/30/2016 3:40 PM ENGINE TURNER Height 165.1 cm (5' 5 ) 08/30/2016 3:40 PM ENGINE TURNER Body Mass Index 15.31 08/30/2016 3:40 PM ENGINE TURNER Functional Status Functional Status Response Date of Assess ment Is person deaf or have serious hearing difficult y? No 08/04/2016 Is person blind or have serious difficulty seein g? No 08/04/2016 Does person have serious dif ficulty walking/climbing stairs? No 08/04/2016 Does person have difficulty dressing/bathing? No 08/04/2016 Does person have difficulty doing errands alone? No 08/04/2016 Cognitive Status Response Date of Assessm ent Does person have difficulty concentrating/remembering/making decisions? No 08/04/2016 Plan of Treatment Not on file Care Teams Edge Finisher Relationship Specialty Start Date End Date Kyrie Osuna MD PCP - General Internal Medicine 08/16/13
--- OUTSIDE RECORDS SUMMARY | 2024-09-12 10:19 | XMS_ITS | Clinical Summary ---
Author Organization [facility] Address [address] [place] [address] Care Team Providers Care Threshing Machine Operator Name Role Phone Kyrie Osuna MD Primary Care Provider Allergies No known active allergies Medications albuterol HFA (PROVENTIL HFA,VENTOLIN HFA,PROAIR HFA) 90 mcg/actuation inhaler Inhale 2 puffs 4 (four) times a day as needed. Active ALPRAZolam (XANAX) 1 mg tablet Take 1 mg by mouth. Active celecoxib (CeleBREX) 200 mg capsule Take 200 mg by mouth. Active fluticasone propion-salmete roL (ADVAIR HFA) 45-21 mcg/actuation inhaler Inhale 1 puff 4 (four) times a day as needed. Active lamoTRIgine (LaMICtal) 100 mg tablet Take 100 mg by mouth. Active pravastatin (PRAVACHOL) 80 mg tablet Take 80 mg by mouth. Active QUEtiapine (SEROquel) 200 mg tablet Take 200 mg by mouth nightly. Active tiotropium (SPIRIVA) 18 mcg per inhalation capsule Place 1 capsule into inhaler and inhale. Active traZODone (DESYREL) 100 mg tablet TAKE 2 TABLETS AT BEDTIME. Active valACYclovir (VALTREX) 500 mg tablet Take 500 mg by mouth nightly. Active venlafaxine XR (EFFEXOR-XR) 37.5 mg 24 hr capsule TAKE 1 CAPSULE ONCE A DAY 5 8 Active MOVANTIK 25 mg tablet TAKE 1 TABLET DAILY 30 tablet 3 8 Active QUEtiapine (SEROquel) 50 mg tablet TAKE 1 TABLET DAILY ALONG WITH THE 200MG AT BEDTIME 5 8 Active levETIRAcetam (KEPPRA) 500 mg tablet Take 500 mg by mouth 2 (two) times a day. Active clotrimazole 1 % cream Apply topically 2 (two) times a day. Active ondansetron (ZOFRAN) 4 mg tablet Take 4 mg by mouth every 8 (eight) hours as needed for nausea or vomiting. Active linaclotide (LINZESS) 72 mcg capsule Take on an empty stomach first thing in the morning wait 1 hour before eating or drinking anything 30 capsule 8 Active fluticasone-ume clidin-vilanter (Trelegy Ellipta) 100-62.5-25 mcg inhaler INHALE 1 PUFF BY MOUTH ONCE DAILY-RINSE MOUTH AFTER USE 2 Active Active Problems Problem Noted Date Diagnosed Date Malignant neoplasm of female breast 05/21/2018 Overview (05/21/2018): Added automatically from request for surgery [id number] Body mass index (BMI) 19.9 or less, adult 2015 History of right breast cancer 05/24/2016 Constipation 02/04/2013 Passing flatus 02/04/2013 Nausea 02/04/2013 Surgical History Surgery Date Site/Laterality Comments BREAST LUMPECTOMY Right HYSTERECTOMY BLADDER SUSPENSION HAND SURGERY as child AUGMENTATION MAMMOPLASTY 08/07/2003 - 08/06/2004 BREAST RECONSTRUCTION 08/07/2017 - 08/06/2018 Bilateral OTHER SURGICAL HISTORY 08/07/2010 - 08/06/2011 perineoplasty Medical History Medical History Date Comments Asthma COPD (chronic obstructive pulmonary disease) (HC C) Hyperlipidemia Kidney stone Anxiety and depression Breast cancer, right (HCC) 1975 s/p r adiation Arthritis Migraine Herpes simplex Bipolar disorder (HCC) DM type 2 (diabetes mellitus, type 2) ([facility]) Family History Medical History Relation Name Comments Cancer Brother 1 Family history of malignant neoplasm - (Added by TW Conv) Mental illness Brother 2 Arthritis Brother 3 Alcohol abuse Brother 4 Cancer Brother 5 Family history of malignant neoplasm - (Added by TW Conv) Mental illness Brother 6 Arthritis Brother 7 Alcohol abuse Brother 8 Mental illness Daughter 1 Arthritis Daughter 2 Mental illness Daughter 3 Arthritis Daughter 4 Alcohol abuse Father Arthritis Father Cancer Father Family history of malignant neoplasm - (Added by TW Conv)/Family history of malignant neoplasm - (Added by TW Conv) Diabetes Father Hypertension Father Kidney disease Father Mental illness Father Seizures Father Alcohol abuse Mother Arthritis Mother Cancer Mother Family history of malignant neoplasm - (Added by TW Conv)/Family history of malignant neoplasm - (Added by TW Conv) Mental illness Mother Seizures Mother Hypertension Sister 1 Cancer Sister 2 Family history of malignant neoplasm - (Added by TW Conv) Mental illness Sister 3 Arthritis Sister 4 Alcohol abuse Sister 5 Hypertension Sister 6 Cancer Sister 7 Family history of malignant neoplasm - (Added by TW Conv) Mental illness Sister 8 Arthritis Sister 9 Alcohol abuse Sister 10 Relation Name Status Comments Brother 1 Brother 2 Brother 3 Brother 4 Brother 5 Brother 6 Brother 7 Brother 8 Daughter 1 Daughter 2 Daughter 3 Daughter 4 Father Mother Sister 1 Sister 2 Sister 3 Sister 4 Sister 5 Sister 6 Sister 7 Sister 8 Sister 9 Sister 10 Social History Tobacco Use Types Packs/Day Years Used Date Smoking Tobacco: Former Cigarettes Q uit: 08/08/2017 Smokeless Tobacco: Never Alcohol Use Standard Drinks/Week Comments Yes 0 (1 standard drink = 0.6 oz pur e alcohol) rare AUDIT-C Answer Date Recorded Q1: How often do you have a drink containing alc ohol? 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 BUSINESS ANALYST Gender Identity Not on file Sexual Orientation Not on file Obstetrics History Last Filed Vital Signs Vital Sign Reading Time Taken Comments Blood Pressure 159/93 12/31/2021 9:10 AM CDT Pulse 70 12/31/2021 9:10 AM CDT Temperature 36.2 C (97.2 F) 12/31/2021 8:50 AM CDT Respiratory Rate 28 12/31/2021 9:10 AM CDT Oxygen Saturation 94% 12/31/2021 9:10 AM CDT Inhaled Oxygen Concentration - - Weight 63 kg (139 lb) 12/31/2021 7:20 AM CDT Height 165.1 cm (5' 5 ) 12/31/2021 7:20 AM CDT Body Mass Index 23.13 12/31/2021 7:20 AM CDT Plan of Treatment Health Maintenance Due Date Last Done Comments Depression Screening 1955 Hepatitis C Screening 1955 Osteoporosis Screening-Bone Density Scan 1955 DTaP/Tdap/Td Vaccine (1 - Tdap) 1964 Hepatitis B Screening 10/24/1971 Zoster Vaccine (1 of 2) 10/24/2003 Well Visit 65+ 2018 Pneumococcal vaccine 65+ (2 of 2 - PPSV23 or PCV20) 08/14/2019 06/19/2019 Fall Risk Assessment 12/31/2022 12/31/2021 Covid-19 Vaccine (3 - 2023-2 5 season) 2024 02/13/2021, 01/16/2021 Influenza Vaccine (#1) 2024 9, 06/20/2018, 08/24/2016, Additional history exists Breast Cancer Screening-Mammogram 06/21/2024 023, 11/30/2018 Colon Cancer Screening-Colonoscopy 01/01/2032 12/31/2021 Colon Cancer Screening-CT Colonography Discontinued 12/31/2021 Colon Cancer Screening-DNA Stool Discontinued 01/01/20 Colon Cancer Screening-FIT Discontinued 12/31/2021 Colon Cancer Screening-Sigmoidoscopy Discontinued 12/31/2021 Medical Devices Explanted Type Area Fractionation Plant Supervisor Device Identifier Shelf Expiration Date Model / Serial / Lot Breast Implant-Silicone Explanted:Qty: 1 on 01/17/2018 at [facility] Left: Breast Other Description:500cc -Unknown m anufacturer Silicone Breast Implant Explanted:Qty: 1 on 01/17/2018 at [facility] Right: Breast Other Description:Unknown size and unknown keel press operator. Procedures Procedure Name Priority Date/Time Associated Diagnosis Comments COLONOSCOPY 12/31/2021 8:17 AM CDT from Last 3 Months or Most Recently Relevant to Health Maintenance Results * COLONOSCOPY (12/31/2021 8:17 AM CDT) Anatomical Region Laterality Modality Other Narrative Procedure Note Paulette Gore MD - 12/31/2021 8:17 AM CDT ENDOSCOPY LAB Patient Name: Mili Bruno Procedure Date: 12/31/2021 8:17 AM Date of : 1955 Admit Type: Outpatient Age: 66 Gender: Female Attending MD: Paulette Gore M.D. Room: [facility] ENDOSCOPY ROOM 01 Note Status: Finalized Procedure: Colonoscopy Indications: positive cologaurd test, last colonoscopy in 2017 Providers: Paulette Gore M.D. Referring MD: Kyrie Osuna M.D. Medicines: Monitored Anesthesia Care, See the Anesthesia notefor documentation of the administered medications Complications: No immediate complications. Estimated Blood Loss: Estimated blood loss: none. Procedure: Pre-Anesthesia Assessment: - After reviewing the risks and benefits, thepatient was deemed in satisfactory condition to undergo the procedure. The benefits, risks and alternatives of theprocedure and sedation were discussed and informed consentwas obtained. All questions were answered. Please referto the signed informed consent document in the medical record. The scope was passed under direct vision.The [id number] was introduced through the anusand advanced to the terminal ileum. The colonoscopy was performed without difficulty. The patient tolerated the procedure well. The quality of the bowel preparation was evaluated using the BBPS (BostonBowel Preparation Scale) with scores of: Right Colon = 3, Transverse Colon = 3 and Left Colon = 3 (entiremucosa seen well with no residual staining, smallfragments of stool or opaque liquid). The total BBPS score equals 9. Findings: The perianal and digital rectal examinations were normal. Multiple medium-mouthed diverticula were found in the sigmoid colonand cecum. The exam was otherwise normal throughout the examined colon. The terminal ileum appeared normal. Internal hemorrhoids were found during retroflexion. Impression: - Diverticulosis in the sigmoid colon and in thececum. - The examined portion of the ileum was normal. - Hemorrhoids - No specimens collected. Recommendation: - Repeat colonoscopy in 5 years for surveillance. - Contact Information: During normal business hours - Please call theNurse Coordinator: [phone] After hours, evening, nights, weekends and holidays- Please call the hospital thermoscrew operator at and ask for the GI fellow refrigeration service inspector. - . Attending Participation: I personally performed the entire procedure. Electronically signed by Paulette Gore M.D. Paulette Gore M.D. 12/31/2021 8:55:36 AM Number of Addenda: 0 Note Initiated On: 12/31/2021 8:17 AM Paulette Gore MD ENDOSCOPY PROCEDURE S Final Result from Last 3 Months or Most Recently Relevant to Health Maintenance Insurance MEDICARE [facility] [employer] CHOICE MEDICARE [facility] Advance Directives For more information, please contact: [phone] * Full Code (Latest Code Status on File) Date Activated Date Inactivated Comments 12/31/2021 7:40 AM 12/31/2021 1:41 PM Care Teams Threshing Machine Operator Relationship Specialty Start Date End Date Kyrie Osuna MD PCP - General 11/28/16
--- OUTSIDE RECORDS SUMMARY | 2024-09-12 10:19 | XMS_ITS ---
Author Organization [facility] Address [address] [place] [address] Phone Care Team Providers Care Central Supply Worker Name Role Phone Kyrie Osuna MD Primary Care Provider [phone] Active Problems Patient Care Coordination No te Formatting of this note migh t be different from the original. Primary Care: Kyrie Osuna MD Referring Provider: Trice Velez MD [address] [place] [address] Other: Dr Irma James Problem Noted Date [...] Lung nodule Community acquired pneumonia Hypertensive emergency Current Treatment and Therapy Plans No current plan information found. Past Treatment and Therapy Plans No past plan information found. Lifetime Dose Tracking * Chemical Lifetime Dose Automatic Entry Manual Entr y Effective Dose 37.35 mSv 37.35 mSv 0 mSv Total DLP 2,719.24 DLP 2,719.24 DLP 0 DLP CTDIvol Max 104.59 mGy 104.59 mGy 0 mGy CTDIvol Min 78.19 mGy 78.19 mGy 0 mGy Resolved Problems Problem Noted Date Diagnosed Date Resolved Date Fissure of nipple 11/09/2009 09/25/2018
--- OUTSIDE RECORDS SUMMARY | 2024-09-12 10:19 | XMS_ITS | Continuity of Care Document ---
Author Organization [facility] Address [address] [place] [address] [place] [address] Phone Care Team Providers Care Restaurant Maintenance Technician Name Role Phone Parveen Hair Unavailable Unavailable Procedures Procedure Date Eye Exam & Treatment Advance Directives Directive Yes / No Effective Date File Name No Information Encounters Encounter Description Practice Location Reason(s) For Visit Diagnoses Date Provider Providers Copied on Encounter [facility], [address], [place], [place], [id number], [place] tel:[phone] [facility] No Information [address] Parveen. [address] [facility] [address], [place], [address], [place]. tel:[phone] Family History Family Member Type Diagnosis Age At Onset No Information Payers Payer name Insurance type Covered democrat ID Authoriza tion(s) No Information Social History Type Description Quantity Date Captured Comments Sex Female Smoking Status No Information Chief Complaint And Reason For Visit No Information Reason For Referral Reason For Referral No Information History Of Present Illness Encounter Date Complaint History Of Prese nt Illness No Information Functional Status Date Functional Assessmen t No Information Instructions Date Instruction Additional Infor mation No Information Assessments Type Assessment Date No Information Patient Care Teams Name Effective Dates (start - stop) Status Members No Information
--- OUTSIDE RECORDS SUMMARY | 2024-09-12 10:19 | XMS_ITS | Referral Summary ---
Author Organization [facility] Address [address] [place] [address] Care Team Providers Care Coordinate Measuring Machine Programmer Name Role Phone Kyrie Osuna MD Primary [...] (05/21/2018): Added automatically from request for surgery [id number] Body mass index (BMI) 19.9 or less, adult 2015 History of right breast cancer 05/24/2016 Constipation 02/04/2013 Passing flatus 02/04/2013 Nausea 02/04/2013 Social History Tobacco Use Types Packs/Day Years [...] on file Legal Sex Female 8:06 PM WIRELESS MANAGER Gender Identity Not on file Sexual [...] 12/31/2021 7:20 AM CDT Plan of Treatment Not on file Medical Devices Explanted Type Area Quality Assurance Assistant Device Identifier Shelf Expiration Date Model / Serial / Lot Breast Implant-Silicone Explanted:Qty: 1 on 01/17/2018 at [facility] Left: Breast Other Description:500cc -Unknown m anufacturer Silicone Breast Implant Explanted:Qty: 1 on 01/17/2018 at [facility] Right: Breast Other Description:Unknown size and unknown geriatric nurse. Procedures Procedure Name Priority Date/Time Associated Diagnosis [...] Female Attending MD: Paulette Gore M.D. Room: [facility] ENDOSCOPY ROOM 01 Note Status: Finalized Procedure: [...] The scope was passed under direct vision.The [id number] was introduced through the anusand advanced to [...] business hours - Please call theNurse Coordinator: [phone] After hours, evening, nights, weekends and holidays- Please call the hospital electric knife operator at and ask for the GI fellow cardiac/vascular sonographer. - . Attending Participation: I personally performed the entire procedure. Electronically signed by Paulette Gore M.D. Paulette Gore M.D. 12/31/2021 8:55:36 AM Number of Addenda: 0 Note Initiated On: 12/31/2021 8:17 AM us Paulette Gore MD ENDOSCOPY PROCEDURE S Final Result from Last 3 Months or Most Recently Relevant to Health Maintenance [place] [address] [facility] ANTHEM ACCESS CHOICE MEDICARE [facility] Advance Directives For more information, please contact: [phone] * Full Code (Latest Code Status on File) Date Activated Date Inactivated Comments 12/31/2021 7:40 AM 12/31/2021 1:41 PM Care Teams Coordinate Measuring Machine Programmer Relationship Specialty Start Date End Date Kyrie Osuna MD [facility] - General 11/28/16
--- OUTSIDE RECORDS SUMMARY | 2024-09-12 10:19 | XMS_ITS | Encounter Summary ---
Author Organization [facility] Address [address] [place] [address] Phone Care Team Providers Care Seed Trucker Name Role Phone Kyrie Osuna MD Primary Care Provider Encounter Details Date Type Department Care Team (Late st Contact Info) Description 10/25/2021 Orders Only [facility] Scanning, Provider Social History Tobacco Use Types Packs/Day Years Used Date Smoking Tobacco: Former Cigarettes Q uit: 08/08/2017 Smokeless Tobacco: Never Alcohol Use Standard Drinks/Week Comments Yes 0 (1 standard drink = 0.6 oz pur e alcohol) rare Comments No Sex and Gender Information Value Date Recorded Sex Assigned at Not on file Legal Sex Female 8:06 PM BEHAVIORAL SERVICES TECH Gender Identity Not on file Sexual Orientation Not on file documented as of this encounter Plan of Treatment Not on file documented as of this encounter Procedures Procedure Name Priority Date/Time Associated Diagnosis Comments SCAN - LABS 10/25/2021 documented in this encounter Results * SCAN - LABS (10/25/2021) us Provider Scanning Final Result documented in this encounter Visit Diagnoses Not on filedocumented in this encounter Care Teams Seed Trucker Relationship Specialty Start Date End Date Kyrie Osuna MD PCP - General 11/28/16 documented as of this encounter
[2024-09-12 10:24] LABS: Basophils Absolute Auto 0.1 K/mm3 (0.0-0.1); Basophils Percent Auto 0.6 % (0.2-1.2); Eosinophils Absolute Auto 0.1 K/mm3 (0-0.3); Eosinophils Percent Auto 1.3 % (0-4.4); Hematocrit 30.4 % (37.0-47.0); Hemoglobin 9.4 g/dL (12.0-15.0); Immature Granulocyte Absolute 0.06 K/mm3 (0.00-0.031); Immature Granulocyte Percent A 0.6 % (0-0.5); Lymphocytes Percent Auto 19.3 % (18.3-44.2); Mean Corpuscular HGB Conc 30.9 g/dl (32-36); Mean Corpuscular Hemoglobin 30.9 pg (26-34); Mean Platelet Volume 9.6 fl (7.4-10.4); Monocytes Absolute Auto 0.9 K/mm3 (0.1-0.6); Monocytes Percent Auto 9.5 % (2.6-8.5); Neutrophils Absolute Auto 6.4 K/mm3 (1.3-6.7); Neutrophils Percent Auto 68.7 % (45.5-73.1); Platelet Count Result 311 k/mm3 (150-375); Red Blood Count 3.04 M/mm3 (4.2-5.4); Red Cell Distribution Width 13.3 % (11.5-14.5); White Blood Count 9.3 K/mm3 (4.5-10.0)
[2024-09-12 12:50] LABS: Alanine Aminotransferase 20 U/L (6-35); Albumin Level 4.4 g/dL (3.5-5.1); Alkaline Phosphatase 91 U/L (38-126); Anion Gap 12 mmol/L (4-12); Aspartate Amino Transferase 26 U/L (14-36); Bilirubin,Total 0.4 mg/dL (0.2-1.3); Blood Urea Nitrogen 25 mg/dL (7-17); Calcium 9.6 mg/dL (8.4-10.2); Carbon Dioxide 28 mmol/L (22-30); Chloride 98 mmol/L (98-107); Estimated Glomerular Filt Rate > 60; Glucose 125 mg/dL (65-110); Sodium 138 mmol/L (137-145)
[2024-09-12 12:53] LABS: Cholesterol 182 mg/dL (0-200); HDL Direct 55 mg/dL; Triglycerides 156 mg/dL (<150)
[2024-09-12 13:03] LABS: LDL Cholesterol Direct 95 mg/dL
== END 2024-09-12 09:56 | disposition home or self-care (01) ==
LOC: ANHLAB 09:56
PROVIDERS: PCP Internal Medicine; Visit Provider Internal Medicine Hematology & Oncology
DX: C34.90 Malignant neoplasm of unspecified part of unspecified bronchus or lung (principal); E78.00 Pure hypercholesterolemia, unspecified
CPT/HCPCS: 36415; 80053; 80061; 85025

== ENCOUNTER 2024-09-16 09:38 | Outpatient (CLI) | payer MEDICARE, SELFPAY ==
--- NOTE | ~2024-09-16 | CT_ITS ---
Clinical Indication: Lung cancer CT Scan of the Chest, Abdomen, and Pelvis with Contrast: Technique: Contiguous sections were acquired throughout the chest, abdomen, and pelvis after intraven ous administration of 100 cc of Omnipaque 350. Dose reduction technique was used on this scan by clare dunhaming automated exposure control and iterative reconstruction technique. The dose-length product (DL P) was 419.50 mGy-cm. Comparison: 05/14/2024 Findings: There is no evidence of any significant mediastinal, hilar or axillary lymphadenopathy. The mediastin al soft tissues vascular structures appear normal. Minimal right pleural effusion present. No left pleural effusion. No pericardial effusion. Status post right upper lobectomy, stable postoperative distortion right lung. Stable moderate emphys esther. Stable 5 mm left basilar pulmonary nodule. There is probable focal atelectasis or scarring at th e anterior right middle lobe. The liver, spleen, pancreas, gallbladder, adrenals and kidneys are within normal limits. There are at herosclerotic calcifications of the aorta. No lymphadenopathy. No bowel obstruction or bowel wall thickening. There is no evidence to suggest acute appendicitis. Urinary bladder is unremarkable. No pelvic mass seen. No ascites. T12 vertebroplasty noted. Impression: No evidence for active malignancy or metastatic disease. Stable 5 mm left basilar pulmonary nodule. Status post right upper lobectomy. Stable postoperative distortion and moderate emphysema. Minimal right pleural effusion. Reviewed, dictated and finalized at [facility]. QUE DEALER Impression: No evidence for active malignancy or metastatic disease. Stable 5 mm left basilar pulmonary nodule. Status post right upper lobectomy. Stable postoperative distortion and moderate emphysema. Minimal right pleural effusion.
--- OUTSIDE RECORDS SUMMARY | 2024-09-16 10:21 | XMS_ITS | CONTINUITY OF CARE DOCUMENT ---
Author Name ghada urrutia Address Unknown Organization [facility] Address [address] [place] [address] Phone [phone] Care Team Providers Care Tomographic Tech Name Role Phone Aristeo JOHNSTON, Rosa Maria Unavailable KATIE JOHNSTON, CESAR Unavailable [phone] CESAR WILSON MD Unavailable PROBLEMS Condition Status Date Provider Notes RANDEE--mild active Rosa Maria Alberts MD Rheumatoid arthritis (RA) active [place] Emphysema active Bill Oliveros GERD active Bill Oliveros Hyperlipidemia active Bill Oliveros Diabetes mellitus, type 2 active [place] Essential hypertension active Bill Oliveros COPD active Bill Oliveros Cardiology examination active Bill Oliveros Lung cancer---s/p right uppe r lobectomy with lymphnode dissection, aug 2023 active Rosa Maria Alberts MD Pulmonary hypertension, moderate active Cheo Alberts MD CAD--on CTA chest Nl stress nuc 02/25 active Rosa Maria Alberts MD Shortness of breath active Bill Oliveros IBS active Bill Oliveros Bipolar disorder active Bill Oliveros Ankylosing spondylitis active Bill Oliveros Breast cancer--1997 active Rosa Maria Alberts MD Tobacco abuse--quit active Bill Oliveros Chest pain completed - Rosa Maria Alberts MD ENCOUNTERS Date Type Provider Location Encounter Diag nosis - In-person encounter Office Visit Rosa Maria Alberts MD [facility] Cardiology examinationCOPD - In-person encounter Office Visit Rosa Maria Alberts MD [facility] - In-person encounter Office Visit Rosa Maria Alberts MD [facility] Lung cancer---s/p right upper lobectomy with lymphnode dissection, aug 2023 - In-person encounter Office Visit Rosa Maria Alberts MD [facility] Breast cancer--1997Lung cancer---s/p right upper lobectomy with lymphnode dissection, aug 2023 - In-person encounter Office Visit Rosa Maria Alberts MD [facility] - In-person encounter Office Visit Rosa Maria Alberts MD [facility] Chest pain - In-person encounter Office Visit Rosa Maria Alberts MD [facility] CAD--on CTA chest Nl stress nuc 02/25Pulmonary hypertension, moderate - In-person encounter Office Visit Rosa Maria Alberts MD [facility] Tobacco abuse--quitAnkylosing spondylitisBipolar disorderIBSShortness of breathCAD--on [...] rret blood pressure, systolic 116 mm[Hg] [facility] pulse rate 71 /min Rodrigo y blood pressure, cuff size regular rret respiratory rate E&M 16 /min [facility] Inhaled O2 2 L/min Rodrigo oxygen saturation, oximetry 93 % [facility] weight E&M 125 [lb_av] Rodrigo y height E&M 65 [in_i] Rodrigo [facility] y Body Mass Index (Ratio) [...] ntha [place] blood pressure, diastolic 85 mm[Hg] oJie nkLogic blood pressure, systolic 121 mm[Hg] Carolynn [...] blood pressure, diastolic 77 mm[Hg] St deric Williams blood pressure, systolic 103 mm[Hg] Nathanael angel Williams oxygen saturation, oximetry 93 % [facility] respiratory rate E&M 16 /min [facility] pulse rate 71 /min Or[place]idea [facility] n weight E&M 141 [lb_av] [place] [facility] n blood pressure, cuff size large St leos Williams height E&M 65 [in_i] Orquidea [place] n Body Mass Index (Ratio) 22.43 kg/m2 [...] ra Mcginnis weight E&M 135 [lb_av] Cami [place] height E&M 65 [in_i] Cami [place] Body Mass Index (Ratio) 22.63 kg/m2 Carlos Alberts MD blood pressure, cuff size large [facility] [place] blood pressure, diastolic 70 mm[Hg] Ma gerardo [place] blood pressure, systolic 140 mm[Hg] [facility] lexy [place] oxygen saturation, oximetry 96 % Erin Ordaz respiratory rate E&M 16 /min Christina ordoñez [place] pulse rate 89 /min Erin ramirez weight [...] tablet by mouth at bedtime - Rodrigoderic Baielysharon Procardia XL 30 mg tablet extended release [...] Ordaz quetiapine 200 mg tablet active Erin Ordaz leflunomide 20 mg tablet active Erin Ordaz [...] Payer name Policy type / Coverage type [place] red republican ID AARP [employer] insurance company [id number] [place] MED[place] Medicare [id number] ADVANCE DIRECTIVES Name Date DISCUSSED - NO DECISION MADE TREATMENT PLAN Date Name Performer [id number],S, Bill Diazza i [id number],S, Bill Valles i [id number],S, Bill Ahmedza i [id number],S, Bill Ahmedza i [id number],S, Bill Ahmedza i [id number],S, Bill Ahmedza i [id number],S, Bill Ahmedza i [id number],S, Bill Ahmedza i [id number],S, Bill Ahmedza i [id number],S, Bill Ahmedza i [id number],S, Bill Ahmedza i [id number],S, Bill Ahmedza i [id number],S, Bill Ahmedza i [id number],S, Bill Ahmedza i [id number],S, Bill Ahmedza i [id number],S, Bill Ahmedza i [id number],S, Bill Ahmedza i [id number],S, Bill Ahmedza i [id number],S, Bill Ahmedza i [id number],S, Bill Ahmedza i [id number],W, Rosa Maria Alberts MD [id number],S, Rosa Maria Alberts MD [id number],S, Rosa Maria Alberts MD [id number],S, Rosa Maria Alberts MD [id number],S, Rosa Maria Alberts MD [id number],S, Rosa Maria Alberts MD [id number],S, Rosa Maria Alberts MD [id number],S, Bill Ahmedza i [id number],S, Bill Ahmedza i [id number],S, Bill Ahmedza i [id number],S, Bill Ahmedza i [id number],B, Bill Ahmedza i [id number],S, Bill Ahmedza i [id number],S, Bill Ahmedza i [id number],S, Bill Ahmedza i [id number],S, Bill Ahmedza i [id number],S, Bill Ahmedza i [id number],S, Bill Ahmedza i Cardiology: H er updated [...]
--- OUTSIDE RECORDS SUMMARY | 2024-09-16 10:21 | XMS_ITS | Encounter Summary ---
Author Organization [facility] Address [address] [place] [address] Care Team Providers Care Braided Band Assembler Name Role Phone Kyrie Osuna MD Primary Care Provider [phone] Encounter Details Date Type Department Care Team (Late st Contact Info) Description 05/09/2007 Inpatient Historical [facility] Jevon Atwood MD [address] [address] Cystocele, Midline (Primary Dx) Social History Tobacco Use Types Packs/Day Years Used Date Smoking Tobacco: Never Assessed Comments Unknown Sex and Gender Information Value Date Recorded Sex Assigned at Not on file Legal Sex Female 5:28 AM PARALEGAL INSTRUCTOR Gender Identity Not on file Sexual Orientation Not on file documented as of this encounter Plan of Treatment Upcoming Encounters Date Type Department Care Team (Late st Contact Info) Description 09/27/2024 11:15 AM PARALEGAL INSTRUCTOR Office Visit [facility] Oncology and Hematology - [place] [address] [place] [address] [facility] [address] [place] [address] Tony Tariq MD [address] [facility] [address] [place] [address] documented as of this encounter [...] CARE TESTING E dited Performing Organization Address City/[facility] Co de Phone Number INTERFACE SYSTEM Refer to clinic/hospital department * POC GLUCOSE (05/11/2007 6:19 AM CDT) COMMENT, GLU POC Notified RN INTERFACE SYSTEM GLUCOSE POC 89 65 - 99 mg/dL INTERFACE SYSTEM 05/11/2007 6:19 AM CDT us Jevon Atwood MD POINT OF CARE TESTING E dited Performing Organization Address City/State/[facility] Co de Phone Number INTERFACE SYSTEM Refer to clinic/hospital department * POC GLUCOSE (05/10/2007 4:02 PM CDT) GLUCOSE POC 93 65 - 99 mg/dL INTERFACE SYSTEM 05/10/2007 4:02 PM CDT us Jevon Atwood MD POINT OF CARE TESTING E dited Performing Organization Address City/[facility] Co de Phone Number INTERFACE SYSTEM Refer to clinic/hospital department * (ABNORMAL) POC GLUCOSE (05/10/2007 12:22 PM CDT) GLUCOSE POC 105(H) 65 - 99 mg/dL INTERFACE SYSTEM 05/10/2007 12:2 2 PM CDT us Jevon Atwood MD POINT OF CARE TESTING E dited Performing Organization Address City/[facility] Co in Phone Number INTERFACE SYSTEM Refer to clinic/hospital department * POC GLUCOSE (05/10/2007 6:01 AM CDT) GLUCOSE POC 91 65 - 99 mg/dL INTERFACE SYSTEM 05/10/2007 6:01 AM CDT us Jevon Atwood MD POINT OF CARE TESTING E dited Performing Organization Address [facility] Phone Number INTERFACE SYSTEM Refer to clinic/hospital department * (ABNORMAL) POC GLUCOSE (05/09/2007 8:54 PM CDT) GLUCOSE POC 132(H) 65 - 99 mg/dL INTERFACE SYSTEM 05/09/2007 8:54 PM CDT us Jevon Atwood MD POINT OF CARE TESTING E dited Performing Organization Address City/[facility] Co de Phone Number INTERFACE SYSTEM Refer to clinic/hospital department * (ABNORMAL) POC GLUCOSE (05/09/2007 7:50 PM CDT) GLUCOSE POC 134(H) 65 - 99 mg/dL INTERFACE SYSTEM 05/09/2007 7:50 PM CDT us Jevon Atwood MD POINT OF CARE TESTING E dited Performing Organization Address City/[facility] Co de Phone Number INTERFACE SYSTEM Refer to clinic/hospital department * (ABNORMAL) POC GLUCOSE (05/09/2007 10:29 AM CDT) GLUCOSE POC 123(H) 65 - 99 mg/dL INTERFACE SYSTEM 05/09/2007 10:2 9 AM CDT us Jevon Atwood MD POINT OF CARE TESTING E dited Performing Organization Address City/[facility] Co de Phone Number INTERFACE SYSTEM Refer to clinic/hospital department * (ABNORMAL) POC GLUCOSE (05/09/2007 7:47 AM CDT) GLUCOSE POC 115(H) 65 - 99 mg/dL INTERFACE SYSTEM 05/09/2007 7:47 AM CDT us Jevon Atwood MD POINT OF CARE TESTING E dited Performing Organization Address [facility] Phone Number INTERFACE SYSTEM Refer to clinic/hospital [...] HEMATOLOGY ORDERABLES E dited Performing Organization Address [facility] Phone Number INTERFACE SYSTEM Refer to clinic/hospital [...] and non- Americans is available on the [facility] Intranet at: [email or web address] Select: Lab Policies and Procedures Select: Reference [...] documented as of this encounter Care Teams Braided Band Assembler Relationship Specialty Start Date End Date Kyrie Osuna MD [address] [address] PCP - General 02/19/09 documented as of this encounter
--- OUTSIDE RECORDS SUMMARY | 2024-09-16 10:21 | XMS_ITS | Encounter Summary ---
Author Organization [facility] Address [address] [place] [address] Care Team Providers Care Skein Yarn Dyer Helper Name Role Phone Kyrie Osuna MD Primary Care Provider [phone] Encounter Details Date Type Department Care Team (Late Contact Info) Description 09/16/[address] [facility] Oncology and Hematology - Parag [address] [place] [address] Malignant neoplasm of upper-outer quadrant of right breast in female, estrogen receptor positive (CMS/HCC) Social History Tobacco Use Types Packs/Day Years Used Date Smoking Tobacco: Former Cigarettes 2 50 0 10/05/1970 - 10/05/2020 Passive Smoke Exposure: Past Smokeless Tobacco: Never Comments:may 2018 down to \ ppd f - smoked some around holidays 2022 but not since Alcohol Use Standard Drinks/Week Comments No 0 (1 standard drink = 0.6 oz pur e alcohol) Feeling Safe Answer Date Recorded Are you in a relationship wi th someone who hurts you emotionally and/or physically? No 08/21/2023 Comments No Sex and Gender Information Value Date Recorded Sex Assigned at Not on file Legal Sex Female 5:28 AM ELECTRIC ENGINE MECHANIC Gender Identity Not on file Sexual Orientation Not on file Occupation Industry Job Start Date Job End Date Not on file Not on file Not on file Not on file documented as of this encounter Plan of Treatment Upcoming Encounters Date Type Department Care Team (Late Contact Info) Description 09/27/2024 11:15 AM ELECTRIC ENGINE MECHANIC Office Visit [facility] Oncology and Hematology - Parag [address] [place] [address] Tony Tariq MD [address] [facility] [address] [place] [address] documented as of this encounter Visit Diagnoses Diagnosis Malignant neoplasm of upper-outer quadrant of right breast in female, estrogen receptor positive (CMS/HCC) documented in this encounter Additional Health Concerns Assessment Noted Time PHQ-9 Depression Total Score: 2 10/25/19 21 3:00 PM CDT documented as of this encounter Care Teams Skein Yarn Dyer Helper Relationship Specialty Start Date End Date Kyrie Osuna MD [address] [facility] [address] [place] [address] PCP - General 02/19/09 documented as of this encounter
--- OUTSIDE RECORDS SUMMARY | 2024-09-16 10:21 | XMS_ITS | Continuity of Care Document ---
Author Organization [facility] Address [address] [place] [address] [place] [address] Phone Care Team Providers Care Supervisor Production Department Name Role Phone Parveen Hair Unavailable Unavailable Procedures Procedure Date Eye Exam & Treatment Advance Directives Directive Yes / No Effective Date File Name No Information Encounters Encounter Description Practice Location Reason(s) For Visit Diagnoses Date Provider Providers Copied on Encounter [facility], [address], [place], [place], [id number], [place] tel:[phone] [facility] No Information [address] Parveen. [address] [facility] [address], [place], [address], [place]. tel:[phone] Family History Family Member Type Diagnosis Age At Onset No Information Payers Payer name Insurance type Covered alliance party ID Authoriza tion(s) No Information Social History [...]
--- OUTSIDE RECORDS SUMMARY | 2024-09-16 10:21 | XMS_ITS | Patient Health Summary ---
Author Organization [facility] Address [address] [place] [address] Care Team Providers Care Nick Setter Name Role Phone Kyrie Osuna MD Primary Care Provider [phone] Note from [facility],non-owned Affiliates and Associated Physician Practices is amultiple site organization consisting of ambulatory clinics and hospital sitesin [place], [place], [place] and [place]. This disclosure is being madepursuant to the Care Everywhere program and may not contain all information available regarding this patient. Last updated 18.[facility] Allergies No known active allergies Medications * [...] Comments Blood Pressure 102/64 08/30/2016 3:40 PM MEDICAL DEVICE SALES CONSULTANT Pulse 65 08/04/2016 11:50 AM MEDICAL DEVICE SALES CONSULTANT Temperature 36.7 C (98 F) 08/04/2016 11:50 AM MEDICAL DEVICE SALES CONSULTANT Respiratory Rate 16 08/04/2016 11:50 AM MEDICAL DEVICE SALES CONSULTANT Oxygen Saturation 97% 08/04/2016 11:50 AM MEDICAL DEVICE SALES CONSULTANT Inhaled Oxygen Concentration - - Weight 41.7 kg (92 lb) 08/30/2016 3:40 PM MEDICAL DEVICE SALES CONSULTANT Height 165.1 cm (5' 5 ) 08/30/2016 3:40 PM MEDICAL DEVICE SALES CONSULTANT Body Mass Index 15.31 08/30/2016 3:40 PM MEDICAL DEVICE SALES CONSULTANT Procedures * CARDIAC RHYTHM STRIP ORDER(Performed 08/09/2016) [...] CARDIAC RHYTHM STRIP ORDER (08/09/2016 7:53 PM MEDICAL DEVICE SALES CONSULTANT) Narrative 08/09/2016 7:53 PM MEDICAL DEVICE SALES CONSULTANT Ordered by an unspecified provider. Scanned Document CARDIAC SERVICES ORD ERABLES * (ABNORMAL) GLUCOSE - POINT OF CARE (08/04/2016 10:03 AM MEDICAL DEVICE SALES CONSULTANT) Only the most recent of2 resultswithin the time period is included. Glucose WB/POC 108(H) 70 - 106 mg/dL 08/04/2016 10:05 AM MEDICAL DEVICE SALES CONSULTANT [facility] Blood BLOOD SPECIMEN / Unknown 08/04/2016 10:03 AM MEDICAL DEVICE SALES CONSULTANT 08/04/2016 10:05 AM MEDICAL DEVICE SALES CONSULTANT Guero Nicole MD LAB - POINT OF CARE ORDERABLES [facility] [address] [place] [address] * GROSS + MICRO EXAM (STL) (08/04/2016 9:34 AM MEDICAL DEVICE SALES CONSULTANT) Case Report Surgical Pathology Report Case: [id number] Authorizing Provider: Guero Nicole MD Collected: 08/04/2016 09:34 AM Ordering Location: [facility] Received: 08/04/2016 10:51 AM Pathologist: Vanda Cabrera MD Specimen: Bartholin Cyst, bartholin cyst wall 08/05/2016 4:30 PM MEDICAL DEVICE SALES CONSULTANT [facility] Final Diagnosis 1. Bartholin's cyst, right, resection: -- Bartholin's cyst /[facility] 08/05/2016 4:30 PM [facility] Gross Description The specimen is received a formalin-filled container, labeled with the patient s name, Mili Bruno, and additionally labeled, B artholin cyst, The specimen is a semicircular-shaped piece of rubbery soft tissue with [id number]-[id number] mucosal surface and a rough and ragged deep surface measuring 2 x 2 x 1.7 cm. The specimen is serially sectioned and insurance follow up representative section is submitted in cassette A1. [place]/na 08/05/2016 4:30 PM MEDICAL DEVICE SALES CONSULTANT [facility] Microscopic Description Sections reveal benign cyst lined by columnar and squamous epithelium. The cyst is surrounded by a few benign ductules. Mild chronic inflammation is also identified. There is no evidence of dysplasia or malignancy. /[facility] 08/05/2016 4:30 PM [facility] Disclaimer All histochemical and/or immunohistochemical results are interpreted with controls that demonstrate appropriate staining reactions before reporting results. Note on use of immunocytochemistry reagents: This test was developed and its performance characteristic determined by [facility], Department of Laboratory Medicine. It has not been cleared or approved by the U.S. Food and Drug Administration (FDA). The FDA has determined that such clearance or approval is not necessary. The test is used for clinical purpose. It should not be regarded as investigational or for research. This laboratory is certified to perform high complexity testing. 08/05/2016 4:30 PM [facility] Embedded Images 08/05/2016 4:30 PM [facility] Pathology/Cytolo gy CYST OF BARTHOLIN'S GLAND DUCT / Unknown 08/04/2016 9:34 AM MEDICAL DEVICE SALES CONSULTANT 08/04/2016 10:51 AM MEDICAL DEVICE SALES CONSULTANT Guero Nicole MD LAB - PATHOLOGY/CYT OLOGY ORDERABLES Performing Organization Address City/State/[facility] Co de Phone Number [facility] [address] [place] [address] * (ABNORMAL) CBC W/O DIFFERENTIAL (08/04/2016 7:45 AM MEDICAL DEVICE SALES CONSULTANT) WBC 9.1 4.4 - 10.7 x10E9/L 08/04/2016 8:14 AM [facility] RBC 3.34(L) 3.80 - 5.20 x10E12/L 08/04/2016 8:14 AM [facility] Hemoglobin 10.8(L) 12.0 - 15.6 gm/dL 08/04/2016 8:14 AM [facility] Hematocrit 31.8(L) 35.9 - 45.5 % 08/04/2016 8:14 AM [facility] MCV 95.2 80.7 - 98.3 fl 08/04/2016 8:14 AM [facility] MCH 32.3 26.7 - 34.0 pg 08/04/2016 8:14 AM [facility] MCHC 34.0 30.8 - 35.9 gm/dL 08/04/2016 8:14 AM [facility] Platelet Count 322 153 - 416 x10E9/L 08/04/2016 8:14 AM [facility] RDW-CV 13.7 12.1 - 14.9 % 08/04/2016 8:14 AM [facility] MPV 10.6 9.4 - 12.9 fl 08/04/2016 8:14 AM MEDICAL DEVICE SALES CONSULTANT [facility] Blood BLOOD SPECIMEN / Unknown Venipuncture / Unknown 08/04/2016 7:45 AM MEDICAL DEVICE SALES CONSULTANT 08/04/2016 8:01 AM MEDICAL DEVICE SALES CONSULTANT Guero Nicole MD LAB - HEMATOLOGY OR DERABLES Performing Organization Address City/[facility]/ZIP Co de Phone Number [facility] [address] [place] [address] * PATHOLOGY/GENETICS HISTORICAL-ONBASE (08/04/2016) 08/04/2016 Historical Provider LAB - CHEMISTRY O SHELBY Performing Organization Address [facility] Co de Phone Number [facility] [address] * LAB HISTORICAL RESULTS-ONBASE (08/04/2016) 08/04/2016 Historical Provider LAB - CHEMISTRY O SHELBY Performing Organization Address [facility] Co de Phone Number [facility] [address] * PH FLUID - POCT (AMB) U (08/05/2015) pH Vaginal 5.0 [place] Vaginal swab (specimen) 08/05/2015 Zoraida Rogers FABRIC AWNING REPAIRER-SALES APPRENTICE LAB - POINT OF CARE ORDERABLES Performing Organization Address City/[facility]/ZIP Co de Phone Number [facility] * WET PREP - POINT OF CARE (AMB) U (08/05/2015) pH Wet Prep 5.0 [facility] Yeast Wet Prep n [facility] Trichomonas Wet Prep n [facility] Bacteria Wet Prep n [facility] Whiff Test n [place] 08/05/2015 Zoraida Rogers FABRIC AWNING REPAIRER-SALES APPRENTICE LAB - POINT OF CARE ORDERABLES [facility] * FUNGUS HEATHER - POINT OF CARE (AMB) [facility] (08/05/2015) HEATHER Prep n [facility] Fluid specimen (specimen) 08/05/2015 Zoraida Rogers FABRIC AWNING REPAIRER-SALES APPRENTICE LAB - POINT OF CARE ORDERABLES [facility] * EMG WITH NERVE CONDUCTION STUDY (03/13/2014) Madhu Limon MD NEUROLOGY ORDERABLES * CT ABDOMEN AND PELVIS WITH IV CONTRAST [[id number]] (08/21/2013 12:52 PM MEDICAL DEVICE SALES CONSULTANT) Anatomical Region Laterality Modality Abdomen, Pelvis Computed Tomogra phy 08/21/2013 1:13 PM MEDICAL DEVICE SALES CONSULTANT Impressions 08/21/2013 3:14 PM MEDICAL DEVICE SALES CONSULTANT No mass or focal inflammatory process is seen in the abdomen or pelvis. An indeterminate, noncalcified pulmonary nodule is present at the left lower lobe. CT followup is recommended as discussed above. Edited by Dian Rivera on 08/21/2013 2:57 PM Narrative 08/21/2013 3:14 PM MEDICAL DEVICE SALES CONSULTANT CT Abdomen with Contrast Indication: Severe suprapubic [...] ORDERABLES * CREATININE BLOOD (08/16/2013 12:49 PM MEDICAL DEVICE SALES CONSULTANT) Creatinine 0.55 0.50 - 1.30 mg/dL 08/16/2013 1:[address] [facility] eGFR by MDRD >60 >60 mL/min/1.7 3m2 08/16/2013 1:[address] [facility] eGFR by MDRD >60 >60 mL/min/1.7 3m2 08/16/2013 1:[address] [facility] Blood BLOOD SPECIMEN / Unknown Lab Venipuncture / Unknown 08/16/2013 12:49 PM MEDICAL DEVICE SALES CONSULTANT 08/16/2013 12:53 PM MEDICAL DEVICE SALES CONSULTANT Dawna De La Cruz MD LAB - CHEMISTRY ORDERABLES [facility] [address] [place] [address] Care Teams Nick Setter Relationship Specialty Start Date End Date Kyrie Osuna MD PCP - General Internal Medicine 08/16/13
--- OUTSIDE RECORDS SUMMARY | 2024-09-16 10:21 | XMS_ITS | Referral Summary ---
Author Organization [facility] Address [address] [address] Care Team Providers Care Corrugator Operator Name Role Phone Kyrie Osuna MD Primary Care Provider [phone] Source Comments [facility],non-owned Affiliates and Associated Physician Practices is amultiple site organization consisting of ambulatory clinics and hospital sitesin [place], [place], [place] and [place]. This disclosure is being madepursuant to the Care Everywhere program and may not contain all information available regarding this patient. Last updated 18.[facility] Allergies No known active allergies Medications * [...] Comments Blood Pressure 102/64 08/30/2016 3:40 PM SEARCH ENGINE MARKETING MANAGER Pulse 65 08/04/2016 11:50 AM SEARCH ENGINE MARKETING MANAGER Temperature 36.7 C (98 F) 08/04/2016 11:50 AM SEARCH ENGINE MARKETING MANAGER Respiratory Rate 16 08/04/2016 11:50 AM SEARCH ENGINE MARKETING MANAGER Oxygen Saturation 97% 08/04/2016 11:50 AM SEARCH ENGINE MARKETING MANAGER Inhaled Oxygen Concentration - - Weight 41.7 kg (92 lb) 08/30/2016 3:40 PM SEARCH ENGINE MARKETING MANAGER Height 165.1 cm (5' 5 ) 08/30/2016 3:40 PM SEARCH ENGINE MARKETING MANAGER Body Mass Index 15.31 08/30/2016 3:40 PM SEARCH ENGINE MARKETING MANAGER Functional Status Functional Status Response Date of [...] of Treatment Not on file Care Teams Corrugator Operator Relationship Specialty Start Date End Date Kyrie Osuna MD PCP - General Internal Medicine 08/16/13
--- OUTSIDE RECORDS SUMMARY | 2024-09-16 10:21 | XMS_ITS | Encounter Summary ---
Author Organization [facility] Address [address] [place] [address] Phone Care Team Providers Care Factory Engineer Name Role Phone Kyrie Osuna MD Primary [...] on file Legal Sex Female 8:06 PM BROKER ASSISTANT Gender Identity Not on file Sexual Orientation [...] on filedocumented in this encounter Care Teams Factory Engineer Relationship Specialty Start Date End Date Kyrie Osuna MD PCP - General 11/28/16 documented as of this encounter
--- OUTSIDE RECORDS SUMMARY | 2024-09-16 10:21 | XMS_ITS ---
Author Organization [facility] [place] Address [address] [place] [address] Phone Care Team Providers Care Relocation Services Specialist Name Role Phone Kyrie Osuna MD Primary Care Provider [phone] Active Problems Patient Care Coordination No te Formatting of this note migh t be different from the original. Primary Care: Kyrie Osuna MD Referring Provider: Trice Velez MD [address] [place] [address] Other: Dr Irma James Problem Noted Date [...]
--- OUTSIDE RECORDS SUMMARY | 2024-09-16 10:21 | XMS_ITS | Referral Summary ---
Author Organization [facility] Address [address] [place] [address] Care Team Providers Care Solar Applications Development Engineer Name Role Phone Kyrie Osuna MD [...] (05/21/2018): Added automatically from request for surgery [id number] Body mass index (BMI) 19.9 or less, [...] on file Legal Sex Female 8:06 PM LIPCOAT SPRAYER Gender Identity Not on file Sexual Orientation [...] on file Medical Devices Explanted Type Area Blindstitch Machine Operator Device Identifier Shelf Expiration Date Model / Serial / Lot Breast Implant-Silicone Explanted:Qty: 1 on 01/17/2018 at [facility] Left: Breast Other Description:500cc -Unknown m anufacturer Silicone Breast Implant Explanted:Qty: 1 on 01/17/2018 at [facility] Right: Breast Other Description:Unknown size and unknown management architect. Procedures Procedure Name Priority Date/Time Associated Diagnosis [...] Female Attending MD: Paulette Gore M.D. Room: [facility] ENDOSCOPY ROOM 01 Note Status: [...] The scope was passed under direct vision.The [id number] was introduced through the anusand advanced to [...] business hours - Please call theNurse Coordinator: [phone] After hours, evening, nights, weekends and holidays- Please call the hospital transmission operator at and ask for the GI fellow part time receptionist. - . Attending Participation: I personally performed the entire procedure. Electronically signed by Paulette Gore M.D. Paulette Gore M.D. 12/31/2021 8:55:36 AM Number of Addenda: 0 Note Initiated On: 12/31/2021 8:17 AM us Paulette Gore MD ENDOSCOPY PROCEDURE S Final Result from Last 3 Months or Most Recently Relevant to Health Maintenance Insurance MEDICARE [facility] ACCESS CHOICE MEDICARE [facility] Advance Directives For more information, please contact: [phone] * Full Code (Latest Code Status on File) Date Activated Date Inactivated Comments 12/31/2021 7:40 AM 12/31/2021 1:41 PM Care Teams Solar Applications Development Engineer Relationship Specialty Start Date End Date Kyrie Osuna MD [facility] - General 11/28/16
--- OUTSIDE RECORDS SUMMARY | 2024-09-16 10:21 | XMS_ITS | Clinical Summary ---
Author Organization [facility] [place] Address [address] [place] [address] Phone Care Team Providers Care Rabble Furnace Tender Name Role Phone Kyrie Osuna MD Primary Care Provider [phone] Allergies No known active allergies Medications alprazolam [...] Temperature. 4 Active naloxone (NARCAN) 4 mg/spray Continental, Non-Aerosol EMERGENCY USE ONLY: Administer 1 spray (4 mg) in one nostril one time. May repeat in alternating nostrils every 2-3 min until responsive or EMS arrives. 2 Each 3 08/25/2023 12:24 PM JEWEL SORTER 4 Active ondansetron (ZOFRAN ODT) 8 mg [...] Osuna MD Referring Provider: Trice Velez MD [address] [place] [address] Other: Dr Irma James Problem Noted Date [...] Encounters Date Type Department Care Team Description 09/16/2024 Orders Only [facility] Oncology and Hematology - [place] [address] [place] [address] Malignant neoplasm of upper-outer quadrant of right breast in female, estrogen receptor positive (CMS/HCC) 09/02/2024 Orders Only [facility] Oncology and Hematology - [place] [address] [place] [address] Malignant neoplasm of upper-outer quadrant of right breast in female, estrogen receptor positive (CMS/HCC) 08/19/2024 Orders Only [facility] Oncology and Hematology - [place] [address] [place] [address] Malignant neoplasm of upper-outer quadrant of right breast in female, estrogen receptor positive (CMS/HCC) 08/05/2024 Orders Only [facility] Oncology and Hematology - [place] [address] [place] [address] Malignant neoplasm of upper-outer quadrant of right breast in female, estrogen receptor positive (CMS/HCC) 07/22/2024 Orders Only [facility] Oncology and Hematology - [place] [address] [place] [address] Malignant neoplasm of upper-outer quadrant of right breast in female, estrogen receptor positive (CMS/HCC) 07/08/2024 Orders Only [facility] Oncology and Hematology - [place] [address] [place] [address] Malignant neoplasm of upper-outer quadrant of right breast in female, estrogen receptor positive (CMS/HCC) 06/24/2024 Orders Only [facility] Oncology and Hematology - [place] [address] [place] [address] Malignant neoplasm of upper-outer quadrant of right [...] on file Legal Sex Female 5:28 AM JEWEL SORTER Gender Identity Not on file Sexual Orientation [...] st Contact Info) Description 09/27/2024 11:15 AM JEWEL SORTER Office Visit [facility] Oncology and Hematology - [place] [address] [address] [facility] [address] [place] [address] Tony Tariq MD [address] [facility] [address] [place] [address] Health Maintenance Due Date Last [...] Completed 04/21/2020 Medical Devices Implanted Type Area Hedis Nurse Device Identifier Shelf Expiration Date Model / Serial / Lot Sealant Progel Pleural 4ml [id number] - [id number] Implanted:Qty : 1 on 08/21/2023 by Pasquale Gillis MD at [facility] Tissue Right: Chest BARD DAVOL [id number] 02/26/2025 [id number] / / [id number] Cement-01/11/20 Implanted:Qty : 1 on 01/11/2024 by Sridhar Lundy MD Spine Thoracic 08/06/2026 [id number] / / [id number] Description:Kyphon cement im planted on 01/11/[address] Lundy T12 Procedures Procedure Name Priority Date/Time Associated Diagnosis Comments MAMMOGRAM REPORT Routine 01/16/2024 4:00 PM CDT HEMOGLOBIN A1C Routine 08/17/2023 9:31 AM JEWEL SORTER from Last 3 Months or Most Recently Relevant to Health Maintenance Results * MAMMOGRAM REPORT (01/16/2024 4:00 PM CDT) Anatomical Region Laterality Modality Other Tony Tariq MD MAMMO ORDERABLES Final Result * (ABNORMAL) HEMOGLOBIN A1C (08/17/2023 9:31 AM JEWEL SORTER) HEMOGLOBIN A1C 5.7(H) <5.7 % 08/17/2023 11:04 AM JEWEL SORTER [employer] [facility] EST. AVG GLUCOSE, A1C 117 mg/dL 08/17/2023 11:04 AM JEWEL SORTER [facility] [employer] [facility] Blood Venipuncture / Unknown 08/17/2023 9:31 AM JEWEL SORTER 08/17/2023 10:24 AM JEWEL SORTER Narrative [facility] - 08/17/2023 11:04 AM JEWEL SORTER HGB A1C INTERPRETATION NORMAL: <5.7% PRE-DIABETES: 5.7 - 6.4% DIABETES: 6.5% OR GREATER Hasmukh Sommer PA-C CHEMISTRY ORDERABLES F inal Result [facility] [employer] [facility] [id number] [address] [place] [address] from Last 3 Months or Most Recently Relevant to Health Maintenance Insurance MEDICARE PART A AND B [facility] SUPP [id number] [employer] Medicare Part D MEDICARE PART A AND B [facility] [id number] [place] [id number] Advance Directives For more information, please contact: [phone] * Full Code (Latest Code Status on [...] 8:26 AM 11/02/2010 3:41 PM Care Teams Rabble Furnace Tender Relationship Specialty Start Date End Date Kyrie Osuna MD [address] [facility] [address] [place] [address] PCP - General 02/19/09
--- OUTSIDE RECORDS SUMMARY | 2024-09-16 10:21 | XMS_ITS | Clinical Summary ---
Author Organization [facility] Address [address] [place] [address] Care Team Providers Care Information Director Name Role Phone Kyrie Osuna MD Primary [...] (05/21/2018): Added automatically from request for surgery [id number] Body mass index (BMI) 19.9 or less, [...] DM type 2 (diabetes mellitus, type 2) ([facility]) Family History Medical History Relation Name Comments [...] on file Legal Sex Female 8:06 PM PATIENT SUPPORT PARTNER Gender Identity Not on file Sexual Orientation [...] Discontinued 12/31/2021 Medical Devices Explanted Type Area [place] Guide Device Identifier Shelf Expiration Date Model / Serial / Lot Breast Implant-Silicone Explanted:Qty: 1 on 01/17/2018 at [facility] Left: Breast Other Description:500cc -Unknown m anufacturer Silicone Breast Implant Explanted:Qty: 1 on 01/17/2018 at [facility] Right: Breast Other Description:Unknown size and unknown sheep herder. Procedures Procedure Name Priority Date/Time Associated Diagnosis [...] Female Attending MD: Paulette Gore M.D. Room: [facility] ENDOSCOPY ROOM 01 Note Status: Finalized Procedure: [...] The scope was passed under direct vision.The [id number] was introduced through the anusand advanced to [...] business hours - Please call theNurse Coordinator: [phone] After hours, evening, nights, weekends and holidays- Please call the hospital silver recovery operator at and ask for the GI fellow plant protection guard. - . Attending Participation: I personally performed the entire procedure. Electronically signed by Paulette Gore M.D. Paulette Gore M.D. 12/31/2021 8:55:36 AM Number of Addenda: 0 Note Initiated On: 12/31/2021 8:17 AM Paulette Gore MD ENDOSCOPY PROCEDURE S Final Result from Last 3 Months or Most Recently Relevant to Health Maintenance Insurance MEDICARE [facility] Merchant View CHOICE MEDICARE [facility] Advance Directives For more information, please contact: [phone] * Full Code (Latest Code Status on File) Date Activated Date Inactivated Comments 12/31/2021 7:40 AM 12/31/2021 1:41 PM Care Teams Information Director Relationship Specialty Start Date End Date Kyrie Osuna MD PCP - General 11/28/16
--- OUTSIDE RECORDS SUMMARY | 2024-09-16 10:21 | XMS_ITS | Clinical Summary ---
Author Organization [email or web address] Address [address] [place] [address] Care Team Providers Care Hazardous Waste Material Technician Name Role Phone Kyrie Osuna MD Primary Care Provider [phone] Source Comments [email or web address],non-owned Affiliates and Associated Physician Practices is amultiple site organization consisting of ambulatory clinics and hospital sitesin [place], [place], [place] and [place]. This disclosure is being madepursuant to the Care Everywhere program and may not contain all information available regarding this patient. Last updated [employer] Allergies No known active allergies Medications * [...] Comments Blood Pressure 102/64 08/30/2016 3:40 PM SENIOR CORPORATE STRATEGY MANAGER Pulse 65 08/04/2016 11:50 AM SENIOR CORPORATE STRATEGY MANAGER Temperature 36.7 C (98 F) 08/04/2016 11:50 AM SENIOR CORPORATE STRATEGY MANAGER Respiratory Rate 16 08/04/2016 11:50 AM SENIOR CORPORATE STRATEGY MANAGER Oxygen Saturation 97% 08/04/2016 11:50 AM SENIOR CORPORATE STRATEGY MANAGER Inhaled Oxygen Concentration - - Weight 41.7 kg (92 lb) 08/30/2016 3:40 PM SENIOR CORPORATE STRATEGY MANAGER Height 165.1 cm (5' 5 ) 08/30/2016 3:40 PM SENIOR CORPORATE STRATEGY MANAGER Body Mass Index 15.31 08/30/2016 3:40 PM SENIOR CORPORATE STRATEGY MANAGER Plan of Treatment Health Maintenance Due Date [...] age to complete this topic Care Teams Hazardous Waste Material Technician Relationship Specialty Start Date End Date Kyrie Osuna MD PCP - General Internal Medicine 08/16/13
--- OUTSIDE RECORDS SUMMARY | 2024-09-16 10:21 | XMS_ITS | Encounter Summary ---
Author Organization [facility] Address [address] [facility] Attn: [place] [address] Care Team Providers Care Head Of Commission Department Name Role Phone Kyrie Osuna MD Primary Care Provider [phone] Encounter Details Date Type Department Care Team (Late st Contact Info) Description 04/20/2007 Outpatient Historical Edilberto Messer MD [facility] [address] [facility] [address] [place] [address] Social History Tobacco Use Types Packs/Day Years Used Date Smoking Tobacco: Never Assessed Comments Unknown Sex and Gender Information Value Date Recorded Sex Assigned at Not on file Legal Sex Female 5:28 AM INGREDIENT HANDLER Gender Identity Not on file Sexual Orientation Not on file documented as of this encounter Plan of Treatment Upcoming Encounters Date Type Department Care Team (Late Contact Info) Description 09/27/2024 11:15 AM INGREDIENT HANDLER Office Visit [facility] Oncology and Hematology - [place] [address] [facility] [address] [place] [address] Tony Tariq MD [address] [facility] [address] [place] [address] documented as of this encounter Visit Diagnoses Not on filedocumented in this encounter Additional Health Concerns Infection Onset Date Last Indicated Resolved Time R/O COVID-19 10/31/2019 10/31/2019 11/01/2019 4:47 PM CDT documented as of this encounter Care Teams Head Of Commission Department Relationship Specialty Start Date End Date Kyrie Osuna MD [address] [facility] [address] [place] [address] PCP - General 02/19/09 documented as of this encounter
== END 2024-09-16 09:39 | disposition home or self-care (01) ==
PROVIDERS: PCP Internal Medicine; Visit Provider Internal Medicine Hematology & Oncology
DX: C50.411 Malignant neoplasm of upper-outer quadrant of right female breast (principal); Z17.0 Estrogen receptor positive status [ER+]; R91.1 Solitary pulmonary nodule; J90 Pleural effusion, not elsewhere classified; Z90.2 Acquired absence of lung [part of]
CPT/HCPCS: 71260; 74177; Q9967

== ENCOUNTER 2025-01-20 09:06 | Outpatient (CLI) | payer MEDICARE, SELFPAY ==
--- OUTSIDE RECORDS SUMMARY | 2025-01-20 09:31 | XMS_ITS ---
Author Organization [facility] [place] Address [address] [place] [address] Phone Care Team Providers Care Sql Server Bi Developer Name Role Phone Kyrie Osuna MD Primary Care Provider [phone] Active Problems Patient Care Coordination No te Formatting of this note migh t be different from the original. Primary Care: Kyrie Osuna MD Referring Provider: Trice Velez MD [address] [place] [address] Other: Dr Irma James Problem Noted Date [...]
--- OUTSIDE RECORDS SUMMARY | 2025-01-20 09:31 | XMS_ITS | Continuity of Care Document ---
Author Organization [facility] Address [address] [place] [address] [place] [address] Phone Care Team Providers Care Bull Fiddle Player Name Role Phone Parveen Hair Unavailable Unavailable Procedures Procedure Date Eye Exam & Treatment Advance Directives Directive Yes / No Effective Date File Name No Information Encounters Encounter Description Practice Location Reason(s) For Visit Diagnoses Date Provider Providers Copied on Encounter [facility], [address], [place], [place], [id number], [place] tel:[phone] SEC [facility] No Information [address] Laxmi Parveen. [address] [facility] [address], [place], [address], [place]. tel:[phone] Family History Family Member Type Diagnosis Age [...]
--- OUTSIDE RECORDS SUMMARY | 2025-01-20 09:31 | XMS_ITS | CONTINUITY OF CARE DOCUMENT ---
Author Name ghada urrutia Address Unknown Organization [facility] Address [address] [place] [address] Phone [phone] Care Team Providers Care Samples And Repairs Preparer Name Role Phone Aristeo JOHNSTON, Rosa Maria Unavailable [phone] KATIE JOHNSTON, CESAR Unavailable [phone] CESAR WILSON MD Unavailable PROBLEMS Condition Status Date Provider Notes RANDEE--mild active Rosa Maria Alberts MD Rheumatoid arthritis (RA) active Bill paez Emphysema active Bill Ahdarazai GERD active Bill Ahmonty Hyperlipidemia active Bill Oliveros Diabetes mellitus, type 2 active Bill paez Essential hypertension active Bill Oliveros Chest pain completed - Rosa Maria Alberts MD Tobacco abuse--quit active Bill Oliveros Breast cancer--1997 active Rosa Maria Alberts MD Ankylosing spondylitis active Bill Oliveros Bipolar disorder active Bill Oliveros IBS active Bill Oliveros Shortness of breath active Bill Oliveros CAD--on CTA chest Nl stress nuc 02/25 active Rosa Maria Alberts MD Pulmonary hypertension, moderate active Cheo Alberts MD Lung cancer---s/p right uppe r lobectomy with lymphnode dissection, aug 2023 active Rosa Maria Alberts MD Cardiology examination active Bill Oliveros COPD active Bill Oliveros ENCOUNTERS Date Type Provider Location Encounter Diag nosis - In-person encounter Office Visit Rosa Maria Alberts MD [facility] Cardiology examinationCOPD - In-person encounter Office Visit Rosa Maria Alberts MD [facility] - In-person encounter Office Visit Rosa Maria Alberts MD [facility] Lung cancer---s/p right upper lobectomy with lymphnode dissection, aug 2023 - In-person encounter Office Visit Rosa Maria Alberts MD [facility] Breast cancer--1997Lung cancer---s/p right upper lobectomy with lymphnode dissection, aug 2023 - In-person encounter Office Visit Rosa Maria Alberts MD [facility] - In-person encounter Office Visit Rosa Maria Alberts MD [facility] Chest pain - In-person encounter Office Visit Rosa Maria Alberts MD [facility] CAD--on CTA chest Nl stress nuc 02/25Pulmonary hypertension, moderate - In-person encounter Office Visit Rosa Maria Alberts MD [facility] Tobacco abuse--quitAnkylosing spondylitisBipolar disorderIBSShortness of breathCAD--on [...] rret blood pressure, systolic 116 mm[Hg] Giovanni [facility] pulse rate 71 /min Rodrigo y blood pressure, cuff size regular rret respiratory rate E&M 16 /min [facility] Inhaled O2 2 L/min Rodrigo oxygen saturation, oximetry 93 % [facility] weight E&M 125 [lb_av] Rodrigo y height E&M 65 [in_i] Rodrigo [facility] y Body Mass Index (Ratio) 22.63 kg/m2 Maynor jeimy Borrego blood pressure, diastolic 69 mm[Hg] Jeimy shannon [place] blood pressure, systolic 96 mm[Hg] Any chely [place] oxygen saturation, oximetry 94 % Ericka De La [place] pulse rate 59 /min Erickachely [place] La [place] blood pressure, cuff size large Jeimy oretga Jono weight E&M 136 [lb_av] Ericka Jono [...] blood pressure, diastolic 77 mm[Hg] St deric [place] blood pressure, systolic 103 mm[Hg] Nathanael angel [place] oxygen saturation, oximetry 93 % [facility] respiratory rate E&M 16 /min Aron [facility] pulse rate 71 /min [facility] n weight E&M 141 [lb_av] [facility] n blood pressure, cuff size large St leos [place] height E&M 65 [in_i] Orquidea [facility] n Body Mass Index (Ratio) 22.43 kg/m2 [...] Alberts MD pulse rate 62 /min Cami Cmginnis blood pressure, diastolic 100 mm[Hg] Sa ra Mcginnis blood pressure, systolic 170 mm[Hg] Raymon a Mcginnis respiratory rate E&M 18 /min Cami Si ms oxygen saturation, oximetry 94 % Cami Mcginnis blood pressure, cuff size regular Sa ra Mcginnis weight E&M 135 [lb_av] Cami [place] height E&M 65 [in_i] Cami [place] Body Mass Index (Ratio) 22.63 kg/m2 Carlos Alberts MD blood pressure, cuff size large [facility] [place] blood pressure, diastolic 70 mm[Hg] Ny gerardo [place] blood pressure, systolic 140 mm[Hg] [facility] lexy [place] oxygen saturation, oximetry 96 % Erin Ordaz respiratory rate E&M 16 /min Christina ordoñez [place] pulse rate 89 /min Erin ramirez weight [...] Payer name Policy type / Coverage type [place] [employer] party ID AARP [employer] insurance company [id number] [place] Medicare [id number] ADVANCE DIRECTIVES Name Date DISCUSSED - NO DECISION MADE TREATMENT PLAN Date Name Performer [id number],S, Bill Diazza i [id number],S, Bill Valles i [id number],S, Bill Ahmedza i [id number],S, Bill Ahmedza i [id number],S, Bill Ahmedza i [id number],S, Bill Ahmedza i [id number],S, Bill Ahmedza i [id number],S, Bill Ahmedza i [id number],S, Bill Ahmedza i [id number],S, Bill Ahmedza i [id number],S, Bill Ahmedza i [id number],S, Bill Ahmedza i [id number],S, Bill Ahmedza i [id number],S, Bill Ahmedza i [id number],S, Bill Ahmedza i [id number],S, Bill Ahmedza i [id number],S, Bill Ahmedza i [id number],S, Bill Ahmedza i [id number],S, Bill Ahmedza i [id number],S, Bill Ahmedza i [id number],W, Rosa Maria Alberts MD [id number],S, Rosa Maria Alberts MD [id number],S, Rosa Maria Alberts MD [id number],S, Rosa Maria Alberts MD [id number],S, Rosa Maria Alberts MD [id number],S, Rosa Maria Alberts MD [id number],S, Rosa Maria Alberts MD [id number],S, Bill Ahmedza i [id number],S, Bill Ahmedza i [id number],S, Bill Ahmedza i [id number],S, Bill Ahmedza i [id number],B, Bill Ahmedza i [id number],S, Bill Ahmedza i [id number],S, Bill Ahmedza i [id number],S, Bill Ahmedza i [id number],S, Bill Ahmedza i [id number],S, Bill Ahmedza i [id number],S, Bill Ahmedza i Cardiology: H er updated [...] by mouth every day at night Bill Joezaawdoa Cardiology: B P today: 96/69 P rior [...]
--- OUTSIDE RECORDS SUMMARY | 2025-01-20 09:31 | XMS_ITS | Data Portability ---
Author Organization [facility] [employer], Main Office Address [address] [place] [address] Assessment No assessment recorded. Plan of Treatment Reminders Order Date Submit Date Provider Last Modified By Organization Details Last Modified Time Details Appointments None recorded . Lab lipid panel, serum 025 11/28/19 25 [facility], [address] [place], [address], 5 14:24:58 CMP, serum or plasma 025 11/28/19 25 [email or web address] [facility], [address] [place], [address], 5 14:24:58 CBC w/ auto diff 025 11/28/19 25 [email or web address] [facility], [address] [place], [address], 5 14:24:59 lipid panel, serum 024 07/22/20 24 [email or web address] [facility], [address] [place], [address], 5 17:52:11 CMP, serum or plasma 024 07/22/20 24 [email or web address] [facility], [address] [place], [address], 5 17:52:11 CBC w/ auto diff 024 07/22/20 24 [email or web address] [facility], [address] [place], [address], 17:52:11 Referral None recorded . Procedures None recorded . Surgeries None recorded . Imaging None recorded . Medication Orders None recorded . Patient TargetsNo targets recorded. Patient Instructions Encounter Date Encounter Id Patient Instructions Last Modified By Organization Details Last Modified Time 10/11/2023 [id number] Follow-up hypertension, carcinoma breast and lung. Clinically [...] with voice recognition software. Occasional wrong-word or s ound-a-like substitutions may have occurred due to the inherent limitations of voice recognition software. Read the chart carefully and recognize, using context, where substitutions have occurred. Next Appt: 2 Months Approximate Date: 12/10/2023 [email or web address] Not available 10/11/2023 16:12:12 12/19/2023 [id number] Follow-up from recent hospitalization for carcinoma of the lung as well as a fractured vertebrae as a result of a fall. The patient is doing reasonably well at this time. Is in the process of being evaluated for additional metastatic disease. Has a scheduled PET scan later in the week. Is followed by Oncology up in [facility]. Is in need of the wheelchair as [...] with voice recognition software. Occasional wrong-word or s ound-a-like substitutions may have occurred due to the inherent limitations of voice recognition software. Read the chart carefully and recognize, using context, where substitutions have occurred. [email or web address] Not available 12/19/2023 11:10:09 03/25/2024 [id number] Follow-up essent ial hypertension, hyperlipidemia, type 2 [...] with voice recognition software. Occasional wrong-word or s ound-a-like substitutions may have occurred due to the inherent limitations of voice recognition software. Read the chart carefully and recognize, using context, where substitutions have occurred. [email or web address] Not available 03/25/2024 15:52:13 07/22/2024 [id number] Follow-up for hypertension, hyperlipidemia, pulmonary emphysema, carcinoma [...] with voice recognition software. Occasional wrong-word or s ound-a-like substitutions may have occurred due to the inherent limitations of voice recognition software. Read the chart carefully and recognize, using context, where substitutions have occurred. Created: Kyrie Osuna M.D. 07.22.2024 10:49 AM [email or web address] Not available 07/22/2024 11:49:58 11/27/2024 [id number] Emphysema, hypertension, hyperlipidemia, GERD, carcinoma of the breast and carcinoma lung. Will check a CBC and CMP. And will also check a lipid panel. Will continue on current Rx check back in four months Follow Up: 4 Months Approximate Date: 03/27/2025 Portions of record are template driven. When necessary additional context will be provided. Additionally some portions have been created with voice recognition software. Occasional wrong-word or s ound-a-like substitutions may have occurred due to the inherent limitations of voice recognition software. Read the chart carefully and recognize, using context, where substitutions may have occurred. Created: Kyrie Osuna M.D. 11.27.2024 10:39 AM [email or web address] Not available 11/27/2024 11:39:11 Reason for Referral None Reported. Results Created Date Observation Date Name Description Value Unit Range Abnormal Flag Note LastModifiedBy Organization Detail LastModifiedTime 11/25/19 24 11/25/2023 XR, chest No observ ation record ed. [address], [place], [address], 11/26/2023 08:58:57 11/26/19 24 11/26/2023 thorchely martin sis (PROC ) No observ ation record ed. [address], [place], [address], 11/26/2023 13:14:30 11/26/19 24 11/26/2023 CT, chest , w/o contr ast No observ ation record ed. [address], [place], [address], 11/27/2023 15:46:46 11/27/19 24 11/25/2023 NM, lung scan, perfu nikia No observ ation record ed. [address], [place], [address], 11/27/2023 08:47:11 11/27/19 24 11/27/2023 US, doppl er, venou s No observ ation record ed. [address], [place], [address], 11/27/2023 17:08:39 11/27/19 24 11/27/2023 XR, chest , 1 view No observ ation record ed. [address], [place], [address], 11/27/2023 17:09:14 11/28/19 24 11/28/2023 XR, chest , 1 view No observ ation record ed. [address], [place], [address], 11/28/2023 14:00:03 11/28/19 24 11/27/2023 US, echoc ardio gram No observ ation record ed. [address], [place], [address], 11/29/2023 06:48:14 11/29/19 24 11/29/2023 CT, lumba r spine , w/o contr ast No observ ation record ed. [address], [place], [address], 11/30/2023 07:02:20 11/30/19 24 11/30/2023 XR, chest , 2 view No observ ation record ed. [address], [place], [address], 11/30/2023 08:50:13 11/30/19 24 11/30/2023 MRI, lumba r spine , w/o contr ast No observ ation record ed. [address], [place], [address], 11/30/2023 17:11:21 11/30/19 24 11/30/2023 MRI, thora cic spine , w/o contr ast No observ ation record ed. [address], [place], [address], 11/30/2023 17:11:51 11/30/19 24 11/30/2023 XR, chest , 2 view No observ ation record ed. [address], [place], [address], 11/30/2023 17:12:11 11/30/19 24 11/30/2023 US, chest wall No observ ation record ed. [address], [place], [address], 11/30/2023 17:47:21 12/01/19 24 12/01/2023 XR, chest , 2 view No observ ation record ed. [address], [place], [address], 12/01/2023 09:32:55 12/01/19 24 12/01/2023 US, echoc ardio gram No observ ation record ed. [address], [place], [address], 12/01/2023 17:33:53 12/02/19 24 12/02/2023 XR, chest , 2 view No observ ation record ed. [address], [place], [address], 12/03/2023 09:04:34 07/24/20 24 06/20/2024 PFT, exerc [facility]e test for [facility] pre and post- hortensia metry and pulse oxime try No observ ation record ed. [facility] Not Available 2023 17:21:53 07/24/20 24 06/20/2024 six minut e walk test* No observ ation record ed. [facility] Not Available 2023 17:21:53 09/16/19 25 09/16/2024 CT, angio gram, chest + abdom en + pelvi s, w/ contr ast No observ ation record ed. [address], [place], [address], 09/16/2024 13:36:07 Result Notes None recorded. Problems Name Problem SNOMED Code Status Onset Date Resolution Date Notes Provider Name and Address Organization Details Recorded Time Irritable bowel syndrome 61847622 Active Not Available [facility] 3 12:54:38 Seizure disorder 019273207 Active 2021 Not Available [facility] 3 12:54:38 Moderate protein-c alorie malnutrit ion (weight for age 60-74 percent of standard) 740286785 Active 2016 Not Available [facility] 3 12:54:38 Generaliz ed osteoarth ritis 002984174 Active Not Available [facility] 3 12:54:38 Gastroeso phageal reflux disease 668890926 Active Not Available [facility] 3 12:54:38 Headache 59881878 Active Not Available [facility] 3 12:54:38 Carcinoma of breast 621126541 Active Not Available [facility] 3 12:54:38 Pure hyperchol esterolem ia 039592436 Active Not Available [facility] 3 12:54:38 Screening for malignant neoplasm of colon Active 2021 Not Available [facility] 3 12:54:38 Closed fracture of clavicle 10021445 Active Not Available [facility] 3 12:54:38 Depressiv e disorder 56539656 Active Not Available [facility] 3 12:54:39 Pneumotho rax 30015765 Active Not Available [facility] 3 12:54:39 Chronic pain syndrome 537736277 Active 2020 Not Available [facility] 3 12:54:39 Migraine 66099606 Active Not Available [facility] 3 12:54:39 Type 2 diabetes mellitus 09842059 Active Not Available [facility] 3 12:54:39 Long-term current use of opiate analgesic drug 51598564756 4108 Active 2021 Not Available [facility] 3 12:54:39 Hidradeni tis suppurati va 54268197 Active 2021 Not Available [facility] 3 12:54:39 Essential hypertens ion 33506681 Active 2020 Not Available [facility] 3 12:54:39 Osteoporo sis 20550215 Active 2020 Not Available [facility] 3 12:54:39 Abscess of Bartholin 's gland 55512876 Active Not Available [facility] 3 12:54:39 Rheumatoi d arthritis 13622804 Active 2021 Not Available [facility] 3 12:54:39 Malignant hypertens ion 33992047 Completed 202001/06/2021 Not Available [facility] 3 12:54:39 Candidias is of mouth 20296005 Active 2021 Not Available [facility] 3 12:54:40 Pulmonary emphysema 69601132 Active Not Available [facility] 3 12:54:40 Kidney stone 70102184 Active Not Available [facility] 3 12:54:40 Ankylosin g spondylit is 4767913 Active 2018 Not Available [facility] 3 12:54:40 Syncope and collapse 941369394 Active 2022 Cierra Chery froylan, [facility] [employer] [facility] 3 16:25:54 Non-small cell lung cancer 724915802 Active 2023 Kyrie Osuna MD [address], [address], [place], [address] , [facility] [employer] [facility] 4 16:05:50 Carcinoma of breast 556880027 Active 2023 Kyrie Osuna MD [address], [address], [place], [address] , [facility] [employer] [facility] 4 16:12:04 Carcinoma of lung 723203074 Active 2023 Pascale Gatica froylan, [employer] [facility] 4 11:25:52 Acute bronchiti s 78415824 Active 2023 Kyrie Osuna MD [address], [address], [place], [address] , [facility] [employer] [facility] 4 11:50:57 Notes:Some problems listed i n Documents: #[id number], #[id number] could not be added to this patient's chart. Please review these documents and add these problems to the patient's chart manually as needed. Problem Notes None recorded. Procedures Surgical History Date Name Laterality Status Provider Name and Address Organization Details Recorded Time 04/21/20 20 Most Recent Bone Density completed Not Available [facility] 10/05/2022 12:52:24 07/24/20 19 Date of Last Colonoscopy completed Not Available [facility] 10/05/2022 12:52:24 Imaging Results None recorded. Procedure Notes None recorded. Medical Equipment None [...] capsule every 8 hours by oral route. 11/27 completed Not Available Not Available Not Available atorvasta tin 40 mg tablet TAKE [...] TAKE 1 TABLET BY MOUTH EVERY DAY 2024 active Not Available Not Available Not Avai lable venlafaxi ne ER 37.5 mg capsule,e xtended [...] 1 TABLET BY MOUTH TWICE A DAY *GIVE WITH FOOD (MEAL/SN ACK) 2024 active Not Available Not Available Not Avai lable Topamax 25 mg tablet Take 3 tablets twice a day by oral route. 11/01 completed Not Available Not Available Not Available alprazola m 1 mg tablet TAKE 1 TABLET BY MOUTH 5 TIMES DAILY FOR ANXIETY active Not Available [...] 1 TABLET BY MOUTH TWICE A DAY 2024 active Not Available Not Available Not Avai [...] MOUTH EVERY DAY AT BEDTIME WITH 50MG 11/27 completed Not Available Not Available Not Available chlorthal idone 25 mg tablet TAKE 1 TABLET BY [...] BY MOUTH EVERY DAY IN THE MORNING 11/27 completed Not Available Not Available Not Available tramadol 50 mg tablet TAKE 1 [...] 1 TABLET BY MOUTH EVERYDAY AT BEDTIME 11/27 completed Not Available Not Available Not Available trazodone 100 mg tablet TAKE 2 [...] 1 TABLET BY MOUTH TWICE A DAY 2024 active Not Available Not Available Not Avai lable amlodipin e 10 mg tablet TAKE 1 TABLET BY MOUTH EVERY DAY 12/01 completed Not Available Not Available Not Available hydrocodo ne 7.5 mg-acetam inophen 325 mg tablet TAKE 1 TABLET BY MOUTH 3 TIMES A DAY NEEDED FOR PAIN active [...] HOURS WITH A MEAL/ANDREY D X5 DAYS 11/27 completed Not Available Not Available Not Available dexametha sone 4 mg tablet TAKE 1 TABLET BY MOUTH TWICE DAILY THE DAY BEFORE TREATMEN T, THE DAY OF AND THE DAY AFTER 11/27 completed Not Available Not Available Not Available clotrimaz ole-betam ethasone 1 %-0.05 % [...] 3 times a day by oral route. 11/27 completed Not Available Not Available Not Available levofloxa suly 500 mg tablet TAKE 1 TABLET BY MOUTH EVERY DAY FOR 7 DAYS 11/27 completed Not Available Not Available Not Available methylpre dnisolone 4 mg tablets in a dose pack active Not Available Not Available Not Available albuterol sulfate HFA 90 mcg/actua tion aerosol inhaler INHALE 2 PUFFS BY MOUTH EVERY 4 TO 5 HOURS NEEDED FOR DYSPNEA active Not Available Not Available No t [...] BY MOUTH TWICE A DAY WITH FOOD 11/27 completed Not Available Not Available Not Available Estrace 0.01% (0.1 mg/gram) vaginal cream [...] Not Available Not Available Not Avai lable Lahaina Oil 1,000 mg capsule Take 1 capsule [...] TO [facility] active Not Available Not Available No t Available Incruse Ellipta 62.5 mcg/actua tion powder for inhalatio n INHALE ONE PUFF EVERY DAY 01/15 completed Not Available Not Available Not Available Movantik 25 mg tablet Take 1 tablet every day by oral route. 05/31 completed Not Available Not Available Not Available Cosentyx 300 mg/2 Syringes (150 mg/mL) subcutane ous syringe Inject 2 mL every 4 weeks by subcutan eous route. 11/27 completed Not Available Not Available Not Available Cosentyx Pen 300 mg/2 pens (150 mg/mL) subcutane ous pen injector Inject 2 mL every 4 weeks by subcutan eous route. 06/20 completed Not Available Not Available Not Available naloxone 4 mg/actuat ion nasal spray 10/10 completed Not Available Not Available Not Available Trelegy Ellipta 100 mcg-62.5 mcg-25 mcg powder for inhalatio n INHALE 1 PUFF BY MOUTH . active Not Available Not Available No t [...] Updated DateTime 4 165.1 cm 21.9 kg/m2 98204.4 g 73 /min 97 [degF] 91 % 91 % 138 mm[Hg] 78 mm[Hg] Pascale SERRANO - S [place] [employer] [facility] 4 16:02:48 Date Recorded Body height Body mass index (BMI) Body weight Heart rate Body temperature Oxygen saturation Oxygen saturation in Arterial blood by Pulse oximetry Inhaled oxygen flow rate Systolic blood pressure Diastolic blood pressure Provider Name and Address Organization Details Last Updated DateTime 5 165.1 cm 24.3 kg/m2 31323.4 9 g 64 /min 97 [degF] 90 % 90 % 3 L/min 120 mm[Hg] 68 mm[Hg] Pascale Gatica [employer] [facility] [employer] [facility] 5 11:29:01 Date Recorded Body height Body mass index (BMI) Body weight Heart rate Body temperature Oxygen saturation Oxygen saturation in Arterial blood by Pulse oximetry Inhaled oxygen flow rate Systolic blood pressure Diastolic blood pressure Provider Name and Address Organization Details Last Updated DateTime 4 165.1 cm 23.3 kg/m2 95804.9 3 g 78 /min 97 [degF] 80 % 80 % 4 L/min 94 mm[Hg] 50 mm[Hg] Pascale Gatica [place] [facility] [facility] [employer] [facility] 4 10:56:19 Date Recorded Body height Body mass index (BMI) Body weight Heart rate Body temperature Oxygen saturation Oxygen saturation in Arterial blood by Pulse oximetry Inhaled oxygen flow rate Systolic blood pressure Diastolic blood pressure Provider Name and Address Organization Details Last Updated DateTime 4 165.1 cm 21.4 kg/m2 06637.6 2 g 64 /min 97.2 [degF] 88 % 88 % 3 L/min 112 mm[Hg] 60 mm[Hg] Tawana Morgan Chely [facility] [employer] [facility] 4 15:24:48 Date Recorded Body height Body weight Heart rate Body temperature Oxygen saturation Oxygen saturation in Arterial blood by Pulse oximetry Inhaled oxygen flow rate Systolic blood pressure Diastolic blood pressure Provider Name and Address Organization Details Last Updated DateTime 4 165.1 cm 12948.7 5 g 51 /min 97 [degF] 91 % 91 % 3 L/min 130 mm[Hg] 80 mm[Hg] JORDAN Rossi [facility] [employer] [facility] 4 11:11:40 Social History Question Answer Notes LastModified by Organizat ion Details LastModified Time Tobacco Smoking Status Former Smoker Not Available [facility] 10/05/2022 12:52:19 Do You Have An Advance Directive? No [id number].[id number] Information not available 10/05/2022 Are You Blind Or Do You Have Difficulty Seeing? No MIGRATION.70469 [id number] Information not available 10/05/2022 Are You Deaf Or Do You Have Serious Difficulty Hearing? No MIGRATION.61705 95832 Information not available 10/05/2022 What Type Of Diet Are You Following? REGULAR MIGRATION.42717 45645 Information not available 10/05/2022 Have There Been Any Changes To Your Family Or Social Situation? No MIGRATION.02499 19077 Information not available 10/05/2022 What Is The Fluoride Status Of Your Home? Unknown MIGRATION.72964 36990 Information not available 10/05/2022 When Did You Quit Smoking? 1-5yearssincelastc igarette MIGRATION.47157 47171 Information not available 10/05/2022 Are There Any Guns Present In Your Home? Yes MIGRATION.04001 42616 Information not available 10/05/2022 Do You Use Insect Repellent Routinely? No MIGRATION.43394 62093 Information not available 10/05/2022 [facility] MIGRATION.97581 09242 Information not available 10/05/2022 Do You Have A Medical Power Of Cableway Operator? No MIGRATION.65363 11718 Information not available 10/05/2022 What Was The Date Of Your Most Recent Tobacco Screening? 06/20/2022 MIGRATION.72000 50884 Information not available 10/05/2022 Do You Have Any Pets? Yes MIGRATION.87318 05572 Information not available 10/05/2022 What Is Your Relationship Status? MIGRATION.18228 35030 Information not available 10/05/2022 Do You Have Smoke And Carbon Monoxide Detectors In Your Home? Yes MIGRATION.84369 25848 Information not available 10/05/2022 At What Age Did You Start Smoking Tobacco? 15 MIGRATION.92817 24214 Information not available 10/05/2022 Are You Passively Exposed To Smoke? No MIGRATION.37646 83377 Information not available 10/05/2022 Do You Use Sunscreen Routinely? No MIGRATION.86990 26899 Information not available 10/05/2022 Have You Recently Traveled Abroad? No MIGRATION.84021 79157 Information not available 10/05/2022 Do You Have Difficulty Walking Or Climbing Stairs? No MIGRATION.24036 11255 Information not available 10/05/2022 Do You Have Any Dietary Restrictions? No MIGRATION.82586 99389 Information not available 10/05/2022 Sex: Unknown Functional Status Question Answer Note LastModified by Organizat ion Details LastModified Time What is your level of alcohol consumption? Occasional MIGRATION.[id number] [id number] Information not available 10/05/2022 Do you have transportation difficulties? No MIGRATION.[id number] 026 Information not available 10/05/2022 Are you able to walk? YESWOREST MIGRATION.6373973 026 Information not available 10/05/2022 Do you have difficulty doing errands alone? Yes MIGRATION.[id number] 026 Information not available 10/05/2022 Are you able to care for yourself? Yes MIGRATION.[id number] 026 Information not available 10/05/2022 Do you have difficulty dressing or bathing? No MIGRATION.[id number] 026 Information not available 10/05/2022 What is your exercise level? None MIGRATION.[id number] 026 Information not available 10/05/2022 Mental Status Question Answer Note LastModified by Organizat ion Details LastModified Time Do you have difficulty concentrating, remembering or making decisions? No MIGRATION.[id number] Information not available 10/05/2022 Family History Nothing Reported Notes:Mother 56 fro m lung cancer Father is living 78 with hypertension, Type II diabetes and prostate cancer. Two brothers living with bipolar(1) disorder. Two sisters one of breast cancer the other from [place] of lung Medical History Condition Response BLINDNESS N NERVE DISEASE N RHEUMATIC FEVER N BLADDER PROBLEMS N KIDNEY STONES N MRSA N OTHER # 1 N POLIO N LUNG DISEASE/DISORDER N RADIATION / CHEMOTHERAPY N COPD N Other # 2 N BLOOD DISEASES N SURGERY N EAR OR HEARING PROBLEMS N MUMPS N BOWEL PROBLEMS N DEPRESSION (INCLUDING POST ) Y STROKE/TIA N ULCERS N BENIGN PROSTATIC HYPERPLASIA N MEASLES N MYOCARDIAL INFARCTION N OBESITY N GERD/NAUSEA Y ANEURYSM N URINARY/BLADDER/KIDNEY PROBLEMS N CORONARY ARTERY DISEASE (CAD) N ADDICTION CONCERNS N ENDOMETRIOSIS N Impotence N USE OF BLOOD THINNERS N SKIN [...] APNEA N CHICKENPOX N INFECTIOUS DISEASE N HEART ARRHYTHMIA N PROSTATE N INSOMNIA N HIGH CHOLESTEROL / HYPERLIPIDEMIA N HYPERTHYROIDISM N EYE PROBLEMS N NEUROLOGICAL PROBLEMS N EDEMA N CHRONIC PAIN SYNDROME N HYPOTHYROIDISM N CAROTID BLOCKAGE N CONSTIPATION N BACK / NECK PROBLEMS Y HAVE YOU BEEN HOSPITALIZED OR SEEN IN [facility] ER IN THE PAST YEAR ? N ATHEROSCLEROSIS N BREAST PROBLEMS Y DIALYSIS N ECZEMA N OSTEOPOROSIS N ARTHRITIS N NO SIGNIFICANT PAST MEDICAL HISTORY N APPENDICITIS N DIABETES, TYPE N BAD TEETH N ENT N HEARTBURN / REFLUX N AUTISM SPECTRUM DISORDER (ASD) N HEPATITIS / LIVER DISEASE N GOUT N SLEEP DISORDER N ALZHEIMER'S DISEASE N Brain Problems N HERPES N DEMENTIA N HEADACHES/MIGRAINES N SEIZURES/EPILEPSY N VASCULAR DISEASE N PACEMAKER N Blood Disorder N DIZZINESS N HEART DISEASE/HEART PROBLEMS N KIDNEY DISEASE N MULTIPLE SCLEROSIS N CARDIAC ARRHYTHMIA N CANCER: SPECIFY N ATRIAL FIBRILLATION N Gall Stones N [...] quadrivalent, PF 3 completed Kyrie Osuna MD [address] [place] [address] [address], [place], [address], [facility] [employer] 07/03/2023 16:14:11 Influenza, split virus, trivalent, preservative 3 completed Not Available [facility] 10/05/2022 12:58:40 SARS-COV-2 (COVID-19) vaccine, UNSPECIFIED 1 completed Not Available [facility] 10/05/2022 12:58:40 SARS-COV-2 (COVID-19) vaccine, UNSPECIFIED 1 completed Not Available [facility] 10/05/2022 12:58:40 Influenza, split virus, trivalent, preservative 4 completed Not Available [facility] 10/05/2022 12:58:40 Influenza, high-dose, quadrivalent, PF 1 completed Not Available [facility] 10/05/2022 12:58:40 Influenza, high-dose, quadrivalent, PF 2 completed Not Available [facility] 10/05/2022 12:58:40 Influenza, high-dose, quadrivalent, PF 0 completed Not Available [facility] 10/05/2022 12:58:40 Influenza, high-dose, trivalent, PF 9 completed Not Available [facility] 10/05/2022 12:58:40 Influenza, split virus, quadrivalent, PF 8 completed Not Available [facility] 10/05/2022 12:58:40 Pneumococcal conjugate PCV 13 9 completed Not Available [facility] 10/05/2022 12:58:40 Influenza, split virus, quadrivalent, preservative 5 completed Not Available [facility] 10/05/2022 12:58:41 Influenza, split virus, quadrivalent, PF 7 completed Not Available [facility] 10/05/2022 12:58:41 Influenza, split virus, quadrivalent, PF 6 completed Not Available [facility] 10/05/2022 12:58:41 Pneumococcal conjugate PCV20, polysaccharide RVO625 conjugate, adjuvant, PF 4 completed Kyrie Osuna MD [address] [place] [address], [address], [address], [facility] 07/22/2024 11:49:41 Past Encounters Encounter ID Performer Location Encounter Start Date Encounter Closed Date Diagnosis/Indication Diagnosis SNOMED-CT Code Diagnosis ICD10 Code Diagnosis Note [id number] Kyrie Osuna MD [facility] Internal Med [facility] [address] [address] 11/11/2020 00:00:00 11/11/2020 15:25:54 [id number] Kyrie Osuna MD [facility] Internal Med [facility] [address] [address] 11/26/2020 00:00:00 11/26/2020 11:25:47 [id number] Kyrie Osuna MD [facility] Internal Med [facility] [address] [address] 12/09/2020 00:00:00 12/09/2020 12:25:32 [id number] Kyrie sOuna MD [facility] Med [facility] [address] [place] [address] 01/06/2021 00:00:00 01/06/2021 14:58:28 [id number] Kyrie Osuna MD S_[facility] Internal Med [facility] 24 [address] [place] [address] [address] 05/12/2021 00:00:00 05/12/2021 14:43:15 [id number] Kyrie Osuna MD [facility] Internal Med [facility] 24 [address] [place] [address] [address] 09/15/2021 00:00:00 09/15/2021 14:39:39 [id number] Kyrie Osuna MD S_[facility] Internal Med [facility] 24 [address] [place] [address] [address] 12/01/2021 00:00:00 12/01/2021 15:40:25 [id number] Kyrie Osuna MD S_[facility] Internal Med [facility] [address] [place] [address] [address] 12/29/2021 00:00:00 12/29/2021 12:10:44 [id number] Kyrie Osuna MD S_[facility] Internal Med [facility] [address] [address] 06/20/2022 00:00:00 06/20/2022 12:05:59 [id number] Kyrie Osuna MD S_[facility] Internal Med [facility] [address] [place] [address] [address] 12/19/2022 11:25:00 12/19/2022 12:19:10 Ankylosing spondylitis 3139772 M45.9 Essential hypertension 96425280 I10 Pulmonary emphysema 8743 3001 J43.9 Pure hypercholesterolemia 685164409 E78.00 Osteoporosis 91740365 M8 1.0 Long-term current use of opiate analgesic drug 5400599646 08284 Z79.113 [id number] Kyrie Osuna MD S_[facility] Internal Med [facility] [address] [address] 07/03/2023 15:25:09 07/03/2023 16:36:59 Administration of influenza vaccine 90458774 Z23 Chronic pain syndrome 37 0600507 G89.4 Gastroesop hageal reflux disease 790562753 K21.9 Pure hypercholesterolemia 346473191 E78.00 Pulmonary emphysema 8743 3001 J43.9 Essential hypertension 40360531 I10 [id number] Kyrie Osuna MD [facility] Internal Med [facility] [address] [address] 10/11/2023 15:51:53 10/11/2023 16:19:10 Essential hypertension 04482383 I10 Carcinoma of breast 2548 73614 C50.012 Non-small cell lung cancer 242293672 C34.90 [id number] Kyrie Osuna MD [facility] Internal [facility] [address] [facility] , [place] [address] 12/19/2023 10:36:46 12/19/2023 11:12:49 Essential hypertension 48236880 I10 Non-small cell lung cancer 764246763 C34.90 Pure hypercholesterolemia 037898376 E78.00 Pulmonary emphysema 8743 3001 J43.9 [id number] Kyrie Osuna MD [facility] Internal [facility] [address] [address] 03/25/2024 15:14:00 03/25/2024 15:56:13 Carcinoma of breast 663399517 C50.012 Essential hypertension 32012502 I10 Pure hypercholesterolemia 850193881 E78.00 Pulmonary emphysema 8743 3001 J43.9 Type 2 shanda betes mellitus 55718351 E11.9 Carcinoma of lung 085743 007 C34.90 [id number] Kyrie Osuna MD [facility] Internal [facility] [address] [address] 07/22/2024 11:05:21 07/22/2024 12:01:10 Carcinoma of lung 380116924 C34.90 Carcinoma of breast 2548 57591 C50.012 Chronic pain syndrome 37 4872238 G89.4 Essential hypertension 00074866 I10 Pure hypercholesterolemia 372685491 E78.00 Pulmonary emphysema 8743 3001 J43.9 Administra tion of pneumococcal vaccine 47824832 Z23 [id number] Kyrie Osuna MD [facility] Internal Med [facility] [address] [address] 11/27/2024 11:04:01 11/27/2024 11:44:57 Carcinoma of breast 394449418 C50.012 Carcinoma of lung 987405 007 C34.90 Essential hypertension 25842448 I10 Gastroesop hageal reflux disease 080101193 K21.9 Pure hypercholesterolemia 101513756 E78.00 Pulmonary emphysema 8743 3001 J43.9 Health Concerns Section Related Observation LastModified by Organization Detai ls LastModified Time None Recorded Concern Status LastModified by Organization Details LastModified Time None Recorded Advance Directives Directive N: Payers Insurance Date Sequence Insurance Name Policy Number Policy Zaman Covered Member ID Zaman Member ID Guarantor Name 11/26/2024 1 [place] Mili Sherman Damion [id number] Mili K Damion 11/26/2024 2 AARP (MEDICARE SUPPLEMENT) Mili K Damion [id number] Mili Bruno Notes Date Note Type Note Provider Name and Address Organization Details Recorded Time text/html Patient Name: Mili BrunoDate Of Service: Monday ( 10.11.2023 ): 1955 [...] Systemic Symptoms:none Medication Reconciliation: from medication list. Amzbegwygwi12-72-0175: CT brain demonstrates no significant abnormalities account [...] MG (TABLET - ORAL) Monthly Vaccination and Zdcetsildpcc2152-38 Icqnqknhu2360-26 Covid Urusupf1450-43 Prevnar 13 Qo9425-79 Tb Meqn9822-07 Pneumovax Surgical Rkzvvzf1650-66 Rt. Partial Ptzdwjgtalvnw3075-50 Bilateral Zawltdljj9790-72 Ultrasound Left Biopsy Fvkuts0111-42 Bartholin Rkzq1919-61 Right Pamudxyqqzws0371-15 Silicon Ntdaynnj6104-42 Rt. Lumpecotomy Preventative Mxmqudz2506/21/2023 MAMMOGRAM ALBUMIN 4.1 G/DL N012/31/2021 COLONOSCOPY ( 5 YEARS ) / HAIC 5.9 % N010/28/2021 LDCT / COLOGUARD (POSITIVE) 5009/24/2020 MICRO ALBUMIN 1.2 MG/DL N004/21/2020 DEXA SCAN07/24/2019 UPPER EGAAFETVM79/13/2010 CT THORAX Kyrie Osuna MD [address] [facility], [facility] [address], [place], [address], [facility] [employer] 10/11/2023 16:12:31 4 text/html Patient Name: Mili De Leonte Of Service: Monday ( 12.19.2023 ): 1955 [...] generalized fatigue Medication Reconciliation: from medication list. Wymbbknreyd05-19-7682: CT brain demonstrates no significant abnormalities account [...] MG (TABLET - ORAL) Monthly Vaccination and Vvjmizcwdbiw1210-77 Goedamoou0932-44 Covid Chxhunw1750-71 Prevnar 13 Ca4356-77 Tb Cwuv8322-46 Pneumovax Surgical Hkxhbck6623-48 Rt. Partial Chhueudqmxhab2795-15 Bilateral Ewrswyjhe5781-24 Ultrasound Left Biopsy Yxcidl4499-77 Bartholin Rogi8251-84 Right Bxygxoumqhxw1584-40 Silicon Vklgfpxs0870-15 Rt. Lumpecotomy Preventative Tftyjul6011/21/2023 ALBUMIN 3.9 G/DL06/21/2023 MAMMOGRAM / COLONOSCOPY ( 5 YEARS ) 704/ HAIC 5.9 % N010/28/2021 LDCT / COLOGUARD (POSITIVE) 502/ MICRO ALBUMIN 1.2 MG/DL N004/21/2020 DEXA SCAN07/24/2019 UPPER KDFPFUBHU45/13/2010 CT THORAX Social HistorySmokes 1.5-2 packs daily for 30 years. Drinks socially. Currently unemployed. Family HistoryMother 56 from lung cancerFather is living 78 with hypertension, Type II diabetes and prostate cancer.Two brothers living with bipolar(1) disorder.Two sisters one of breast cancer the other from CA of lung Kyrie Osuna MD [address] [facility], [facility] [address], [place], [address], [facility] [employer] 12/19/2023 11:10:33 4 text/html Patient Name: Mili Shell Of Service: Monday ( 03.25.2024 ): [...] Systemic Symptoms:none Medication Reconciliation: from medication list. Stcgzgjxmeu38-54-0271: CT brain demonstrates no significant abnormalities account [...] non healing lesions. The last HAIC was [facility] HAIC: 5.9 Calculated MB mg%. Average blood [...] MG (TABLET - ORAL) Monthly Vaccination and Skatbbcwgoio3087-34 Emcitbilo0602-26 Covid Usjqtlz7301-98 Prevnar 13 Pf3231-11 Tb Llye6079-12 Pneumovax Surgical Zayajvn5097-14 Rt. Partial Lsfwxknxnmipg5047-67 Bilateral Xoqkfyzea6346-74 Ultrasound Left Biopsy Ufwxrp2028-34 Bartholin Arlc6150-93 Right Edolgjyxupai6460-49 Silicon Hmivssqt3614-89 Rt. Lumpecotomy Preventative Testing( ) 11/21/2023 Albumin [...] CA of lung Kyrie Osuna MD [address] [facility], [facility] [address], [place], [address], [facility] [employer] 03/25/2024 15:52:33 4 text/html Patient Name: Mili Shell Of Service: Monday ( 07.22.2024 ): [...] Systemic Symptoms:none Medication Reconciliation: from medication list. Buvbwdnrokz96-26-8143: CT brain demonstrates no significant abnormalities account [...] or has seen in the past a Plant Clerk: No .Pain - Enjoyment of Life - [...] BOOSTER MODERNA( ) 2024-07 PREVNAR 20( ) 2020- COVID MODERNA Surgical Pvxfbjg5338-24 Rt. Partial Kblxtkfdhtxab3859-56 Bilateral Wkofjsxoi5677-54 Ultrasound Left Biopsy Auzhnj8318-99 Bartholin Fuwg6850-58 Right Dtylfenvjrti9556-40 Silicon Wkaisbmq8883-10 Rt. Lumpecotomy Preventative Testing( ) 11/21/2023 Albumin [...] from CA of lung Kyrie Osuna MD [address] [place] [address], [address], [facility] 07/22/2024 11:50:27 5 text/html Patient Name: Mili BrunoAllie Of Service: Monday ( 11.27.2024 ): 1955 Age: 69 There has been approximately a 8 lb weight gain since 07/22/2024. This represents approximately a 5.8% change in weight. Weight change attributable to lifestyle changes. Vital Signs:Blood Pressure: Sitting Rt. Arm 120/68Pulse: Sitting 64 /min and RegularRespiratory Rate: 16Height 65 in or 1.7 mWeight 146 lb or 66.2 kgBMI 24.3Temperature: 97 F or 36.1 CPulse Oximetry: 90 % 3 Liters Chief Complaint: Addressed in HPI Problems or conditions discussed in the HPI were the only ones reviewed during the encounter.Only social and family history addressed in the HPI were reviewed during this encounter. Attendant(s): DaughterConstitutional and Systemic Symptoms:none Medication Reconciliation: from medication list. Awbhsuoscfz86-20-1103: CT brain demonstrates no significant abnormalities account [...] size right and small left pleural effusions 09-16-2024: CT scan of the chest abdomen and pelvis with contrast no evidence of any significant mediastinal, hilar or axillary adenopathy. Minimal right pleural effusion. Status post right upper lobe lobectomy. Liver spleen pancreas adrenals and kidneys are within normal limits there are atherosclerotic changes of the aorta noted. No adenopathy no evidence of any active malignancy. There is a stable 5 mm left basilar pulmonary nodule. History of Present Illness #1. COPD: Hx of Emphysema currently stable. There has been no interval change in exercise tolerance an shortness of breath. No change in sputum production, color or consistency. No fever, chills, weight loss or other constitutional symptoms. Gold Scale: Severe. MRC Scale: normal walking. Smoking: not currently smoking Current medications: none Using nebulizer Treatments: No. Uses does not use supplemental oxygen #2. Essential Hypertension: Stage: Stage I Interval Neurological Complaints no headaches, dizziness, weakness, visual changes, ataxia, aphasia and apraxia. No shortness of breath, orthopnea or cardiovascular symptoms. No other symptoms related to end organ damage. Pressure has been under excellent control. Currently normal. No other end organ symptoms or findings. Therapy reviewed regarding management of hypertension and includes weight loss and Chlorthalidone, Losartan Potassium and Nifedipine. #3. Type II Hypercholesterolaemia: Currently taking medication and tolerating well. No interval complaints of any muscle pain or arthralgia. No significant liver changes with medications. Last lipid panel: fair control. Therapy reviewed regarding treatment of cholesterol management and include diet and Atorvastatin Calcium. #4. Hx of esophageal reflux currently stable. Hx of Complications: none The severity, duration and intensity of symptoms have improved. Frequency: most meals Treatment consists medications taken on intermittent basis. Current therapy includes no medication. There has been no nausea, eructation, vomiting, hematemesis, dysphagia, velopharyngeal insufficiency and odynophagia. No change in he frequency or intensity of symptoms. Has had no melena. Has had no . Discussed use of H2 antagonists NA. #5. Carcinoma of the breast as well as non-small cell cancer of the lung clinically stable. Is status post thoracotomy and upper lobectomy. Is clinically doing reasonably well. Quite fatigued and run down as a result of her myriad of medical problems. No new problems. Is doing reasonably well considering the circumstances.: Active Medication ListEffexor Xr 75 MG One DailyAtorvastatin Calcium 80 MG (TABLET - ORAL) One DailyLevetiracetam 500 MG (TABLET - ORAL) One Twice A DayAcyclovir 400 MG TABLET One Twice A DayXanax 1 MG (TABLET - ORAL) One Tablet Five Times A Day As NeededSeroquel 100 MG TABLET, FILM COATED One At BedtimeSeroquel 50 MG (TABLET - ORAL) One Twice A Day As NeededNorco 325 MG-7.5 MG (TABLET - ORAL) One TidProair Hfa 0.09 MG /INH (AEROSOL, METERED - INHALATION) Two Puffs Four Times A Day As Neededfor WheezingLamotrigine 100 MG (TABLET - ORAL) One Twice A DayLosartan Potassium 100 MG TABLET Once DailyNifedipine 90 MG TABLET, FILM COATED, EXTENDED RELEASE Once DailyEffexor Xr 37.5 MG Take Daily Along With 75 MgSulfasalazine Twice A DayOs-rosita D One Twice A DayChlorthalidone 25 MG TABLET Once DailyTrazodone 100 MG (TABLET - ORAL) Two At BedtimeOndansetron 8 MG TABLET As NeededBaclofen 10 MG (TABLET - ORAL) One Twice A DayMetoprolol Tartrate 50 MG TABLET One Twice A DayOs-rosita D Twice A DayPrimrose Oil 1000 MG Once DailyMultivitamin Once DailyGas-x Daily As NeededBoniva 150 MG (TABLET - ORAL) Monthly Vaccination and Immunization( ) 2003- PNEUMOVAX( ) 2024-07 INFLUENZA( ) 2010-07 TB TEST( ) 2019-06 PREVNAR 13 GC( ) 2024-07 COVID BOOSTER MODERNA( ) 2024-07 PREVNAR 20( ) 2021-02 COVID MODERNA Surgical Idkngnm0774-12 Rt. Partial Zqqhthqydmbff3383-39 Bilateral Wmnazqklz6193-20 Ultrasound Left Biopsy Wzfofy2288-13 Bartholin Lnrq4258-29 Right Nmygqrllmxug0124-24 Silicon Uxqjiqht6455-55 Rt. Lumpecotomy Preventative Testing( ) 11/14/2024 Ophthalmology( ) 11/21/2023 Albumin 3.9 G/DL( ) 06/21/2023 [...] CA of lung Kyrie Osuna MD [address] [facility], [place] [address], [place], [address], [facility] [employer] 11/27/2024 11:39:34 OBGyn Episode No OBEpisode recorded.
--- OUTSIDE RECORDS SUMMARY | 2025-01-20 09:31 | XMS_ITS | Encounter Summary ---
Author Organization [facility] Address [address] [facility] Attn: [place] [address] Care Team Providers Care Interior Design Faculty Member Name Role Phone Kyrie Osuna MD Primary Care Provider [phone] Encounter Details Date Type Department Care Team (Late Contact Info) Description 04/20/2007 Outpatient Historical Edilberto Messer MD [facility] [address] [facility] [address] [place] [address] Social History Tobacco Use Types Packs/Day Years Used Date Smoking Tobacco: Never Assessed Comments Unknown Sex and Gender Information Value Date Recorded Sex Assigned at Not on file 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 Gender Identity Not on file Sexual Orientation Not on file documented as of this encounter Plan of Treatment Upcoming Encounters Date Type Department Care Team (Late Contact Info) Description 01/30/2025 10:00 AM CDT Office Visit [facility] Oncology and Hematology - [place] [address] [facility] [address] [place] [address] Tony Tariq MD [address] [facility] [address] [place] [address] documented as of this encounter Visit Diagnoses Not on filedocumented in this encounter Additional Health Concerns Infection Onset Date Last Indicated Resolved Time R/O COVID-19 10/31/2019 10/31/2019 11/01/2019 4:47 PM CDT documented as of this encounter Care Teams Interior Design Faculty Member Relationship Specialty Start Date End Date Kyrie Osuna MD [address] [facility] [address] [place] [address] PCP - General 02/19/09 documented as of this encounter
--- OUTSIDE RECORDS SUMMARY | 2025-01-20 09:31 | XMS_ITS | Encounter Summary ---
Author Organization [facility] Address 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 Gender Identity Not on file Sexual Orientation Not on file documented as of this encounter Plan of Treatment Upcoming Encounters Date Type Department Care Team (Late st Contact Info) Description 01/30/2025 10:00 AM CDT Office Visit [facility] Oncology and Hematology - [place] [address] [place] [address] [facility] [address] [place] [address] Tony Tariq MD [address] [facility] [address] [place] [address] documented as of this encounter [...] CARE TESTING E dited Performing Organization Address City/[facility]/ZIP Co de Phone Number INTERFACE SYSTEM Refer to clinic/hospital department * POC GLUCOSE (05/11/2007 6:19 AM CDT) COMMENT, GLU POC Notified RN INTERFACE SYSTEM GLUCOSE POC 89 65 - 99 mg/dL INTERFACE SYSTEM 05/11/2007 6:19 AM CDT us Jevon Atwood MD POINT OF CARE TESTING E dited Performing Organization Address City/State/[facility] de Phone Number INTERFACE SYSTEM Refer to clinic/hospital department * POC GLUCOSE (05/10/2007 4:02 PM CDT) GLUCOSE POC 93 65 - 99 mg/dL INTERFACE SYSTEM 05/10/2007 4:02 PM CDT us Jevon Atwood MD POINT OF CARE TESTING E dited Performing Organization Address City/[facility] Phone Number INTERFACE SYSTEM Refer to clinic/hospital department * (ABNORMAL) POC GLUCOSE (05/10/2007 12:22 PM CDT) GLUCOSE POC 105(H) 65 - 99 mg/dL INTERFACE SYSTEM 05/10/2007 12:2 2 PM CDT us Jevon Atwood MD POINT OF CARE TESTING E dited Performing Organization Address [facility] Phone Number INTERFACE SYSTEM Refer to clinic/hospital department * POC GLUCOSE (05/10/2007 6:01 AM CDT) GLUCOSE POC 91 65 - 99 mg/dL INTERFACE SYSTEM 05/10/2007 6:01 AM CDT us Jevon Atwood MD POINT OF CARE TESTING E dited Performing Organization Address [facility] Phone Number INTERFACE SYSTEM Refer to clinic/hospital department * (ABNORMAL) POC GLUCOSE (05/09/2007 8:54 PM CDT) GLUCOSE POC 132(H) 65 - 99 mg/dL INTERFACE SYSTEM 05/09/2007 8:54 PM CDT us Jevon Atwood MD POINT OF CARE TESTING E dited Performing Organization Address City/[facility] Co de Phone Number INTERFACE SYSTEM Refer to clinic/hospital department * (ABNORMAL) POC GLUCOSE (05/09/2007 7:50 PM CDT) GLUCOSE POC 134(H) 65 - 99 mg/dL INTERFACE SYSTEM 05/09/2007 7:50 PM CDT us Jevon Atwood MD POINT OF CARE TESTING E dited Performing Organization Address City/[facility] Co de Phone Number INTERFACE SYSTEM Refer to clinic/hospital department * (ABNORMAL) POC GLUCOSE (05/09/2007 10:29 AM CDT) GLUCOSE POC 123(H) 65 - 99 mg/dL INTERFACE SYSTEM 05/09/2007 10:2 9 AM CDT us Jevon Atwood MD POINT OF CARE TESTING E dited Performing Organization Address City/[facility] de Phone Number INTERFACE SYSTEM Refer to clinic/hospital department * (ABNORMAL) POC GLUCOSE (05/09/2007 7:47 AM CDT) GLUCOSE POC 115(H) 65 - 99 mg/dL INTERFACE SYSTEM 05/09/2007 7:47 AM CDT us Jevon Atwood MD POINT OF CARE TESTING E dited Performing Organization Address [facility] Phone Number INTERFACE SYSTEM Refer to [...] HEMATOLOGY ORDERABLES E dited Performing Organization Address City/State/[facility] Co de Phone Number INTERFACE SYSTEM Refer [...] HEMATOLOGY ORDERABLES E dited Performing Organization Address [facility] Phone Number INTERFACE SYSTEM Refer to [...] and non- Americans is available on the [facility] Intranet at: [email or web address] Select: Lab Policies and Procedures Select: Reference [...] documented as of this encounter Care Teams Manager Staffing Relationship Specialty Start Date End Date Kyrie Osuna MD [address] [place] [address] PCP - General 02/19/09 documented as of this encounter
--- OUTSIDE RECORDS SUMMARY | 2025-01-20 09:32 | XMS_ITS | Referral Summary ---
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 Gender Identity Not on file Sexual Orientation [...] 7:20 AM CDT Height 165.1 cm (5' 5) 12/31/2021 7:20 AM CDT Body Mass Index 23.13 12/31/2021 7:20 AM CDT Plan of Treatment Not on file Medical Devices Explanted Type Area Spanish Speaking Nanny Device Identifier Shelf Expiration Date Model / Serial / Lot Breast Implant-Silicone Explanted:Qty: 1 on 01/17/2018 at [facility] Left: Breast Other Description:500cc -Unknown m anufacturer Silicone Breast Implant Explanted:Qty: 1 on 01/17/2018 at [facility] Right: Breast Other Description: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 Procedures Procedure Name Priority Date/Time Associated Diagnosis [...] Female Attending MD: Paulette Gore M.D. Room: [facility] ENDOSCOPY ROOM 01 Note Status: [...] The scope was passed under direct vision.The [id number] was introduced through the anusand advanced to [...] business hours - Please call theNurse Coordinator: [phone] After hours, evening, nights, weekends and holidays- Please call the hospital machine setup operator at and ask for the GI fellow administration intern. - . Attending Participation: I personally performed the entire procedure. Electronically signed by Paulette Gore M.D. Paulette Gore M.D. 12/31/2021 8:55:36 AM Number of Addenda: 0 Note Initiated On: 12/31/2021 8:17 AM us Paulette Gore MD ENDOSCOPY PROCEDURE S Final Result from Last 3 Months or Most Recently Relevant to Health Maintenance Insurance MEDICARE [facility] ANTHEM ACCESS CHOICE MEDICARE [facility] Advance Directives For more information, please contact: [phone] * Full Code (Latest Code Status on File) Date Activated Date Inactivated Comments 12/31/2021 7:40 AM 12/31/2021 1:41 PM Care Teams Laborer [employer] Relationship Specialty Start Date End Date Kyrie Osuna MD [facility] - General 11/28/16
--- OUTSIDE RECORDS SUMMARY | 2025-01-20 09:32 | XMS_ITS | Encounter Summary ---
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
--- OUTSIDE RECORDS SUMMARY | 2025-01-20 09:32 | XMS_ITS | Clinical Summary ---
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 Gender Identity Not on file Sexual Orientation [...] Pneumococcal vaccine 65+ (2 of 2 - PPSV23) 08/14/2019 06/19/2019 Fall Risk Assessment 12/31/2022 12/31/2021 Covid-19 Vaccine (3 - 2023-2 5 season) 2024 02/13/2021, 01/16/2021 Breast Cancer Screening-Mammogram 06/21/2024 023, 11/30/2018 Influenza Vaccine (Season Ended) 2025 06/19/2019, 06/20/2018, 08/24/2016, Additional history exists Colon Cancer Screening-Colonoscopy 01/01/2032 12/31/2021 Colon Cancer Screening-CT Colonography Discontinued 12/31/2021 Colon Cancer Screening-DNA Stool Discontinued 01/01/20 Colon Cancer Screening-FIT Discontinued 12/31/2021 Colon Cancer Screening-Sigmoidoscopy Discontinued 12/31/2021 Medical Devices Explanted Type Area Snap Shearer Device Identifier Shelf Expiration Date Model / Serial / Lot Breast Implant-Silicone Explanted:Qty: 1 on 01/17/2018 at [facility] Left: Breast Other Description:500cc -Unknown m anufacturer Silicone Breast Implant Explanted:Qty: 1 on 01/17/2018 at [facility] Right: Breast Other Description:Unknown 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 Procedures Procedure Name Priority Date/Time Associated Diagnosis [...] Female Attending MD: Paulette Gore M.D. Room: [facility] ENDOSCOPY ROOM 01 Note Status: Finalized Procedure: Colonoscopy Indications: positive cologaurd test, last colonoscopy in 2016 Providers: Paulette Gore M.D. Referring MD: Kyrie [...] The scope was passed under direct vision.The [id number] was introduced through the anusand advanced to [...] During normal business hours - [facility]: [phone] After hours, evening, nights, weekends and holidays- Please call the hospital compressor house operator at and ask for the GI fellow compressor station chief engineer. - . Attending Participation: I personally performed the entire procedure. Electronically signed by Paulette Gore M.D. Paulette Gore M.D. 12/31/2021 8:55:36 AM Number of Addenda: 0 Note Initiated On: 12/31/2021 8:17 AM Paulette Gore MD ENDOSCOPY PROCEDURE S Final Result from Last 3 Months or Most Recently Relevant to Health Maintenance Insurance MEDICARE [facility] [employer] MEDICARE AARP Advance Directives For more information, please contact: [phone] * Full Code (Latest Code Status on File) Date Activated Date Inactivated Comments 12/31/2021 7:40 AM 12/31/2021 1:41 PM Care Teams Lamp Mechanic Relationship Specialty Start Date End Date Kyrie Osuna MD PCP - General 11/28/16
--- OUTSIDE RECORDS SUMMARY | 2025-01-20 09:32 | XMS_ITS | Clinical Summary ---
Author Organization [facility] [place] Address [address] [place] [address] Phone Care Team Providers Care Cereal Maker Name Role Phone Kyrie Osuna MD Primary Care Provider [phone] Allergies No known active allergies Medications alprazolam [...] Temperature. 4 Active naloxone (NARCAN) 4 mg/spray [place], Non-Aerosol EMERGENCY USE ONLY: Administer 1 spray (4 mg) in one nostril one time. May repeat in alternating nostrils every 2-3 min until responsive or EMS arrives. 2 Each 3 08/25/2023 12:24 PM FLYING I INSTRUCTOR 4 Active ondansetron (ZOFRAN ODT) 8 mg [...] 24 hours. 15 Patch 1 4 Active chlorthalidone (HYGROTON) 25 mg tablet Take 1 Tablet by mouth daily. 5 Active Active Problems Patient Care Coordination No te Formatting of this note migh t be different from the original. Primary Care: Kyrie Osuna MD Referring Provider: Trice Velez MD [address] [place] [address] Other: Dr Irma James Problem Noted Date [...] Encounters Date Type Department Care Team Description 11/05/2024 External Device Data [facility] ABSTRACTION Provider, Abstract 2024 External Device Data [facility] ABSTRACTION Provider, Abstract from Last 3 Months Family History Medical [...] on file Legal Sex Female 5:28 AM FLYING I INSTRUCTOR Gender Identity Not on file Sexual Orientation Not on file Occupation Industry Job Start Date Job End Date Not on file Not on file Not on file Not on file Last Filed Vital Signs Vital Sign Reading Time Taken Comments Blood Pressure 97/55 09/27/2024 11:23 AM FLYING I INSTRUCTOR Pulse 60 09/27/2024 11:23 AM FLYING I INSTRUCTOR Temperature 36.3 C (97.4 F) 09/27/2024 11:23 AM FLYING I INSTRUCTOR Respiratory Rate 16 09/27/2024 11:23 AM FLYING I INSTRUCTOR Oxygen Saturation 94% 09/27/2024 11:23 AM FLYING I INSTRUCTOR Inhaled Oxygen Concentration - - Weight 65.6 kg (144 lb 9.6 oz) 09/27/2024 11:23 AM FLYING I INSTRUCTOR Height 162.6 cm (5' 4) 01/11/2024 7:40 AM CDT Body Mass Index 24.82 01/11/2024 7:40 AM CDT Plan of Treatment Upcoming Encounters Date Type Department Care Team (Late st Contact Info) Description 01/30/2025 10:00 AM CDT Office Visit [facility] Oncology and Hematology - [place] [address] [place] [address] Tony Tariq MD [address] [place] [address] Health Maintenance Due Date Last [...] - Risk 60-74 years 1-dose series) 2013 DIABETES ANNUAL RETINAL EXAM 2021 2020 DIABETES HBA1C Q 6 MONTHS 02/15/20242023, 08/17/2023, 09/01/2022, Additional history exists INFLUENZA VACCINE (#1) 2024 , 06/20/2022, 05/12/2021, Additional history exists BREAST CANCER SCREENING 01/15/2025 01/16/20 24, 01/16/2024, 06/21/2023, Additional history exists OSTEOPOROSIS SCREENING 04/21/2025 04/21/2020 COLORECTAL SCREENING 01/01/2032 12/31/2021, 12/31/2021, 12/31/2021, Additional history exists Colorectal Cancer Screening 01/01/2032 PNEUMOCOCCAL VACCINE 50+ YEARS Completed 07/22/2024 , 06/19/2019 Medical Devices Implanted Type Area Dermatologist Device Identifier Shelf Expiration Date Model / Serial / Lot Sealant Progel Pleural 4ml [id number] - [id number] Implanted:Qty : 1 on 08/21/2023 by Pasquale Gillis MD at [facility] Tissue Right: Chest BARD DAVOL [id number] 02/26/2025 [id number] / / [id number] Cement-01/11/20 Implanted:Qty : 1 on 01/11/2024 by Sridhar Lundy MD Spine Thoracic 08/06/2026 [id number] / / [id number] Description:Kyphon cement im planted on 01/11/[address] Lundy T12 Procedures Procedure Name Priority Date/Time Associated Diagnosis Comments MAMMOGRAM REPORT Routine 01/16/2024 4:00 PM CDT HEMOGLOBIN A1C Routine 08/17/2023 9:31 AM FLYING I INSTRUCTOR from Last 3 Months or Most Recently Relevant to Health Maintenance Results * MAMMOGRAM REPORT (01/16/2024 4:00 PM CDT) Tony Tariq MD MAMMO ORDERABLES Final Result * (ABNORMAL) HEMOGLOBIN A1C (08/17/2023 9:31 AM FLYING I INSTRUCTOR) HEMOGLOBIN A1C 5.7(H) <5.7 % 08/17/2023 11:04 AM FLYING I INSTRUCTOR [facility] EST. AVG GLUCOSE, A1C 117 mg/dL 08/17/2023 11:04 AM [facility] Blood Venipuncture / Unknown 08/17/2023 9:31 AM FLYING I INSTRUCTOR 08/17/2023 10:24 AM FLYING I INSTRUCTOR Narrative [facility] - 08/17/2023 11:04 AM FLYING I INSTRUCTOR HGB A1C INTERPRETATION NORMAL: <5.7% PRE-DIABETES: 5.7 - 6.4% DIABETES: 6.5% OR GREATER Hasmukh Sommer PA-C CHEMISTRY ORDERABLES F inal Result [facility] CLIA# [id number] [address] [place] [address] from Last 3 Months or Most Recently Relevant to Health Maintenance Insurance MEDICARE PART A AND B [facility] [id number] [employer] Medicare Part D MEDICARE PART A AND B [facility] [id number] Advance Directives For more information, please contact: [phone] * Full Code (Latest Code Status on [...] 8:26 AM 11/02/2010 3:41 PM Care Teams Cereal Maker Relationship Specialty Start Date End Date Kyrie Osuna MD [address] [place] [id number] PCP - General 02/19/09
--- OUTSIDE RECORDS SUMMARY | 2025-01-20 09:32 | XMS_ITS | Clinical Summary ---
Author Organization [facility] Address [address] [place] [address] [address] Care Court Abstractor Name Role Phone Kyrie Osuna MD Primary Care Provider [phone] Source Comments [facility],non-owned Affiliates and Associated Physician Practices is amultiple site organization consisting of ambulatory clinics and hospital sitesin [place], [place], [place] and [place]. This disclosure is being madepursuant to the Care Everywhere program and may not contain all information available regarding this patient. Last updated 18.[employer] [facility] Allergies No known active allergies Medications * Be aware that medications may not be up to date on this document. Alwaysverify current medications with the patient. traZODone (DESYREL) 100 MG tablet Take 100 mg by mouth 2 times daily. Active hydrocodone-yfn taminophen (NORCO) 10-325 MG tablet Take 1 Tab [...] mg by mouth 2 times daily. 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 Not on file Not on file Last Filed Vital Signs Vital Sign Reading Time Taken Comments Blood Pressure 102/64 08/30/2016 3:40 PM PEDIATRIC CLINICAL DIETICIAN Pulse 65 08/04/2016 11:50 AM PEDIATRIC CLINICAL DIETICIAN Temperature 36.7 C (98 F) 08/04/2016 11:50 AM PEDIATRIC CLINICAL DIETICIAN Respiratory Rate 16 08/04/2016 11:50 AM PEDIATRIC CLINICAL DIETICIAN Oxygen Saturation 97% 08/04/2016 11:50 AM PEDIATRIC CLINICAL DIETICIAN Inhaled Oxygen Concentration - - Weight 41.7 kg (92 lb) 08/30/2016 3:40 PM PEDIATRIC CLINICAL DIETICIAN Height 165.1 cm (5' 5) 08/30/2016 3:40 PM PEDIATRIC CLINICAL DIETICIAN Body Mass Index 15.31 08/30/2016 3:40 PM PEDIATRIC CLINICAL DIETICIAN Plan of Treatment Health Maintenance Due Date [...] VACCINE (1 of 2) 10/24/2003 COVID-19 VACCINE ( - 2023-2 5 season) 2024 DEPRESSION SCREENING 08/07/2024 INFLUENZA VACCINE (Season Ended) 2025 Respiratory Syncytial Virus (RSV) Vaccine Pt: or [...] to complete this topic MENINGOCOCCAL (Group B) VACC INE SHARED DECISION-MAKING Aged Out No longer eligibl e based on patient's age to complete this topic MENINGOCOCCAL GROUPS A/C/Y/W VACCINE Aged Out No longer eligible b ased on patient's age to complete this topic Insurance MEDICARE * Guarantor: MILI BRUNO Account Type Relation to Patient Date of Phone Billing Address Personal/Family [address] [place] [phone] MEDICARE * Guarantor: MILI BRUNO Account Type Relation to Patient Date of Phone Billing Address Personal/Family [address] [place] [phone] Abstractor Relationship Specialty Start Date End Date Kyrie Osuna MD PCP - General Internal Medicine 08/16/13
[2025-01-20 10:51] LABS: Cholesterol 201 mg/dL (0-200); HDL Direct 44 mg/dL; Triglycerides 203 mg/dL (<150)
[2025-01-20 11:02] LABS: LDL Cholesterol Direct 96 mg/dL
== END 2025-01-20 09:07 | disposition home or self-care (01) ==
LOC: ANHLAB 09:07
PROVIDERS: PCP Internal Medicine; Visit Provider Internal Medicine
DX: E78.00 Pure hypercholesterolemia, unspecified (principal)
CPT/HCPCS: 36415; 80061